=== PATIENT | female | born 1945 | race Caucasian/White ===

== ENCOUNTER 2023-10-18 08:48 | Outpatient (CLI) | payer MEDICARE, SELFPAY ==
--- NOTE | ~2023-10-18 | XR_ITS ---
Left Knee Technique: AP, lateral, and sunrise views were obtained. Clinical History: Pain Findings: No fracture or dislocation is seen. There is mild to moderate degenerative spurring through out the knee.. Soft tissues are unremarkable. No joint effusion is seen. Impression: Mild to moderate tricompartmental degenerative spurring. Reviewed, dictated and finalized at location . Impression: Mild to moderate tricompartmental degenerative spurring.
--- NOTE | ~2023-10-18 | XR_ITS ---
Right Knee Technique: AP, lateral, and sunrise views were obtained. Clinical History: Osteoarthritis Findings: No fracture or dislocation is seen. Osseous alignment is anatomic. Minimal tricompartmental degenerative spurring noted. Soft tissues are unremarkable. No joint effusion is seen. Impression: Minimal tricompartmental degenerative spurring. Reviewed, dictated and finalized at [facility]. Impression: Minimal tricompartmental degenerative spurring.
== END 2023-10-18 08:49 | disposition home or self-care (01) ==
PROVIDERS: PCP Internal Medicine Geriatric Medicine; Visit Provider Orthopaedic Surgery
DX: M17.11 Unilateral primary osteoarthritis, right knee (principal); M25.562 Pain in left knee
CPT/HCPCS: 73564

== ENCOUNTER 2024-09-04 13:26 | Outpatient (CLI) | payer MEDICARE, SELFPAY ==
--- NOTE | ~2024-09-04 | CT_ITS ---
Procedure: CT LE LT wo con Ordering provider: Randell Phillips MD History: . Preoperative Planning . Comparison: None. Technique: Thin slice axial CT of the No IV contrast was given. Sagittal and coronal reformatted imag es were also obtained and reviewed. Radiation reduction technique utilized.The dose-length product wa s 1966.89 mGy-cm. Findings: BONES: No fracture or dislocation. The left acetabulum is unremarkable. The visualized portion of the foot bones is unremarkable. JOINT SPACES: Severe narrowing of the lateral compartment and the left knee. Marginal osteophytes see n in the knee and patella. Osteophytes also seen in the medial and lateral femoral condyle anteriorly and posteriorly. Mild to moderate osteoarthritic changes of the left hip is noted. The ankle joint is unremarkable. SOFT TISSUES: Normal IMPRESSION: No evidence of fractures seen. 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 Reviewed, dictated and finalized at location A.
--- OUTSIDE RECORDS SUMMARY | 2024-09-04 13:26 | XMS_ITS | Encounter Summary ---
Author Organization [facility] Address [address] [place] [address] Phone Care Team Providers Care Optometrist Assistant Name Role Phone Mirna Mac MD Primary Care Provider [phone] Simba Laird MD Unavailable [phone] Skyler Leos MD Unavailable [phone] Ish Zambrano MD Unavailable [phone] Randell Phillips MD Unavailable [phone] Luz Murry MD Unavailable Alex Figueroa MD Unavailable [phone] Cristino Wiley MD Unavailable David Cortes DC Unavailable [phone] Spencer Delcid MD Unavailable [phone] Maki Byrne MA Unavailable Unavailable Encounter Details Date Type Department Care Team (Late st Contact Info) Description 09/26/2022 Orders Only [facility] [address] [place] [address] Scanning, Provider Social History Tobacco Use Types Packs/Day Years Used Date Smoking Tobacco: Former Cigarettes 0.5 5 Smokeless Tobacco: Never Alcohol Use Standard Drinks/Week Comments No 0 (1 standard drink = 0.6 oz pur e alcohol) Social Connection and Isolation Panel [NHANES] A nswer Date Recorded Frequency of Communication with Friends and Fami ly Not on file 01/18/2019 Frequency of Social Gatherings with Friends and Family Not on file 01/18/2019 Attends Orthodox Services Not on file 01/18 Active Member of Clubs or Organizations Not on f ile 01/18/2019 Attends Club or Organization Meetings Not on donato e 01/18/2019 Marital Status Patient declined 01/18/2019 PHQ-2 Answer Date Recorded PHQ-2 Total Score (If total score is 3 or more points, staff should administer the PHQ-9) 0 09/15/2022 Comments No Sex and Gender Information Value Date Recorded Sex Assigned at Not on file Legal Sex Female 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 Gender Identity Not on file Sexual Orientation Not on file Occupation Industry Job Start Date Job End Date Retired Not on file Not on file Not on file documented as of this encounter Plan of Treatment Not on file documented as of this encounter Procedures Procedure Name Priority Date/Time Associated Diagnosis Comments PULMONARY - RESULT SCAN 09/26/2022 documented in this encounter Results * PULMONARY - RESULT SCAN (09/26/2022) Anatomical Region Laterality Modality Other us Provider Scanning Final Result documented in this encounter Visit Diagnoses Not on filedocumented in this encounter Additional Health Concerns Infection Onset Date Last Indicated Resolved Time COVID: Recovered Comment:Added based on recent COVID infection. 07/05/2022 07/15/2022 10/03/2022 3:05 AM C DT documented as of this encounter Care Teams Optometrist Assistant Relationship Specialty Start Date End Date Mirna Mac MD PCP - General 07/15/16 Simba Laird MD Plastic Surgery 12/16/16 Skyler Leos MD [address] [place] [address] Dermatology 12/16/16 Ish Zambrano MD [address] [place] [address] Ophthalmology 12/16/16 Randell Phillips MD [address] [place] [address] [place] [address] Referring Physician Orthopedic Surgery 10/24/17 Luz Murry MD [address] [facility] [address] [place] [address] Consulting Physician General Surgery 07/10/18 Alex Figueroa MD [address] [place] [place] [address] [address] [place] [address] Engineer Conductor Obstetrics and Gynecology 08/04/20 Cristino Wiley MD [address] [place] [place] [address] [address] [place] [address] Consulting Physician Sleep Medicine 03/02/21 David Cortes DC [address] [place] [address] [place] [address] Chiropractic Medicine 05/17/21 Spencer Delcid MD [address] [place] [place] [address] [address] [place] [address] Consulting Physician Gastroenterology 09/15/22 10/10/23 Maki Byrne MA [address] [place] [address] [address] [place] [address] [employer] Care Construction Project Coordinator 10/20/23 10/23/23 documented as of this encounter
--- OUTSIDE RECORDS SUMMARY | 2024-09-04 13:26 | XMS_ITS | Encounter Summary ---
Author Organization [facility] Address 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
--- OUTSIDE RECORDS SUMMARY | 2024-09-04 13:26 | XMS_ITS | Encounter Summary ---
Author Organization [facility] Address 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
--- OUTSIDE RECORDS SUMMARY | 2024-09-04 13:26 | XMS_ITS | Encounter Summary ---
Author Organization [facility] Address 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
--- OUTSIDE RECORDS SUMMARY | 2024-09-04 13:26 | XMS_ITS | Data Portability ---
Author Organization [facility], Main Office Address [address] [facility] [address] [place] [address] Assessment No assessment recorded. Plan of Treatment Reminders Order Date Submit Date Provider Last Modified By Organization Details Last Modified Time Details Appointments ESTABLISH ED PATIENT 30 2025 10:00A M Dr. Leos Not available Not available Not available Lab None recorded. Referral None recorded. Procedures destructi on, premalign ant lesions (PROC) 2023 024 Not available 07/18/2023 10:37:35 Surgeries None recorded. Imaging None recorded. Medication Orders None recorded. Patient TargetsNo targets recorded. Patient Instructions Encounter Date Encounter Id Patient Instructions Last Modified By Organization Details Last Modified Time 07/18/2023 [id number] REVD DX TX AND ANCILLARY CARE. Sun protection. cryo to AK and to wart. fu annually orbefore prn. Not available 07/18/2023 10:38:03 Reason for Referral None Reported. 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 Skyler Leos MD [address] [facility] [address], [place], [address], [facility] 3 12:19:41 Actinic keratosis 974853981 Active 2022 Skyler Leos MD [address] [facility] [address], [place], [address], [facility] 3 10:05:30 Scar 720128842 Active 2022 Skyler Leos MD [address] [facility] [address], [place], [address], [facility] 3 20:08:35 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 Skyler Leos MD [address] [facility] [address], [place], [address], [facility] 4 20:45:53 Verruca vulgaris 68370191 Active 2023 Skyler Leos MD [address] [facility] [address], [place], [address], [facility] 4 10:37:40 Seborrheic keratosis 733297847 Active 2020 Skyler Leos MD [address] [facility] [address], [place], [address], [facility] 1 17:53:53 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 2019 Skyler Leos MD [address] [facility] [address], [place], [address], [facility] 4 09:11:15 Screening for malignant neoplasm of skin Active 2020 Skyler Leos MD [address] [facility] [address], [place], [address], [facility] 1 17:54:19 Chronic effect of ultraviolet radiation on normal skin 200012174 Active 2020 Skyler Leos MD [address] [facility] [address], [place], [address], [facility] 1 17:54:21 Benign neoplasm of skin of toe 84333418 Active 2020 Skyler Leos MD [address] [facility] [address], [place], [address], [facility] 1 17:54:22 Problem Notes None recorded. Procedures Surgical History Date Name Laterality Status Provider Name and Address Organization Details Recorded Time 01/23/2019 Shave Biopsy active Skyler rivera MD [address] [facility] [address], [place], [address], [facility] 01/23/2019 09:49:56 Imaging Results None recorded. Procedure Notes None recorded. Medical Equipment None Reported. Allergies Allergen ID Allergen Name Allergen Category Reaction Reaction Severity Criticality Documentation Date Start Date Code Code System Note Provider Name and Address Organization Details Recorded Time 1951 epinephri ne medicatio n Not available Not available Not available 01/23/2019 3992 RxNorm Skyler Leos MD [address] [facility] [address], [place], [address], [facility] 9 09:48:26 3890 Iodinated contrast media (substanc e) medicatio n Not available Not available Not available 03/16/2021 14947 2004 SNOMED Vonzetta [facility] 1 11:06:45 694 Substance with sulfonami de structure and antibacte rial mechanism of action (substanc e) medicatio n Not available Not available Not available 12/12/2017 97628 8003 SNOMED Vonzetta MCKEON [facility] 8 12:11:08 695 Macrobid medicatio n Not available Not available Not available 12/12/2017 00922 1 RxNorm Vonzetta MCKEON [facility] 8 12:11:17 696 Cipro medicatio n Not available Not available Not available 12/12/2017 75983 3 RxNorm Vonzetta MCKEON [facility] 8 12:11:27 697 Nexium medicatio n Not available Not available Not available 12/12/2017 22805 9 RxNorm Vonzetta MCKEON [facility] 8 12:11:44 698 duloxetin e medicatio n Not available Not available Not available 12/12/2017 45487 RxNorm [facility] [place] 8 12:13:58 8149 felodipin e medicatio n Not available Not available Not available 07/16/2024 4316 RxNorm Armin romero [facility] 5 11:18:07 Medications Name Sig Start Date Stop Date Status Note LastModified by Organization Details LastModified Time losartan 50 mg tablet TAKE 1 TABLET BY MOUTH EVERY DAY active Not Available Not Available No t Available carvedilol 6.25 mg tablet TAKE 1 TABLET BY MOUTH 2 TIMES A DAY. active Not Available Not Available No t Available prednisone 10 mg tablet 01/22 completed Not Available Not Available Not Available doxycycline hyclate 100 mg capsule TAKE 1 TABLET/CA PSULE (100 MG TOTAL) BY MOUTH 2 (TWO) TIMES A DAY FOR 10 DAYS active Not Available Not Available No t Available trazodone 50 mg tablet active Not Available Not Available Not Available diltiazem ER (XR/XT) 240 mg capsule,ext ended release 24 hr, controlled TAKE 1 CAPSULE BY MOUTH EVERY DAY active Not Available Not Available No t Available senna 8.6 mg tablet TAKE 1-2 TABLET BY MOUTH NIGHTLY active Not Available Not Available No t Available meloxicam 15 mg tablet 01/22 completed Not Available Not Available Not Available sucralfate 1 gram tablet TAKE 1 TABLET BY MOUTH FOUR TIMES A DAY active Not Available Not Available No t Available famotidine 40 mg tablet active Not Available Not Available Not Available prednisone 20 mg tablet PLEASE SEE ATTACHED FOR DETAILED DIRECTION S active Not Available Not Available No t Available felodipine ER 5 mg tablet,exte nded release 24 hr TAKE 1 TABLET (5 MG TOTAL) BY MOUTH DAILY. active Not Available Not Available No t Available fluorouraci l 5 % topical cream APPLY TO THE NOTED AREAS OF THE FACE 2 TIMES A DAY FOR 4 WEEKS active Not Available Not Available No t Available amlodipine 2.5 mg tablet TAKE 1 TABLET BY MOUTH EVERY DAY NEEDED FOR BLOOD PRESSURE ABOVE 150/90 active Not Available Not Available No t Available nifedipine ER 30 mg tablet,exte nded release TAKE 1 TABLET BY MOUTH EVERY DAY active Not Available Not Available No t Available clopidogrel 75 mg tablet TAKE 1 TABLET BY MOUTH DAILY active Not Available Not Available No t Available aspirin 81 mg tablet,daily yed release TAKE 1 TABLET BY MOUTH EVERY DAY active Not Available Not Available No t Available spironolact one 25 mg tablet PLEASE SEE ATTACHED FOR DETAILED DIRECTION S active Not Available Not Available No t Available ketorolac 0.5 % eye drops USE ONE DROP IN OPERATED EYE 3 TIMES A DAY BEGINNING 3 DAYS BEFORE THE SURGERY. active Not Available Not Available No t Available famotidine 20 mg tablet TAKE 1 TAB BY MOUTH AT BEDTIME THE NIGHT BEFORE PROCEDURE & 1 TAB BY MOUTH THE MORNING OF PROCEDURE . active Not Available Not Available No t Available prednisolon e acetate 1 % eye drops,suspe nsion INSTILL ONE DROP INTO THE RIGHT EYE TWICE A DAY FOR 2 WEEKS active Not Available Not Available No t Available cephalexin 500 mg capsule 01/22 completed Not Available Not Available Not Available pantoprazol e 40 mg tablet,daily yed release TAKE 1 TABLET (40 MG TOTAL) BY MOUTH DAILY NEEDED FOR GERD active Not Available Not Available No t Available Banophen 25 mg capsule TAKE 2 CAPS BY MOUTH AT BEDTIME THE NIGHT BEFORE PROCEDURE & 2 CAPS BY MOUTH MORNING OF PROCEDURE active Not Available Not Available No t Available aspirin 81 mg chewable tablet TAKE 1 TABLET BY MOUTH EVERY DAY active Not Available Not Available No t Available montelukast 10 mg tablet TAKE 1 TABLET BY MOUTH EVERY DAY AT NIGHT active Not Available Not Available No t Available pravastatin 20 mg tablet TAKE 1 TABLET BY MOUTH EVERY DAY active Not Available Not Available No t Available mupirocin 2 % topical ointment APPLY SPARINGLY TO AFFECTED AREA 3 TIMES A DAY FOR 10 DAYS active Not Available Not Available No t Available furosemide 20 mg tablet active Not Available Not Available Not Available polyethylen e glycol 3350 17 gram/dose oral powder 01/22 completed Not Available Not Available Not Available methylpredn isolone 4 mg tablets in a dose pack TAKE 6 TABLETS ON DAY 1 DIRECTED ON PACKAGE AND DECREASE BY 1 TAB EACH DAY FOR A TOTAL OF 6 DAYS active Not Available Not Available No t Available labetalol 100 mg tablet TAKE 0.5-1 TABLETS (50-100 MG TOTAL) BY MOUTH 2 (TWO) TIMES A DAY active Not Available Not Available No t Available fluticasone propionate 50 mcg/actuati on nasal spray,suspe nsion 01/22 completed Not Available Not Available Not Available metformin ER 500 mg tablet,exte nded release 24 hr TAKE 1 TABLET BY MOUTH DAILY WITH DINNER IF WELL TOLERATED MAY HAVE 90 DAYS AT FUTURE REFILLS active Not Available Not Available No t Available sertraline 50 mg tablet active Not Available Not Available Not Available doxycycline hyclate 100 mg tablet TAKE 1 TABLET BY MOUTH TWICE A DAY active Not Available Not Available No t Available ipratropium bromide 21 mcg (0.03 %) nasal spray 01/22 completed Not Available Not Available Not Available ramipril 5 mg capsule TAKE 2 CAPSULES (10 MG TOTAL) BY MOUTH DAILY active Not Available Not Available No t Available ramipril 10 mg capsule TAKE 1 CAPSULE (10 MG TOTAL) BY MOUTH NIGHTLY. active Not Available Not Available No t Available rosuvastati n 20 mg tablet TAKE 1 TABLET BY MOUTH EVERY DAY active Not Available Not Available No t Available cholecalcif rolf (vitamin D3) 1,250 mcg (50,000 unit) capsule TAKE 1 TABLET (50,000 UNITS TOTAL) BY MOUTH ONCE A WEEK active Not Available Not Available No t Available GaviLyte-G 236 gram-22.74 gram-6.74 gram-5.86 gram oral solution 01/22 completed Not Available Not Available Not Available gatifloxaci n 0.5 % eye drops active Not Available Not Available Not Available turmeric root extract 500 mg capsule active Not Available Not Available N ot Available OneTouch Verio test strips TEST BLOOD SUGAR EVERY DAY active Not Available Not Available No t Available OneTouch Delica Plus Lancet 33 gauge USE TO CHECK BLOOD SUGAR DAILY active Not Available Not Available No t Available BinaxNOW COVID-19 Ag Self Test kit TEST DIRECTED TODAY active Not Available Not Available No t Available Vitals None Recorded Social History None recorded. Functional Status None recorded. Mental Status None recorded. Family History Nothing Reported. Medical History No medical history recorded. Gynecological HistoryNo gynecological history recorded. Obstetrics History GPAL:G 0 P 0 0 0 0 Past Encounters Encounter ID Performer Location Encounter Start Date Encounter Closed Date Diagnosis/Indication Diagnosis SNOMED-CT Code Diagnosis ICD10 Code Diagnosis Note [id number] Skyler Leos MD Main Office [address] [facility] [address] [place] [address] 05/10/2022 09:52:40 05/10/2022 10:16:24 Neoplasm of uncertain behavior of skin 03582929 D48.5 [id number] Skyler Leos MD Main Office [address] [facility] [address] [place] [address] 07/18/2023 10:16:20 07/18/2023 10:39:31 Actinic keratosis 252316484 L57.0 Verruca vulgaris 1667412 3 B07.8 Health Concerns Section Related Observation LastModified by Organization Detai ls LastModified Time None Recorded Concern Status LastModified by Organization Details LastModified Time None Recorded Advance Directives Directive None Recorded Payers Encounter Date Sequence Insurance Name Policy Number Policy Cook Covered Member ID Cook Member ID Guarantor Name 07/18/2023 2 [place] [id number] Jackelyn Johnson [place] [id number] 07/18/2023 1 [place] Jackelyn Johnson [place] [id number] 1 Notes Date Note Type Note Provider Name and Address Organization Details Recorded Time 07/18/2023 text/html fu chemocream. face, May 15 completed, 2 x per day, 4 weeks.SHOWED HOTOS OF THE WAY IT LOOKED-UPPER LIP AND R CHEEK W ERYTHEMA IN MAY photo.FAce?re r neck esion, and noted new AK during our exam onr arm. Skyler Leos MD [address] [facility] [address], [place], [address], [facility] [place] [facility] 07/18/2023 10:39:07 OBGyn Episode No OBEpisode recorded.
--- OUTSIDE RECORDS SUMMARY | 2024-09-04 13:26 | XMS_ITS | Encounter Summary ---
Author Organization [email or web address] Address [address] [place] [address] Phone Care Team Providers Care Blanker Press Operator Name Role Phone Mirna Mac MD Primary Care Provider Tirso Monique DO Unavailable Yu Barrera MD Unavailable [phone] Tena Lisa MD Unavailable [phone] [facility] Unavailable [phone] Skyler Leos MD Unavailable [phone] Ish Zambrano MD Unavailable [phone] Randell Phillips MD Unavailable +[phone] Luz Murry MD Unavailable Carmela Varner MA Unavailable Alex Figueroa MD Unavailable [phone] Cristino Wiley MD Unavailable David Cortes DC Unavailable +[phone] George Samano MD Unavailable Spencer Delcid MD Unavailable Maki Byrne MA Unavailable Unavailable Encounter Details Date Type Department Care Team (Late st Contact Info) Description 09/20/2016 Orders Only [facility] [address] [place] [address] Ana Valles LPN Social History Tobacco Use Types Packs/Day Years Used Date Smoking Tobacco: Never Assessed Comments Unknown Sex and Gender Information Value Date Recorded Sex Assigned at Not on file Legal Sex Female 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 07/05/2022 07/15/2022 10/03/2022 3:05 AM C DT documented as of this encounter Care Teams Blanker Press Operator Relationship Specialty Start Date End Date Mirna Mac MD PCP - General 07/15/16 Tirso Monique DO Otolaryngology 12/16/16 09/14/22 Yu Barrera MD Gynecologic Oncology 12/16/16 08/03/20 Tena Lisa MD Gastroenterology 12/16/16 09/14/22 Simba Laird MD Plastic Surgery 12/16/16 Skyler Leos MD [address] [facility] [address] [place] [address] Dermatology 12/16/16 Ish Zambrano MD [address] [place] [address] Ophthalmology 12/16/16 Randell Phillips MD [address] [place] [address] [place] [address] Referring Physician Orthopedic Surgery 10/24/17 Luz Murry MD [address] [facility] [address] [place] [address] Consulting Physician General Surgery 07/10/18 Carmela Varner MA [address] [place] [address] [address] [place] [address] ACO Care Printed Circuit Photographer 09/24/18 09/24/18 Alex Figueroa MD [address] [place] [address] [address] [place] [address] Business Development Representative Obstetrics and Gynecology 08/04/20 Cristino Wiley MD [address] [place] [address] [address] [place] [address] Consulting Physician Sleep Medicine 03/02/21 David Cortes DC [address] [place] [address] [place] [address] Chiropractic Medicine 05/17/21 George Samano MD [address] [facility] [place] [address] Consulting Physician General Surgery 02/07/22 02/07/22 Spencer Delcid MD [address] [facility] [address] [place] [address] Consulting Physician Gastroenterology 09/15/22 10/10/23 Maki Byrne, ESTHER [address] [facility] [address] [place] [address] ACO Care Printed Circuit Photographer 10/20/23 10/23/23 documented as of this encounter
--- OUTSIDE RECORDS SUMMARY | 2024-09-04 13:26 | XMS_ITS | Continuity of Care Document ---
Author Organization [facility] Address [address] [place] [address] Phone Care Team Providers Care Rn Home Care Name Role Phone Spencer Rachel MD Unavailable Unavailable Advance Directives Directive Yes / No Effective Date File Name No Information Encounters Encounter Description Practice Location Reason(s) For Visit Diagnoses Date Provider Providers Copied on Encounter [facility], [address] [facility], [place], [place], [id number], tel:[phone] [facility] SHORTNESS OF BREATHEDEMA [address] [place] [address], [facility] [address] [place], [place], [id number], . tel:[phone] [facility], [address] [facility], [place], [place], [id number], tel:[phone] [facility] DERMATITIS NOS May-0 [address] [place] [address], [address], [id number], . tel:[phone] [facility], [address] [facility], [place], [place], [id number], tel:[phone] [facility] OTITIS MEDIA NOS May-0 [address] Silvana Korin. [address] [place] [address], [address], [place], [place], [address], . tel:[phone] [facility], [address] [facility], [place], [place], [address], tel:[phone] [facility] MALAISE AND FATIGUE NECABNORMAL GLUCOSE NECMIXED HYPERLIPIDEMIA [address] [place] [address], [address], [place], [place], [address], [place]. tel:[phone] [facility], [address], [place], [place], [address], [place] tel:[phone] [facility] ACUTE URI NOS 3 Conversion Doctor. [address] [place] [address], [place], [address], [place]. [facility], [address], [place], [place], [address], [place] tel:[phone] [facility] VACCIN FOR INFLUENZA [address]. [address] [place] [address], [address], [place], [place], [address], [place]. tel:[phone] [facility], [address], [place], [place], [address], [place] tel:[phone] [facility] URINARY FREQUENCY [address]. [address] [place] [address], [address], [place], [place], [address], [place]. tel:[phone] [facility], [address], [place], [place], [address], [place] tel:[phone] [facility] DIZZINESS AND GIDDINESS 3 Wilson Palmer. [address] [place] [address], [address], [place], [place], [address], [place]. tel:[phone] [facility], [address], [place], [place], [address], [place] tel:[phone] [facility] HAIR DISEASES NECJOINT PAIN-UP/ARMSCRE EN-CARDIOVASC NEC 3 [address] Palmer. [address] [place] [address], [address], [place], [place], [address], [place]. tel:[phone] [facility], [address], [place], [place], [address], [place] tel:[phone] [facility] SWELLING OF LIMBSUPERFIC PHLEBITIS-LEG 3 Wilson Palmer. [address] [place] [address], [address], [place], [place], [address], [place]. tel:[phone] Family History Family Member Type Diagnosis Age At Onset No Information Immunizations Vaccine Date Status Comments 09868 - Influenza administered Source: So urce Unspecified Payers Payer name Insurance type Covered democrat ID Authoriza tion(s) No Information Social History Type Description Quantity Date Captured Comments Sex Female Smoking Status No Information Chief Complaint And Reason For Visit No Information Reason For Referral Reason For Referral No Information History Of Present Illness Encounter Date Complaint History Of Prese nt Illness No Information Functional Status Date Functional Assessmen t No Information Instructions Date Instruction Additional Infor mation No Information Assessments Type Assessment Date No Information Patient Care Teams Name Effective Dates (start - stop) Status Members No Information
--- OUTSIDE RECORDS SUMMARY | 2024-09-04 13:26 | XMS_ITS | Encounter Summary ---
Author Organization [facility] Address 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
--- OUTSIDE RECORDS SUMMARY | 2024-09-04 13:26 | XMS_ITS | Encounter Summary ---
Author Organization [facility] Address [address] [place] [address] Care Team Providers Care Microelectronics Assembler Name Role Phone Mirna Mac MD Primary Care Provider Tirso Monique DO Unavailable [phone] Tena Lisa MD Unavailable [phone] Simba Laird MD Unavailable [phone] Skyler Leos MD Unavailable [phone] Ish Zambrano MD Unavailable [phone] Randell Phillips MD Unavailable [phone] Luz Murry MD Unavailable [phone] Alex Figueroa MD Unavailable [phone] Cristino Wiley MD Unavailable David Cortes DC Unavailable +[phone] George Samano MD Unavailable Spencer Delcid MD Unavailable [phone] Maki Byrne MA Unavailable Unavailable Reason for Visit * Reason Onset Date Comments Scheduling Appointments 10/02/2020 Encounter Details Date Type Department Care Team (Late st Contact Info) Description 10/02/2020 Telephone [facility] [address] [place] [place] [id number] Leonardo Davila RT Scheduling Appointments Social History Tobacco Use Types Packs/Day Years [...] and Family Not on file 01/18/2019 Attends Jew Services Not on file 01/18 Active Member of Clubs or Organizations Not on f ile 01/18/2019 Attends Club or Organization Meetings Not on donato e 01/18/2019 Marital Status Patient declined 01/18/2019 PHQ-2 Answer Date Recorded PHQ-2 Total Score (If total score is 3 or more points, staff should administer the PHQ-9) 0 08/04/2020 Comments No Sex and Gender Information Value Date Recorded Sex Assigned at Not on file 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 07/05/2022 07/15/2022 10/03/2022 3:05 AM C DT documented as of this encounter Care Teams Microelectronics Assembler Relationship Specialty Start Date End Date Mirna Mac MD PCP - General 07/15/16 Tirso Monique DO Otolaryngology 12/16/16 09/14/22 Tena Lisa MD Gastroenterology 12/16/16 09/14/22 Simba Laird MD Plastic Surgery 12/16/16 Skyler Leos MD [address] [facility] [address] [place] [address] Dermatology 12/16/16 Ish Zambrano MD [address] [place] [address] [place] [address] Ophthalmology 12/16/16 Randell Phillips MD [address] [place] [address] [place] [address] Referring Physician Orthopedic Surgery 10/24/17 Luz Murry MD [address] [facility] [address] [place] [address] Consulting Physician General Surgery 07/10/18 Alex Figueroa MD [address] [place] [address] [place] [address] Chemical Dependency Professional Obstetrics and Gynecology 08/04/20 Cristino Wiley MD [address] [place] [address] [place] [address] Consulting Physician Sleep Medicine 03/02/21 David Cortes DC [address] [place] [address] [place] [address] Chiropractic Medicine 05/17/21 George Samano MD [address] [facility] [place] [address] Consulting Physician General Surgery 02/07/22 02/07/22 Spencer Delcid MD [address] [facility] [address] [facility] [place] [address] Consulting Physician Gastroenterology 09/15/22 10/10/23 Maki Byrne, ESTHER [address] [place] [address] [address] [place] [address] ACO Care Automobile Racer 10/20/23 10/23/23 documented as of this encounter
--- OUTSIDE RECORDS SUMMARY | 2024-09-04 13:26 | XMS_ITS | Encounter Summary ---
Author Organization [facility] Address [address] [place] [address] Care Team Providers Care Arabic Translator Name Role Phone Mirna Mac MD Primary Care Provider [phone] Simba Laird MD Unavailable [phone] Skyler Leos MD Unavailable [phone] Ish Zambrano MD Unavailable [phone] Randell Phillips MD Unavailable [phone] Luz Murry MD Unavailable [phone] Alex Figueroa MD Unavailable [phone] Cristino Wiley MD Unavailable David Cortes DC Unavailable [phone] Encounter Details Date Type Department Care Team (Late st Contact Info) Description 10/30/2023 Orders Only [facility] [address] [place] [address] Scanning, Provider Social History Tobacco [...] and Family Not on file 01/18/2019 Attends Spiritism Services Not on file 01/18 Active Member of Clubs or Organizations Not on f ile 01/18/2019 Attends Club or Organization Meetings Not on donato e 01/18/2019 Marital Status Patient declined 01/18/2019 AUDIT-C Answer Date Recorded Q1: How often do you have a drink containing alc ohol? Never 03/25/2023 Average Number of Drinks Not on file 023 Frequency of Binge Drinking Not on file 12/2022 PHQ-2 Answer Date Recorded PHQ-2 Total Score (If total score is 3 or more points, staff should administer the PHQ-9) 1 04/11/2023 Personal Safety Answer Date Recorded Have you ever been in or are you currently in a harmful physical or emotional relationship or is someone making you feel afraid or unsafe? 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 Gender Identity Not on file Sexual Orientation Not on file Occupation Industry Job Start Date Job End Date Retired Not on file Not on file Not on file documented as of this encounter Plan of Treatment Not on file documented as of this encounter Procedures Procedure Name Priority Date/Time Associated Diagnosis Comments PROCEDURE - RESULT 10/30/2023 documented in this encounter Results * PROCEDURE - RESULT (10/30/2023) us Provider Scanning Final Result documented in this encounter Visit Diagnoses Not on filedocumented in this encounter Care Teams Arabic Translator Relationship Specialty Start Date End Date Mirna Mac MD PCP - General 07/15/16 Simba Laird MD Plastic Surgery 12/16/16 [place] [address] [place] [address] Dermatology 12/16/16 Ish Zambrano MD [address] [place] [address] Ophthalmology 12/16/16 Randell Phillips MD [address] [place] [address] Referring Physician Orthopedic Surgery 10/24/17 Luz Murry MD [address] [facility] [address] [place] [address] Consulting Physician General Surgery 07/10/18 Alex Figueroa MD [address] [facility] [address] [place] [address] Scrap Breaker Obstetrics and Gynecology 08/04/20 Cristino Wiley MD [address] [facility] [place] [address] Consulting Physician Sleep Medicine 03/02/21 aDvid Cortes DC [address] [place] [address] [place] [address] Chiropractic Medicine 05/17/21 documented as of this encounter
--- OUTSIDE RECORDS SUMMARY | 2024-09-04 13:26 | XMS_ITS | Encounter Summary ---
Author Organization [facility] Address [address] [place] [address] Phone Care Team Providers Care Peeled Potato Inspector Name Role Phone Mirna Mac MD Primary Care Provider Tirso Monique DO Unavailable Yu Barrera MD Unavailable [phone] Tean Lisa MD Unavailable [phone] [facility] MD Unavailable [phone] Skyler Leos MD Unavailable [phone] Ish Zambrano MD Unavailable [phone] Randell Phillips MD Unavailable [phone] Luz Murry MD Unavailable Carmela Varner MA Unavailable Alex Figueroa MD Unavailable [phone] Cristino Wiley MD Unavailable David Cortes DC Unavailable [phone] George Samano MD Unavailable Spencer Delcid MD Unavailable Maki Byrne MA Unavailable Unavailable Encounter Details Date Type Department Care Team (Late st Contact Info) Description 01/02/2017 Orders Only [facility] [address] [place] [address] Mirna Mac MD [address] [place] [address] Insomnia with sleep apnea, unspecified (Primary Dx) Social History Tobacco Use Types Packs/Day Years Used Date Smoking Tobacco: Former Cigarettes Smokeless Tobacco: Never Alcohol Use Standard Drinks/Week Comments No 0 (1 standard drink = 0.6 oz pur e alcohol) Comments No Sex and Gender Information Value Date Recorded Sex Assigned at Not on file Legal Sex Female 7:45 PM PATIENT SUPPORT TECH Gender Identity Not on file Sexual Orientation Not on file Occupation Industry Job Start Date Job End Date Retired Not on file Not on file Not on file documented as of this encounter Plan of Treatment Not on file documented as of this encounter Visit Diagnoses Diagnosis Insomnia with sleep apnea, unspecified- Primary documented in this encounter Additional Health Concerns Infection Onset Date Last Indicated Resolved Time COVID: Suspected 06/25/2022 06/25/2022 06/25/2022 5:00 PM PATIENT SUPPORT TECH COVID19 06/25/2022 06/25/2022 07/05/2022 3:05 AM CDT COVID: Recovered Comment:Added based on recent COVID infection. 07/05/2022 07/15/2022 10/03/2022 3:05 AM C DT documented as of this encounter Care Teams Peeled Potato Inspector Relationship Specialty Start Date End Date Mirna Mac MD PCP - General 07/15/16 Tirso Monique DO Otolaryngology 12/16/16 09/14/22 Yu Barrera MD Gynecologic Oncology 12/16/16 08/03/20 Tena Lisa MD Gastroenterology 12/16/16 09/14/22 Simba Laird MD Plastic Surgery 12/16/16 Skyler Leos MD 1224 [facility] [address] [place] [address] Dermatology 12/16/16 Ish Zambrano MD [address] [place] [address] Ophthalmology 12/16/16 Randell Phillips MD [address] [place] [address] Referring Physician Orthopedic Surgery 10/24/17 Luz Murry MD [address] [facility] [place] [facility] [address] [place] [address] Consulting Physician General Surgery 07/10/18 Carmela Varner, ESTHER [address] [place] [address] [address] [place] [address] ACO Care Lab Courier 09/24/18 09/24/18 Alex Figueroa MD [address] [place] [address] [address] [place] [address] Laboratory Phlebotomist Obstetrics and Gynecology 08/04/20 Cristino Wiley MD [address] [place] [address] [place] [address] Consulting Physician Sleep Medicine 03/02/21 David Cortes DC [address] [place] [address] [place] [address] Chiropractic Medicine 05/17/21 George Samano MD [address] [place] [address] [place] [address] Consulting Physician General Surgery 02/07/22 02/07/22 Spencer Delcid MD [address] [place] [address] [address] [place] [address] Consulting Physician Gastroenterology 09/15/22 10/10/23 Maki Byrne MA [address] [place] [address] [address] [place] [address] ACO Care Lab Courier 10/20/23 10/23/23 documented as of this encounter
--- OUTSIDE RECORDS SUMMARY | 2024-09-04 13:26 | XMS_ITS | Encounter Summary ---
Author Organization [facility] Healthcare Address [address] [place] [address] Care Team Providers Care Supervisor Covering And Lining Name Role Phone Mirna Mac MD Primary Care Provider + [phone] Tirso Monique DO Unavailable [phone] Tena Lisa MD Unavailable [phone] Simba Laird MD Unavailable [phone] Skyler Leos MD Unavailable [phone] Ish Zambrano MD Unavailable [phone] Randell Phillips MD Unavailable [phone] Luz Murry MD Unavailable [phone] Alex Figueroa MD Unavailable [phone] Cristino Wiley MD Unavailable David Cortes DC Unavailable [phone] George Samano MD Unavailable Spencer Delcid MD Unavailable [phone] Maki Byrne MA Unavailable Unavailable Reason for Visit * Reason Onset Date Comments Scheduling Appointments 09/03/2020 wants to cancel - gave her schedulings number Encounter Details Date Type Department Care Team (Late st Contact Info) Description 09/03/2020 Telephone [facility] [address] [place] [address] Rosa Maria Saini RT Scheduling Appointments (wants to cancel - gave her schedulings number) Social History Tobacco Use Types Packs/Day Years [...] and Family Not on file 01/18/2019 Attends Yazidi Services Not on file 01/18 Active Member [...] on file Legal Sex Female 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 07/05/2022 07/15/2022 10/03/2022 3:05 AM C DT documented as of this encounter Care Teams Supervisor Covering And Lining Relationship Specialty Start Date End Date Mirna Mac MD PCP - General 07/15/16 Tirso Moniqeu DO Otolaryngology 12/16/16 09/14/22 Tena Lisa MD Gastroenterology 12/16/16 09/14/22 Simba Laird MD Plastic Surgery 12/16/16 Skyler Leos MD 1224 [facility] [address] [place], [place] [address] Dermatology 12/16/16 Ish Zambrano MD [address] [place] [address] Ophthalmology 12/16/16 Randell Phillips MD [address] [place] [address] Referring Physician Orthopedic Surgery 10/24/17 Luz Murry MD [address] [facility] [address] [place] [address] Consulting Physician General Surgery 07/10/18 Alex Figueroa MD [address] [place] [address] [address] [address] Quill Collector Obstetrics and Gynecology 08/04/20 Cristino Wiley MD [address] [place] [address] [address] [place] [address] Consulting Physician Sleep Medicine 03/02/21 David Cortes DC [address] [facility] [place] [address] Chiropractic Medicine 05/17/21 George Samano MD [address] [facility] [place] [address] Consulting Physician General Surgery 02/07/22 02/07/22 Spencer Delcid MD [address] [place] [address] [facility] [address] [place] [address] Consulting Physician Gastroenterology 09/15/22 10/10/23 Maki Byrne MA [address] [place] [address] [address] [place] [address] ACO Care Facilities Maintenance Engineer 10/20/23 10/23/23 documented as of this encounter
--- OUTSIDE RECORDS SUMMARY | 2024-09-04 13:26 | XMS_ITS | Encounter Summary ---
Author Organization [facility] Address [address] [place], [place] [address] [address] Care Team Providers Care Online Trader Name Role Phone Unavailable Primary Care Provider Unavailabl e Encounter Details Date Type Department Care Team (Late st Contact Info) Description 05/13/2022 Lab Requisition [facility] [address] [place] [address] Skyler Leos MD [facility] [address] Social History Tobacco Use Types Packs/Day Years Used Date Smoking Tobacco: Former Alcohol Use Standard Drinks/Week Comments No 0 (1 standard drink = 0.6 oz pur e alcohol) Comments Unknown Sex and Gender Information Value Date Recorded Sex Assigned at Not on file Legal Sex Female 6:03 PM PHLEBOTOMY SUPPORT TECH Gender Identity Not on file Sexual Orientation Not on file documented as of this encounter Plan of Treatment Not on file documented as of this encounter Procedures Procedure Name Priority Date/Time Associated Diagnosis Comments DERMATOPATHOLOGY Routine 05/10/2022 12:0 0 AM PHLEBOTOMY SUPPORT TECH documented in this encounter Results * DERMATOPATHOLOGY (05/10/2022 12:00 AM PHLEBOTOMY SUPPORT TECH) Case Report Dermatopathology Report Case: [id number] Authorizing Provider: Skyler Leos MD Collected: 05/10/2022 12:00 AM Ordering Location: [facility] Received: 05/13/2022 12:16 PM Pathologist: Nicolette Aguilar MD Specimen: Skin, right distal anterior thigh 3 12:59 PM [facility] Final Diagnosis Specimen A. SKIN, right distal anterior thigh: SEBORRHEIC KERATOSIS, MACULAR (L82.1) 3 12:59 PM [facility] at 1259 PHLEBOTOMY SUPPORT TECH Clinical History SK/ISK, R/O Lentigo Maligna, R/O Pigmented AK 3 12:59 PM [facility] Gross Description Specimen A: Received is one formalin filled container labeled with the patient's name and designated right distal anterior thigh. The specimen consists of a shave biopsy measuring [id number] mm. Jar 0. 12:59 PM [facility] Microscopic Description Specimen A. SKIN, right distal anterior thigh: Sections show a relatively broad, flat proliferation of small keratinocytes. The surface is gently papillated, and there is increased basilar pigmentation. MART-1/Melan A and SOX-10 stains fail to reveal a melanocytic neoplasm. 3 12:59 PM [facility] Disclaimer An external and internal positive and negative controls are appropriate for the histochemical, immunohistochemical and immunofluorescence stain(s) in this case (if any), except where stated explicitly. The performance characteristics of the stain(s) cited in this report were developed and its performance characteristic determined by the Dermatopathology Laboratory at [facility], directed by Dr. Jerson Rodrigez. These tests need not be, and therefore are not, approved by the [place] Food and Drug Administration. The tests are used for clinical purposes. Billing Codes Specimen Charges Stain Charges 18440 1 [id number] 1 1 3 12:59 PM [facility] Embedded Images 3 12:59 PM [facility] Pathology/Cytolog y TISSUE SPECIMEN FROM SKIN / Unknown 05/10/2022 05/13/2022 12:16 PM PHLEBOTOMY SUPPORT TECH Skyler Leos MD LAB - PATHOLOGY/CYTOLOGY ORDERAB LES Final Result DERMATOPATHOLOGY LABORATORY [facility] - Department of Dermatology [facility], [address]rd Floor [address] [phone] documented in this encounter Visit Diagnoses Not on filedocumented in this encounter
--- OUTSIDE RECORDS SUMMARY | 2024-09-04 13:26 | XMS_ITS | Clinical Summary ---
Author Organization [facility] Address [address] [place] [address] Phone Care Team Providers Care Promotion Manager Name Role Phone Mirna Mca MD Primary Care Provider [phone] Medications No known medications Active Problems Problem Noted Date Diagnosed Date Chronic insomnia 02/05/2021 Adjustment disorder 02/05/2021 Family History Medical History Relation Name Comments No Known Problems Father No Known Problems Mother Mental Disorder, Other Sister Relation Name Status Comments Father Mother Sister Alive Social History Tobacco Use Types Packs/Day Years Used Date Smoking Tobacco: Never Smokeless Tobacco: Never Alcohol Use Standard Drinks/Week Comments Never 0 (1 standard drink = 0.6 oz pur e alcohol) PHQ-2 Answer Date Recorded Total Score - Questions 1-9 13 09/2020 Comments Unknown Sex and Gender Information Value Date Recorded Sex Assigned at Not on file Legal Sex Female 11:16 PM CDT Gender Identity Not on file Sexual Orientation Not on file Plan of Treatment Health Maintenance Due Date Last Done Comments Hepatitis C Virus (HCV) Screening 1945 Pneumococcal Immunization (50+ years) (1 of 1 - PCV) 1996 Zoster Immunization (1 of 2) 1996 Respiratory Syncytial Virus (RSV) Immunization (Adult) (1 - 1-dose 75+ series) 2021 Influenza Immunization (#1) 12/17/202301/15, 01/28/2020, 01/28/2019 SARS-COV-2 Immunization ( season) 2023 02/17/2021, 07/21/2020, 06/23/2020 DTaP/Tdap/Td Immunization Discontinued 2020, 02/12/2010 TdaP Immunization Completed 09/22/2020, 02/12/2010 Hepatitis B Immunization Aged Out No longer eligible based on patient's age to complete this topic Meningococcal Immunization (ACWY) Aged Out No longer eligible based on patient's age to complete this topic Rotavirus Immunization Aged Out No lo nger eligible based on patient's age to complete this topic Goals Goal Patient Goal Type Associated Problems Recent Progress Patient-Stated? Author I want to know if the sleep issues are from something I'm not aware of. Behavioral Health On track( 021 10:56 AM CDT) Yes Olga Abdi LCSW Note: Goal Reviewed with: patient today Readiness to change: Ready to change Department associated with goal: [facility] Steps to achieve goal: will identify at least two ways sleep hygiene could be negatively impacted will identify at least two ways to improve sleep hygiene will identify at least two ways/skills/habits of self-care believed to have a positive outcome on sleep Insurance MEDICARE [employer] MED[employer]ARE SUP Care Teams Promotion Manager Relationship Specialty Start Date End Date Mirna Mac MD [address] [facility] [address] PCP - General Geriatric Medicine 12/30/20
--- OUTSIDE RECORDS SUMMARY | 2024-09-04 13:26 | XMS_ITS | Referral Summary ---
Author Organization [facility] Address [address] [place] [address] Care Team Providers Care Dietitian Assistant Name Role Phone Mirna Bryson MD Primary Care Provider [phone] Simba Liard MD Unavailable [phone] Skyler Leos MD Unavailable [phone] Ish Zambrano MD Unavailable Randell Phillips MD Unavailable [phone] Luz Murry MD Unavailable Alex Figueroa MD Unavailable [phone] Cristino Wiley MD Unavailable David Cortes DC Unavailable [phone] Encounters Date Type Department Care Team Description 08/27/2024 Telephone [facility] Medical [facility] [address] [place] [phone] Mirna Bryson MD 08/09/2024 Orders Only [facility] [address] [place] [phone] Scanning, Provider 07/29/2024 9:00 AM CDT Office Visit [facility] [address] [place] [address] Gaetano Shen NP Laceration of left ear canal, initial encounter (Primary Dx) 07/23/2024 Telephone [facility] [address] [place] [phone] Mirna Bryson MD 06/20/2024 9:45 AM TAR HEAT EXCHANGER CLEANER Office Visit [facility] [address] [place] [phone] Cristino Wiley MD ALEM (obstructive sleep apnea) (Primary Dx); Hypersomnia with sleep apnea; Circadian rhythm sleep disorder, advanced sleep phase type; Obesity (BMI 30.0-34.9); Transient ischemic attack (TIA) from Last 3 Months Allergies Active Allergy Reactions Criticality Noted Date Comments Ramipril Cough Low 11/02/2023 Switch to losartan 50 mg because of the chronic tickle in the throat and a cough 11/02/2023 Ciprofloxacin Nausea only Low Duloxetine Other (See comments) Low 12/16/2016 Hypertension Diltiazem Other (See comments) Low 11/01/2022 She may be intolerance she is developed dry eye dry mouth and feels it may be from the diltiazem. We could resume in the future if it was not this medicine Famotidine Itching Low 05/17/2021 Fluoxetine Other (See comments) Low 02/17/2019 High blood pressure Hydrochlorothiazide Rash Medium Iodinated Contrast Media Hives,Rash Medium 10/27/2011 Severe hives Severe hives, Severe hives Esomeprazole Itching Low 10/28/2016 Nitrofurantoin Fever Medium Pantoprazole Itching Low 11/10/2022 Felodipine Rash Medium 04/19/2023 Itching and rash developed after taking this medicine Semaglutide Other (See comments) Low 11/30/2023 Acid reflux on a low dose of 3 mg burning in his throat acid brash Shellfish Containing Products Hives Medium Sulfa (Sulfonamide Antibiotics) Rash Medium 10/27/2011 Medications polyethylene glycol (MIRALAX) 17 gram/dose powderIndications :Chronic constipation Take 17 g by mouth 2 (two) times a day Active senna (SENOKOT) 8.6 mg tabletIndications :Chronic constipation Take 1-2 tablets by mouth nightly 100 tablet 11 Active aspirin 81 mg chewable tabletIndications :Temporary cerebral vascular dysfunction Take 1 tablet (81 mg total) by mouth daily 90 tablet 2 024 Active acetaminophen (TYLENOL) 500 mg tabletIndications :Arthritis of knee Take 1 tablet (500 mg total) by mouth 2 (two) times a day Tylenol immediate release 500 mg plus Tylenol ER 650 mg Active rosuvastatin (CRESTOR) 20 mg tabletIndications :Type 2 diabetes mellitus without complication, without long-term current use of insulin (HCC),Multiple-ty pe hyperlipidemia Take 1 tablet (20 mg total) by mouth daily 90 tablet 2 024 Active spironolactone (ALDACTONE) 25 mg tabletIndications :Hypertension complicating diabetes (HCC) Take 0.5-1 tablets (12.5-25 mg total) by mouth 3 (three) times a week Adjust no more than once weekly to keep blood pressure 100-140/60-80 range 90 tablet 1 Active blood glucose diagnostic (OneTouch Verio test strips) stripIndications: Type 2 diabetes mellitus without complication, without long-term current use of insulin ([facility]) USE TO CHECK BLOOD SUGAR DAILY E11.9 non insulin 100 strip 3 Active labetaloL (NORMODYNE,TRANDA TE) 100 mg tabletIndications :Hypertension complicating diabetes (HCC) Take 0.5-1 tablets (50-100 mg total) by mouth 2 (two) times a day 180 tablet 2 024 Active metFORMIN XR (GLUCOPHAGE XR) 500 mg 24 hr tabletIndications :Type 2 diabetes mellitus with other circulatory complications (HCC) Take 1 tablet (500 mg total) by mouth daily with dinner 90 tablet 2 025 Active diclofenac sodium (VOLTAREN) 1 % gelIndications:Ar thritis of knee Apply 2 g topically 4 (four) times a day 200 g 11 025 Active Additional Information Patient not taking.Reported on 07/29/2024 lidocaine HCL 4 % creamIndications: Arthritis of knee Apply 1 application (deactivated) topically 4 (four) times a day With the Aspercreme lidocaine on the knees 120 g 11 025 Active Additional Information Patient not taking.Reported on 07/29/2024 losartan (COZAAR) 50 mg tabletIndications :Chronic cough,Hypertensio n complicating diabetes (HCC) TAKE 1 TABLET BY MOUTH EVERY DAY 90 tablet 2 025 Active clopidogreL (PLAVIX) 75 mg tabletIndications :Temporary cerebral vascular dysfunction Take 1 tablet (75 mg total) by mouth daily 90 tablet 025 Active traZODone (DESYREL) 50 mg tabletIndications :Persistent insomnia Take 1 tablet (50 mg total) by mouth nightly as needed for sleep 60 tablet 6 021 2020 Discontinued clopidogreL (PLAVIX) 75 mg tabletIndications :Temporary cerebral vascular dysfunction Take 1 tablet (75 mg total) by mouth daily 90 tablet 2 024 2024 Discontinued(R eorder) Active Problems Problem Noted Date Diagnosed Date Laceration of left ear canal 07/29/2024 Assessment & Plan (07/29/2024 9:04 AM CDT): Acute, unstable Relative history: Childhood ear infections Current meds: None Today's Plan: Encouraged OTC antihistamine May use topical Vaseline for comfort Goal: Healed laceration, decreased pain Lab/imaging orders today: None Class 1 obesity with alveola r hypoventilation, serious comorbidity, and body mass index (BMI) of 31.0 to 31.9 in adult 06/04/2024 Osteoporosis, idiopathic 01/10/2024 Overview (06/04/2024): New diagnosis sign 09/04/2023 based on DEXA FINDINGS: AP LUMBAR SPINE L1-L4:Total BMD is 1.108 g/cm2 T-score is 0.6 LEFT HIP:Total BMD is 0.727 g/cm2 T-score is -1.8 Femoral neck BMD is 0.61 g/cm2 T-score is -1.9 FRAX: 10 year risk for a major osteoporotic fracture is 19 %, 10 year risk for a hip fracture is 4.4 % ALEM (obstructive sleep apnea) 03/02/2021 Overview (03/02/2021): Refer to Dr. Wiley February 2021 with (+) mild ALEM Impression: 1. Mild obstructive sleep apnea syndrome 2. Consider Positive Airway Pressure (PAP) devices such as continuous PAP (CPAP), auto-adjusting PAP (APAP), and bi-level PAP (Bi-PAP). 3. Alternative therapeutic options include mandibular advanced device and upper airway surgery. 4.Sleep hygiene should be reviewed to assess factors that may improve sleep quality. 5.Weight management and regular exercise should be initiated or continued 6.Avoid alcohol sedatives and other TRAFFIC MAINTENANCE OFFICER depression that may worsen sleep apnea and disrupt normal sleep architecture 7. Patients with sleep apnea may have significant daytime hypersomnolence. If that is the case, driving or handling heavy machinery should be avoided until the apnea and excessive sleepiness have resolved. Type 2 diabetes mellitus wit h other circulatory complications 01/25/2020 Overview (01/25/2020): NEW DIAGNOSIS JANUARY 2020 Assessment & Plan (08/17/2022 8:45 AM CDT): Most recent HbA1c 2 days ago was 6.2, fasting sugar was 93. No acute findings on exam. Continue current regimen and low carb diet. Heart healthy exercise encouraged. 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 David Cortes using the pro machine adjuster leader Last C-spine CT scan March 2015 IMPRESSION: 1. DIFFUSE DEGENERATIVE CHANGES OF THE CERVICAL SPINE. 2. NO EVIDENCE OF FRACTURE OR MALALIGNMENT. RESULTS WERE CALLED TO DR. WHEELER AT 2149 HOURS. Interpreting Physician: DR BRUNA HINTON M.D. Read on: Mar 18 2015 9:08A Transcribed by: emerald On: Mar 18 2015 9:08A Approved Electronically by: MARY JANE Milner, DR MCFARLAND on: Mar 19 2015 10:18A Multinodular thyroid 11/01/2016 Overview (12/16/2016): Thyroid biopsy (-) November [address] Kest Specimen(s) Received: A: FNBx, Thyroid, Left Clinical History: The patient is a 71-year-old woman with multinodular goiter. Gross Description: 1 container received with 45 cc of bloody fluid and labeled l eft thyroid. It is multiple 0.1 cm in diameter pale evans core and core fragments that measure from 0.2 to 0.6 cm in length. Entire specimen processed.Microscopic Description: Microscopic examination of the left thyroid needle biopsy cytology (one ThinPrep slide and cell block sections) reveals a specimen is adequate for evaluation. The specimen consist of benign follicular epithelial cells present in a background of colloid and scattered macrophages. The cell block section consists of cores of thyroid parenchyma composed of colloid filled follicles of varying sizes. There is some stromal fibrosis, raising the possibility of a dominant nodule in the setting of nodular hyperplasia, or perhaps a follicular adenoma. I do not identify evidence of a papillary thyroid carcinoma. Recommend follow-up with radiologic studies as clinically indicated. Assessment & Plan (11/01/2016 2:47 PM CDT): Patient demonstrates a dominant hypoechoic hypervascular nodule located in the inferior aspect of the left thyroid lobe measuring 1.7 x 1.1 x 1.8 cm. This meets criteria for ultrasound-guided fine-needle aspiration biopsy. This will be scheduled in a timely fashion. Patient will follow back up afterwards to discuss the findings and any additional treatment recommendations. History of recurrent TIAs 08/31/2013 Overview (06/04/2024): Images from the original note were not included. Update 06/04/2024: Multiple recurrent ER visits and hospital admissions for TIAs dating back 15 years. No acute stroke ever found medical management with blood pressure cholesterol aspirin Plavix. No permanent neurologic injury ever occurred Admitted 48 hours 09/19/2018 for left arm numbness. All (-), added Plavix to baby aspirin CAROTID DOPPLER 2013 RESULT: Right carotid arterial tree: There is no significant focal plaque in the right carotid arterial tree. Peak systolic and diastolic velocity measurements are normal in the right common and right internal carotid artery. Vertebral flow is antegrade on the right. Left carotid arterial tree: There is focal plaque in the left common carotid artery with diameter stenosis measured at 33%. No other significant focal plaque is seen within the left carotid arterial tree. The peak systolic and diastolic velocity measurements are normal in the left common and left internal carotid artery. Vertebral flow is antegrade on the left.IMPRESSION: 1. FOCAL PLAQUE LEFT COMMON CAROTID ARTERY WITH STENOSIS MEASURED AT 33%. 2. NO SIGNIFICANT FOCAL PLAQUE IS SEEN IN THE RIGHT CAROTID ARTERIAL TREE. 3. PEAK SYSTOLIC AND DIASTOLIC VELOCITY MEASUREMENTS ARE NORMAL IN THE COMMON AND INTERNAL CAROTID ARTERIES BILATERALLY. 4. VERTEBRAL FLOW IS ANTEGRADE BILATERALLY. Interpreting Physician: DARIEN FRY M.D. Read on: Oct 21 2013 1:52P Transcribed by: HAYDEN On: Oct 21 2013 3:32P Approved Electronically by: DARIEN FRY M.D. 21 day CardioNet monitor 2013 (-) IMPRESSION: THUS, THIS IS A BENIGN APPEARING 21 DAY CARDIAC MONITORING WITH NO SIGNIFICANT FINDINGS DURING PATIENT'S SYMPTOMS DESCRIBED ABOVE. THERE WERE NO OTHER SIGNIFICANT FINDINGS. Interpreting Physician: DR BRIT PEREZ M.D. Read on: Nov 15 2013 5:30P ECHO BUBBLE STUDY NOVEMBER 2016 (-) Assessment & Plan (10/03/2018 12:15 PM CDT): She has had three episodes of TIA like symptoms over the past 10 years. The most recent one occurred about two weeks ago. She was hospitalized and had diagnostic testing done including carotid Dopplers which were unremarkable and CT of the head, also unremarkable. Echocardiogram was negative for significant findings. Ten years ago she had symptoms of numbness in her right thigh. Workup at that time including transesophageal echocardiogram at [facility] was negative. She had some recurrence symptoms about five years ago with a negative workup including echocardiogram with bubble study. She has been taking aspirin for many years, first 81 mg, then increase to 325 mg. Now Plavix was added to the aspirin. She is currently wearing a 30 day event monitor and will follow up with Dr. Wiley to see any additional workup or treatment is needed. Multiple-type hyperlipidemia 08/31/2013 Overview (07/21/2016): Combined hyperlipidemia Hypertension complicating diabetes 08/31/2013 Overview (07/22/2016): Benign essential HTN Assessment & Plan (10/11/2023 7:27 PM CDT): Chronic, at goal. BP stable in office today on current therapy. No acute findings on exam. Labs from last month unremarkable. ECHO from 03/2023 unremarkable. Continue labetalol, ramipiril, and spironolactone as rxd. low salt diet. Assessment & Plan (08/21/2023 7:52 PM CDT): Chronic, at goal. BP stable in office today on current therapy. No acute findings on exam. Check CMP, amylase, lipase, mag, and CBC due to abdominal pain (see plan above). Continue current regimen and low salt diet. Assessment & Plan (05/26/2023 11:07 AM TAR HEAT EXCHANGER CLEANER): BP stable in office today on current therapy. No acute findings on exam. Continue current regimen and low salt diet. Assessment & Plan (02/02/2023 10:13 AM CDT): Better controlled with adding spironolactone 2 weeks ago. 132/80 (60) in office today, no symptoms or acute findings on exam. Repeat BMP was unremarkable. Medicine is causing Terrible dry mouth. Advised patient to take spironolactone every other day to see if this helps. Call with update next week and if dry mouth is still bothersome will consider metolazone as she is allergic to thiazides and sulfa and refuses to take loop diuretics. Continue to monitor BP daily and record. Assessment & Plan (01/06/2023 11:57 AM CDT): BP mildly elevated at 140/86 (76). home arm cuff as high as 170s/90s. 163/87 with home cuff VS 140/86 manually. C/o BLE edema, none currently. never took lasix due to fear of side effects. No acute findings on exam. ECHO in September showed EF of 50% with sever pulmonary HTN, no valvular issues. Cardiac cath in October was unremarkable. Saw cardiology for follow up and they thought it was her lungs. Will increase Ramipril to 15mg daily as she cannot tolerated a lot of other medicines. Elevate legs as much as possible. Compression socks may help also (recommended 30mmHg). Continue to monitor BP daily and record, bring record and cuff to follow up in March. Call in 2 weeks with an update on BPs. Assessment & Plan (08/29/2022 11:58 AM CDT): BP stable in office today. 2+ pitting edema to bilateral feet/ankles as noted above, L>R. No other acute findings on exam. Stress test 08/2021 unremarkable. Edema likely related to nifedipine, will switch to cardizem 240mg daily. Continue to avoid salt, monitor BP daily. Keep follow in 2 weeks as scheduled. Assessment & Plan (08/17/2022 8:43 AM CDT): BP stable in office today on current therapy. 128/82 manually VS 140/902 with home arm cuff. Advised patient of significant difference and suggested she obtain a new cuff. No acute findings on exam. Continue current regimen and low salt diet. Heart healthy exercise encouraged. Assessment & Plan (12/18/2020 12:04 PM CDT): Since coming home from the ER her BP has remained very controlled, and has even been low. Since being home from ER: 135/77 115/73 100/61 111/66 117/73 117/63 120/78 132/71 Today here in office 120/66 We will not make any changes to her medications today, and pt will continue to check her BP at home at least once daily, and call us if BP is consistently over 140/90. F/U with DR. HAN on 02/09/21 as planned. Assessment & Plan (07/02/2019 9:16 AM CDT): Blood pressure well controlled at today's visit. Per patient home log she has occasional readings with BP's >140 systolic. When she has those readings she notices she feels unwell and is having headaches. Instructed her on those days she can increase her Altace to to 10mg daily. She will continue to monitor her blood pressure and bring log with her to her next visit. She is to call with any questions or concerns. Assessment & Plan (10/03/2018 12:09 PM CDT): This is a risk factor for recurring TIAs, but seems to be well controlled. Continue current medications. History of adenomatous polyp of colon 09/16/2011 Overview (10/29/2017): Overview: 05/20/15 3 small adenomas removed History of endometrial cancer Overview (06/04/2024[facility] [address] Figueroa Resolved Problems Problem Noted Date Diagnosed Date Resolved Date Chronic cough 10/11/2023 06/04/2024 Assessment & Plan (10/11/2023 7:39 PM CDT): Dry Tickle cough for almost 6 months with sore throat that comes and goes. No acute findings on exam, vital stable. Workup including labs, TSH, BnP, iron levels, KUB and CXR from last month, and PFTs from December all unremarkable. No recent EGD, last colonoscopy in 01/2022 was unremarkable. Will repeat PFTs to ensure no obstructive or diffusion changes. Continue to wear CPAP nightly and cleanse weekly as discussed previously. Offered to rx albuterol but pt declined at this time. Push fluids. Continue pepcid as rxd. Shortness of breath 08/30/2023 06/04/19 25 Pharyngitis 08/21/2023 06/04/2024 Assessment & Plan (10/11/2023 7:29 PM CDT): Dry scratchy throat and Tickle cough for months. Wears CPAP with humidifier nightly. No acute findings on exam, lungs clear, sating 97% on RA. No signs of infection or abscess. Pepcid did not change symptoms. Pharyngitis is more likely related to chronic cough at this point, see plan below. Continue biotene rinses. Anything to coat throat and mouth may also help- honey, gelatin, marshmallows. Push fluids. Assessment & Plan (08/21/2023 7:51 PM CDT): Dry scratchy throat and Tickle cough for months. Wears CPAP with humidifier nightly. No acute findings on exam, lungs clear, sating 97% on RA. No signs of infection or abscess. This is likely viral or environmental in nature, make sure to use only distilled water in your cpap and rinse mask and tubing at least once per week. Continue biotene rinses. Anything to coat throat and mouth may also help- honey, gelatin, marshmallows. Push fluids. 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 Chest wall pain 11/04/2022 06/04/2024 Assessment & Plan (05/26/2023 11:07 AM TAR HEAT EXCHANGER CLEANER): Intermittent stabbing/ sticking pain between breast since yesterday, see HPI for details. No acute findings on exam, pain is reproducible with palpation. Vitals stable. ECHO, EKG, CXR from 03/2023 all unremarkable. Labs unremarkable. Pain is likely inflammatory in nature exacerbated by some PT exercises. Heat/ice as tolerated. Tylenol as needed. Topical muscle rubs may help also. Discussed low acid diet: avoid soda, sugar substitutes, vinegar, pickles, citrus, tomatoes, coffee, and alcohol. Stay hydrated. Keep follow and repeat labs in 1 month as scheduled. Abnormal echocardiogram find ings without diagnosis 09/28/2022 06/04/2024 Overview (11/12/2022): Heart catheterization Dr. Weldon test -11/10/2022 1. Angiographically mild coronary artery disease. 2. Normal left ventricular systolic function. 3. Normal left ventricular diastolic pressure. 4. Normal pulmonary artery pressures with normal filling pressures and normal resting cardiac output. 5. Successful vascular access closure. CARE PLAN There is no high-grade coronary lesions to warrant interventions. Her pulmonary artery pressures are within normal range. Will continue medical therapy. Juan F Weldon MD Initially thought to have pulmonary hypertension with this echo result September 2022 Normal left ventricular systolic function with no focal wall motion abnormalities. Normal left ventricular size. Normal left ventricular wall thickness. Impaired diastolic relaxation Grade I. Ejection fraction is measured at 52 %. Normal right ventricular size. Normal right ventricular systolic function. There is mild enlargement of left atrium. Mitral valve leaflets appear mildly thickened. Trivial regurgitation of the mitral valve. No evidence of hemodynamically significant aortic stenosis by Doppler. Aortic cusps appear mildly sclerotic. Trileaflet aortic valve. Trace to mild aortic valve regurgitation. Normal structure of the tricuspid valve. Severe pulmonary hypertension based on right ventricular systolic pressure. Estimated peak RVSP is 73 mmHg. Mild tricuspid regurgitation. Normal pericardium with no significant pericardial effusion. Electronically Signed By: Shannan Rosa MD 2022-09-27 15:07:07 CDT CC: Obesity (BMI 30-39.9) 09/15/20222024 Acute pain of right thigh 09/02/2022 Assessment & Plan (09/02/2022 12:08 PM CDT): Started 3 days ago after bending to coal picker something off the floor. Assessment as noted above. Likely muscle strain. Continue Tylenol and heat/ice. Offered tizanidine and PT consult, pt refused at this time. Keep follow in 2 weeks as scheduled. Gastroesophageal reflux dise ase without esophagitis 06/07/2022 09/15/2022 Assessment & Plan (06/07/2022 1:31 PM TAR HEAT EXCHANGER CLEANER): Chronic problem, recently exacerbated resulting in ER visit for chest pain ER visit documentation reviewed - labs and imaging unremarkable for anything acute/serious, see chart for full details Most recent stress test from 08/2021 - unremarkable, see chart for details Physical examination as documented - no signs/symptoms of serious illness noted Suspect likely GERD exacerbation with resultant esophageal spasm Recommended PPI therapy for 1-2 weeks to calm stomach down and continued Pepcid and lifestyle modification - patient agreeable to plan Orders for AMS STAFF to arrange None at this time Orders for Jackelyn Blanchard to arrange Start pantoprazole as ordered - consider taking once daily for 1-2 weeks to calm down the stomach Continued OTC Pepcid twice daily as needed Avoid triggers for GERD - chocolate, onions, caffeine, carbonated beverages, spicy foods, tomato-based foods Remain upright for 1-2 hours after eating Sleep with head of bed elevated slightly Continue monitoring symptoms - report persistent or worsening symptoms to the office or go to ER Call office in 2-3 weeks with an update on condition Follow up as scheduled with Dr. Bryson or sooner if necessary Hospital discharge follow-up 02/11/2022 09/15/2022 Assessment & Plan (02/11/2022 10:10 AM CDT): CT on recent hospital admission showed questionable obstruction, had small BM that night. Repeat KUB was unremarkable the next morning. Was placed on more stool softners and told to follow with GI. Has colonoscopy scheduled for this Monday with Dr. Delcid. PMH of abdominal adhesions noted. Taking Miralax BID and colace daily with no relief. Last BM was 4 days ago. Admits bloating but no pain. No acute exam findings. Increased colace to BID, stay hydrated. Complete bowel prep as instructed. Keep follow with Dr. bryson in 2 weeks. Bowel obstruction 02/04/2022 09/15/2022 Labyrinthitis 12/29/2021 09/15/2022 Assessment & Plan (12/29/2021 2:41 PM CDT): Symptoms resolved on their own. CT head and labs in the ER were unremarkable. No symptoms or abnormal exam findings today. Has follow up scheduled with Neurologist next month. Offered ENT referral, patient refused at this time. Will continue to monitor symptoms and call with any changes or concerns. Keep regular follow up in February. Abdominal bloating 11/08/2021 Assessment & Plan (05/20/2024 9:45 PM TAR HEAT EXCHANGER CLEANER): Likely related to chronic constipation, see plan above. Assessment & Plan (08/21/2023 7:47 PM CDT): Worse in last 10 days, see HPI for details. No acute findings on exam, abdomen is non-tender and non-distended. Vitals stable. Last colonoscopy in 2021 was unremarkable-advised repeat in 5 years. Will obtain KUB to r/o mass or abnormal gas pattern. Check CMP, magnesium, amylase, lipase, CBC to r/o organ dysfunction, electrolyte changes, and infection. Stop miralax for now, will call with KUB results. Discussed soluble VS insoluable sources of fiber-avoid nuts, beans, broccoli, cauliflower, green beans, potatoes, and bran. Stay hydrated. Educated on natural laxatives such as prunes, apple juice, smooth move tea, coffee, and probiotics. ADDENDUM: KUB showed moderate fecal burden- advised to use senna instead of miralax. Suppositories if needed. Call if symptoms do not improve in 1-2 weeks. Assessment & Plan (01/03/2022 3:39 PM CDT): ibs Add fruti tid and colonoscopy Assessment & Plan (11/08/2021 9:17 AM CDT): Patient presents with reports of abdominal bloating x 3-4 weeks, most likely medication and dietary related. She has been using mag citrate capsules and does admit to use of artificial sweeteners. On exam no acute findings noted. Have encouraged dietary and medication changes. She will call with an update at the end of the week. If persistent symptoms will plan for labs, UA and KUB for further evaluation. Left arm pain 07/13/2021 09/15/2022 Acute pain 05/28/2021 09/15/2022 Assessment & Plan (05/28/2021 10:11 AM TAR HEAT EXCHANGER CLEANER): Patient reports since her last visit she has had increasing pain in the rt flank region/thoracic spine area. She was noted to have lipoma at last visit with Dr. Bryson and concern that this may be contributing to her discomfort. Pain is not reproducible today on exam with palpation or movement. We will have her do imaging with US for further evaluation of possible lipoma. We will also do xray of thoracic spine to r/o bony abnormality that may contributing. Further recommendations pending imaging results. Seborrheic keratosis 04/14/2021 024 Acute pain of right shoulder 2021 09/15/2022 Assessment & Plan (2021 11:05 AM TAR HE[employer] EXCHANGER CLEANER): Patient has acute pain of the rt shoulder that began about 3 weeks ago. No injury that she can recall. She reports pain is worse in the am and feels like a stiffening. On exam patient has full ROM and no weakness. She does however, have pain with overhead raises and positive can test on the rt. Concern for possible rotator cuff involvement. Most likely arthritis is present as well. We will do xray to r/o any acute fracture or dislocation. She will be sent a short course of steroids to help with inflammation. She will also be referred for PT. She has f/u in April which she will keep and can re-evaluate at that time or sooner if needed. Amaurosis 09/02/2020 09/15/2022 Assessment & Plan (09/02/2020 9:54 AM CDT): Temporary loss of vision in the left eye for patient reports about 10 minutes . She reports this happened in the middle of the night for 2 nights in a row last mon and nights. She then called Dr. Osei on Monday and she did get in to see him that day. He did not put her on any additional meds, but he did do a sed rate, and states that it was normal. Pt reports that she just wanted to make Dr. Grover aware and that it would be put in her chart. She reports that she has not had any vision problems since. I did speak with Dr. HAN who states maybe this could be ocular migraine. I did express this to the patient but she did say that Dr. Osei did not think it was an ocular migraine bc she did not have a headache associated with it. Pt has hx of TIA. Pt is on appropriate meds--baby ASA, plavix, and pravastatin. Her LDL is under good control at last lab @ 78. I have advised that it this happens again that she call Dr. Osei but also make our office aware as well. She verbalizes agreement. Primary osteoarthritis of right knee 09/01/2020 09/15/2022 Pre-op evaluation 06/22/2020 09/15/2022 Assessment & Plan (08/17/2022 8:47 AM CDT): Having cataract removal with Dr. Zambrano on 08/25/22. No acute findings on exam, allergies reviewed. Low risk for surgical complications, cleared for procedure. Clearance form filled out in office today and faxed to [facility]. Assessment & Plan (06/22/2020 11:37 AM TAR HE[employer] EXCHANGER CLEANER): Pt to have left cataract surgery by Dr. Osei on 07/02/20. She has had recent cardiac workup and is being seen by Dr. Trevino as well. EKG, cardiac event monitor and echo all within with last 2 months--all negative for significant cardiac problems. HgbA1c 6.0. She is low risk for complications with surgery. Pt reports that she will be awake during this surgery. They have given her instructions to stop her plavix 2 days before surgery. Acute pain of right knee 06/22/2020 Assessment & Plan (06/22/2020 11:39 AM TAR HEAT EXCHANGER CLEANER): PT reports increased pain in the right knee within the past few weeks. We will get an x-ray today. She has seen Dr. Phillips in the past, so if needed to be referred, she would prefer to go back and see him. I advised that she take tylenol for the pain. Acid indigestion 04/20/2020 08/04/2020 Assessment & Plan (05/22/2020 9:17 AM TAR HE[employer] EXCHANGER CLEANER): Pt is taking famotidine 40mg daily and she has done well with this--stating that she has not had any reflux symptoms. She is following the strict diet guidelines as well. She will continue on this medication. She will f/u for this with Dr. HAN at her next appt on 08/04/20. Assessment & Plan (04/20/2020 10:30 AM TAR HE[employer] EXCHANGER CLEANER): Pt went to ED on 04/13 for chest pain that woke her up around 10pm. In the ER, they did cardiac testing and determined this to be acid reflux causing her pain. Pt has not had anymore chest pain since that evening, but she has also been following the reflux diet, so she feels that has helped. We will start her on famotidine 40mg daily. We have discussed diet and lifestyle changes and modifications. I have printed out the appropriate educational handout. We will f/u in 1 month. Malone's cyst of knee, left 04/15/2020 0 08/04/2020 Assessment & Plan (04/15/2020 10:37 AM TAR HEAT EXCHANGER CLEANER): Dr. HAN did come into the room to exam her legs, and she advises that the swelling is due to the Malone's cyst and impeding proper drainage of the lymph system. Recent labs were WNL. Pt has been limiting her sodium and has avoided sodas and caffeine. She also has been wearing her compression stockings. I have advised that she continue to do all these things. I did offer referral to ortho for the Malone's cyst and she declines at this time. She does have a hematoma on the medial left calve--we did a venous doppler to R/O DVT and it was negative for DVT. I have advised that this is likely a hematoma and to watch it and that it should resolve within a few weeks. Localized edema 03/30/2020 05/26/2023 Assessment & Plan (02/02/2023 10:13 AM CDT): Improved on spironolactone, see plan for HTN above. Assessment & Plan (01/04/2023 6:26 PM CDT): Likely venous insufficiency, no acute findings on exam. See plan for HTN above. Assessment & Plan (08/29/2022 11:57 AM CDT): Symptoms for 2 days after starting eye drops after cataract surgery. Also started nifedipine approx 3 Weeks ago. 2+ pitting edema to bilateral feet/ankles as noted above, L>R. No other acute findings on exam. Stress test 08/2021 unremarkable. Edema likely related to nifedipine, will switch to cardizem 240mg daily. Continue to avoid salt, monitor BP daily. Keep follow in 2 weeks as scheduled. Assessment & Plan (03/30/2020 10:33 AM TAR HE[employer] EXCHANGER CLEANER): Pt reports swelling in lower legs now for about 2-3 weeks. She reports that it has not gotten better or worse since I last saw her. Last labs-- there was a mistake, and a CMP should have been ordered. A CBC was ordered instead. The CBC was WNL. BNP was WNL at 197. We will need to get a CMP today to look at kidney function. Chest x-ray was normal. She did just have a stress test back in September which was normal. It does not appear that any of her medications she is taking now would cause pitting edema. Pt has not ever had to take norvasc, as she reports her BP has always been good. We will await the results of the CMP, and for now we will start Lasix 20mg once daily for the next 3 days, then just once daily as needed. (allergy to hctz) She is going to call me on Monday if she does not see improvement. I will consult with Dr. HAN to see if she would like any further testing done. Assessment & Plan (03/30/2020 8:22 AM TAR HEAT EXCHANGER CLEANER): Pt reports about 1 week of lower leg swelling. She reports that they have been moving houses, and realizes that she has most likely not been drinking enough water, and they have been ordering out food more and cooking less due to the move. She denies SOB, fatigue, decreased urine output. Exam does reveal pitting edema 1+ today on both lower legs from ankles to mid leg. Feet are not swollen today on exam and pulses are strong and regular. No changes in color to legs/feet. We will do some labs(CMP, BNP) today and a chest x-ray. Counseled on low salt diet, plenty of water, elevating legs at rest, wearing support stockings when up on feet. She was given the low salt diet educational material. I have asked her to call me if her symptoms don't improve with these lifestyle changes. We will call her with any abnormal lab results. Acute pain of left knee 03/30/202007/17 Assessment & Plan (03/30/2020 11:47 AM TAR HEAT EXCHANGER CLEANER): Pt reports that her left knee has been swelling and painful more within the past week. We discussed that most likely it is aggravated by the fact that she does have some swelling in her lower leg and that is contributing to her pain and swelling in the kneecap as well. We discussed that if we can decrease the swelling in her lower leg, then the knee may also feel better. She does agree to an x-ray today, and the she would like to wait until after she takes the Lasix to see if this will also help the knee pain to go away. ETD (Eustachian tube dysfunction), left 04/29/2019 08/04/2020 Assessment & Plan (04/30/2019 9:00 AM TAR HEAT EXCHANGER CLEANER): Nasal saline spray (Simply saline, Little Remedies, [place], [place]) 2 second sprays or 2 squeezes into each nostril while looking down over the sink, do not need to sniff in 2-3 times daily If pain returns try Cetirizine if Mucinex not improving symptoms Other option would be warm compresses to left neck pulling forward for 15 minutes at a time Continue Humidifier Earache 04/23/2019 08/04/2020 Overview (04/24/2019): Onset of intermittent stabbing pain in left ear yesterday morning. No fever, loss of hearing, tinnitus, recent cold, or injury to the ear. Mucus relief is not helping. Assessment & Plan (04/30/2019 9:00 AM TAR HEAT EXCHANGER CLEANER): Nasal saline spray (Simply saline, [place] Remedies, [place], [place]) 2 second sprays or 2 squeezes into each nostril while looking down over the sink, do not need to sniff in 2-3 times daily If pain returns try Cetirizine if Mucinex not improving symptoms Other option would be warm compresses to left neck pulling forward for 15 minutes at a time Continue Humidifier Assessment & Plan (05/06/2019 8:55 AM TAR HEAT EXCHANGER CLEANER): She was in the office few days ago with intermittent sharp stabbing pains in her left ear. Exam then was unremarkable. We had her take Tylenol for couple of days and symptoms have subsided. She has had no Tylenol today and there's been no recurrence of pain. Exam remains normal. She has an appointment to see Dr. Mercedes on May 16. She can continue the Tylenol as needed. If she has a recurrence of symptoms before then, or develops a rash, etcetera, she will call for early appointment here and re-evaluation. Assessment & Plan (05/04/2019 10:22 AM TAR HEAT EXCHANGER CLEANER): The patient presents for evaluation of intermittent sharp, stabbing pains in the left ear since yesterday morning. She has had no tinnitus or hearing loss. She is not running a fever. She has had no recent cold or sore throat. Exam is basically normal, although there is no tympanic membrane movement with Valsalva. The cause of the patient's symptoms is not clear at this time. It sounds somewhat neuropathic. It could relate to an early manifestation of herpes zoster. It could be a paroxysmal hemicrania, although there's no past history of this condition. For now, we will have her take Tylenol as needed for the discomfort. We will see her back on Monday. We will range for ENT follow-up. If she has much more severe or persistent pain, especially if there's associated rash or swelling, we will treat her empirically with acyclovir. Follow-up here in two days. Actinic keratosis 02/22/2019 08/04/2020 Assessment & Plan (03/07/2019 9:44 AM TAR HEAT EXCHANGER CLEANER): Left proximal upper arm Diagnosis discussed. No further treatment required at this time. She knows that she should follow up if this area develops any further symptoms. Assessment & Plan (02/22/2019 1:59 PM TAR HEAT EXCHANGER CLEANER): Left proximal upper arm Biopsy/ies done per procedure note by Dr. Palmer. Basal cell carcinoma (BCC) of left upper arm 9 08/04/2020 Assessment & Plan (03/07/2019 9:45 AM TAR HEAT EXCHANGER CLEANER): Left distal upper arm One week status post excision Healing well, no evidence of complication or infection reported or noted on exam. Pathology results discussed, no further treatment required. Follow-up at the 6 week postoperative mabel for final evaluation or sooner if issues arise. Assessment & Plan (02/22/2019 1:58 PM TAR HEAT EXCHANGER CLEANER): Left distal upper arm, biopsy proven Dr. Palmer excised this lesion today in clinic. Please see his separate note. Nipple lesion 02/22/2018 12/28/2018 Chronic rhinitis 11/14/2017 06/04/2024 Overview (11/14/2017): Olopatadine nasal spray too expensive, trial Astelin November 14, 2017 Chronic constipation 11/08/2017 025 Assessment & Plan (05/20/2024 9:45 PM TAR HEAT EXCHANGER CLEANER): Chronic, uncontrolled despite MiraLax twice daily and 2 senna DS tablets. She admits trying to eat more healthy which includes root vegetables like broccoli and cauliflower which will make her more constipated. Mild bloating throughout and tenderness to lateral left upper quadrant noted on exam, no other acute findings, vitals stable. CMP from November unremarkable. Colonoscopy in 01/2022 was unremarkable-recommended repeat in 5 years. We will order KUB to rule out constipation, obstruction, any other structural changes. Advised to do c lean out with Dulcolax suppository or enema. Discussed soluble VS insoluable sources of fiber-avoid nuts, beans, broccoli, cauliflower, green beans, potato skins, and bran. Stay hydrated. Educated on natural laxatives such as prunes, apple juice, smooth move tea, coffee, and probiotics. Assessment & Plan (02/11/2022 10:10 AM CDT): CT on recent hospital admission showed questionable obstruction, had small BM that night. Repeat KUB was unremarkable the next morning. Was placed on more stool softners and told to follow with GI. Has colonoscopy scheduled for this Monday with Dr. Delcid. PMH of abdominal adhesions noted. Taking Miralax BID and colace daily with no relief. Last BM was 4 days ago. Admits bloating but no pain. No acute exam findings. Increased colace to BID, stay hydrated. Complete bowel prep as instructed. Keep follow with Dr. bryson in 2 weeks. Lymphedema 11/05/2017 01/04/2023 Mid back pain on right side 09/26/2017 09/15/2022 Overview (09/26/2017): Lumbar spine x-rays do not cover the area of discomfort Previous gallbladder removal with open cholecystectomy 1996, 3 lb perineal cyst and appendectomy February 1989. TAHBSO February 2004 at [facility] for grade 1A endometrial cancer, incisional hernia with mesh repair February 2006. Pursuing evaluation for possible biliary stricture as for T-spine pain behaves like gallbladder issue September 2017 HIDA scan ordered Assessment & Plan (06/01/2021 9:24 AM TAR HEAT EXCHANGER CLEANER): Patient has history of chronic rt sided mid back pain. Recently however, pain has been more pronounced with patient reporting feelings as though the back is swollen. She is unable to even lie on the rt side d/t the discomfort. After last visit US and xray were completed that were without acute finding. Patient has tried OTC therapies with little relief. Etiology is uncertain. She has had a history of cholecystectomy and HIDA scan following that was without acute finding. Discussed with Dr. Bryson and concern is that this is most likely r/t muscle/fascia type strain and that physical therapy would be beneficial. Patient is in agreement with this plan. She will follow up in 6 weeks or sooner if needed. Elevated liver enzymes 09/26/201708/04 Swollen upper lip 09/14/2017 09/26/2017 Assessment & Plan (09/14/2017 11:18 AM CDT): Swelling of left upper lip this morning on known etiology. Patient has no other symptoms no itching no coughing no shortness of breath no wheezing no difficulty swallowing. She started Benadryl taken 2 doses so far she is not sure this reduced in swelling but certainly has not increased. Her plans continue Benadryl other alternatives are Zyrtec or Krystyna a case Benadryl makes her sleepy. Patient advised he has to go to the hospital for emergency for his any type of swelling of allergic etiology. No recommendations at this time observation and conservative treatment as explained above. Knee effusion, left 06/29/2017 09/27/19 18 Assessment & Plan (06/29/2017 3:50 PM CDT): Patient has a swollen left knee minimal, present x 3 days. This patient has no pain from the knee and no restriction in any activity she can go up and downstairs getting out of a vehicle without any problems. Examination minimal fusion of her left knee, full range of motion and no pain on palpation of her knee. Patient informs me she has cyst need manipulated several times a year by her chiropractor because it catches it times. Is my opinion she may have some irritation or from a possible loose body between the joint space in her knee. Recommendation at this time observation. The becomes worse follow-up will be needed with Dr. Bryson or Dr. Ruffin. On today's x-rays of the clear liquid indicated Raynaud's phenomenon without gangrene 2017 09/26/2017 Arthritis 03/19/2017 08/04/2020 Overview (03/19/2017): C4-5 cervical disc disorder, osteoarthritis knees Sleep disorder 12/16/2016 09/15/2022 Overview (09/26/2017): [place] Sleep Scale positive at 13, complaints of tiredness, Sleep study Insomnia but no sleep apnea SeptemIMPRESSION The above polysomnography confirms evidence of: 1. Poor sleep efficiency. 2. Mild snoring. 3. Apnea was present. The present study, however, does not meet the criteria for obstructive sleep apnea syndrome. 4. The patient's sleep- disordered breathing seems to have resolved with patient's profound weight loss. Clinical correlation recommended. [place] A: Hypersomnia, G47.10 [place] B: Polysomnography, 21219 Electronically Authenticated and Edited by: Cristino Wiley MD On 01/23/2017 Other fatigue 12/16/2016 08/04/2020 Overview (12/16/2016): Lab evaluation negative December 2016, sleep study ordered. Assessment & Plan (05/22/2020 9:19 AM TAR HEAT EXCHANGER CLEANER): Pt is currently wearing the 30 day cardiac event monitor and will see Dr. Trevino on 05/04/20 for the episodes of SOB with weakness as outlined below at our last visit on 05/04/20. Assessment & Plan (05/04/2020 12:08 PM TAR HEAT EXCHANGER CLEANER): Pt has had an initial cardiac workup in the ER a few weeks ago when she presented there with chest pain which was later diagnosed in the ER as acid reflux. Troponin's were negative and EKG was considered normal then. She has not had any chest pain again since then. However, she has noticed in the past 2-3 weeks that she has had increasing episodes of SOB with weakness when at rest. She reports that she is just sitting and then will all of the sudden become very SOB, weak and fatigued feeling. She states it can last anywhere from 15 minutes and the fatigue feeling can last up to hours. When she feels this way she will check her BP and her pulse which she brought with her today. All BP's are considered WNL, and pulse went as high as 108 one time. Other times pulse was in the 80-90 range. She denies dizziness, syncope, heart palpitations or chest pain. Pt just had carotid dopplers done by [employer] in Feb/Mar. and were negative. Nuclear stress test done 09/2019 was normal. Recent chest x-rays were normal. EKG today was NSR. Pt's mother from a heart attack at 70, and her sister had a heart attack at 65 and is still living. Given her significant risk factors= personal history of strokes, hyperlipidemia, T2DM, and hypertension--she should be referred to cardiology for advanced cardiac workup and possible cardiac cath. We will get a 30 day cardiac event monitor as well. She is taking Plavix and baby ASA daily, and statin. BP is well controlled at this time. Patient has f/u with me on 05/22/20 for acid reflux. Arthritis of knee 08/31/2013 05/26/2023 Overview (07/20/2016): DJD (degenerative joint disease) of knee Assessment & Plan (09/02/2020 9:44 AM CDT): Pt reports chronic pain in the right knee. She has had many x-rays for this she reports. She is doing at home exercises for this. She would like a referral to see Dr. Phillips for this. Prediabetes 08/17/2013 01/25/2020 Palpitations 06/07/2013 08/04/2020 Overview (07/21/2016): Palpitations Assessment & Plan (10/03/2018 12:09 PM CDT): Apparently she has had palpitations in the past, but it is not a current complaint. She had a 48 hour Holter monitor earlier this year that was unremarkable. She is now wearing a 30 day event monitor to evaluate for possible underlying paroxysmal atrial fibrillation. Pain of foot 03/28/2013 09/26/2017 Chest pain 08/04/2020 Immunizations Immunization Administration Dates Next Due COVID-19 mRNA ([employer]) 0.3 m L (30 mcg) vaccine (12 years and up) 02/05/2024 Influenza, Quadrivalent, Hig h Dose, Preservative Free, Intrr 01/29/2023,01/24/2022,02/02/2021,01/27 Influenza, Trivalent, High D ose, Split, Preservative Free, Intramuscular 01/16/2024,01/28/2019,01/22/2018,01/22,01/23/2017,01/19/2016,01/23/2015 ,02/05/2014,02/05/2013,02/02/2012 Influenza, Trivalent, IM (MDV) 02/04/2003 Moderna SARS-CoV-2 Monovalen t Vaccination (12+ YRS) 02/17/2021,07/21/2020,06/23/2020 Pfizer SARS-CoV-2 Monovalent Vaccination (12+ Yrs) PURPLE 09/09/2021 Pfizer Sars-Cov-2 Bivalent V accination (12+ YRS) 02/01/2022 Pneumococcal Conjugate PCV 13 06/16/2014 Pneumococcal Conjugate Pcv20 06/20/2023 Pneumococcal Polysaccharide PPV23 2017, RSV Vaccine, Pref, Recombina nt, Subunit, Adjuvanted, PF, IM (Arexvy) 03/17/2023 Tdap 09/22/2020,02/12/2010 ZOSTER LIVE 01/08/2014 ZOSTER Recombinant 04/02/2024,12/27/2023 Social History Tobacco Use Types Packs/Day Years Used Date Smoking Tobacco: Former Cigarettes 0.5 5 Smokeless Tobacco: Never Tobacco Cessation:Counseling Given: Not Answered Alcohol Use Standard Drinks/Week Comments No 0 (1 standard drink = 0.6 oz pur e alcohol) Social Connection and Isolation Panel [NHANES] A nswer Date Recorded Frequency of Communication with Friends and Fami ly Not on file 01/18/2019 Frequency of Social Gatherings with Friends and Family Not on file 01/18/2019 Attends Gnosticism Services Not on file 01/18 Active Member [...] points, staff should administer the PHQ-9) 0 07/29/2024 Personal Safety Answer Date Recorded Have you ever been in or are you currently in a harmful physical or emotional relationship or is someone making you feel afraid or unsafe? 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 Female 7:45 PM TAR HEAT EXCHANGER CLEANER Gender Identity Not on file Sexual Orientation Not on file Occupation Industry Job Start Date Job End Date Retired Not on file Not on file Not on file Last Filed Vital Signs Vital Sign Reading Time Taken Comments Blood Pressure 116/66 07/29/2024 8:54 AM CDT Pulse 75 07/29/2024 8:54 AM CDT Temperature 36.8 C (98.2 F) 07/29/2024 8:54 AM CDT Respiratory Rate 18 07/29/2024 8:54 AM CDT Oxygen Saturation 95% 07/29/2024 8:54 AM CDT Inhaled Oxygen Concentration - - Weight 101.2 kg (223 lb) 07/29/2024 8:54 AM CDT Height 177.8 cm (5' 10 ) 07/29/2024 8:54 AM CDT Body Mass Index 32 07/29/2024 8:54 AM CDT Plan of Treatment Not on file Medical Devices Implanted Type Area Thermal Technician Device Identifier Shelf Expiration Date Model / Serial / Lot Measurabl Angio-Seal Vip 6fr Closere Device [id number] - [id number] Implanted:Qty: 1 on 11/10/2022 by Juan F Weldon MD at [facility] Measurabl 05/17/2023 [id number] / / [id number] Procedures Procedure Name Priority Date/Time Associated Diagnosis Comments SCAN - RADIOLOGY/IMAGING 08/09/2024 EGFR Routine 05/21/2024 7:40 AM TAR HEAT EXCHANGER CLEANER Type 2 diabetes mellitus without complication, without long-term current use of insulin (HCC) HEMOGLOBIN A1C Routine 05/21/2024 7:40 AM TAR HEAT EXCHANGER CLEANER Type 2 diabetes mellitus without complication, without long-term current use of insulin (HCC) LIPID PANEL Routine 05/21/2024 7:40 AM TAR HEAT EXCHANGER CLEANER Multiple-type hyperlipidemia ALBUMIN CREATININE RATIO, URINE Routine 05/21/2024 7:40 AM TAR HEAT EXCHANGER CLEANER Type 2 diabetes mellitus without complication, without long-term current use of insulin (HCC) DEXA AXIAL SKELETON BONE DENSITY 1 OR MORE SITES Schedule Routine, Read Routine (OP Routine) 01/10/2024 2:00 PM CDT Menopause SCREENING MAMMOGRAM BILATERAL W ISIDRO Schedule Routine, Read Routine (OP Routine) 10/11/2023 8:00 AM CDT Encounter for screening mammogram for breast cancer COLONOSCOPY 02/14/2022 8:29 AM CDT HEPATITIS C ANTIBODY Routine 11/30/2012 12:12 PM CDT from Last 3 Months or Most Recently Relevant to Health Maintenance Results * SCAN - RADIOLOGY/IMAGING (08/09/2024) Anatomical Region Laterality Modality Other us Provider Scanning Final Result * eGFR (05/21/2024 7:40 AM TAR HEAT EXCHANGER CLEANER) eGFR 87 >=60 mL/min/1. 73 m2 Comment: Interpretive Data Reference Interval Normal >/= 90 mL/min/1.73m2 Mildly decreased* 60 - 89 mL/min/1.73m2 Mildly to moderately decreased 45 - 59 mL/min/1.73m2 Moderately to severely decreased 30 - 44 mL/min/1.73m2 Severely decreased 15 - 29 mL/min/1.73m2 Kidney Failure < 15 mL/min/1.73m2 *Relative to young adult level Estimated glomerular filtration rate is determined by the 2020 CKD-EPI equation recommended by the National Kidney Foundation (A Unifying Approach to GFR Estimation: Recommendations of the NKF-ASK Task Force on Reassessing the Inclusion of Race in Diagnosing Kidney Disease, JASN 2020). The CKD-EPI equation should not be used for patients with unstable renal function and has not been validated in children and those over 70. Current interpretive data was last reviewed 2021. Testing performed by: [address] [address] Blood 05/21/2024 7:40 AM TAR HEAT EXCHANGER CLEANER 05/21/2024 12:22 PM TAR HEAT EXCHANGER CLEANER Mirna Bryson MD LAB BLOOD ORDERABLES Final Result Performing Organization Address City/State/[facility] Co de Phone Number [facility] [address] [facility] Department [place] [address] * Albumin Creatinine Ratio, Urine (05/21/2024 7:40 AM TAR HEAT EXCHANGER CLEANER) Albumin Ur <12.0 mg/L Comment: Interpretive Data No reference range established. Current interpretive data was last revised 2018. Testing performed by: [address] [address] Creatinine Ur 79.9 mg/dL MELODIE COBB Comment: Interpretive Data No reference range established. Current interpretive data was last revised 2018. Testing performed by: [address] [address] Albumin Creatinine Ratio, Ur <15 1 - 29 mg/g MELODIE Comment:Testing performed by : [address] [address] Urine 05/21/2024 7:40 AM TAR HEAT EXCHANGER CLEANER 05/21/2024 12:16 PM TAR HEAT EXCHANGER CLEANER us Miran Bryson MD LAB URINE ORDERABLES Final Result Performing Organization Address [facility] de Phone Number MELODIE [phone] [facility] Department [place] [address] * (ABNORMAL) Hemoglobin A1c (05/21/2024 7:40 AM TAR HEAT EXCHANGER CLEANER) Hgb A1C 6.2(H) 4.0 - 5.6 % Comment:Testing performed by : [address] [address] Estimated Average Glucose 131 mg/dL MELODIE Comment: The ADA recommends reporting an estimated Average Glucose (eAG) with all Hemoglobin A1c results using the equation derived from a study of 507 normal and diabetic adults. Minority populations were underrepresented and children were not included. (Diabetes Care 31:4006-9643, 2008). The eAG is not equivalent to a fasting glucose. Testing performed by: [address] [address] Blood 05/21/2024 7:40 AM TAR HEAT EXCHANGER CLEANER 05/21/2024 12:16 PM TAR HEAT EXCHANGER CLEANER us Mirna Bryson MD LAB BLOOD ORDERABLES Final Result Performing Organization Address [facility] de Phone Number MELODIE [phone] [facility] Department [place] [address] * Lipid panel (05/21/2024 7:40 AM TAR HEAT EXCHANGER CLEANER) Cholesterol 113 30 - 199 mg/dL Comment: Interpretive Data Ages < or = 19 years Acceptable: <170 mg/dL Borderline high: 170-199 mg/dL High: >or= 200 mg/dL Ages > or = 20 years Desirable: <200 mg/dL Borderline high: 200-239 mg/dL High: >or= 240 mg/dL Literature References: 1. Expert Panel on Integrated Guidelines for Cardiovascular Health and Risk Reduction in Children and Adolescents. Pediatrics 2011;128:S213 2. NCEP Expert Panel. Circulation 2004;110:227 Current Interpretive Data was last revised on 2017. Testing performed by: [facility], [address] [place] [address]., [address] Triglycerides 40 <=149 mg/dL MELODIE Comment: Interpretive Data Ages < or = 9 years Acceptable: <75 mg/dL Borderline high: 75-99 mg/dL High: >or= 100 mg/dL Ages 10 to 20 years Acceptable: <90 mg/dL Borderline high: 90-129 mg/dL High: >or= 130 mg/dL Ages > or = 20 years Desirable: <150 mg/dL Borderline high: 150-199 mg/dL High: 200-499 mg/dL Very high: >or= 499 mg/dL Literature References: 1. Expert Panel on Integrated Guidelines for Cardiovascular Health and Risk Reduction in Children and Adolescents. Pediatrics 2011;128:S213 2. NCEP Expert Panel. Circulation 2004;110:227 Current Interpretive Data was last revised on 2017. Testing performed by: [facility], [address] [place] [address]., [address] HDL 66 >=40 mg/dL MELODIE Comment: Interpretive Data Ages < or = 19 years Acceptable: >45 mg/dL Borderline low: 40-45 mg/dL Low: <40 mg/dL Ages > or = 20 years Desirable: >or= 60 mg/dL Low: <40 mg/dL Literature References: 1. Expert Panel on Integrated Guidelines for Cardiovascular Health and Risk Reduction in Children and Adolescents. Pediatrics 2011;128:S213 2. NCEP Expert Panel. Circulation 2004;110:227 Current Interpretive Data was last revised on 2017. Testing performed by: [facility], [address] [place] [address]., [address] LDL, calculated 36 <=129 mg/dL MELODIE Comment: Interpretive Data Ages < or = 19 years Acceptable: <110 mg/dL Borderline high: 110-129 mg/dL High: >or= 130 mg/dL Ages > or = 20 years Optimal: <100 mg/dL Near optimal: 100-129 mg/dL Borderline high: 130-159 mg/dL High: >160 mg/dL Calculated using the Pepe LDL-C estimating equation. This equation was implemented on 2023. Prior to this date LDL-C was estimated using the Friedewald equation. Literature References: 1. Expert Panel on Integrated Guidelines for Cardiovascular Health and Risk Reduction in Children and Adolescents. Pediatrics 2011;128:S213 2. NCEP Expert Panel. Circulation 2004;110:227 3. Pepe Johnson et al. DERRICK Cardiol. 2019August 15;5(5):540-548. doi: [email or web address]/[email or web address] Current Interpretive Data was last revised on 2023. Testing performed by: [address] [address] Non-HDL Cholesterol 47 mg/dL MELODIE COBB Comment: Interpretive Data Ages < or = 19 years Acceptable: <120 mg/dL Borderline high: 120-144 mg/dL High: >145 mg/dL Ages > or = 20 years When triglycerides are >200 mg/dL, Non-HDL cholesterol is a secondary target of therapy with treatment goals that are 30 mg/dL greater than the LDL cholesterol target. Literature References: 1. Expert Panel on Integrated Guidelines for Cardiovascular Health and Risk Reduction in Children and Adolescents. Pediatrics 2011;128:S213 2. NCEP Expert Panel. Circulation 2004;110:227 Current Interpretive Data was last revised on 2017. Testing performed by: [address] [address] Chol/HDL ratio 2 MELODIE Comment:Testing performed by : [address] [address] Blood 05/21/2024 7:40 AM TAR HEAT EXCHANGER CLEANER 05/21/2024 12:16 PM TAR HEAT EXCHANGER CLEANER us Mirna Bryson MD LAB BLOOD ORDERABLES Final Result MELODIE COBB [address] [place] [address] Department [place] [address] * Dexa Axial Skeleton Bone Density 1 or 2 Site (01/10/2024 2:00 PM CDT) Anatomical Region Laterality Modality Body N/A Other 01/10/2024 7:13 PM CDT Narrative 01/10/2024 7:14 PM CDT EXAM DESCRIPTION: DEXA AXIAL SKELETON BONE DENSITY 1 OR MORE SITES REASON FOR STUDY: 78 y/o year old F with given history of: menopause Screening. Thermal Technician/Model: Press-sense SL (S/N [id number]) CLINICAL INFORMATION: Current height: 70 inches Maximum height: 70.5 inches Weight: 226 pounds Risk factors: Postmenopausal, adult fracture COMPARISON: 10/05/2020 Dissimilar scan types or analysis methods precludes assessment for calculating a significant change. FINDINGS: AP LUMBAR SPINE L1-L4: Total BMD is 1.108 g/cm2 T-score is 0.6 LEFT HIP: Total BMD is 0.727 g/cm2 T-score is -1.8 Femoral neck BMD is 0.61 g/cm2 T-score is -1.9 FRAX: 10 year risk for a major osteoporotic fracture is 19 %, 10 year risk for a hip fracture is 4.4 % IMPRESSION: Low Bone Mass. REFERENCE: Bone mineral density: T-Score: Normal (T-score above or = -1.0) Low bone mass (T-score between -1.0 and -2.5) replaces the previously used term osteopenia Osteoporosis (T-score = or below -2.5) Z-Score: Within the expected range for age (Z-score above -2.0) Below the expected range for age (Z-score is -2.0 or below) Please see below follow up recommendations. Medical evaluation for secondary causes of low bone mineral density may be appropriate. FRAX is a World Health Organization validated fracture risk assessment tool that calculates a person's 10 year probability of a major osteoporosis related fracture and hip fracture. According to the National Osteoporosis Foundation guidelines, postmenopausal women and men age 50 or older with low bone mass and a 10 year probability of a major osteoporosis related fracture = or greater than 20% or a 10 year probability of a hip fracture = or greater than 3% should be considered for pharmacological treatment for the prevention of osteoporosis. For further information, including treatment recommendations, please refer to the 2019 ISCD Official Positions (http://www.iscd.org) and the NOF's Clinician's Guide to Prevention and Treatment of Osteoporosis (http://www.nof.org/professionals/clinical-guidelines) THIS IS AN ELECTRONICALLY VERIFIED FINAL REPORT 01/10/2024 7:14 PM - Electronically signed by Anastacio Oliveira M.D. MF: VON Report ID: [id number] Reading Location: [place] [address] Procedure Note Anastacio Oliveira MD - 01/10/2024 EXAM DESCRIPTION: DEXA AXIAL SKELETON BONE DENSITY 1 OR MORE SITES REASON FOR STUDY: 78 y/o year old F with given history of: menopause Screening. Thermal Technician/Model: Press-sense SL (S/N [id number]) CLINICAL INFORMATION: Current height: 70 inches Maximum height: 70.5 inches Weight: 226 pounds Risk factors: Postmenopausal, adult fracture COMPARISON: 10/05/2020 Dissimilar scan types or analysis methods precludes assessment for calculating a significant change. FINDINGS: AP LUMBAR SPINE L1-L4: Total BMD is 1.108 g/cm2 T-score is 0.6 LEFT HIP: Total BMD is 0.727 g/cm2 T-score is -1.8 Femoral neck BMD is 0.61 g/cm2 T-score is -1.9 FRAX: 10 year risk for a major osteoporotic fracture is 19 %, 10 year risk for ahip fracture is 4.4 % IMPRESSION: Low Bone Mass. REFERENCE: Bone mineral density: T-Score: Normal (T-score above or = -1.0) Low bone mass (T-score between -1.0 and -2.5) replaces thepreviously used term osteopenia Osteoporosis (T-score = or below -2.5) Z-Score: Within the expected range for age (Z-score above -2.0) Below the expected range for age (Z-score is -2.0 or below) Please see below follow up recommendations. Medical evaluation forsecondary causes of low bone mineral density may be appropriate. FRAX is a World Health Organization validated fracture risk assessmenttool that calculates a person's 10 year probability of a major osteoporosisrelated fracture and hip fracture. According to the National OsteoporosisFoundation guidelines, postmenopausal women and men age 50 or older with low bonemass and a 10 year probability of a major osteoporosis related fracture = or greater than 20% or a 10 year probability of a hip fracture = or greaterthan 3% should be considered for pharmacological treatment for the preventionof osteoporosis. For further information, including treatment recommendations, please referto the 2019 ISCD Official Positions (http://www.iscd.org) and the NOF's Clinician's Guide to Prevention and Treatment of Osteoporosis (http://www.nof.org/professionals/clinical-guidelines) THIS IS AN ELECTRONICALLY VERIFIED FINAL REPORT 01/10/2024 7:14 PM - Electronically signed by Anastacio Oliveira M.D. MF: VON Report ID: [id number] Reading Location: [place] [address] us Mirna Bryson MD IMG DXA PROCEDURES Final R esult * Screening Mammogram Bilateral W Isidro (10/11/2023 8:00 AM CDT) Anatomical Region Laterality Modality Breast Bilateral Mammography 10/11/2023 10:2 0 AM CDT Impressions 10/11/2023 10:20 AM CDT There is no mammographic evidence of malignancy. A 1 year screening mammogram is recommended. BI-RADS: 2 - Benign. The patient has been or will be contacted. The patient will be entered into a reminder system with a target due date of 1 year for her next mammogram. Electronically signed by: Rachel Lee M.D. Narrative 10/11/2023 10:20 AM CDT EXAMINATION: SCREENING MAMMOGRAM BILATERAL W ISIDRO ORDERING HEALTHCARE PROVIDER: MIRNA BRYSON HISTORY: Routine screening mammography. COMPARISON: 10/08/2022, 10/07/2021, 10/05/2020, 10/01/2019, 09/24/2018, 02/26/2018. TECHNIQUE: CC and MLO views of both breasts were obtained with digital technique using digital breast tomosynthesis with C view. Computer aided detection was utilized. FINDINGS: DENSITY: The breasts have scattered areas of fibroglandular density. BREASTS: There are stable postoperative changes in the left breast. There are also unchanged small benign masses in the left breast. There is no new suspicious finding in either breast on mammogram. us Mirna Bryson MD IMG MAMMO PROCEDURES Final Result * COLONOSCOPY (02/14/2022 8:29 AM CDT) Anatomical Region Laterality Modality Other Narrative Procedure Note Spencer Delcid MD - 02/14/2022 8:29 AM CDT [facility] Patient Name: Jackelyn Blanchard Procedure Date: 02/14/2022 8:29 AM Date of : 1945 Admit Type: Outpatient Age: 76 Gender: Female Attending MD: Spencer Delcid M.D. Room: [facility]COPY RO[facility] 2 Note Status: Finalized Patient Profile: Refer to note in patient chart for documentation of history and physical. Procedure: Colonoscopy Indications: High risk colon cancer surveillance: Personalhistory of colonic polyps, Last colonoscopy: May2018 Referring MD: Mirna Bryson M.D. Providers: Spencer Delcid M.D. Impression: - Hemorrhoids found on perianal exam. - The entire examined colon is normal. - No specimens collected. Recommendation: - Discharge patient to home. - Resume previous diet. - Continue present medications. - Repeat colonoscopy in 5 years for surveillance. - Return to primary care physician as previously scheduled. Medicines: Propofol per Anesthesia Complications: No immediate complications. Estimated Blood Loss: Estimated blood loss: none. Procedure: Pre-Anesthesia Assessment: - This assessment was completed [Time ofAssessment] prior to the administration of sedation. The benefits, risks and alternatives of theprocedure and sedation were discussed and informed consentwas obtained. All questions were answered. Please referto the signed informed consent document in the medical record. The bowel preparation used was Miralax and bisacodyl tablets via single dose instruction. The scope was passed under direct vision. TheColonoscope [id number] was introduced through the anus and advanced to the the cecum, identified by appendiceal orifice and ileocecal valve. The colonoscopy was performed without difficulty. The patient tolerated the procedure well. The qualityof the bowel preparation was excellent. The ileocecal valve, appendiceal orifice, and rectum were photographed. Findings: Hemorrhoids were found on perianal exam. The colon (entire examined portion) appeared normal. Electronically signed by Spencer Delcid M.D. Spencer Delcid M.D. 02/14/2022 9:23:41 AM Number of Addenda: 0 Note Initiated On: 02/14/2022 8:29 AM Procedure Code(s): --- Professional --- G0105, Colorectal cancer screening; colonoscopy on individual at high risk Diagnosis Code(s): --- Professional --- K64.9, Unspecified hemorrhoids Z86.010, Personal history of colonic polyps CPT copyright 2020 [employer] [place] [employer]. All rights reserved. The codes documented in this report are preliminary and upon office rn reviewmay be revised to meet current compliance requirements. Recognized by the [place] [employer] for promoting quality in endoscopy us Spencer Delcid MD ENDOSCOPY PROCEDURES Final Re sult * Hepatitis C antibody (11/30/2012 12:12 PM CDT) Hep C Ab NON-REACT SHITAL NON-REACT SHITAL [facility] RES[facility] SIGNAL TO CUT-OFF 0.02 <1.00 [facility] Comment: Test performed at [facility] [address] [place] [address] Director: ROXANNE ALFARO DO,MPH 11/30/2012 12:1 2 PM CDT Mirna Bryson MD LAB MICROBIOLOGY - GENERAL ORDERABLES Final Result [facility]OR[facility] RESULTS from Last 3 Months or Most Recently Relevant to Health Maintenance Insurance MEDICARE [facility] MEDICARE SUPPLEMENT INSURANCE COMMERCIAL GENERIC MEDICARE [facility] MEDICARE SUPPLEMENT INSURANCE MEDICARE [facility] MEDICARE SUPPLEMENT Advance Directives For more information, please contact: [phone] Documents on File Type Date Recorded Patient Insulation Manager Expl anation ADVANCE DIRECTIVE 07/10/2018 3:04 PM DNR ADVANCE DIRECTIVE 10/23/2017 [employer] ADVANCE DIRECTIVE 08/17/2017 9:24 AM ADVANCE DIRECTIVE 08/17/2017 Advance Di rective Checklist * Full Code (Latest Code Status on File) Date Activated Date Inactivated Comments 03/25/2023 8:34 AM 03/25/2023 10:45 PM * Full Code Date Activated Date Inactivated Comments 11/10/2022 12:45 PM 11/10/2022 8:08 PM * Full Code Date Activated Date Inactivated Comments 02/14/2022 8:26 AM 02/14/2022 2:30 PM * Full Code Date Activated Date Inactivated Comments 02/14/2022 8:26 AM 02/14/2022 8:26 AM * Full Code Date Activated Date Inactivated Comments 02/04/2022 4:03 PM 02/07/2022 8:13 PM Care Teams Dietitian Assistant Relationship Specialty Start Date End Date Mirna Bryson MD PCP - General 07/15/16 Simba Laird MD Plastic Surgery 12/16/16 Skyler Leos MD [address] [facility] [address] [place] [address] Dermatology 12/16/16 Ish Zambrano MD [address] [place] [address] Ophthalmology 12/16/16 Randell Phillips MD [address] [place] [address] Referring Physician Orthopedic Surgery 10/24/17 Luz Murry MD [address] [facility] [address] [place] [address] Consulting Physician General Surgery 07/10/18 Alex Figueroa MD [address] [place] [address] [employer] Obstetrics and Gynecology 08/04/20 Cristino Wiley MD [address] [place] [address] Consulting Physician Sleep Medicine 03/02/21 David Cortes DC [address] [place] [address] [place] [address] Chiropractic Medicine 05/17/21
--- OUTSIDE RECORDS SUMMARY | 2024-09-04 13:26 | XMS_ITS | Encounter Summary ---
Author Organization [facility] Address [address] [place], [place] [address] [address] Care Team Providers Care Melt Helper Name Role Phone Unavailable Primary Care Provider Unavailabl e Encounter Details Date Type Department Care Team (Late st Contact Info) Description 01/30/2019 Lab Requisition [facility] [address] [place] [address] Skyler Leos MD [facility] [address] [address] Social History Tobacco Use Types Packs/Day Years Used Date Smoking Tobacco: Former Alcohol Use Standard Drinks/Week Comments No 0 (1 standard drink = 0.6 oz pur e alcohol) Comments Unknown Sex and Gender Information Value Date Recorded Sex Assigned at Not on file Legal Sex Female 6:03 PM [employer] Gender Identity Not on file Sexual Orientation Not on file documented as of this encounter Plan of Treatment Not on file documented as of this encounter Procedures Procedure Name Priority Date/Time Associated Diagnosis Comments DERMATOPATHOLOGY Routine 01/23/2019 12:0 0 AM CDT documented in this encounter Results * DERMATOPATHOLOGY (01/23/2019 12:00 AM CDT) Case Report Dermatopathology Report Case: [id number] Authorizing Provider: Skyler Leos MD Collected: 01/23/2019 12:00 AM Ordering Location: [facility] Received: 01/30/2019 10:16 AM Pathologist: Nicolette Aguilar MD Specimen: Skin, left upper outer arm 10:28 AM [facility] Final Diagnosis Specimen A. SKIN, left upper outer arm: BASAL CELL CARCINOMA, NODULAR TYPE (C44.619) (see microscopic description) 10:28 AM [facility] at 1028 CDT Clinical History R/O BCC. 10:28 AM [facility] Gross Description Specimen A: Received is one formalin filled container labeled with the patient's name and designated left upper outer arm. The specimen consists of a shave biopsy measuring [id number]. Jar 0. 10:28 AM [facility] Microscopic Description Specimen A. SKIN, left upper outer arm: Within the dermis there are aggregates of basaloid cells with a high nuclear to cytoplasmic ratio and peripheral palisading. Additional deeper sections were obtained and reviewed. 10:28 AM [facility] Disclaimer An external and internal [...] purposes. Billing Codes Specimen Charges Stain Charges 22706 1 10:28 AM [facility] DERMATOPATH[facility]Y LABORATORY Embedded Images 10:28 AM [facility] DERMATOPATH[facility]Y LABORATORY Pathology/Cytolog y TISSUE SPECIMEN FROM SKIN / Unknown 01/23/2019 01/30/2019 10:16 AM CDT us Skyler Leos MD LAB - PATHOLOGY/CYTOLOGY ORDERAB LES Final Result DERMATOPATHOLOGY LABORATORY [facility] - Department of Dermatology [address] [facility], 5th Floor Lab [address] [place], [place] [id number] [place] [address] documented in this encounter Visit Diagnoses Not on filedocumented in this encounter
--- OUTSIDE RECORDS SUMMARY | 2024-09-04 13:26 | XMS_ITS | Encounter Summary ---
Author Organization [facility] Healthcare Address [address] [place] [address] Care Team Providers Care Research Engineer Name Role Phone Mirna Mac MD Primary Care Provider [phone] Simba Laird MD Unavailable [phone] Skyler Leos MD Unavailable [phone] Ish Zambrano MD Unavailable [phone] Randell Phillips MD Unavailable [phone] Luz Murry MD Unavailable [phone] Alex Figueroa MD Unavailable [phone] Cristino Wiley MD Unavailable David Cortes DC Unavailable [phone] Encounter Details Date Type Department Care Team (Late st Contact Info) Description 08/09/2024 Orders Only [facility] [address] [place] [address] Scanning, Provider Social History Tobacco [...] and Family Not on file 01/18/2019 Attends [employer] Not on file 01/18 Active Member [...] on file Legal 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 Gender Identity Not on file Sexual Orientation Not on file Occupation Industry Job Start Date Job End Date Retired Not on file Not on file Not on file documented as of this encounter Plan of Treatment Not on file documented as of this encounter Procedures Procedure Name Priority Date/Time Associated Diagnosis Comments SCAN - RADIOLOGY/IMAGING 08/09/2024 documented in this encounter Results * SCAN - RADIOLOGY/IMAGING (08/09/2024) Anatomical Region Laterality Modality Other Provider Scanning Final Result documented in this encounter Visit Diagnoses Not on filedocumented in this encounter Care Teams Research Engineer Relationship Specialty Start Date End Date Mirna Mac MD PCP - General 07/15/16 Simba Laird MD Plastic Surgery 12/16/16 Skyler Leos MD [address] [facility] [address] [place] [id number] Dermatology 12/16/16 Ish Zambrano MD [address] [place] [address] Ophthalmology 12/16/16 Randell Phillips MD [address] [place] [address] Referring Physician Orthopedic Surgery 10/24/17 Luz Murry MD [address] [facility] [address] [place] [address] Consulting Physician General Surgery 07/10/18 Alex Figueroa MD [address] [place] [address] [place] [address] Plant Nursery Worker Obstetrics and Gynecology 08/04/20 Cristino Wiley MD [address] [place] [address] [place] [address] Consulting Physician Sleep Medicine 03/02/21 David Cortes DC [address] [place] [address] [place] [address] Chiropractic Medicine 05/17/21 documented as of this encounter
--- OUTSIDE RECORDS SUMMARY | 2024-09-04 13:26 | XMS_ITS | Clinical Summary ---
Author Organization [facility] Address [address] [place] [address] Care Team Providers Care Alpine Patroller Name Role Phone Mirna Bryson MD Primary Care Provider [phone] Simba Laird MD Unavailable [phone] Skyler Leos MD Unavailable [phone] Ish Zambrano MD Unavailable [phone] Randell Phillips MD Unavailable [phone] Luz Murry MD Unavailable [phone] Alex Figueroa MD Unavailable [phone] Cristino Wiley MD Unavailable David Cortes DC Unavailable [phone] Allergies Active Allergy Reactions Criticality Noted Date [...] by mouth 2 (two) times a day 022 Active senna (SENOKOT) 8.6 mg tabletIndications :Chronic constipation Take 1-2 tablets by mouth nightly 100 tablet 11 024 Active aspirin 81 mg chewable tabletIndications :Temporary cerebral vascular dysfunction Take 1 tablet (81 mg total) by mouth daily 90 tablet 2 024 Active acetaminophen (TYLENOL) 500 mg tabletIndications :Arthritis of knee Take 1 tablet (500 mg total) by mouth 2 (two) times a day Tylenol immediate release 500 mg plus Tylenol ER 650 mg 024 Active rosuvastatin (CRESTOR) 20 mg tabletIndications :Type 2 diabetes mellitus without complication, without long-term current use of insulin ([facility]),Multiple-ty pe hyperlipidemia Take 1 tablet (20 mg total) by mouth daily 90 tablet 2 024 Active spironolactone (ALDACTONE) 25 mg tabletIndications :Hypertension complicating diabetes (HCC) Take 0.5-1 tablets (12.5-25 mg total) by mouth 3 (three) times a week Adjust no more than once weekly to keep blood pressure 100-140/60-80 range 90 tablet 1 024 Active blood glucose diagnostic (OneTouch Verio test strips) stripIndications: Type 2 diabetes mellitus without complication, without long-term current use of insulin ([facility]) USE TO CHECK BLOOD SUGAR DAILY E11.9 non insulin 100 strip 3 024 Active labetaloL (NORMODYNE,TRANDA TE) 100 mg tabletIndications [...] or continued 6.Avoid alcohol sedatives and other 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 David Cortes using the pro hairspring adjuster Last C-spine CT scan March 2015 IMPRESSION: [...] Thyroid biopsy (-) November [address] Monique Specimen(s) Received: A: FNBx, Thyroid, Left Clinical [...] at that time including transesophageal echocardiogram at [facility] was negative. She had some recurrence symptoms [...] diet. Assessment & Plan (05/26/2023 11:07 AM SINGING WAITER OR WAITRESS): BP stable in office today on current [...] removed History of endometrial cancer Overview (06/04/2024): KRUPA SHUKLA [address] Figueroa Resolved Problems [...] 06/04/2024 Assessment & Plan (05/26/2023 11:07 AM SINGING WAITER OR WAITRESS): Intermittent stabbing/ sticking pain between breast since [...] Started 3 days ago after bending to scrap picker something off the floor. Assessment as noted above. Likely muscle strain. Continue Tylenol and heat/ice. Offered tizanidine and PT consult, pt refused at this time. Keep follow in 2 weeks as scheduled. Gastroesophageal reflux dise ase without esophagitis 06/07/2022 09/15/2022 Assessment & Plan (06/07/2022 1:31 PM SINGING WAITER OR WAITRESS): Chronic problem, recently exacerbated resulting in ER [...] 11/08/2021 Assessment & Plan (05/20/2024 9:45 PM SINGING WAITER OR WAITRESS): Likely related to chronic constipation, see plan [...] 09/15/2022 Assessment & Plan (05/28/2021 10:11 AM SINGING WAITER OR WAITRESS): Patient reports since her last visit she [...] 09/15/2022 Assessment & Plan (2021 11:05 AM SINGING WAITER OR WAITRESS): Patient has acute pain of the rt [...] that she just wanted to make Dr. Reilly aware and that it would be put [...] out in office today and faxed to [facility]. Assessment & Plan (06/22/2020 11:37 AM SINGING WAITER OR WAITRESS): Pt to have left cataract surgery by [...] 06/22/2020 Assessment & Plan (06/22/2020 11:39 AM SINGING WAITER OR WAITRESS): PT reports increased pain in the right knee within the past few weeks. We will get an x-ray today. She has seen Dr. Phillips in the past, so if needed to be referred, she would prefer to go back and see him. I advised that she take tylenol for the pain. Acid indigestion 04/20/2020 08/04/2020 Assessment & Plan (05/22/2020 9:17 AM SINGING WAITER OR WAITRESS): Pt is taking famotidine 40mg daily and she has done well with this--stating that she has not had any reflux symptoms. She is following the strict diet guidelines as well. She will continue on this medication. She will f/u for this with Dr. HAN at her next appt on 08/04/20. Assessment & Plan (04/20/2020 10:30 AM SINGING WAITER OR WAITRESS): Pt went to ED on 04/13 for [...] 08/04/2020 Assessment & Plan (04/15/2020 10:37 AM SINGING WAITER OR WAITRESS): Dr. HAN did come into the room [...] scheduled. Assessment & Plan (03/30/2020 10:33 AM SINGING WAITER OR WAITRESS): Pt reports swelling in lower legs now [...] done. Assessment & Plan (03/30/2020 8:22 AM SINGING WAITER OR WAITRESS): Pt reports about 1 week of lower [...] 03/30/202007/17 Assessment & Plan (03/30/2020 11:47 AM SINGING WAITER OR WAITRESS): Pt reports that her left knee has [...] 08/04/2020 Assessment & Plan (04/30/2019 9:00 AM SINGING WAITER OR WAITRESS): Nasal saline spray (Simply saline, Little Remedies, Encantado, Ponce) 2 second sprays or 2 squeezes into [...] helping. Assessment & Plan (04/30/2019 9:00 AM SINGING WAITER OR WAITRESS): Nasal saline spray (Simply saline, Little Remedies, Encantado, Ponce) 2 second sprays or 2 squeezes into each nostril while looking down over the sink, do not need to sniff in 2-3 times daily If pain returns try Cetirizine if Mucinex not improving symptoms Other option would be warm compresses to left neck pulling forward for 15 minutes at a time Continue Humidifier Assessment & Plan (05/06/2019 8:55 AM SINGING WAITER OR WAITRESS): She was in the office few days [...] re-evaluation. Assessment & Plan (05/04/2019 10:22 AM SINGING WAITER OR WAITRESS): The patient presents for evaluation of intermittent [...] 08/04/2020 Assessment & Plan (03/07/2019 9:44 AM SINGING WAITER OR WAITRESS): Left proximal upper arm Diagnosis discussed. No further treatment required at this time. She knows that she should follow up if this area develops any further symptoms. Assessment & Plan (02/22/2019 1:59 PM SINGING WAITER OR WAITRESS): Left proximal upper arm Biopsy/ies done per procedure note by Dr. Palmer. Basal cell carcinoma (BCC) of left upper arm 9 08/04/2020 Assessment & Plan (03/07/2019 9:45 AM SINGING WAITER OR WAITRESS): Left distal upper arm One week status post excision Healing well, no evidence of complication or infection reported or noted on exam. Pathology results discussed, no further treatment required. Follow-up at the 6 week postoperative mabel for final evaluation or sooner if issues arise. Assessment & Plan (02/22/2019 1:58 PM SINGING WAITER OR WAITRESS): Left distal upper arm, biopsy proven Dr. Palmer excised this lesion today in clinic. Please see his separate note. Nipple lesion 02/22/2018 12/28/2018 Chronic rhinitis 11/14/2017 06/04/2024 Overview (11/14/2017): Olopatadine nasal spray too expensive, trial Astelin November 14, 2017 Chronic constipation 11/08/2017 025 Assessment & Plan (05/20/2024 9:45 PM SINGING WAITER OR WAITRESS): Chronic, uncontrolled despite MiraLax twice daily and [...] appendectomy February 1989. TAHBSO February 2004 at [facility] for grade 1A endometrial cancer, incisional hernia with mesh repair February 2006. Pursuing evaluation for possible biliary stricture as for T-spine pain behaves like gallbladder issue September 2017 HIDA scan ordered Assessment & Plan (06/01/2021 9:24 AM SINGING WAITER OR WAITRESS): Patient has history of chronic rt sided [...] explained above. Knee effusion, left 06/29/2017 09/27/19 Assessment & Plan (06/29/2017 3:50 PM CDT): [...] knees Sleep disorder 12/16/2016 09/15/2022 Overview (09/26/2017): [place] Sleep Scale positive at 13, complaints of [...] patient's profound weight loss. Clinical correlation recommended. Tracy A: Hypersomnia, G47.10 Tracy B: Polysomnography, 33748 Electronically Authenticated and Edited by: Cristino Wiley MD On 01/23/2017 Other fatigue 12/16/2016 08/04/2020 Overview (12/16/2016): Lab evaluation negative December 2016, sleep study ordered. Assessment & Plan (05/22/2020 9:19 AM SINGING WAITER OR WAITRESS): Pt is currently wearing the 30 day cardiac event monitor and will see Dr. Trevino on 05/04/20 for the episodes of SOB with weakness as outlined below at our last visit on 05/04/20. Assessment & Plan (05/04/2020 12:08 PM SINGING WAITER OR WAITRESS): Pt has had an initial cardiac workup [...] Pt just had carotid dopplers done by [facility] [employer] in . and were negative. Nuclear stress test done [...] of foot 03/28/2013 09/26/2017 Chest pain 08/04/2020 Encounters Date Type Department Care Team Description 08/27/2024 Telephone [facility] [address] [place] [address] Mirna Bryson MD 08/09/2024 Orders Only [facility] [address] [place] [address] Scanning, Provider 07/29/2024 9:00 AM CDT Office [facility] [address] [place] [address] Gaetano Shen, STAN Laceration of left ear canal, initial encounter (Primary Dx) 07/23/2024 Telephone [facility] [address] [place] [address] Mirna Bryson MD 06/20/2024 9:45 AM SINGING WAITER OR WAITRESS Office Visit [facility] [address] [place] [address] Cristino Wiley MD ALEM (obstructive sleep apnea) (Primary Dx); Hypersomnia with sleep apnea; Circadian rhythm sleep disorder, advanced sleep phase type; Obesity (BMI 30.0-34.9); Transient ischemic attack (TIA) from Last 3 Months Immunizations Immunization Administration Dates Next Due COVID-19 mRNA (Q2ebanking) 0.3 m L (30 mcg) vaccine (12 [...] 09/22/2020,02/12/2010 ZOSTER LIVE 01/08/2014 ZOSTER Recombinant 04/02/2024,12/27/2023 Surgical History Surgery Date Site/Laterality Comments CHOLECYSTECTOMY 04/17/1996 - 04/16/1997 Cholecystectomy HERNIA REPAIR 04/17/2005 - 04/16/2006 Hernia repair APPENDECTOMY 04/17/1988 - 04/16/1989 Appendectomy KNEE ARTHROSCOPY 04/17/2002 - 04/16/2003 Arthroscopy knee FACIAL SURGERY trauma TRIGGER FINGER RELEASE COLONOSCOPY 05/18/2018 - 06/14/2018 FLEXIBLE SIGMOIDOSCOPY 04/17/2012 - 04/16/2013 ESOPHAGOGASTRODUODENOSCOPY 04/17/2007 - 04/16/2008 COLONOSCOPY W/ BIOPSIES AND POLYPECTOMY 05/30/2018 (+) RORY Shaw single tubular adenoma TRABECULECTOMY 10/15/2017 - 11/14/2017 Dr. Zambrano October 2017, narrow angle glaucoma treatment success SKIN CANCER EXCISION 02/15/2019 - 03/16/2019 Dr. Palmer left arm basal cell carcinoma CATARACT EXTRACTION 07/10/2020 Left BREAST BIOPSY Left surgical benign bx, so long ago, cant remember , unable to visualize scar, pt points to lower inner quadrant. TOTAL ABDOMINAL HYSTERECTOMY W/ BILATERAL SALPINGOOPHORECTOMY 04/17/2003 - 04/16/2004 Hysterectomy, total abdominal, BSO COLONOSCOPY 02/14/2022 (-) Dr. Delcid, recheck 5 year follow-up of polyps CARDIAC CATHETERIZATION 11/10/2022 (-) Dr. Weldon: Clean coronaries, normal pulmonary artery pressure Medical History Medical History Date Comments History of malignant neoplas m of endometrium Cancer, endometrial Hypertension Hypertension Hyperlipidemia Hyperlipidemia Back pain Stroke (HCC) Acid reflux Diabetes (HCC) Amaurosis Colon polyp Type 2 diabetes mellitus (HCC) Abnormal echocardiogram find ings without diagnosis 09/28/[address] Maxwell tar test -11/10/2022 1. Angiographically mild coronary artery disease.2. Normal left ventricular systolic function.3. Normal left ventricular diastolic pressure.4. Normal pulmonary artery pressures with normal filling pressures and normal resting cardiac output.5. Successful vascular access closure. CARE PLAN There is no high-grade coronary lesions to warra Family History Medical History Relation Name Comments Angina Father Tuberculosis Father's Sister Diabetes Mother Hypertension Mother Skin cancer Mother's Brother Asthma Other Sister Migraines Paternal Grandmother Migrain es; Ovarian cancer Paternal Grandmother David r, ovarian; Cause of : Cancer, ovarian Breast cancer Paternal cousin Thyroid cancer Neg Hx Relation Name Status Comments Father Father's Sister Mother Mother's Brother Other Sister Other Paternal Grandmother Paternal cousin Social History Tobacco Use Types Packs/Day Years [...] and Family Not on file 01/18/2019 Attends [employer] Services Not on file 01/18 Active Member [...] on file Legal Sex Female 7:45 PM SINGING WAITER OR WAITRESS Gender Identity Not on file Sexual Orientation Not on file Occupation Industry Job Start Date Job End Date Retired Not on file Not on file Not on file Obstetrics History Para Term AB IAB SAB Ectopic Multiple Livin g Live Births 0 0 0 0 0 0 0 0 0 0 0 Last Filed Vital Signs Vital Sign Reading [...] 07/29/2024 8:54 AM CDT Plan of Treatment Health Maintenance Due Date Last Done Comments Covid-19 Vaccine (2023- 5 season) 2024 02/05/2024, 02/09/2023, 02/01/2022, Additional history exists Dilated Eye Exam 10/29/2024 10/30/2023 Hemoglobin A1C 11/18/2024 05/21/2024, 11/16, 10/18/2023, Additional history exists Foot Exam 11/29/2024 11/30/2023 Albumin Creatinine Ratio, Urine 05/21/2025 05/21/2024, 12/14/2023, 04/12/2023, Additional history exists Lipid Panel 05/21/2025 05/21/2024, 03/17, 02/17/2022, Additional history exists eGFR 05/21/2025 05/21/2024, 11/16, 10/18/2023, Additional history exists Fall Risk Assessment 06/04/2025 06/04/2024, 05/20/2024, 04/11/2023, Additional history exists Well Visit 65+ 06/04/2025 06/04/2024, 03/18, 09/15/2022, Additional history exists Depression Screening 07/29/2025 07/29/2024, 06/04/2024, 02/12/2024, Additional history exists Osteoporosis Screening-Bone Density Scan 01/09/2026 01/10/2024, 10/05/2020, 10/15/2014 DTaP/Tdap/Td Vaccine (3 - Td or Tdap) 09/22/2030 09/22/2020, 02/12/2010 Hepatitis C Screening Completed 11/30/2012 Colon Cancer Screening-CT Colonography Discontinued 02/14/2022 Colon Cancer Screening-Colonoscopy Discontinued 02/14/2022 Colon Cancer Screening-DNA Stool Discontinued 02/15/20 Colon Cancer Screening-FIT Discontinued 02/14/2022 Colon Cancer Screening-FOBT Discontinued 02/14/2022 Colon Cancer Screening-Sigmoidoscopy Discontinued 02/14/2022 Colorectal Cancer Screening Discontinued Pneumococcal vaccine 65+ Completed 024, 2017, 06/16/2014, Additional history exists Breast Cancer Screening-Mammogram Discontinued 10/11/2023, 10/08/2022, 10/07/2021, Additional history exists Hepatitis B Screening Completed 12/14/2023 Influenza Vaccine Completed 01/16/2024, , 01/24/2022, Additional history exists Zoster Vaccine Completed 04/02/2024, 12/16, 01/08/2014 Medical Devices Implanted Type Area Trial Mgr Device Identifier Shelf Expiration Date Model / Serial / Lot [employer] Angio-Seal Vip 6fr Closere Device [id number] - [id number] Implanted:Qty: 1 on 11/10/2022 by Juan F Weldon MD at [facility] [employer] 05/17/2023 [id number] / / [id number] Procedures Procedure Name Priority Date/Time Associated Diagnosis Comments SCAN - RADIOLOGY/IMAGING 08/09/2024 EGFR Routine 05/21/2024 7:40 AM SINGING WAITER OR WAITRESS Type 2 diabetes mellitus without complication, without long-term current use of insulin (HCC) HEMOGLOBIN A1C Routine 05/21/2024 7:40 AM SINGING WAITER OR WAITRESS Type 2 diabetes mellitus without complication, without long-term current use of insulin (HCC) LIPID PANEL Routine 05/21/2024 7:40 AM SINGING WAITER OR WAITRESS Multiple-type hyperlipidemia ALBUMIN CREATININE RATIO, URINE Routine 05/21/2024 7:40 AM SINGING WAITER OR WAITRESS Type 2 diabetes mellitus without complication, without [...] Final Result * eGFR (05/21/2024 7:40 AM SINGING WAITER OR WAITRESS) eGFR 87 >=60 mL/min/1. 73 m2 Comment: [...] was last reviewed 2021. Testing performed by: [facility], [address] [place] [address], [place]., [address] Blood 05/21/2024 7:40 AM SINGING WAITER OR WAITRESS 05/21/2024 12:22 PM SINGING WAITER OR WAITRESS Mirna Bryson MD LAB BLOOD ORDERABLES Final Result [facility] [address] [facility] Department [place] [address] * Albumin Creatinine Ratio, Urine (05/21/2024 7:40 AM SINGING WAITER OR WAITRESS) Albumin Ur <12.0 mg/L Comment: Interpretive Data No reference range established. Current interpretive data was last revised 2018. Testing performed by: [address] [address] Creatinine Ur 79.9 mg/dL [place] Comment: Interpretive Data No reference range established. Current interpretive data was last revised 2018. Testing performed by: [address] [address] Albumin Creatinine Ratio, Ur <15 1 - 29 mg/g [place] Comment:Testing performed by : [address] [address] Urine 05/21/2024 7:40 AM SINGING WAITER OR WAITRESS 05/21/2024 12:16 PM SINGING WAITER OR WAITRESS us Mirna Bryson MD LAB URINE ORDERABLES Final Result [address] Department [place] [address] * (ABNORMAL) Hemoglobin A1c (05/21/2024 7:40 AM SINGING WAITER OR WAITRESS) Pathologist [facility] Hgb A1C 6.2(H) 4.0 - 5.6 % Comment:Testing performed by : [address] [address] Estimated Average Glucose 131 mg/dL [place] Comment: The ADA recommends reporting an estimated Average Glucose (eAG) with all Hemoglobin A1c results using the equation derived from a study of 507 normal and diabetic adults. Minority populations were underrepresented and children were not included. (Diabetes Care 31:8662-1796, 2008). The eAG is not equivalent to a fasting glucose. Testing performed by: [address] [address] Blood 05/21/2024 7:40 AM SINGING WAITER OR WAITRESS 05/21/2024 12:16 PM SINGING WAITER OR WAITRESS us Mirna M. Stabell MD LAB BLOOD ORDERABLES Final Result [facility] [address] [facility] Department [place] [address] * Lipid panel (05/21/2024 7:40 AM SINGING WAITER OR WAITRESS) Cholesterol 113 30 - 199 mg/dL Comment: [...] last revised on 2017. Testing performed by: [facility], [address] [place] [address]., [address] Triglycerides 40 <=149 mg/dL [place] Comment: Interpretive [...] last revised on 2017. Testing performed by: [facility], [address] [place] [address]., [address] HDL 66 >=40 mg/dL [place] Comment: Interpretive [...] last revised on 2017. Testing performed by: [facility], [address] [place] [address]., [address] LDL, calculated 36 <=129 mg/dL [place] Comment: [...] 3. Pepe Johnson et al. DERRICK Cardiol. 2020 August 15;5(5):540-548. doi: [email or web address] Current Interpretive Data was last revised on 2023. Testing performed by: [address] [address] Non-HDL Cholesterol 47 mg/dL [place] Comment: Interpretive Data Ages < [...] last revised on 2017. Testing performed by: [address] [address] Chol/HDL ratio 2 [place] Comment:Testing performed by : [address] [place]., [address] Blood 05/21/2024 7:40 AM SINGING WAITER OR WAITRESS 05/21/2024 12:16 PM SINGING WAITER OR WAITRESS us Mirna Bryson MD LAB BLOOD ORDERABLES Final Result [facility] [address] [facility] Department [place] [address] * Dexa Axial Skeleton Bone Density 1 or 2 Site (01/10/2024 2:00 PM CDT) Anatomical Region Laterality Modality Body N/A Other 01/10/2024 7:13 PM CDT Narrative 01/10/2024 7:14 PM CDT EXAM DESCRIPTION: DEXA AXIAL SKELETON BONE DENSITY 1 OR MORE SITES REASON FOR STUDY: 78 y/o year old F with given history of: menopause Screening. Trial Mgr/Model: [employer] (S/N [id number]) CLINICAL INFORMATION: Current height: 70 inches Maximum [...] Anastacio Oliveira M.D. MF: VON Report ID: [id number] Reading Location: [id number] Procedure Note Anastacio Oliveira MD - 01/10/2024 EXAM DESCRIPTION: DEXA AXIAL SKELETON BONE DENSITY 1 OR MORE SITES REASON FOR STUDY: 78 y/o year old F with given history of: menopause Screening. Trial Mgr/Model: [employer] (S/N [id number]) CLINICAL INFORMATION: Current height: 70 inches Maximum [...] Anastacio Oliveira M.D. MF: VON Report ID: [id number] Reading Location: [place] [address] Mirna Bryson MD IMG DXA PROCEDURES Final [...] Delcid MD - 02/14/2022 8:29 AM CDT [facility] Patient Name: Jackelyn Blanchard Procedure Date: 02/14/2022 8:29 AM Date of : 1945 Admit Type: Outpatient Age: 76 Gender: Female Attending MD: Spencer Delcid M.D. Room: [facility] ENDOSCOPY ROOM 2 Note Status: Finalized Patient [...] scope was passed under direct vision. TheColonoscope [id number] was introduced through the anus and advanced [...] history of colonic polyps CPT copyright 2020 [employer]. All rights reserved. The codes documented in this report are preliminary and upon computer language coder reviewmay be revised to meet current compliance requirements. Recognized by the [employer] [employer] for promoting quality in endoscopy us Sepncer Delcid MD ENDOSCOPY PROCEDURES Final Re sult * Hepatitis C antibody (11/30/2012 12:12 PM CDT) Hep C Ab NON-REACT SHITAL NON-REACT SHITAL [facility] H[facility]ORICAL RESULTS SIGNAL TO CUT-OFF 0.02 <1.00 [facility]OR[facility] RESULTS Comment: [facility] [address] [place] [address] Director: ROXANNE ALFARO DO,MPH 11/30/2012 12:1 2 PM CDT Mirna Bryson MD LAB MICROBIOLOGY - GENERAL ORDERABLES Final Result [facility] HISTORICAL RESULTS from Last 3 Months or Most Recently Relevant to Health Maintenance Insurance MEDICARE [facility] MEDICARE SUPPLEMENT INSURANCE COMMERCIAL GENERIC MEDICARE [facility] MEDICARE SUPPLEMENT INSURANCE MEDICARE [facility] MEDICARE SUPPLEMENT Advance Directives For more information, please contact: [phone] Documents on File Type Date Recorded Patient Seasonal Tax Preparer Expl anation ADVANCE DIRECTIVE 07/10/2018 3:04 PM [...] 4:03 PM 02/07/2022 8:13 PM Care Teams Alpine Patroller Relationship Specialty Start Date End Date Mirna Bryson MD PCP - General 07/15/16 Simba Laird MD Plastic Surgery 12/16/16 Skyler Leos MD [address] [facility] [address] [place], [place] [id number] Dermatology 12/16/16 Ish Zambrano MD [address] [place] [address] Ophthalmology 12/16/16 Randell Phillips MD [address] [place] [address] Referring Physician Orthopedic Surgery 10/24/17 Luz Murry MD [address] [facility] [address] [place] [address] Consulting Physician General Surgery 07/10/18 Alex Figueroa MD [address] [place] [address] [place] [address] Commercial Loan Specialist Obstetrics and Gynecology 08/04/20 Cristino Wiley MD [address] [place] [address] [place] [address] Consulting Physician Sleep Medicine 03/02/21 David Cortes DC [address] [place] [address] [place] [address] Chiropractic Medicine 05/17/21
--- OUTSIDE RECORDS SUMMARY | 2024-09-04 13:26 | XMS_ITS | Encounter Summary ---
Author Organization [facility] Address [address] [facility] [address] [place] [address] Care Team Providers Care Division Field Inspector Name Role Phone Mirna Mac MD Primary Care Provider +- [phone] Mirna Mac MD Primary Care Provider + [phone] Mirna Mac MD Primary Care Provider +[phone] Tirso Monique DO Unavailable [phone] Yu Barrera MD Unavailable +[phone] Tena Lisa MD Unavailable +[phone] Simba Laird MD Unavailable +[phone] Skyler Leos MD Unavailable [phone] Ish Zambrano MD Unavailable [phone] Randell Phillips MD Unavailable +[phone] Luz Murry MD Unavailable +[phone] Carmela Varner MA Unavailable +[phone] Alex Figueroa MD Unavailable [phone] Cristino Wiley MD Unavailable David Cortes DC Unavailable +[phone] George Samano MD Unavailable Spencer Delcid MD Unavailable Maki Byrne MA Unavailable Unavailable Encounter Details Date Type Department Care Team (Late st Contact Info) Description 06/20/2016 Orders Only [facility] Provider, MD Matt [facility] [place] [id number] Social History Tobacco Use Types Packs/Day Years Used Date Smoking Tobacco: Never Assessed Comments Unknown Sex and Gender Information Value Date Recorded Sex Assigned at Not on file Legal Sex Female 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 Historical Provider [facility] KRYSTIAN MCKEON Final Result documented in this encounter Visit Diagnoses Not on filedocumented in this encounter Additional Health Concerns Infection Onset Date Last Indicated Resolved Time COVID: Suspected 06/25/2022 06/25/2022 06/25/2022 5:00 PM ENVIRONMENTAL SCIENCES PROFESSOR COVID19 06/25/2022 06/25/2022 07/05/2022 3:05 AM CDT COVID: Recovered Comment:Added based on recent COVID infection. 07/05/2022 07/15/2022 10/03/2022 3:05 AM C DT documented as of this encounter Care Teams Division Field Inspector Relationship Specialty Start Date End Date Mirna Mac MD PCP - General 07/15/16 Mirna Mac MD PCP - General 07/12/16 07/14/16 Mirna Mac MD PCP - General 05/15/13 07/11/16 Johnathon Tirso Driver DO Otolaryngology 12/16/16 09/14/22 Yu Barrera MD Gynecologic Oncology 12/16/16 08/03/20 Tena Lisa MD Gastroenterology 12/16/16 09/14/22 Smiba Laird MD Plastic Surgery 12/16/16 Skyler Leos MD [address] [facility] [address] [place] [address] Dermatology 12/16/16 Ish Zambrano MD [address] [place] [address] Ophthalmology 12/16/16 Randell Phillips MD [address] [place] [address] Referring Physician Orthopedic Surgery 10/24/17 Luz Murry MD [address] [facility] [address] [place] [address] Consulting Physician General Surgery 07/10/18 Carmela Varner MA [address] [facility] [address] [place] [address] ACO Care Sleeping Bag Filler 09/24/18 09/24/18 Alex Figueroa MD [address] [place] [address] [address] [place] [address] Body Trimmer Upholsterer Obstetrics and Gynecology 08/04/20 Cristino Wiley MD [address] [place] [address] [address] [place] [address] Consulting Physician Sleep Medicine 03/02/21 David Cortes DC [address] [place] [address] [place] [address] Chiropractic Medicine 05/17/21 George Samano MD [address] [place] [address] [place] [address] Consulting Physician General Surgery 02/07/22 02/07/22 Spencer Delcid MD [address] [place] [address] [address] [place] [address] Consulting Physician Gastroenterology 09/15/22 10/10/23 Maki Byrne MA [address] [facility] [address] [place] [address] ACO Care Sleeping Bag Filler 10/20/23 10/23/23 documented as of this encounter
--- OUTSIDE RECORDS SUMMARY | 2024-09-04 13:26 | XMS_ITS | Clinical Summary ---
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
--- OUTSIDE RECORDS SUMMARY | 2024-09-04 13:26 | XMS_ITS | Encounter Summary ---
Author Organization [facility] Address 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
--- OUTSIDE RECORDS SUMMARY | 2024-09-04 13:26 | XMS_ITS | Clinical Summary ---
Author Organization [facility] Address [address] [facility] [place] [address] Care Team Providers Care Director Recreation Center Name Role Phone Unavailable Primary Care Provider Unavailabl e Source Comments [facility],non-owned Affiliates and Associated Physician Practices is amultiple site organization consisting of ambulatory clinics and hospital sitesin [place], [place], [place] and [place]. This disclosure is being madepursuant to the Care Everywhere program and may not contain all informatio navailable regarding this patient. Last updated 18.[facility] [employer] Allergies Active Allergy Reactions Criticality Noted Date Comments Ciprofloxacin Rash Medium 10/27/2011 Contrast-Iodinated Agents For Ct/Other Skin Reactions Medium 10/27/2011 Severe hives, Severe hives Duloxetine Elevated Blood Pressure Medium 05/30/2018 Hydrochlorothiazide Rash Medium 05/20/2015 Nitrofurantoin Fever High 05/30/2018 Fever, chills Esomeprazole Itching 05/30/2018 Shellfish Allergy Rash Medium 05/30/2018 Sulfa Drugs Rash Medium 10/27/2011 Tree Nuts Other 05/30/2018 Almonds only-lip swelling Medications * Be aware that medications may not be up to date on this document. Alwaysverify current medications with the patient. polyethylene glycol (GOLYTELY) 236 G solution Drink 1/2 of prep at 6pm the night before test. Finish the prep 6 hours before test. 1 bottles 05/29/2018 Active ramipril (ALTACE) 5 MG capsule Take 5 mg by mouth once daily 01/03/2018 Active ASPIRIN PO Take 325 mg by mouth once daily Active spironolactone (ALDACTONE) 25 MG tablet Take 12.5 mg by mouth once daily 01/03/2018 Active Cholecalciferol 2000 UNITS Take 2,000 Units by mouth once daily 04/05/2011 Active B Complex Vitamins (VITAMIN B COMPLEX PO) Take 1 capsule by mouth once daily Active Magnesium Citrate 100 MG Take 100 mg by mouth once daily Active polyethylene glycol 3350 (MIRALAX) powder Take 17 g by mouth once daily 01/03/2018 Active Active Problems Problem Noted Date Diagnosed Date History of colonic polyps 06/27/2017 Overview (05/30/2019): 05/20/15 3 small adenomas removed 05/2018 2 small tubular adenoma removed; repeat in 5 years Family History Medical History Relation Name Comments None Known Father Status: d Diabetes Mother Status: d Immunodeficiency Neg Hx Relation Name Status Comments Father Mother Social History Tobacco Use Types Packs/Day Years Used Date Smoking Tobacco: Former Alcohol Use Standard Drinks/Week Comments No 0 (1 standard drink = 0.6 oz pur e alcohol) Comments Unknown Sex and Gender Information Value Date Recorded Sex Assigned at Not on file Legal Sex Female 6:03 PM PROJECT BUYER Gender Identity Not on file Sexual Orientation Not on file Last Filed Vital Signs Vital Sign Reading Time Taken Comments Blood Pressure 113/59 05/30/2018 9:20 AM PROJECT BUYER Pulse 59 05/30/2018 9:20 AM PROJECT BUYER Temperature 36.3 C (97.4 F) 05/30/2018 9:05 AM PROJECT BUYER Respiratory Rate 13 05/30/2018 8:57 AM PROJECT BUYER Oxygen Saturation 99% 05/30/2018 9:20 AM PROJECT BUYER Inhaled Oxygen Concentration - - Weight 88.5 kg (195 lb) 05/30/2018 7:53 AM PROJECT BUYER Height 177.8 cm (5' 10 ) 05/30/2018 7:53 AM PROJECT BUYER Body Mass Index 27.98 05/30/2018 7:53 AM PROJECT BUYER Plan of Treatment Health Maintenance Due Date Last Done Comments BONE DENSITY TESTING 1945 MEDICARE AWV 12 MONTHS 1945 HEPATITIS C SCREENING 03/19/1964 DTAP/TDAP/TD VACCINES (1 - Tdap) 1965 PNEUMOCOCCAL VACCINE 50+ (1 of 1 - PCV) 1996 ZOSTER VACCINE (1 of 2) 1996 Respiratory Syncytial Virus (RSV) Vaccine Pt: or over 60 yrs (1 - 1-dose 75+ series) 2021 COVID-19 VACCINE ( - season) 2023 DEPRESSION SCREENING 04/17/2024 INFLUENZA VACCINE (Season Ended) 2024 01/22/2018, 01/23/2017, 01/19/2016, Additional history exists HEPATITIS B VACCINE Aged Out No longe r eligible based on patient's age to complete this topic HIB VACCINE Aged Out No longer eligi ble based on patient's age to complete this topic HPV VACCINE Aged Out No longer eligi ble based on patient's age to complete this topic MENINGOCOCCAL (Group B) VACCINE SHARED DECISION-MAKING Aged Out No longer eligible based on patient's age to complete this topic MENINGOCOCCAL GROUPS A/C/Y/W VACCINE Aged Out No longer eligible based on patient's age to complete this topic Insurance MEDICARE [facility] [employer] MED[employer]ARE
--- OUTSIDE RECORDS SUMMARY | 2024-09-04 13:43 | XMS_ITS | Continuity of Care Document ---
Author Organization [facility] Address [address] [place] [address] Phone Care Team Providers Care Multimedia Instructional Designer Name Role Phone Spencer Rachel MD Unavailable Unavailable Advance Directives Directive Yes / No Effective Date File Name No Information Encounters Encounter Description Practice Location Reason(s) For Visit Diagnoses Date Provider Providers Copied on Encounter [facility] [place], [address] [facility], [place], [place], [id number], tel:[phone] [facility] SHORTNESS OF BREATHEDEMA [address] [place] [address], [facility] [address] [place], [place], [address], . tel:[phone] [place], [facility], [place], [place], [address], tel:[phone] [facility] DERMATITIS NOS May-0 [address] [place] [address], [address], [id number], . tel:[phone] [place], [address] [facility], [place], [place], [address], tel:[phone] [facility] OTITIS MEDIA NOS May-0 [address] Silvana Korin. [address] [place] [address], [address], [place], [place], [address], . tel:[phone] [place], [address] [facility], [place], [place], [address], tel:[phone] [facility] MALAISE AND FATIGUE NECABNORMAL GLUCOSE NECMIXED HYPERLIPIDEMIA [address] [place] [address], [address], [place], [place], [address], [place]. tel:[phone] [facility], [address], [place], [place], [address], [place] tel:[phone] [facility] ACUTE URI NOS 3 Conversion Doctor. [address] [place] [address], [place], [address], [place]. [facility], [address], [place], [place], [address], [place] tel:[phone] [facility] VACCIN FOR INFLUENZA [address]. [address] [place] [address], [address], [place], [place], [address], [place]. tel:[phone] [facility], [address], [place], [place], [address], [place] tel:[phone] [facility] URINARY FREQUENCY [address]. [address] [place] [address], [address], [place], [place], [address], [place]. tel:[phone] [facility], [address], [place], [place], [address], [place] tel:[phone] [facility] DIZZINESS AND GIDDINESS [address] Palmer. [address] [place] [address], [address], [place], [place], [address], [place]. tel:[phone] [facility], [address], [place], [place], [address], [place] tel:[phone] [facility] HAIR DISEASES NECJOINT PAIN-UP/ARMSCRE EN-CARDIOVASC NEC [address] Palmer[address] [place] [address], [address], [place], [place], [address], [place]. tel:[phone] [facility], [address], [place], [place], [address], [place] tel:[phone] [facility] SWELLING OF LIMBSUPERFIC PHLEBITIS-LEG 3 Wilson Palmer. [address] [place] [address], [address], [place], [place], [address], [place]. tel:[phone] Family History Family Member Type Diagnosis Age At Onset No Information Immunizations Vaccine Date Status Comments 66192 - Influenza administered Source: [place] ur[place] Unspecified Payers Payer name Insurance type Covered libertarian ID Authoriza tion(s) No Information Social History [...]
--- NOTE | 2024-09-04 14:07 | ECG_ITS ---
Test Date: 2024-09-04 14:18:39 Measurements Intervals Ryan Rate: 60 P: 4 NM: 131 QRS: -33 QRSD: 103 T: 11 QT: 394 QTc: 396 Interpretive Statements SINUS RHYTHM LEFT ANTERIOR FASCICULAR BLOCK LOW QRS VOLTAGE IN PRECORDIAL LEADS [QRS DEFLECTION < 1.0 mV IN CHEST LEADS] PATTERN CONSISTENT WITH PULMONARY DISEASE MINIMAL VOLTAGE CRITERIA FOR LVH, CONSIDER NORMAL VARIANT [MEETS CRITERIA IN ONE OF: R(aVL), S(V1), R(V5), R(V5/V6)+S(V1)] ABNORMAL ECG No previous ECG available for comparison Electronically Signed On 09-04-2024 15:16:22 CDT by George Reddy M.D.
[2024-09-04 15:04] LABS: Hematocrit 42.8 % (37.0-47.0); Hemoglobin 13.4 g/dL (12.0-15.0)
[2024-09-04 15:49] LABS: Albumin Level 4.3 g/dL (3.5-5.1); Estimated Glomerular Filt Rate > 60; Glucose 92 mg/dL (65-110)
[2024-09-04 16:21] LABS: Urine Cotinine NEGATIVE
== END 2024-09-04 13:27 | disposition home or self-care (01) ==
LOC: ANHIMG 13:36
PROVIDERS: PCP Internal Medicine Geriatric Medicine; Visit Provider Orthopaedic Surgery
DX: M17.12 Unilateral primary osteoarthritis, left knee (principal); E11.9 Type 2 diabetes mellitus without complications; I10 Essential (primary) hypertension; Z79.899 Other long term (current) drug therapy
CPT/HCPCS: 73700; 80307; 82040; 82565; 82947; 83036; 85014; 85018; 93005

== ENCOUNTER 2024-11-01 09:46 | Outpatient (CLI) | payer MEDICARE, SELFPAY ==
--- OUTSIDE RECORDS SUMMARY | 2024-11-01 09:55 | XMS_ITS | Encounter Summary ---
Author Organization [facility] Address [address] [place] [address] Care Team Providers Care Sewing Machine Attachment Tester Name Role Phone Mirna Mac MD Primary Care Provider + [phone] Tirso Monique DO Unavailable [phone] Tena Lisa MD Unavailable [phone] Simba Laird MD Unavailable +[phone] Skyler Leos MD Unavailable [phone] Ish Zambrano MD Unavailable [phone] Randell Phillips MD Unavailable [phone] Luz Murry MD Unavailable [phone] Alex Figueroa MD Unavailable [phone] Cristino Wiley MD Unavailable David Cortes DC Unavailable [phone] George Samano MD Unavailable Spencer Delcid MD Unavailable +[phone] Maki Byrne MA Unavailable Unavailable Reason for Visit * Reason Onset Date Comments Scheduling Appointments 09/03/2020 wants to cancel - gave her schedulings number Encounter Details Date Type Department Care Team (Late st Contact Info) Description 09/03/2020 Telephone [facility] [address] [place] [address] Rosa Maria Saini RT Scheduling Appointments (wants [...] and Family Not on file 01/18/2019 Attends [employer] Not on file 01/18 Active Member [...] on file Legal 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 07/05/2022 07/15/2022 10/03/2022 3:05 AM C DT documented as of this encounter Care Teams Sewing Machine Attachment Tester Relationship Specialty Start Date End Date Mirna Mac MD PCP - General 07/15/16 Triso Monique DO Otolaryngology 12/16/16 09/14/22 Tena Lisa MD Gastroenterology 12/16/16 09/14/22 Simba Laird MD Plastic Surgery 12/16/16 Skyler Leos MD [address] [facility] [address] [place], [place] [address] Dermatology 12/16/16 Ish Zambrano MD [address] [place] [address] Ophthalmology 12/16/16 Randell Phillips MD [address] [place] [address] Referring Physician Orthopedic Surgery 10/24/17 Luz Murry MD [address] [facility] [address] [place] [address] Consulting Physician General Surgery 07/10/18 Alex Figueroa MD [address] [place] [address] [address] [place] [address] Video News Editor Obstetrics and Gynecology 08/04/20 Cristino Wiley MD [address] [place] [address] [place] [address] Consulting Physician Sleep Medicine 03/02/21 David Cortes DC [address] [facility] [place] [address] Chiropractic Medicine 05/17/21 George Samano MD [address] [place] [address] Consulting Physician General Surgery 02/07/22 02/07/22 Spencer Delcid MD [address] [place] [address] [facility] [address] [place] [address] Consulting Physician Gastroenterology 09/15/22 10/10/23 Maki Byrne MA [address] [place] [address] [address] [place] [address] ACO Care Slabber Light 10/20/23 10/23/23 documented as of this encounter
--- OUTSIDE RECORDS SUMMARY | 2024-11-01 09:55 | XMS_ITS | Encounter Summary ---
Author Organization [facility] Address [address] [facility] [address] [place] [address] Care Team Providers Care Sports Physical Therapist Name Role Phone Mirna Mac MD Primary Care Provider +- [phone] Mirna Mac MD Primary Care Provider + [phone] Mirna Mac MD Primary Care Provider +[phone] Tirso Monique DO Unavailable Yu Barrera MD Unavailable Tena Lisa MD Unavailable +[phone] Simba Laird MD Unavailable [phone] Skyler Leos MD Unavailable [phone] Ish Zambrano MD Unavailable +[phone] Randell Phillips MD Unavailable +[phone] Luz Murry MD Unavailable [phone] Carmela Varner MA Unavailable [phone] Alex Figueroa MD Unavailable [phone] Cristino Wiley MD Unavailable David Cortes DC Unavailable +[phone] George Samano MD Unavailable Spencer Delcid MD Unavailable [phone] Maki Byrne MA Unavailable Unavailable Encounter Details Date Type Department Care Team (Late st Contact Info) Description 06/20/2016 Orders Only [facility] Provider, MD [facility] [place] [id number] Social History Tobacco Use Types Packs/Day Years Used Date Smoking Tobacco: Never Assessed Comments Unknown Sex and Gender Information Value Date Recorded Sex Assigned at Not on file 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 07/05/2022 07/15/2022 10/03/2022 3:05 AM C DT documented as of this encounter Care Teams Sports Physical Therapist Relationship Specialty Start Date End Date Mirna Mac MD PCP - General 07/15/16 Mirna Mac MD PCP - General 07/12/16 07/14/16 Mirna Mac MD PCP - General 05/15/13 07/11/16 Johnathon Tirso Driver DO Otolaryngology 12/16/16 09/14/22 Yu Barrera MD Gynecologic Oncology 12/16/16 08/03/20 Tena Lisa MD Gastroenterology 12/16/16 09/14/22 Simba Laird MD Plastic Surgery 12/16/16 Skyler Leos MD [address] [facility] [address] [place] [address] Dermatology 12/16/16 Ish Zambrano MD [address] [place] [address] Ophthalmology 12/16/16 Randell Phillips MD [address] [place] [address] Referring Physician Orthopedic Surgery 10/24/17 Luz Murry MD [address] [facility] [address] [place] [address] Consulting Physician General Surgery 07/10/18 Carmela Varner MA [address] [facility] [address] [place] [address] ACO Care [employer] 09/24/18 09/24/18 Alex Figueroa MD [address] [place] [address] [address] [place] [address] Rrts Obstetrics and Gynecology 08/04/20 Cristino Wiley MD [address] [place] [address] [address] [place] [address] Consulting Physician Sleep Medicine 03/02/21 David Cortes DC [address] [place] [address] [place] [address] Chiropractic Medicine 05/17/21 George Samano MD [address] [place] [address] [place] [address] Consulting Physician General Surgery 02/07/22 02/07/22 Spencer Delcid MD [address] [place] [address] [address] [place] [address] Consulting Physician Gastroenterology 09/15/22 10/10/23 Maki Byrne MA [address] [facility] [address] [place] [address] ACO Care [employer] 10/20/23 10/23/23 documented as of this encounter
--- OUTSIDE RECORDS SUMMARY | 2024-11-01 09:55 | XMS_ITS | Encounter Summary ---
Author Organization [facility] Address [address] [place], [place] [address] [address] Care Team Providers Care Saw Cleaner Name Role Phone Unavailable Primary Care Provider Unavailabl e Encounter Details Date Type Department Care Team (Late st Contact Info) Description 01/30/[address] [facility] Care Derm[facility] Lab [address] [place] [address] Skyler Leos MD [facility] [address] [address] Social History Tobacco Use Types Packs/Day Years Used Date Smoking Tobacco: Former Alcohol Use Standard Drinks/Week Comments No 0 (1 standard drink = 0.6 oz pur e alcohol) Comments Unknown Sex and Gender Information Value Date Recorded Sex Assigned at Not on file Legal Sex Female 6:03 PM PYTHON ARCHITECT Gender Identity Not on file Sexual Orientation Not on file documented as of this encounter Plan of Treatment Not on file documented as of this encounter Procedures Procedure Name Priority Date/Time Associated Diagnosis Comments DERMATOPATHOLOGY Routine 01/23/2019 12:0 0 AM CDT documented in this encounter Results * DERMATOPATHOLOGY (01/23/2019 12:00 AM CDT) Case Report Dermatopathology Report Case: [id number] Authorizing Provider: Skyler Leos MD Collected: 01/23/2019 12:00 AM Ordering Location: [facility] Received: 01/30/2019 10:16 AM Pathologist: Nicolette Aguilar MD Specimen: Skin, left upper outer arm 10:[address] [facility] DERMATOPATHOLOGY LABORATORY Final Diagnosis Specimen A. SKIN, left upper outer arm: BASAL CELL CARCINOMA, NODULAR TYPE (C44.619) (see microscopic description) 10:[address] [facility] DERMATOPATHOLOGY LABORATORY at 1028 CDT Clinical History R/O BCC. 10:[address] [facility] DERMATOPATHOLOGY LABORATORY Gross Description Specimen A: Received is one formalin filled container labeled with the patient's name and designated left upper outer arm. The specimen consists of a shave biopsy measuring 3m6h1il. Jar 0. 10:[address] [facility] DERMATOPATHOLOGY LABORATORY Microscopic Description Specimen A. SKIN, left upper outer arm: Within the dermis there are aggregates of basaloid cells with a high nuclear to cytoplasmic ratio and peripheral palisading. Additional deeper sections were obtained and reviewed. 10:[address] [facility] DERMATOPATHOLOGY LABORATORY Disclaimer An external and internal positive and negative controls are appropriate for the histochemical, immunohistochemical and immunofluorescence stain(s) in this case (if any), except where stated explicitly. The performance characteristics of the stain(s) cited in this report were developed and its performance characteristic determined by the Dermatopathology Laboratory at [facility], directed by Dr. Jerson Rodrigez. These tests need not be, and therefore are not, approved by the [place] Food and Drug Administration. The tests are used for clinical purposes. Billing Codes Specimen Charges Stain Charges 49355 1 10:28 AM T DERMATOPATHOLOGY LABORATORY Embedded Images 10:28 AM T DERMATOPATHOLOGY LABORATORY Pathology/Cytolog y TISSUE SPECIMEN FROM SKIN / Unknown 01/23/2019 01/30/2019 10:16 AM CDT us Skyler Leos MD LAB - PATHOLOGY/CYTOLOGY ORDERAB LES Final Result DERMATOPATHOLOGY LABORATORY [facility] - Department of Dermatology [address] [facility]th Floor Lab [address] [place], [place] [address] [place] [address] documented in this encounter Visit Diagnoses Not on filedocumented in this encounter
--- OUTSIDE RECORDS SUMMARY | 2024-11-01 09:55 | XMS_ITS | Encounter Summary ---
Author Organization [facility] Address [address] [place] [address] Phone Care Team Providers Care Car Installations Supervisor Name Role Phone Mirna Mac MD Primary Care Provider Tirso Monique DO Unavailable Yu Barrera MD Unavailable [phone] Tena Lisa MD Unavailable [phone] [facility] Center[facility] hernandez MD Unavailable Skyler Leos MD Unavailable [phone] Ish Zambrano MD Unavailable [phone] Randell Phillips MD Unavailable [phone] Luz Murry MD Unavailable Carmela Varner MA Unavailable Alex Figueroa MD Unavailable [phone] Cristino Wiley MD Unavailable David Cortes DC Unavailable [phone] George Samano MD Unavailable Spencer Delcid MD Unavailable Maki Byrne MA Unavailable Unavailable Encounter Details Date Type Department Care Team (Late st Contact Info) Description 09/20/2016 Orders Only [facility] [address] [place] [address] Ana Valles LPN Social History Tobacco Use Types Packs/Day Years Used Date Smoking Tobacco: Never Assessed Comments Unknown Sex and Gender Information Value Date Recorded Sex Assigned at Not on file Legal Sex Female 7:45 PM PAIN MANAGEMENT NURSE PRACTITIONER Gender Identity Not on file Sexual Orientation Not on file documented as of this encounter Plan of Treatment Not on file documented as of this encounter Visit Diagnoses Not on filedocumented in this encounter Additional Health Concerns Infection Onset Date Last Indicated Resolved Time COVID: Suspected 06/25/2022 06/25/2022 06/25/2022 5:00 PM PAIN MANAGEMENT NURSE PRACTITIONER COVID19 06/25/2022 06/25/2022 07/05/2022 3:05 AM CDT COVID: Recovered Comment:Added based on recent COVID infection. 07/05/2022 07/15/2022 10/03/2022 3:05 AM C DT documented as of this encounter Care Teams Car Installations Supervisor Relationship Specialty Start Date End Date Mirna Mac MD PCP - General 07/15/16 Tirso Monique DO Otolaryngology 12/16/16 09/14/22 Yu Barrera MD Gynecologic Oncology 12/16/16 08/03/20 Tena Lisa MD Gastroenterology 12/16/16 09/14/22 Simba Laird MD Plastic Surgery 12/16/16 Skyler Leos MD [address] [facility] [address] [place] [address] Dermatology 12/16/16 Ish Zambrano MD [address] [place] [address] Ophthalmology 12/16/16 Randell Phillips MD [address] [place] [address] [place] [address] Referring Physician Orthopedic Surgery 10/24/17 Luz Murry MD [address] [facility] [address] [place] [address] Consulting Physician General Surgery 07/10/18 Carmela Varner MA [address] [place] [address] [address] [place] [address] A[employer] Care Surgical Dressing Maker 09/24/18 09/24/18 Alex Figueroa MD [address] [place] [address] [address] [place] [address] Cloud Automation Tester Obstetrics and Gynecology 08/04/20 Cristino Wiley MD [address] [place] [address] [place] [address] Consulting Physician Sleep Medicine 03/02/21 David Cortes DC [address] [place] [address] [place] [address] Chiropractic Medicine 05/17/21 George Samano MD [address] [place] [address] Consulting Physician General Surgery 02/07/22 02/07/22 Spencer Delcid MD [address] [facility] [address] [place] [address] Consulting Physician Gastroenterology 09/15/22 10/10/23 Maki Byrne, ESTHER [address] [facility] [address] [place] [address] [employer] Care Surgical Dressing Maker 10/20/23 10/23/23 documented as of this encounter
--- OUTSIDE RECORDS SUMMARY | 2024-11-01 09:55 | XMS_ITS | Encounter Summary ---
Author Organization [facility] Address [address] [place] [address] Phone Care Team Providers Care Option Trader Name Role Phone Mirna Mac MD Primary Care Provider [phone] Simba Laird MD Unavailable [phone] Skyler Leos MD Unavailable [phone] Ish Zambrano MD Unavailable [phone] Randell Phillips MD Unavailable [phone] Luz Murry MD Unavailable Alex Figueroa MD Unavailable [phone] Cristino Wiley MD Unavailable aDvid Cortes DC Unavailable [phone] Spencer Delcid MD Unavailable [phone] Maki Byrne MA Unavailable Unavailable Encounter Details Date Type Department Care Team (Late st Contact Info) Description 09/26/2022 Orders Only [facility] [address] [place] [address] Scanning, Provider Social History Tobacco [...] on file Legal Sex Female 7:45 PM ADJUNCT PROFESSOR Gender Identity Not on file Sexual [...] documented as of this encounter Care Teams Option Trader Relationship Specialty Start Date End Date Mirna Mac MD PCP - General 07/15/16 Simba Laird MD Plastic Surgery 12/16/16 Skyler Leos MD [address] [place] [address] Dermatology 12/16/16 Ish Zambrano MD [address] [place] [address] Ophthalmology 12/16/16 Randell Phillips MD [address] [place] [address] [place] [address] Referring Physician Orthopedic Surgery 10/24/17 Luz Murry MD [address] [facility] [address] [place] [address] Consulting Physician General Surgery 07/10/18 Alex Figueroa MD [address] [place] [address] [address] [place] [address] Network Engineering Advisor Obstetrics and Gynecology 08/04/20 Cristino Wiley MD [address] [place] [address] [address] [place] [address] Consulting Physician Sleep Medicine 03/02/21 David Cortes DC [address] [place] [address] [place] [address] Chiropractic Medicine 05/17/21 Spencer Delcid MD [address] [place] [address] [address] [place] [address] Consulting Physician Gastroenterology 09/15/22 10/10/23 Maki Byrne MA [address] [place] [address] [address] [place] [address] ACO Care Eyelet Row Marker 10/20/23 10/23/23 documented as of this encounter
--- OUTSIDE RECORDS SUMMARY | 2024-11-01 09:55 | XMS_ITS | Encounter Summary ---
Author Organization [facility] Address [address] [place], [place] [address] [address] Care Team Providers Care Motor Inspection Mechanic Name Role Phone Unavailable Primary Care Provider Unavailabl e Encounter Details Date Type Department Care Team (Late st Contact Info) Description 05/13/2022 Lab Requisition [facility] Care DermPath Lab [address] [place] [address] Skyler Leos MD [facility] [address] [address] Social History Tobacco Use Types Packs/Day Years Used Date Smoking Tobacco: Former Alcohol Use Standard Drinks/Week Comments No 0 (1 standard drink = 0.6 oz pur e alcohol) Comments Unknown Sex and Gender Information Value Date Recorded Sex Assigned at Not on file Legal Sex Female 6:03 PM BALLOON DIPPER Gender Identity Not on file Sexual Orientation Not on file documented as of this encounter Plan of Treatment Not on file documented as of this encounter Procedures Procedure Name Priority Date/Time Associated Diagnosis Comments DERMATOPATHOLOGY Routine 05/10/2022 12:0 0 AM BALLOON DIPPER documented in this encounter Results * DERMATOPATHOLOGY (05/10/2022 12:00 AM BALLOON DIPPER) Case Report Dermatopathology Report Case: [id number] Authorizing Provider: Skyler Leos MD Collected: 05/10/2022 12:00 AM Ordering Location: [facility] Received: 05/13/2022 12:16 PM Pathologist: Nicolette Aguilar MD Specimen: Skin, right distal anterior thigh 3 12:59 PM [facility] DERMATOPATHOLOGY LABORATORY Final Diagnosis Specimen A. SKIN, right distal anterior thigh: SEBORRHEIC KERATOSIS, MACULAR (L82.1) 3 12:59 PM [facility] DERMATOPATHOLOGY LABORATORY at 1259 BALLOON DIPPER Clinical History SK/ISK, R/O Lentigo Maligna, R/O Pigmented AK 3 12:59 PM [facility] DERMATOPATHOLOGY LABORATORY Gross Description Specimen A: Received is one formalin filled container labeled with the patient's name and designated right distal anterior thigh. The specimen consists of a shave biopsy measuring 89j26a5 mm. Jar 0. 12:59 PM [facility] DERMATOPATHOLOGY LABORATORY Microscopic Description Specimen A. SKIN, right distal anterior thigh: Sections show a relatively broad, flat proliferation of small keratinocytes. The surface is gently papillated, and there is increased basilar pigmentation. MART-1/Melan A and SOX-10 stains fail to reveal a melanocytic neoplasm. 3 12:59 PM [facility] DERMATOPATHOLOGY LABORATORY Disclaimer An external and internal positive and negative controls are appropriate for the histochemical, immunohistochemical and immunofluorescence stain(s) in this case (if any), except where stated explicitly. The performance characteristics of the stain(s) cited in this report were developed and its performance characteristic determined by the Dermatopathology Laboratory at [facility], directed by Dr. Jerson Rodrigez. These tests need not be, and therefore are not, approved by the [place] Food and Drug Administration. The tests are used for clinical purposes. Billing Codes Specimen Charges Stain Charges 39307 1 64993 00004 1 1 3 12:59 PM [facility] DERMATOPATHOLOGY LABORATORY Embedded Images 3 12:59 PM [facility] DERMATOPATHOLOGY LABORATORY Pathology/Cytolog y TISSUE SPECIMEN FROM SKIN / Unknown 05/10/2022 05/13/2022 12:16 PM BALLOON DIPPER Skyler Leos MD LAB - PATHOLOGY/CYTOLOGY ORDERAB LES Final Result DERMATOPATHOLOGY LABORATORY [facility] - Department of Dermatology [facility], 3rd Floor [address] [phone] documented in this encounter Visit Diagnoses Not on filedocumented in this encounter
--- OUTSIDE RECORDS SUMMARY | 2024-11-01 09:55 | XMS_ITS | Clinical Summary ---
Author Organization [facility] Address [address] [place] [address] Phone Care Team Providers Care Electrical Estimator Name Role Phone Mirna Mac MD Primary Care Provider [phone] Medications No known medications Active Problems Problem [...] C Virus (HCV) Screening 1945 Pneumococcal Immunization (5 0+ years) (1 of 1 - PCV) 1996 Zoster Immunization (1 of 2) 1996 Respiratory Syncytial Virus (RSV) Immunization (Adult) (1 - 1-dose 75+ series) 2021 SARS-COV-2 Immunization ( season) 2023 02/17/2021, 07/21/2020, 06/23/2020 Influenza Immunization (#1) 12/16/202401/15, 01/28/2020, 01/28/2019 DTaP/Tdap/Td Immunization Discontinued 2020, 02/12/2010 TdaP Immunization Completed 09/22/2020, 02/12/2010 Hepatitis B Immunization Aged Out No longer eligible based on patient's age to complete this topic Human Papillomavirus (HPV) Immunization Aged Out No longer eligible based [...] Ready to change Department associated with goal: [facility] Steps to achieve goal: will identify at least two ways sleep hygiene could be negatively impacted will identify at least two ways to improve sleep hygiene will identify at least two ways/skills/habits of self-care believed to have a positive outcome on sleep Insurance MEDICARE [employer] MEDICARE SUP Care Teams Electrical Estimator Relationship Specialty Start Date End Date Mirna Mac MD [address] [facility] [place] [address] PCP - General Geriatric Medicine 12/30/20
--- OUTSIDE RECORDS SUMMARY | 2024-11-01 09:55 | XMS_ITS | Clinical Summary ---
Author Organization [facility] Address [address] [facility] [place] [address] Care Team Providers Care Tariff Publishing Agent Name Role Phone Unavailable Primary Care Provider Unavailabl e Source Comments [facility],non-owned Affiliates and Associated Physician Practices is amultiple site organization consisting of ambulatory clinics and hospital sitesin [place], [place], [place] and [place]. This disclosure is being madepursuant to the Care Everywhere program and may not contain all informatio navailable regarding this patient. Last updated 18.[facility] [employer] Allergies Active Allergy Reactions Criticality Noted Date [...] on file Legal Sex Female 6:03 PM AUTO BODY DETAILER Gender Identity Not on file Sexual Orientation Not on file Last Filed Vital Signs Vital Sign Reading Time Taken Comments Blood Pressure 113/59 05/30/2018 9:20 AM AUTO BODY DETAILER Pulse 59 05/30/2018 9:20 AM AUTO BODY DETAILER Temperature 36.3 C (97.4 F) 05/30/2018 9:05 AM AUTO BODY DETAILER Respiratory Rate 13 05/30/2018 8:57 AM AUTO BODY DETAILER Oxygen Saturation 99% 05/30/2018 9:20 AM AUTO BODY DETAILER Inhaled Oxygen Concentration - - Weight 88.5 kg (195 lb) 05/30/2018 7:53 AM AUTO BODY DETAILER Height 177.8 cm (5' 10) 05/30/2018 7:53 AM AUTO BODY DETAILER Body Mass Index 27.98 05/30/2018 7:53 AM AUTO BODY DETAILER Plan of Treatment Health Maintenance Due Date [...] 75+ series) 2021 COVID-19 VACCINE ( - 2023- season) 2023 DEPRESSION SCREENING 04/17/2024 INFLUENZA VACCINE (#1) 2024 8, 01/23/2017, 01/19/2016, Additional history exists HEPATITIS B [...] age to complete this topic Insurance MEDICARE [place] [address]
--- OUTSIDE RECORDS SUMMARY | 2024-11-01 09:55 | XMS_ITS | Encounter Summary ---
Author Organization [facility] Address [address] [place] [address] Care Team Providers Care Safety Consultant Name Role Phone Mirna Mac MD Primary Care Provider Tirso Monique DO Unavailable [phone] Tena Lisa MD Unavailable [phone] Simba Laird MD Unavailable [phone] Skyler Leos MD Unavailable [phone] Ish Zambrano MD Unavailable [phone] Randell Phillips MD Unavailable [phone] Luz Murry MD Unavailable [phone] Alex Figueroa MD Unavailable [phone] Cristino Wiley MD Unavailable David Cortes DC Unavailable [phone] George Samano MD Unavailable Spencer Delcid MD Unavailable [phone] Maki Byrne MA Unavailable Unavailable Reason for Visit * Reason Onset Date Comments Scheduling Appointments 10/02/2020 Encounter Details Date Type Department Care Team (Late st Contact Info) Description 10/02/2020 Telephone [facility] [address] [place] [phone] Leonardo Davila RT Scheduling Appointments Social History [...] and Family Not on file 01/18/2019 Attends [employer] Not on file 01/18 Active Member [...] on file Legal Sex Female 7:45 PM INVESTIGATOR CASH SHORTAGE Gender Identity Not on file Sexual Orientation [...] COVID: Suspected 06/25/2022 06/25/2022 06/25/2022 5:00 PM INVESTIGATOR CASH SHORTAGE COVID19 06/25/2022 06/25/2022 07/05/2022 3:05 AM CDT COVID: Recovered Comment:Added based on recent COVID infection. 07/05/2022 07/15/2022 10/03/2022 3:05 AM C DT documented as of this encounter Care Teams Safety Consultant Relationship Specialty Start Date End Date Mirna Mac MD PCP - General 07/15/16 Tirso Monique DO Otolaryngology 12/16/16 09/14/22 Tena Lisa MD Gastroenterology 12/16/16 09/14/22 Simba Laird MD Plastic Surgery 12/16/16 Skyler Leos MD [address] [facility] [address] [place] [address] Dermatology 12/16/16 Ish Zambrano MD [address] [place] [address] [place] [address] Ophthalmology 12/16/16 Randell Phillips MD [address] [place] [address] [place] [address] Referring Physician Orthopedic Surgery 10/24/17 Luz Murry MD [address] [facility] [address] [place] [address] Consulting Physician General Surgery 07/10/18 Alex Figueroa MD [address] [place] [address] [place] [address] Biochemist Obstetrics and Gynecology 08/04/20 Cristino Wiley MD [address] [place] [address] [place] [address] Consulting Physician Sleep Medicine 03/02/21 David Cortes DC [address] [place] [address] [place] [address] Chiropractic Medicine 05/17/21 George Samano MD [address] [facility] [place] [address] Consulting Physician General Surgery 02/07/22 02/07/22 Spencer Delcid MD [address] [facility] [address] [place] [address] Consulting Physician Gastroenterology 09/15/22 10/10/23 Maki Byrne, ESTHER [address] [place] [address] [address] [place] [address] ACO Care Supplier Quality Engineering Manager 10/20/23 10/23/23 documented as of this encounter
--- OUTSIDE RECORDS SUMMARY | 2024-11-01 09:55 | XMS_ITS | Referral Summary ---
Author Organization [facility] Address [address] [place] [address] Care Team Providers Care School Photograph Editor Name Role Phone Mirna Mac MD Primary Care Provider [phone] Simba Laird MD Unavailable [phone] Skyler Leos MD Unavailable [phone] Ish Zambrano MD Unavailable [phone] Randell Phillips MD Unavailable [phone] Luz Murry MD Unavailable Alex Figueroa MD Unavailable [phone] Cristino Wiley MD Unavailable David Cortes DC Unavailable [phone] Encounters Date Type Department Care Team Description 10/11/2024 7:47 AM CDT - 10/11/2024 11:59 PM CDT Hospital Encounter [facility] [address] [place], [place] [id number] Encounter for screening mammogram for breast cancer Discharge Disposition: Discharge to home or self care 09/26/2024 3:30 PM CDT Office Visit [facility] [address] [place] [address] Monica Steen NP Strain of left biceps muscle, initial encounter (Primary Dx) 09/25/2024 Telephone [facility] [address] [place] [address] Mirna Mac MD left shoulder pain 09/04/2024 Orders Only [facility] Health Information Management [address] [place] [address] Scanning, Provider 08/27/2024 Telephone [facility] [address] [place] [address] Mirna Mac MD 08/09/2024 Orders Only [facility] [address] [place] [address] Scanning, Provider from Last 3 Months Allergies Active Allergy [...] by mouth 2 (two) times a day 02/08/20 22 Active senna (SENOKOT) 8.6 mg tabletIndications :Chronic constipation Take 1-2 tablets by mouth nightly 100 tablet 11 11/02/19 24 Active aspirin 81 mg chewable tabletIndications :Temporary cerebral vascular dysfunction Take 1 tablet (81 mg total) by mouth daily 90 tablet 2 12/21/19 24 Active acetaminophen (TYLENOL) 500 mg tabletIndications :Arthritis of knee Take 1 tablet (500 mg total) by mouth 2 (two) times a day Tylenol immediate release 500 mg plus Tylenol ER 650 mg 12/21/19 24 Active rosuvastatin (CRESTOR) 20 mg tabletIndications :Type 2 diabetes mellitus without complication, without long-term current use of insulin ([facility]),Multiple-ty pe hyperlipidemia Take 1 tablet (20 mg total) by mouth daily 90 tablet 2 12/21/19 24 Active blood glucose diagnostic (OneTouch Verio test strips) stripIndications: Type 2 diabetes mellitus without complication, without long-term current use of insulin ([facility]) USE TO CHECK BLOOD SUGAR DAILY E11.9 non insulin 100 strip 3 12/21/19 24 Active labetaloL (NORMODYNE,TRANDA TE) 100 mg tabletIndications :Hypertension complicating diabetes (HCC) Take 0.5-1 tablets (50-100 mg total) by mouth 2 (two) times a day 180 tablet 2 12/21/19 24 Active metFORMIN XR (GLUCOPHAGE XR) 500 mg 24 hr tabletIndications :Type 2 diabetes mellitus with other circulatory complications (HCC) Take 1 tablet (500 mg total) by mouth daily with dinner 90 tablet 2 06/04/19 25 Active losartan (COZAAR) 50 mg tabletIndications :Chronic cough,Hypertensio n complicating diabetes (HCC) TAKE 1 TABLET BY MOUTH EVERY DAY 90 tablet 2 07/20/19 25 Active clopidogreL (PLAVIX) 75 mg tabletIndications :Temporary cerebral vascular dysfunction Take 1 tablet (75 mg total) by mouth daily 90 tablet 08/28/19 25 Active spironolactone (ALDACTONE) 25 mg tabletIndications :Hypertension complicating diabetes (HCC) Take 0.5-1 tablets (12.5-25 mg total) by mouth 3 (three) times a week Adjust no more than once weekly to keep blood pressure 100-140/60-8 0 range 36 tablet 10/03/19 25 Active traZODone (DESYREL) 50 mg tabletIndications :Persistent insomnia Take 1 tablet (50 mg total) by mouth nightly as needed for sleep 60 tablet 6 02/10/20 21 021 Discontinued Active Problems Problem Noted Date Diagnosed Date Strain of left biceps muscle 09/26/2024 Assessment & Plan (09/27/2024 3:20 PM CDT): Acute, worse in the last week. Tenderness and decrease ROM as noted above, no marked weakness or deformity. Likely biceps tendon strain. Advised Tylenol PRN. Heat/ice as tolerated. Topical Voltaren gel may help also. Offered PT consult, patient refused. Gentle stretching encouraged. Call if no improvement in 2 wedks. Class 1 obesity with alveola r hypoventilation, [...] or continued 6.Avoid alcohol sedatives and other ANTENNA SPECIALIST depression that may worsen sleep apnea and [...] with Dr. David Cortes using the pro screw machine adjuster automatic Last C-spine CT scan March 2015 IMPRESSION: [...] at that time including transesophageal echocardiogram at [facility] was negative. She had some recurrence symptoms [...] diet. Assessment & Plan (05/26/2023 11:07 AM APPLICATIONS SYSTEM ANALYST): BP stable in office today on current [...] of endometrial cancer Overview (06/04/2024): KRUPA SHUKLA [address] Figueroa Resolved Problems Problem Noted Date Diagnosed Date Resolved Date Functional diarrhea 09/26/2024 09/28/19 25 Laceration of left ear canal 07/29/2024 09/26/2024 Assessment & Plan (07/29/2024 9:04 AM CDT): Acute, unstable Relative history: Childhood ear infections Current meds: None Today's Plan: Encouraged OTC antihistamine May use topical Vaseline for comfort Goal: Healed laceration, decreased pain Lab/imaging orders today: None Chronic cough 10/11/2023 06/04/2024 Assessment & Plan [...] 06/04/2024 Assessment & Plan (05/26/2023 11:07 AM APPLICATIONS SYSTEM ANALYST): Intermittent stabbing/sticking pain between breast since yesterday, see HPI [...] Started 3 days ago after bending to pickling tank operator something off the floor. Assessment as noted above. Likely muscle strain. Continue Tylenol and heat/ice. Offered tizanidine and PT consult, pt refused at this time. Keep follow in 2 weeks as scheduled. Gastroesophageal reflux dise ase without esophagitis 06/07/2022 09/15/2022 Assessment & Plan (06/07/2022 1:31 PM APPLICATIONS SYSTEM ANALYST): Chronic problem, recently exacerbated resulting in ER [...] condition Follow up as scheduled with Dr. Mac or sooner if necessary Hospital discharge follow-up [...] prep as instructed. Keep follow with Dr. mac in 2 weeks. Bowel obstruction 02/04/2022 09/15/2022 [...] 11/08/2021 Assessment & Plan (05/20/2024 9:45 PM APPLICATIONS SYSTEM ANALYST): Likely related to chronic constipation, see plan [...] 09/15/2022 Assessment & Plan (05/28/2021 10:11 AM APPLICATIONS SYSTEM ANALYST): Patient reports since her last visit she has had increasing pain in the rt flank region/thoracic spine area. She was noted to have lipoma at last visit with Dr. Mac and concern that this may be contributing [...] 09/15/2022 Assessment & Plan (2021 11:05 AM APPLICATIONS SYSTEM ANALYST): Patient has acute pain of the rt [...] left eye for patient reports about 10 minutes. She reports this happened in the middle [...] out in office today and faxed to [facility]. Assessment & Plan (06/22/2020 11:37 AM APPLICATIONS SYSTEM ANALYST): Pt to have left cataract surgery by [...] 06/22/2020 Assessment & Plan (06/22/2020 11:39 AM APPLICATIONS SYSTEM ANALYST): PT reports increased pain in the right knee within the past few weeks. We will get an x-ray today. She has seen Dr. Phillips in the past, so if needed to be referred, she would prefer to go back and see him. I advised that she take tylenol for the pain. Acid indigestion 04/20/2020 08/04/2020 Assessment & Plan (05/22/2020 9:17 AM APPLICATIONS SYSTEM ANALYST): Pt is taking famotidine 40mg daily and she has done well with this--stating that she has not had any reflux symptoms. She is following the strict diet guidelines as well. She will continue on this medication. She will f/u for this with Dr. HAN at her next appt on 08/04/20. Assessment & Plan (04/20/2020 10:30 AM APPLICATIONS SYSTEM ANALYST): Pt went to ED on 04/13 for [...] 08/04/2020 Assessment & Plan (04/15/2020 10:37 AM APPLICATIONS SYSTEM ANALYST): Dr. HAN did come into the room [...] scheduled. Assessment & Plan (03/30/2020 10:33 AM APPLICATIONS SYSTEM ANALYST): Pt reports swelling in lower legs now [...] done. Assessment & Plan (03/30/2020 8:22 AM APPLICATIONS SYSTEM ANALYST): Pt reports about 1 week of lower [...] 03/30/202007/17 Assessment & Plan (03/30/2020 11:47 AM APPLICATIONS SYSTEM ANALYST): Pt reports that her left knee has [...] 08/04/2020 Assessment & Plan (04/30/2019 9:00 AM APPLICATIONS SYSTEM ANALYST): Nasal saline spray (Simply saline, Little Remedies, [place], [place]) 2 second sprays or 2 squeezes into [...] helping. Assessment & Plan (04/30/2019 9:00 AM APPLICATIONS SYSTEM ANALYST): Nasal saline spray (Simply saline, Little Remedies, [place], [place]) 2 second sprays or 2 squeezes into each nostril while looking down over the sink, do not need to sniff in 2-3 times daily If pain returns try Cetirizine if Mucinex not improving symptoms Other option would be warm compresses to left neck pulling forward for 15 minutes at a time Continue Humidifier Assessment & Plan (05/06/2019 8:55 AM APPLICATIONS SYSTEM ANALYST): She was in the office few days [...] re-evaluation. Assessment & Plan (05/04/2019 10:22 AM APPLICATIONS SYSTEM ANALYST): The patient presents for evaluation of intermittent [...] 08/04/2020 Assessment & Plan (03/07/2019 9:44 AM APPLICATIONS SYSTEM ANALYST): Left proximal upper arm Diagnosis discussed. No further treatment required at this time. She knows that she should follow up if this area develops any further symptoms. Assessment & Plan (02/22/2019 1:59 PM APPLICATIONS SYSTEM ANALYST): Left proximal upper arm Biopsy/ies done per procedure note by Dr. Palmer. Basal cell carcinoma (BCC) of left upper arm 9 08/04/2020 Assessment & Plan (03/07/2019 9:45 AM APPLICATIONS SYSTEM ANALYST): Left distal upper arm One week status post excision Healing well, no evidence of complication or infection reported or noted on exam. Pathology results discussed, no further treatment required. Follow-up at the 6 week postoperative mabel for final evaluation or sooner if issues arise. Assessment & Plan (02/22/2019 1:58 PM APPLICATIONS SYSTEM ANALYST): Left distal upper arm, biopsy proven Dr. Palmer excised this lesion today in clinic. Please see his separate note. Nipple lesion 02/22/2018 12/28/2018 Chronic rhinitis 11/14/2017 06/04/2024 Overview (11/14/2017): Olopatadine nasal spray too expensive, trial Astelin November 14, 2017 Chronic constipation 11/08/2017 025 Assessment & Plan (05/20/2024 9:45 PM APPLICATIONS SYSTEM ANALYST): Chronic, uncontrolled despite MiraLax twice daily and [...] prep as instructed. Keep follow with Dr. mac in 2 weeks. Lymphedema 11/05/2017 01/04/2023 Mid back pain on right side 09/26/2017 09/15/2022 Overview (09/26/2017): Lumbar spine x-rays do not cover the area of discomfort Previous gallbladder removal with open cholecystectomy 1996, 3 lb perineal cyst and appendectomy February 1989. TAHBSO February 2004 at [facility] for grade 1A endometrial cancer, incisional hernia with mesh repair February 2006. Pursuing evaluation for possible biliary stricture as for T-spine pain behaves like gallbladder issue September 2017 HIDA scan ordered Assessment & Plan (06/01/2021 9:24 AM APPLICATIONS SYSTEM ANALYST): Patient has history of chronic rt sided [...] was without acute finding. Discussed with Dr. Mac and concern is that this is most [...] worse follow-up will be needed with Dr. Mac or Dr. Ruffin. On today's x-rays of the clear liquid indicated Raynaud's phenomenon without gangrene 2017 09/26/2017 Arthritis 03/19/2017 08/04/2020 Overview (03/19/2017): C4-5 cervical disc disorder, osteoarthritis knees Sleep disorder 12/16/2016 09/15/2022 Overview (09/26/2017): Holt Sleep Scale positive at 13, complaints of [...] patient's profound weight loss. Clinical correlation recommended. Ephraim A: Hypersomnia, G47.10 Ephraim B: Polysomnography, 36863 Electronically Authenticated and Edited by: Cristino Wiley MD On 01/23/2017 Other fatigue 12/16/2016 08/04/2020 Overview (12/16/2016): Lab evaluation negative December 2016, sleep study ordered. Assessment & Plan (05/22/2020 9:19 AM APPLICATIONS SYSTEM ANALYST): Pt is currently wearing the 30 day cardiac event monitor and will see Dr. Trevino on 05/04/20 for the episodes of SOB with weakness as outlined below at our last visit on 05/04/20. Assessment & Plan (05/04/2020 12:08 PM APPLICATIONS SYSTEM ANALYST): Pt has had an initial cardiac workup [...] Pt just had carotid dopplers done by [facility] in Feb/Mar. and were negative. Nuclear stress [...] Immunization Administration Dates Next Due COVID-19 mRNA (RRT Global) 0.3 m L (30 mcg) vaccine (12 [...] and Family Not on file 01/18/2019 Attends [employer] Not on file 01/18 Active Member [...] on file Legal Sex Female 7:45 PM APPLICATIONS SYSTEM ANALYST Gender Identity Not on file Sexual Orientation Not on file Occupation Industry Job Start Date Job End Date Retired Not on file Not on file Not on file Last Filed Vital Signs Vital Sign Reading Time Taken Comments Blood Pressure 110/70 09/26/2024 3:10 PM CDT Pulse 72 09/26/2024 3:10 PM CDT Temperature 36.9 C (98.4 F) 09/26/2024 3:10 PM CDT Respiratory Rate 16 09/26/2024 3:10 PM CDT Oxygen Saturation 95% 09/26/2024 3:10 PM CDT Inhaled Oxygen Concentration - - Weight 101.2 kg (223 lb) 10/11/2024 7:56 AM CDT Height 177.8 cm (5' 10) 10/11/2024 7:56 AM CDT Body Mass Index 32 10/11/2024 7:56 AM CDT Plan of Treatment Not on file Medical Devices Implanted Type Area Cd Reactor Operator Head Device Identifier Shelf Expiration Date Model / Serial / Lot [employer] Angio-Seal Vip 6fr Closere Device [id number] - [id number] Implanted:Qty: 1 on 11/10/2022 by Juan F Weldon MD at [facility] [employer] 05/17/2023 [id number] / / [id number] Procedures Procedure Name Priority Date/Time Associated Diagnosis Comments SCREENING MAMMOGRAM BILATERAL W ISIDRO Schedule Routine, Read Routine (OP Routine) 10/11/2024 8:00 AM CDT Encounter for screening mammogram for breast cancer SCAN - RADIOLOGY/IMAGING 09/04/2024 SCAN - RADIOLOGY/IMAGING 08/09/2024 EGFR Routine 05/21/2024 7:40 AM APPLICATIONS SYSTEM ANALYST Type 2 diabetes mellitus without complication, without long-term current use of insulin (HCC) HEMOGLOBIN A1C Routine 05/21/2024 7:40 AM APPLICATIONS SYSTEM ANALYST Type 2 diabetes mellitus without complication, without long-term current use of insulin (HCC) LIPID PANEL Routine 05/21/2024 7:40 AM APPLICATIONS SYSTEM ANALYST Multiple-type hyperlipidemia ALBUMIN CREATININE RATIO, URINE Routine 05/21/2024 7:40 AM APPLICATIONS SYSTEM ANALYST Type 2 diabetes mellitus without complication, without long-term current use of insulin (HCC) DEXA AXIAL SKELETON BONE DENSITY 1 OR MORE SITES Schedule Routine, Read Routine (OP Routine) 01/10/2024 2:00 PM CDT Menopause COLONOSCOPY 02/14/2022 8:29 AM CDT HEPATITIS C ANTIBODY Routine 11/30/2012 12:12 PM CDT from Last 3 Months or Most Recently Relevant to Health Maintenance Results * Screening Mammogram Bilateral W Isidro (10/11/2024 8:00 AM CDT) Anatomical Region Laterality Modality Breast Bilateral Mammography Impressions 10/11/2024 3:46 PM CDT Bilateral No evidence of malignancy in either breast. OVERALL BI-RADS FINAL ASSESSMENT: 2 - Benign RECOMMENDATION: Recommend bilateral annual screening mammography. Narrative 10/11/2024 3:46 PM CDT EXAMINATION: Screening Mammogram Bilateral W Isidro: 10/11/2024 COMPARISON: Relevent prior studies available at the time of interpretation were reviewed, including the most recent mammogram on: 10/11/2023. TECHNIQUE: Mammography was performed with 2D and digital breast tomosynthesis (DBT) images. CAD was utilized. BREAST PARENCHYMAL COMPOSITION: The breasts are almost entirely fatty. FINDINGS: Bilateral There is no suspicious mass, calcification, or architectural distortion in either breast. us Mirna Mac MD IMG MAMMO PROCEDURES Final Result * SCAN - RADIOLOGY/IMAGING (09/04/2024) Anatomical Region Laterality Modality Other us Provider Scanning Final Result * SCAN - RADIOLOGY/IMAGING (08/09/2024) Anatomical Region Laterality Modality Other us Provider Scanning Final Result * eGFR (05/21/2024 7:40 AM APPLICATIONS SYSTEM ANALYST) eGFR 87 >=60 mL/min/1. 73 m2 Comment: [...] was last reviewed 2021. Testing performed by: [facility], [address] [place] [address]., [address] Blood 05/21/2024 7:40 AM APPLICATIONS SYSTEM ANALYST 05/21/2024 12:22 PM APPLICATIONS SYSTEM ANALYST us Mirna Mac MD LAB BLOOD ORDERABLES Final Result Performing Organization Address [facility] de Phone Number [facility] [address] [facility] [place] [address] * Albumin Creatinine Ratio, Urine (05/21/2024 7:40 AM APPLICATIONS SYSTEM ANALYST) Albumin Ur <12.0 mg/L Comment: Interpretive Data No reference range established. Current interpretive data was last revised 2018. Testing performed by: [address] [address] Creatinine Ur 79.9 mg/dL MELODIE Comment: Interpretive Data No reference range established. Current interpretive data was last revised 2018. Testing performed by: [address] [address] Albumin Creatinine Ratio, Ur <15 1 - 29 mg/g MELODIE Comment:Testing performed by : [address] [address] Urine 05/21/2024 7:40 AM APPLICATIONS SYSTEM ANALYST 05/21/2024 12:16 PM APPLICATIONS SYSTEM ANALYST us Mirna Mac MD LAB URINE ORDERABLES Final Result Performing Organization Address [facility] de Phone Number [facility] [address] [facility] [place] [address] * (ABNORMAL) Hemoglobin A1c (05/21/2024 7:40 AM APPLICATIONS SYSTEM ANALYST) Hgb A1C 6.2(H) 4.0 - 5.6 % Comment:Testing performed by : [address] [address] Estimated Average Glucose 131 mg/dL MELODIE Comment: The ADA recommends reporting an estimated Average Glucose (eAG) with all Hemoglobin A1c results using the equation derived from a study of 507 normal and diabetic adults. Minority populations were underrepresented and children were not included. (Diabetes Care 31:8027-5059, 2008). The eAG is not equivalent to a fasting glucose. Testing performed by: [facility], [address] [place] [address]., [address] Blood 05/21/2024 7:40 AM APPLICATIONS SYSTEM ANALYST 05/21/2024 12:16 PM APPLICATIONS SYSTEM ANALYST Mirna Mac MD LAB BLOOD ORDERABLES Final Result MELODIE [address] Department [place] [address] * Lipid panel (05/21/2024 7:40 AM APPLICATIONS SYSTEM ANALYST) Cholesterol 113 30 - 199 mg/dL Comment: [...] last revised on 2017. Testing performed by: [facility], [address] [place] [address]., [address] Triglycerides 40 <=149 mg/dL MELODIE COBB Comment: Interpretive Data Ages [...] last revised on 2017. Testing performed by: [facility], [address] [place] [address]., [address] HDL 66 >=40 mg/dL MELODIE Comment: Interpretive [...] last revised on 2017. Testing performed by: [facility], [address] [place] [address]., [address] LDL, calculated 36 <=129 mg/dL MELODIE Comment: [...] NCEP Expert Panel. Circulation 2004;110:227 3. Pepe Marshall al. DERRICK Cardiol. 2019August 15;5(5):540-548. doi: 10.1001/jamacardio.2020.0013 Current Interpretive Data was last revised on 2023. Testing performed by: [facility], [address] [place] [address], [place]., [address] Non-HDL Cholesterol 47 mg/dL MELODIE Comment: Interpretive [...] last revised on 2017. Testing performed by: [facility], [address] [place] [address]., [address] Chol/HDL ratio 2 MELODIE JORDYN Comment:Testing performed by : [facility], [address] [place] [address]., [address] Blood 05/21/2024 7:40 AM APPLICATIONS SYSTEM ANALYST 05/21/2024 12:16 PM APPLICATIONS SYSTEM ANALYST us Mirna Mac MD LAB BLOOD ORDERABLES Final Result MELODIE [address] Department [place] [address] * Dexa Axial Skeleton Bone Density 1 or 2 Site (01/10/2024 2:00 PM CDT) Anatomical Region Laterality Modality Body N/A Other 01/10/2024 7:13 PM CDT Narrative 01/10/2024 7:14 PM CDT EXAM DESCRIPTION: DEXA AXIAL SKELETON BONE DENSITY 1 OR MORE SITES REASON FOR STUDY: 78 y/o year old F with given history of: menopause Screening. Cd Reactor Operator Head/Model: [employer] (S/N [id number]) CLINICAL INFORMATION: Current height: 70 inches Maximum [...] Anastacio Oliveira M.D. MF: VON Report ID: [id number] Reading Location: [place] [address] Procedure Note Anastacio Oliveira MD - 01/10/2024 EXAM DESCRIPTION: DEXA AXIAL SKELETON BONE DENSITY 1 OR MORE SITES REASON FOR STUDY: 78 y/o year old F with given history of: menopause Screening. Cd Reactor Operator Head/Model: [employer] (S/N [id number]) CLINICAL INFORMATION: Current height: 70 inches Maximum [...] Anastacio Oliveira M.D. MF: VON Report ID: [id number] Reading Location: [id number] us Mirna Mac MD IMSaritha DXA PROCEDURES Final R esult * COLONOSCOPY (02/14/2022 8:29 AM CDT) Anatomical Region Laterality Modality Other Narrative Procedure Note Spencer Delcid MD - 02/14/2022 8:29 AM CDT [facility] Patient Name: Jackelyn Blanchard Procedure Date: 02/14/2022 8:29 AM Date of : 1945 Admit Type: Outpatient Age: 76 Gender: Female Attending MD: Spencer Delcid M.D. Room: [facility] ENDOSCOPY ROOM 2 Note Status: Finalized Patient Profile: Refer to note in patient chart for documentation of history and physical. Procedure: Colonoscopy Indications: High risk colon cancer surveillance: Personalhistory of colonic polyps, Last colonoscopy: May2018 Referring MD: Mirna Mac M.D. Providers: Spencer Delcid M.D. Impression: - [...] scope was passed under direct vision. TheColonoscope [id number] was introduced through the anus and advanced [...] history of colonic polyps CPT copyright 2020 [employer]. All rights reserved. The codes documented in this report are preliminary and upon commercial construction estimator reviewmay be revised to meet current compliance requirements. Recognized by the [employer] for promoting quality in endoscopy us Spencer Delcid MD ENDOSCOPY PROCEDURES Final Re sult * Hepatitis C antibody (11/30/2012 12:12 PM CDT) Hep C Ab NON-REACT SHITAL NON-REACT SHITAL [facility] SIGNAL TO CUT-OFF 0.02 <1.00 [facility] Comment: Test performed at [facility] [address] [place] [address] Director: ROXANNE ALFARO DO,MPH 11/30/2012 12:1 2 PM CDT us Mirna Mac MD LAB MICROBIOLOGY - GENERAL ORDERABLES Final Result [facility]OR[facility] RESULTS from Last 3 Months or Most Recently Relevant to Health Maintenance [place] [address] PENDING SALE TO [facility] MEDICARE SUPPLEMENT INSURANCE COMMERCIAL GENERIC MEDICARE PENDING SALE TO [facility] MEDICARE SUPPLEMENT INSURANCE MEDICARE [facility] MEDICARE SUPPLEMENT Advance Directives For more information, please contact: [phone] Documents on File Type Date Recorded Patient Home Organizer Expl anation ADVANCE DIRECTIVE 07/10/2018 3:04 PM [...] 4:03 PM 02/07/2022 8:13 PM Care Teams School Photograph Editor Relationship Specialty Start Date End Date Mirna Mac MD PCP - General 07/15/16 Simba Laird MD Plastic Surgery 12/16/16 Skyler Leos MD [address] [facility] [address] [place] [address] Dermatology 12/16/16 Ish Zambrano MD [address] [place] [address] [place] [address] Ophthalmology 12/16/16 Randell Phillips MD [address] [place] [address] Referring Physician Orthopedic Surgery 10/24/17 Luz Murry MD [address] [place] [facility] [address] [place] [address] Consulting Physician General Surgery 07/10/18 Alex Figueroa MD [address] [place] [address] [place] [address] Dip Dyer Obstetrics and Gynecology 08/04/20 Cristino Wiley MD [address] [place] [address] [place] [address] Consulting Physician Sleep Medicine 03/02/21 David Cortes DC [address] [place] [address] [place] [address] Chiropractic Medicine 05/17/21
--- OUTSIDE RECORDS SUMMARY | 2024-11-01 09:55 | XMS_ITS | Encounter Summary ---
Author Organization [place] [facility] Address [address] [place] [address] Phone Care Team Providers Care Inspector Experimental Assembly Name Role Phone Mirna Mac MD Primary Care Provider Tirso Monique DO Unavailable [phone] Yu Barrera MD Unavailable [phone] Tena Lisa MD Unavailable [phone] [facility] hernandez MD Unavailable Skyler Leos MD Unavailable [phone] Ish Zambrano MD Unavailable [phone] Randell Phillips MD Unavailable [phone] Luz Murry MD Unavailable Carmela Varner MA Unavailable Alex Figueroa MD Unavailable [phone] Cristino Wiley MD Unavailable David Cortes DC Unavailable [phone] George Samano MD Unavailable Spencer Delcid MD Unavailable [phone] Maki Byrne MA Unavailable Unavailable Encounter Details Date Type Department Care Team (Late st Contact Info) Description 01/02/2017 Orders Only [facility] [address] [place] [address] Mirna Mac MD [address] [place] [address] Insomnia with sleep apnea, unspecified (Primary Dx) Social History Tobacco Use Types Packs/Day Years Used Date Smoking Tobacco: Former Cigarettes Smokeless Tobacco: Never Alcohol Use Standard Drinks/Week Comments No 0 (1 standard drink = 0.6 oz pur e alcohol) Comments No Sex and Gender Information Value Date Recorded Sex Assigned at Not on file Legal Sex Female 7:45 PM PRESS OPERATOR Gender Identity Not on file Sexual [...] COVID: Suspected 06/25/2022 06/25/2022 06/25/2022 5:00 PM PRESS OPERATOR COVID19 06/25/2022 06/25/2022 07/05/2022 3:05 AM CDT COVID: Recovered Comment:Added based on recent COVID infection. 07/05/2022 07/15/2022 10/03/2022 3:05 AM C DT documented as of this encounter Care Teams Inspector Experimental Assembly Relationship Specialty Start Date End Date Mirna Mac MD PCP - General 07/15/16 Tirso Monique DO Otolaryngology 12/16/16 09/14/22 Yu Barrera MD Gynecologic Oncology 12/16/16 08/03/20 Tena Lisa MD Gastroenterology 12/16/16 09/14/22 Simba Laird MD Plastic Surgery 12/16/16 Skyler Leos MD [address] [facility] [address] [place] [address] Dermatology 12/16/16 Ish Zambrano MD [address] [place] [address] Ophthalmology 12/16/16 Randell Phillips MD [address] [place] [address] Referring Physician Orthopedic Surgery 10/24/17 Luz Murry MD [address] [facility] [address] [place] [address] Consulting Physician General Surgery 07/10/18 Carmela Varner, ESTHER [address] [place] [address] [address] [place] [address] ACO Care Elevator Serviceman 09/24/18 09/24/18 Alex Figueroa MD [address] [place] [address] [address] [place] [address] Jacquard Loom Carpet Weaver Obstetrics and Gynecology 08/04/20 Cristino Wiley MD [address] [place] [address] [place] [address] Consulting Physician Sleep Medicine 03/02/21 David Cortes DC [address] [place] [address] [place] [address] Chiropractic Medicine 05/17/21 George Samano MD [address] [place] [address] [place] [address] Consulting Physician General Surgery 02/07/22 02/07/22 Spencer Delcid MD [address] [place] [address] [address] [place] [address] Consulting Physician Gastroenterology 09/15/22 10/10/23 Maki Byrne MA [address] [place] [address] [address] [place] [address] ACO Care Elevator Serviceman 10/20/23 10/23/23 documented as of this encounter
--- OUTSIDE RECORDS SUMMARY | 2024-11-01 09:55 | XMS_ITS | Encounter Summary ---
Author Organization [facility] Healthcare Address [address] [place] [address] Care Team Providers Care Contact Center Director Name Role Phone Mirna Mac MD Primary Care Provider [phone] Simba Laird MD Unavailable [phone] Skyler Leos MD Unavailable [phone] Ish Zambrano MD Unavailable [phone] Randell Phillips MD Unavailable [phone] Luz Murry MD Unavailable [phone] Alex Figueroa MD Unavailable [phone] Cristino Wiley MD Unavailable David Cortes DC Unavailable [phone] Encounter Details Date Type Department Care Team (Late st Contact Info) Description 09/04/2024 Orders Only [facility] [facility] [address] [place] [address] Scanning, Provider Social History Tobacco Use Types [...] and Family Not on file 01/18/2019 Attends [employer] Not on file 01/18 Active Member [...] on file Legal Sex Female 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 Gender Identity Not on file Sexual Orientation Not on file Occupation Industry Job Start Date Job End Date Retired Not on file Not on file Not on file documented as of this encounter Plan of Treatment Not on file documented as of this encounter Procedures Procedure Name Priority Date/Time Associated Diagnosis Comments SCAN - RADIOLOGY/IMAGING 09/04/2024 documented in this encounter Results * SCAN - RADIOLOGY/IMAGING (09/04/2024) Anatomical Region Laterality Modality Other us Provider Scanning Final Result documented in this encounter Visit Diagnoses Not on filedocumented in this encounter Care Teams Contact Center Director Relationship Specialty Start Date End Date Mirna Mac MD PCP - General 07/15/16 Simba Laird MD Plastic Surgery 12/16/16 Skyler Leos MD [address] [place] [address] Dermatology 12/16/16 Ish Zambrano MD [address] [place] [address] Ophthalmology 12/16/16 Randell Phillips MD [address] [place] [address] Referring Physician Orthopedic Surgery 10/24/17 Luz Murry MD [address] [facility] [address] [place] [address] Consulting Physician General Surgery 07/10/18 Alex Figueroa MD [address] [facility] [address] [place] [address] Cloth Bleaching Supervisor Obstetrics and Gynecology 08/04/20 Cristino Wiley MD [address] [facility] [address] [place] [address] Consulting Physician Sleep Medicine 03/02/21 David Cortes DC [address] [place] [address] [place] [address] Chiropractic Medicine 05/17/21 documented as of this encounter
--- OUTSIDE RECORDS SUMMARY | 2024-11-01 09:55 | XMS_ITS | Clinical Summary ---
Author Organization [facility] Address [address] [place] [address] Care Team Providers Care Starch Cooker Name Role Phone Mirna Mac MD Primary Care Provider [phone] Simba Laird MD Unavailable [phone] Skyler Leos MD Unavailable [phone] Ish Zambrano MD Unavailable [phone] Randell Phillips MD Unavailable [phone] Luz Murry MD Unavailable Alex Figueroa MD Unavailable [phone] Cristino Wiley MD Unavailable David Cortes DC Unavailable [phone] Allergies Active Allergy Reactions Criticality Noted Date [...] without long-term current use of insulin ([facility]),Multiple-ty pe hyperlipidemia Take 1 tablet (20 mg total) by mouth daily 90 tablet 2 12/21/19 24 Active blood glucose diagnostic (OneTouch Verio test strips) stripIndications: Type 2 diabetes mellitus without complication, without long-term current use of insulin ([facility]) USE TO CHECK BLOOD SUGAR DAILY E11.9 non insulin 100 strip 3 12/21/19 24 Active labetaloL (NORMODYNE,TRANDA TE) 100 mg tabletIndications :Hypertension complicating diabetes ([facility]) Take 0.5-1 tablets (50-100 mg total) by [...] or continued 6.Avoid alcohol sedatives and other MAT MAKING MACHINE TENDER depression that may worsen sleep apnea and [...] with Dr. David Cortes using the pro wire spring relay adjuster Last C-spine CT scan March 2015 [...] at that time including transesophageal echocardiogram at [facility] was negative. She had some recurrence [...] diet. Assessment & Plan (05/26/2023 11:07 AM SALSA DANCE INSTRUCTOR): BP stable in office today on current [...] removed History of endometrial cancer Overview (06/04/2024): [facility] [address] Figueroa Resolved Problems [...] 06/04/2024 Assessment & Plan (05/26/2023 11:07 AM SALSA DANCE INSTRUCTOR): Intermittent stabbing/sticking pain between breast since yesterday, [...] Started 3 days ago after bending to sheepskin pickler something off the floor. Assessment as noted above. Likely muscle strain. Continue Tylenol and heat/ice. Offered tizanidine and PT consult, pt refused at this time. Keep follow in 2 weeks as scheduled. Gastroesophageal reflux dise ase without esophagitis 06/07/2022 09/15/2022 Assessment & Plan (06/07/2022 1:31 PM SALSA DANCE INSTRUCTOR): Chronic problem, recently exacerbated resulting in ER [...] 11/08/2021 Assessment & Plan (05/20/2024 9:45 PM SALSA DANCE INSTRUCTOR): Likely related to chronic constipation, see plan [...] 09/15/2022 Assessment & Plan (05/28/2021 10:11 AM SALSA DANCE INSTRUCTOR): Patient reports since her last visit she [...] 09/15/2022 Assessment & Plan (2021 11:05 AM SALSA DANCE INSTRUCTOR): Patient has acute pain of the rt [...] out in office today and faxed to [facility]. Assessment & Plan (06/22/2020 11:37 AM SALSA DANCE INSTRUCTOR): Pt to have left cataract surgery by [...] 06/22/2020 Assessment & Plan (06/22/2020 11:39 AM SALSA DANCE INSTRUCTOR): PT reports increased pain in the right knee within the past few weeks. We will get an x-ray today. She has seen Dr. Phillips in the past, so if needed to be referred, she would prefer to go back and see him. I advised that she take tylenol for the pain. Acid indigestion 04/20/2020 08/04/2020 Assessment & Plan (05/22/2020 9:17 AM SALSA DANCE INSTRUCTOR): Pt is taking famotidine 40mg daily and she has done well with this--stating that she has not had any reflux symptoms. She is following the strict diet guidelines as well. She will continue on this medication. She will f/u for this with Dr. HAN at her next appt on 08/04/20. Assessment & Plan (04/20/2020 10:30 AM SALSA DANCE INSTRUCTOR): Pt went to ED on 04/13 for [...] 08/04/2020 Assessment & Plan (04/15/2020 10:37 AM SALSA DANCE INSTRUCTOR): Dr. HAN did come into the room [...] scheduled. Assessment & Plan (03/30/2020 10:33 AM SALSA DANCE INSTRUCTOR): Pt reports swelling in lower legs now [...] done. Assessment & Plan (03/30/2020 8:22 AM SALSA DANCE INSTRUCTOR): Pt reports about 1 week of lower [...] lab results. Acute pain of left knee 03/30/2020/ Assessment & Plan (03/30/2020 11:47 AM SALSA DANCE INSTRUCTOR): Pt reports that her left knee has [...] 08/04/2020 Assessment & Plan (04/30/2019 9:00 AM SALSA DANCE INSTRUCTOR): Nasal saline spray (Simply saline, [employer], [place], [employer]) 2 second sprays or 2 squeezes into [...] helping. Assessment & Plan (04/30/2019 9:00 AM SALSA DANCE INSTRUCTOR): Nasal saline spray (Simply saline, [employer], [place], [employer]) 2 second sprays or 2 squeezes into each nostril while looking down over the sink, do not need to sniff in 2-3 times daily If pain returns try Cetirizine if Mucinex not improving symptoms Other option would be warm compresses to left neck pulling forward for 15 minutes at a time Continue Humidifier Assessment & Plan (05/06/2019 8:55 AM SALSA DANCE INSTRUCTOR): She was in the office few days [...] re-evaluation. Assessment & Plan (05/04/2019 10:22 AM SALSA DANCE INSTRUCTOR): The patient presents for evaluation of intermittent [...] 08/04/2020 Assessment & Plan (03/07/2019 9:44 AM SALSA DANCE INSTRUCTOR): Left proximal upper arm Diagnosis discussed. No further treatment required at this time. She knows that she should follow up if this area develops any further symptoms. Assessment & Plan (02/22/2019 1:59 PM SALSA DANCE INSTRUCTOR): Left proximal upper arm Biopsy/ies done per procedure note by Dr. Palmer. Basal cell carcinoma (BCC) of left upper arm 9 08/04/2020 Assessment & Plan (03/07/2019 9:45 AM SALSA DANCE INSTRUCTOR): Left distal upper arm One week status post excision Healing well, no evidence of complication or infection reported or noted on exam. Pathology results discussed, no further treatment required. Follow-up at the 6 week postoperative mabel for final evaluation or sooner if issues arise. Assessment & Plan (02/22/2019 1:58 PM SALSA DANCE INSTRUCTOR): Left distal upper arm, biopsy proven Dr. Palmer excised this lesion today in clinic. Please see his separate note. Nipple lesion 02/22/2018 12/28/2018 Chronic rhinitis 11/14/2017 06/04/2024 Overview (11/14/2017): Olopatadine nasal spray too expensive, trial Astelin November 14, 2017 Chronic constipation 11/08/2017 025 Assessment & Plan (05/20/2024 9:45 PM SALSA DANCE INSTRUCTOR): Chronic, uncontrolled despite MiraLax twice daily and [...] appendectomy February 1989. TAHBSO February 2004 at [facility] for grade 1A endometrial cancer, incisional hernia with mesh repair February 2006. Pursuing evaluation for possible biliary stricture as for T-spine pain behaves like gallbladder issue September 2017 HIDA scan ordered Assessment & Plan (06/01/2021 9:24 AM SALSA DANCE INSTRUCTOR): Patient has history of chronic rt sided [...] knees Sleep disorder 12/16/2016 09/15/2022 Overview (09/26/2017): [place] Sleep Scale positive at 13, complaints of [...] patient's profound weight loss. Clinical correlation recommended. [place] A: Hypersomnia, G47.10 [place] B: Polysomnography, [address] Electronically Authenticated and Edited by: Cristino Wiley MD On 01/23/2017 Other fatigue 12/16/2016 08/04/2020 Overview (12/16/2016): Lab evaluation negative December 2016, sleep study ordered. Assessment & Plan (05/22/2020 9:19 AM SALSA DANCE INSTRUCTOR): Pt is currently wearing the 30 day cardiac event monitor and will see Dr. Trevino on 05/04/20 for the episodes of SOB with weakness as outlined below at our last visit on 05/04/20. Assessment & Plan (05/04/2020 12:08 PM SALSA DANCE INSTRUCTOR): Pt has had an initial cardiac workup [...] Pt just had carotid dopplers done by [employer] in Feb/Mar. and were negative. Nuclear stress [...] - 10/11/2024 11:59 PM CDT Hospital Encounter [facility] [address] [place] [address] Encounter for screening mammogram for breast cancer Discharge Disposition: Discharge to home or self care 09/26/2024 3:30 PM CDT Office Visit [facility] [address] [facility] [address] [place] [address] Monica Steen NP Strain of left biceps muscle, initial encounter (Primary Dx) 09/25/2024 Telephone [facility] [address] [place] [address] Mirna Mac MD left shoulder pain 09/04/2024 Orders Only [facility] Information [facility] [address] [place] [address] Scanning, Provider 08/27/2024 Telephone [facility] [address] [place] [phone] Mirna Mac MD 08/09/2024 Orders Only [facility] [address] [place] [address] Scanning, Provider from Last 3 Months Immunizations Immunization Administration Dates Next Due COVID-19 mRNA ([employer] 0.3 m L (30 mcg) vaccine (12 [...] surgical benign bx, so long ago, cant remember, unable to visualize scar, pt points to [...] Grandmother Migrain es; Ovarian cancer Paternal Grandmother Cance r, ovarian; Cause of : Cancer, ovarian [...] and Family Not on file 01/18/2019 Attends Judaism Services Not on file 01/18 Active Member [...] on file Legal Sex Female 7:45 PM SALSA DANCE INSTRUCTOR Gender Identity Not on file Sexual Orientation [...] 10/11/2024 7:56 AM CDT Plan of Treatment Health Maintenance Due Date Last Done Comments Covid-19 Vaccine (2023-2 5 season) 2024 02/05/2024, 02/09/2023, 02/01/2022, Additional [...] Completed 024, 2017, 06/16/2014, Additional history exists Hepatitis B Screening Completed 12/14/2023 Influenza Vaccine Completed 01/16/2024, , 01/24/2022, Additional history exists Zoster Vaccine Completed 04/02/2024, 12/16, 01/08/2014 Breast Cancer Screening-Mammogram Discontinued 10/11/2024, 10/11/2023, 10/08/2022, Additional history exists Medical Devices Implanted Type Area Steam Meter Reader Device Identifier Shelf Expiration Date Model / Serial / Lot [employer] Angio-Seal Vip 6fr Closere Device [id number] - [id number] Implanted:Qty: 1 on 11/10/2022 by Juan F Welodn MD at [facility] [employer] 05/17/2023 [id number] / / [id number] Procedures Procedure Name Priority Date/Time Associated Diagnosis Comments SCREENING MAMMOGRAM BILATERAL W ISIDRO Schedule Routine, Read Routine (OP Routine) 10/11/2024 8:00 AM CDT Encounter for screening mammogram for breast cancer SCAN - RADIOLOGY/IMAGING 09/04/2024 SCAN - RADIOLOGY/IMAGING 08/09/2024 EGFR Routine 05/21/2024 7:40 AM SALSA DANCE INSTRUCTOR Type 2 diabetes mellitus without complication, without long-term current use of insulin (HCC) HEMOGLOBIN A1C Routine 05/21/2024 7:40 AM SALSA DANCE INSTRUCTOR Type 2 diabetes mellitus without complication, without long-term current use of insulin (HCC) LIPID PANEL Routine 05/21/2024 7:40 AM SALSA DANCE INSTRUCTOR Multiple-type hyperlipidemia ALBUMIN CREATININE RATIO, URINE Routine 05/21/2024 7:40 AM SALSA DANCE INSTRUCTOR Type 2 diabetes mellitus without complication, without [...] calcification, or architectural distortion in either breast. Mirna Mac MD IMG MAMMO PROCEDURES Final Result * SCAN - RADIOLOGY/IMAGING (09/04/2024) Anatomical Region Laterality Modality Other us Provider Scanning Final Result * SCAN - RADIOLOGY/IMAGING (08/09/2024) Anatomical Region Laterality Modality Other us Provider Scanning Final Result * eGFR (05/21/2024 7:40 AM SALSA DANCE INSTRUCTOR) eGFR 87 >=60 mL/min/1. 73 m2 Comment: [...] was last reviewed 2021. Testing performed by: [address] [address] Blood 05/21/2024 7:40 AM SALSA DANCE INSTRUCTOR 05/21/2024 12:22 PM SALSA DANCE INSTRUCTOR us Mirna Mac MD LAB BLOOD ORDERABLES Final Result Performing Organization Address [facility] Co de Phone Number MELODIE [address] Department [place] [address] * Albumin Creatinine Ratio, Urine (05/21/2024 7:40 AM SALSA DANCE INSTRUCTOR) Albumin Ur <12.0 mg/L Comment: Interpretive Data No reference range established. Current interpretive data was last revised 2018. Testing performed by: [address] [address] Creatinine Ur 79.9 mg/dL MELODIE COBB Comment: Interpretive Data No reference range established. Current interpretive data was last revised 2018. Testing performed by: [address] [address] Albumin Creatinine Ratio, Ur <15 1 - 29 mg/g MELODIE COBB Comment:Testing performed by : [address] [address] Urine 05/21/2024 7:40 AM SALSA DANCE INSTRUCTOR 05/21/2024 12:16 PM SALSA DANCE INSTRUCTOR us Mirna Mac MD LAB URINE ORDERABLES Final Result Performing Organization Address City/[facility]/ZIP Co de Phone Number MELODIE COBB [address] [facility] Department [place] [address] * (ABNORMAL) Hemoglobin A1c (05/21/2024 7:40 AM SALSA DANCE INSTRUCTOR) Hgb A1C 6.2(H) 4.0 - 5.6 % Comment:Testing performed by : [address] [address] Estimated Average Glucose 131 mg/dL MELODIE Comment: The ADA recommends reporting an estimated Average Glucose (eAG) with all Hemoglobin A1c results using the equation derived from a study of 507 normal and diabetic adults. Minority populations were underrepresented and children were not included. (Diabetes Care 31:8722-0201, 2008). The eAG is not equivalent to a fasting glucose. Testing performed by: [address] [address] Blood 05/21/2024 7:40 AM SALSA DANCE INSTRUCTOR 05/21/2024 12:16 PM SALSA DANCE INSTRUCTOR Mirna Mac MD LAB BLOOD ORDERABLES Final Result Performing Organization Address [facility] Co de Phone Number MELODIE [address] [facility] Department [place] [address] * Lipid panel (05/21/2024 7:40 AM SALSA DANCE INSTRUCTOR) Pathologist [facility] Cholesterol 113 30 - 199 mg/dL Comment: [...] last revised on 2017. Testing performed by: [address] [address] Triglycerides 40 <=149 mg/dL MELODIE Comment: Interpretive [...] last revised on 2017. Testing performed by: [address] [address] HDL 66 >=40 mg/dL MELODIE Comment: Interpretive [...] last revised on 2017. Testing performed by: [facility], [address] [place] [address]., [address] LDL, calculated 36 <=129 mg/dL MELODIE Comment: [...] 2. NCEP Expert Panel. Circulation 2004;110:227 3. Cantu M et al. DERRICK Cardiol. 2019August 15;5(5):540-548. doi: 10.1001/jamacardio.2020.0013 Current Interpretive Data was last revised on 2023. Testing performed by: [address] [address] Non-HDL Cholesterol 47 mg/dL MELODIE Comment: Interpretive [...] last revised on 2017. Testing performed by: [address] [address] Chol/HDL ratio 2 MELODIE Comment:Testing performed by : [address] [address] Blood 05/21/2024 7:40 AM SALSA DANCE INSTRUCTOR 05/21/2024 12:16 PM SALSA DANCE INSTRUCTOR us Mirna Mac MD LAB BLOOD ORDERABLES Final Result MELODIE [address] Department [place] [address] * Dexa Axial Skeleton Bone Density 1 or 2 Site (01/10/2024 2:00 PM CDT) Anatomical Region Laterality Modality Body N/A Other 01/10/2024 7:13 PM CDT Narrative 01/10/2024 7:14 PM CDT EXAM DESCRIPTION: DEXA AXIAL SKELETON BONE DENSITY 1 OR MORE SITES REASON FOR STUDY: 78 y/o year old F with given history of: menopause Screening. Steam Meter Reader/Model: [employer] (S/N [id number]) CLINICAL INFORMATION: Current height: 70 inches Maximum [...] Anastacio Oliveira M.D. MF: VON Report ID: [id number] Reading Location: [id number] Procedure Note Anastacio Oliveira MD - 01/10/2024 EXAM DESCRIPTION: DEXA AXIAL SKELETON BONE DENSITY 1 OR MORE SITES REASON FOR STUDY: 78 y/o year old F with given history of: menopause Screening. Steam Meter Reader/Model: [employer] (S/N [id number]) CLINICAL INFORMATION: Current height: 70 inches Maximum [...] Anastacio Oliveira M.D. MF: VON Report ID: [id number] Reading Location: [place] [address] us Mirna Mac MD IMG DXA PROCEDURES Final R esult * COLONOSCOPY (02/14/2022 8:29 AM CDT) Anatomical Region Laterality Modality Other Narrative Procedure Note Spencer Delcid MD - 02/14/2022 8:29 AM CDT [facility] Patient Name: Jackelyn Blanchard Procedure Date: 02/14/2022 8:29 AM Date of : 1945 Admit Type: Outpatient Age: 76 Gender: Female Attending MD: Spencer Delcid M.D. Room: [facility] ENDOSCOPY ROOM 2 Note Status: Finalized Patient [...] scope was passed under direct vision. TheColonoscope [id number] was introduced through the anus and advanced [...] history of colonic polyps CPT copyright 2020 [employer]. All rights reserved. The codes documented in this report are preliminary and upon hcc coders reviewmay be revised to meet current compliance requirements. Recognized by the [employer] for promoting quality in endoscopy us Spencer Delcid MD ENDOSCOPY PROCEDURES Final Re sult * Hepatitis C antibody (11/30/2012 12:12 PM CDT) Hep C Ab NON-REACT SHITAL NON-REACT SHITAL [facility] HISTORICAL RESULTS SIGNAL TO CUT-OFF 0.02 <1.00 [facility]ORICAL RESULTS Comment: Test performed at [facility] [address] [place] [address] Director: ROXANNE ALFARO DO,MPH 11/30/2012 12:1 2 PM CDT us Mirna Mac MD LAB MICROBIOLOGY - GENERAL ORDERABLES Final Result [facility] HISTORICAL RESULTS from Last 3 Months or Most Recently Relevant to Health Maintenance Insurance MEDICARE [facility] MEDICARE SUPPLEMENT INSURANCE COMMERCIAL GENERIC MEDICARE [facility] MEDICARE SUPPLEMENT INSURANCE MEDICARE [facility] MEDICARE SUPPLEMENT Advance Directives For more information, please contact: [phone] Documents on File Type Date Recorded Patient Form Maker Plaster Expl anation ADVANCE DIRECTIVE 07/10/2018 3:04 PM [...] 4:03 PM 02/07/2022 8:13 PM Care Teams Starch Cooker Relationship Specialty Start Date End Date Mirna Mac MD PCP - General 07/15/16 Simba Laird MD Plastic Surgery 12/16/16 Skyler Leos MD [address] [facility] [address] [place] [address] Dermatology 12/16/16 Ish Zambrano MD [address] [place] [address] Ophthalmology 12/16/16 Randell Phillips MD [address] [place] [address] Referring Physician Orthopedic Surgery 10/24/17 Luz Murry MD [address] [facility] [address] [place] [address] Consulting Physician General Surgery 07/10/18 Alex Figueroa MD [address] [place] [address] [place] [address] Gas Turbine Assembler Obstetrics and Gynecology 08/04/20 Cristino Wiley MD [address] [place] [address] [place] [address] Consulting Physician Sleep Medicine 03/02/21 David Cortes DC [address] [place] [address] [place] [address] Chiropractic Medicine 05/17/21
--- OUTSIDE RECORDS SUMMARY | 2024-11-01 09:56 | XMS_ITS | Encounter Summary ---
Author Organization [facility] Address 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
--- OUTSIDE RECORDS SUMMARY | 2024-11-01 09:56 | XMS_ITS | Encounter Summary ---
Author Organization [employer] Address 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
--- OUTSIDE RECORDS SUMMARY | 2024-11-01 09:56 | XMS_ITS | Encounter Summary ---
Author Organization [facility] Address [address] [place] [address] Care Team Providers Care Napper Tender Name Role Phone Mirna Mac MD Primary Care Provider [phone] Simba Laird MD Unavailable [phone] Skyler Leos MD Unavailable [phone] Ish Zambrano MD Unavailable [phone] Randell Phillips MD Unavailable [phone] Luz Murry MD Unavailable [phone] Alex Figueroa MD Unavailable [phone] Cristino Wiley MD Unavailable David Cortes DC Unavailable [phone] Encounter Details Date Type Department Care Team (Late st Contact Info) Description 08/09/2024 Orders Only [facility] [address] [place] [address] Scanning, Provider Social History Tobacco [...] and Family Not on file 01/18/2019 Attends Sabianist Services Not on file 01/18 Active Member [...] on file Legal Sex Female 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 Gender Identity Not on file Sexual Orientation [...] on filedocumented in this encounter Care Teams Napper Tender Relationship Specialty Start Date End Date Mirna Mac MD PCP - General 07/15/16 Simba Laird MD Plastic Surgery 12/16/16 Skyler Leos MD [address] [facility] [address] [place] [address] Dermatology 12/16/16 Ish Zambrano MD [address] [place] [address] Ophthalmology 12/16/16 Randell Phillips MD [address] [place] [address] Referring Physician Orthopedic Surgery 10/24/17 Luz Murry MD [address] [facility] [address] [place] [address] Consulting Physician General Surgery 07/10/18 Alex Figueroa MD [address] [place] [address] [place] [address] Chainstitch Pants Outseamer Obstetrics and Gynecology 08/04/20 Cristino Wiley MD [address] [place] [address] [place] [address] Consulting Physician Sleep Medicine 03/02/21 David Cortes DC [address] [place] [address] [place] [address] Chiropractic Medicine 05/17/21 documented as of this encounter
--- OUTSIDE RECORDS SUMMARY | 2024-11-01 09:56 | XMS_ITS | Clinical Summary ---
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
--- OUTSIDE RECORDS SUMMARY | 2024-11-01 09:56 | XMS_ITS | Encounter Summary ---
Author Organization [facility] Healthcare Address [address] [place] [address] Care Team Providers Care Manager Body Name Role Phone Mirna Mac MD Primary Care Provider [phone] Simba Laird MD Unavailable [phone] Skyler Leos MD Unavailable [phone] Ish Zambrano MD Unavailable [phone] Randell Phillips MD Unavailable [phone] Luz Murry MD Unavailable [phone] Alex Figueroa MD Unavailable [phone] Cristino Wiley MD Unavailable David Cortes DC Unavailable [phone] Encounter Details Date Type Department Care Team (Late st Contact Info) Description 10/30/[address] 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 Gender Identity Not on file Sexual [...] on filedocumented in this encounter Care Teams Manager Body Relationship Specialty Start Date End Date Mirna Mac MD PCP - General 07/15/16 Simba Laird MD Plastic Surgery 12/16/16 [place] [address] [place] [address] Dermatology 12/16/16 Ish Zambrano MD [address] [place] [address] Ophthalmology 12/16/16 Randell Phillips MD [address] [place] [address] Referring Physician Orthopedic Surgery 10/24/17 Luz Murry MD [address] [facility] [address] [place] [address] Consulting Physician General Surgery 07/10/18 Alex Figueroa MD [address] [facility] [address] [place] [address] Doll Repairer Obstetrics and Gynecology 08/04/20 Cristino Wiley MD [address] [facility] [place] [address] Consulting Physician Sleep Medicine 03/02/21 David Cortes DC [address] [place] [address] [place] [address] Chiropractic Medicine 05/17/21 documented as of this encounter
--- OUTSIDE RECORDS SUMMARY | 2024-11-01 09:56 | XMS_ITS | Encounter Summary ---
Author Organization [employer] Address 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
--- OUTSIDE RECORDS SUMMARY | 2024-11-01 09:56 | XMS_ITS | Encounter Summary ---
Author Organization [employer] Address 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
--- OUTSIDE RECORDS SUMMARY | 2024-11-01 09:56 | XMS_ITS | Data Portability ---
Author Organization [facility], Main Office Address [address] [facility] [address] [facility] [address] Assessment No assessment recorded. Plan of Treatment [...] By Organization Details Last Modified Time 07/18/2023 [address] REVD DX [place] AND ANCILLARY CARE. Sun protection. cryo to [place] and to wart. fu annually orbefore prn. Not available 07/18/2023 10:38:03 Reason for Referral None Reported. 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 Active 2020 left arm 2019 Skyler Leos MD [address] [facility] [address], [place], [address], [facility] 4 09:11:15 Screening for malignant neoplasm of skin Active 2020 Skyler Leos MD [address] [facility] [address], [place], [address], [facility] 1 17:54:19 Chronic effect of ultraviolet radiation on normal skin 638541403 Active 2020 Skyler Leos MD [address] [facility] [address], [place], [address], [facility] 1 17:54:21 Benign neoplasm of skin of toe 10558091 Active 2020 Skyler Leos MD [address] [facility] [address], [place], [address], [facility] 1 17:54:22 Cyst of skin 551079750 Active 2021 Skyler Leos MD [address] [facility] [address], [place], [address], [facility] 2 18:14:27 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 Skyler Leos MD [address] [facility] [address], [place], [address], [facility] 3 12:19:41 Actinic keratosis 473653891 Active 2022 Skyler Leos MD [address] [facility] [address], [place], [address], [facility] 3 10:05:30 Scar 205107748 Active 2022 Skyler Leos MD [address] [facility] [address], [place], [address], [facility] 3 20:08:35 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 Procedures Surgical History Date Name Laterality Status Provider Name and Address Organization Details Recorded Time 01/23/2019 Shave Biopsy active Skyler rivera MD [address] [facility] [address], [place], [address], [facility] 01/23/2019 09:49:56 Imaging Results None recorded. Procedure Notes None recorded. Medical Equipment None Reported. Allergies Allergen ID Allergen Name Allergen Category Reaction Reaction Severity Criticality Documentation Date Start Date Code Code System Note Provider Name and Address Organization Details Recorded Time 1951 epinephri ne medicatio n Not available Not available Not available 01/23/2019 3992 RxNorm Skyler Leos MD [address] [facility] [address], [place], [address], [facility] 9 09:48:26 3890 Iodinated contrast media (substanc e) medicatio n Not available Not available Not available 03/16/2021 44492 2004 SNOMED Vonzetta MCKEON [facility] 1 11:06:45 694 Substance with sulfonami de structure and antibacte rial mechanism of action (substanc e) medicatio n Not available Not available Not available 12/12/2017 95265 8003 SNOMED Vonzetta MCKEON [facility] 8 12:11:08 695 Macrobid medicatio n Not available Not available Not available 12/12/2017 55380 1 RxNorm Vonzetta MCKEON [facility] 8 12:11:17 696 Cipro medicatio n Not available Not available Not available 12/12/2017 12637 3 RxNorm Vonzetta MCKEON [facility] 8 12:11:27 697 Nexium medicatio n Not available Not available Not available 12/12/2017 35865 9 RxNorm Vonzetta MCKEON [facility] 8 12:11:44 698 duloxetin e medicatio n Not available Not available Not available 12/12/2017 60551 RxNorm Armin MCKEON [facility] 8 12:13:58 8149 felodipin e medicatio n Not available Not available Not available 07/16/2024 4316 RxNorm Armin MCKEON [facility] 5 11:18:07 Medications Name Sig Start [...] SNOMED-CT Code Diagnosis ICD10 Code Diagnosis Note 04445 Skyler Leos MD Main Office [address] [facility] [address] [place] [address] 05/10/2022 09:52:40 05/10/2022 10:16:24 Neoplasm of uncertain behavior of skin 36051212 D48.5 19103 Skyler Leos MD Main Office [address] [facility] [address] [place] [address] 07/18/2023 10:16:20 07/18/2023 10:39:31 Actinic keratosis 068623325 L57.0 Verruca vulgaris 5364029 3 B07.8 Health Concerns Section Related Observation LastModified by Organization Detai ls LastModified Time None Recorded Concern Status LastModified by Organization Details LastModified Time None Recorded Advance Directives Directive None Recorded Payers Insurance Date Sequence Insurance Name Policy Number Policy Cook Covered Member ID Cook Member ID Guarantor Name 07/16/2024 2 [place] [id number] Jackelyn Johnson Santo [id number] 07/16/2024 1 MEDICARE [place] Jackelyn Johnson Santo [id number] 02/06/2024 2 [employer]IGNA SUPPLEMENTAL - [place] [employer]URANCE (MEDICARE SUPPLEMENT) Jackelyn Johnson Santo [id number] Notes Date Note Type Note Provider Name and Address Organization Details Recorded Time 07/18/2023 text/html fu chemocream. face, May 15 completed, 2 x per day, 4 weeks.SHOWED HOTOS OF THE WAY IT LOOKED-UPPER LIP AND R CHEEK W ERYTHEMA IN MAY photo.FAce?re r neck esion, and noted new AK during our exam onr arm. Skyler Leos MD [address] [facility] [address], [place], [address], [facility] 07/18/2023 10:39:07 OBGyn Episode No OBEpisode recorded.
--- OUTSIDE RECORDS SUMMARY | 2024-11-01 09:56 | XMS_ITS | Encounter Summary ---
Author Organization [employer] Address 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
[2024-11-01 11:34] LABS: Hematocrit 40.0 % (37.0-47.0); Hemoglobin 12.8 g/dL (12.0-15.0); Immature Granulocyte Percent A 0.2 % (0-0.5); Lymphocytes Absolute Auto 1.72 K/mm3 (0.9-3.2); Mean Corpuscular HGB Conc 32.0 g/dl (32-36); Mean Corpuscular Hemoglobin 29.1 pg (26-34); Mean Corpuscular Volume 90.9 fl (80-100); Nucleated Red Blood Cells Absolute Auto 0.000 K/mm3 (0.0-0.012); Nucleated Red Blood Cells Perc 0.0 % (0.0-0.2); Platelet Count Result 169 k/mm3 (150-375); Red Blood Count 4.40 M/mm3 (4.2-5.4); White Blood Count 6.6 K/mm3 (4.5-10.0)
[2024-11-01 11:51] LABS: Albumin Level 4.1 g/dL (3.5-5.1)
[2024-11-01 11:54] LABS: Blood Urea Nitrogen 16 mg/dL (7-17); Calcium 9.7 mg/dL (8.4-10.2); Carbon Dioxide 26 mmol/L (22-30); Estimated Glomerular Filt Rate > 60; Glucose 97 mg/dL (65-110)
[2024-11-01 12:22] LABS: Anion Gap 7 mmol/L (4-12); Chloride 103 mmol/L (98-107); Potassium 4.3 mmol/L (3.4-5.0); Sodium 136 mmol/L (137-145)
[2024-11-01 12:44] LABS: MRSA (PCR) NOT DETECTED (NOT DETECTE)
== END 2024-11-01 09:47 | disposition home or self-care (01) ==
LOC: ANHSURGERY 09:52
PROVIDERS: Anesthesiology; PCP Internal Medicine Geriatric Medicine; Visit Provider Orthopaedic Surgery
DX: Z01.812 Encounter for preprocedural laboratory examination (principal); M17.12 Unilateral primary osteoarthritis, left knee; E11.9 Type 2 diabetes mellitus without complications
CPT/HCPCS: 36415; 80048; 80307; 82040; 85025; 87641

== ENCOUNTER 2024-11-28 01:43 | Day surgery (SDC) | payer MEDICARE, SELFPAY ==
[2024-11-01 10:19] VITALS: BP 143/68; PULSE 62; RESP 16; TEMP 36.7; O2SAT 99; BMI 31.6
--- NOTE | 2024-11-01 10:40 | PC.NURSE ---
Report to the Outpatient Waiting Room, entrance under the green pavilion located off [facility], at time ___11:30AM ____ on date __11/28/24 . Planned Procedure Time: ___1:30PM .? Time changes happen often and if your time is changed the preop area will call you the afternoon before. - You and your visitor will be asked to self-screen and do not enter if you have any COVID symptoms. Please call surgeon if you need to reschedule. - A mask is optional within the hospital at this time. Patients may have clear liquids (water, carbonated beverages, clear teas, apple juice) until 3 hours prior to surgery (10:30AM) with a maximum of 20 ounces. - No food from midnight until time of surgery and no smoking, or chewing tobacco (or any form of nicotine). No chewing gum, candy or mints. Take only the following medications with a SIP of water on the morning of surgery: ___LABETOLOL MAY TAKE TRAMADOL NEEDED FOR PAIN DO NOT STOP ANY OF YOUR OTHER PRESCRIPTION MEDICATIONS PRIOR TO SURGERY EXCEPT THE FOLLOWING Hold all vitamins and supplements for 3 days per anesthesiologist. LAST DOSE 11/24/24 Medications to discontinue per physician ____HOLD PLAVIX 4 DAYS PRE-OP PER DR ASHBY/PER PATIENT- LAST DOSE 11/23/24 NO NEED TO HOLD ASPIRIN PER DR ASHBY/PER PATIENT. Please no make-up, nail cambodian, hairspray, perfume, deodorant, or body powder the day of surgery.? No jewelry (including any body piercings) or valuables the day of surgery, leave them at home.? Please take a shower or bath the night before, or the morning of, surgery with an antibacterial soap.? Wear comfortable, loose fitting clothing.? - Jewelry must be removed prior to entering the operating room.? Rings and piercings that are not removed may be cut off. - The hospital will not accept responsibility for valuables.? - Please leave all valuables, including medications, at home the day of surgery. If you are going home after surgery, a licensed scoop driver must drive you home.? - NO public transportation without another adult if you receive anesthesia. - We recommend that an adult stay with you for 24 hours following discharge. - We also recommend that you do not drive, make important decision, drink alcoholic beverages, or take any drugs that were not prescribed by your health care provider for at least 24 hours after your discharge time. Follow any additional instructions given to you from your surgeon. Telephone instructions given to ____PATIENT & HUSBAND and asked if any additional questions and then verbalized understanding. Patient advised to call surgeon office or pre surgery nurse liaison [phone] if any additional questions.
[2024-11-28] VITALS (12 sets, daily range): BP systolic 112–144; BP diastolic 56–76; PULSE 50–72; RESP 12–20; TEMP 36–36.8; O2SAT 92–100
--- NOTE | ~2024-11-28 | XR_ITS ---
EXAMINATION: [id number] DATE: 11/28/2024 16:13 INDICATION: Postoperative evaluation following left total knee arthroplasty. TECHNIQUE: Anteroposterior and lateral views of the left knee were obtained. COMPARISON: None. FINDINGS: Left total knee arthroplasty with patellar resurfacing appears well seated and in near anatomic align ment. No fractures identified. Expected postoperative subcutaneous and intra-articular gas. IMPRESSION: 1. Left total knee arthroplasty, negative for postoperative purposes. Reviewed, dictated and finalized at location A.
--- OUTSIDE RECORDS SUMMARY | 2024-11-28 01:53 | XMS_ITS | Encounter Summary ---
Author Organization [facility] Address [address] [facility] [address] [place] [address] Care Team Providers Care Manager Medicaid Name Role Phone Mirna Mac MD Primary Care Provider [phone] Mirna Mac MD Primary Care Provider + [phone] Mirna Mac MD Primary Care Provider [phone] Tirso Monique DO Unavailable Yu Barrera MD Unavailable Tena Lisa MD Unavailable [phone] Simba Laird MD Unavailable [phone] Skyler Leos MD Unavailable [phone] Ish Zambrano MD Unavailable [phone] Randell Phillips MD Unavailable [phone] Luz Murry MD Unavailable [phone] Carmela Varner MA Unavailable [phone] Alex Figueroa MD Unavailable [phone] Cristino Wiley MD Unavailable David Cortes DC Unavailable [phone] George Samano MD Unavailable Spencer eDlcid MD Unavailable Maki Byrne MA Unavailable Unavailable Encounter Details Date Type Department Care Team (Late st Contact Info) Description 06/20/2016 Orders Only [facility] Provider, MD Matt [facility] [place] [place] [id number] Social History Tobacco Use Types Packs/Day Years Used Date Smoking Tobacco: Never Assessed Comments Unknown Sex and Gender Information Value Date Recorded Sex Assigned at Not on file Legal Sex Female 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 07/05/2022 07/15/2022 10/03/2022 3:05 AM C DT documented as of this encounter Care Teams Manager Medicaid Relationship Specialty Start Date End Date Mirna Mac MD PCP - General 07/15/16 Mirna Mac MD PCP - General 07/12/16 07/14/16 Mirna Mac MD PCP - General 05/15/13 07/11/16 Kayden Tirso Driver DO Otolaryngology 12/16/16 09/14/22 Yu Barrera MD Gynecologic Oncology 12/16/16 08/03/20 Tena Lisa MD Gastroenterology 12/16/16 09/14/22 Simba Laird MD Plastic Surgery 12/16/16 Skyler Leos MD [address] [facility] [address] [place], [place] [id number] Dermatology 12/16/16 Ish Zambrano MD [address] [place] [address] Ophthalmology 12/16/16 Randell Phillips MD [address] [place] [address] Referring Physician Orthopedic Surgery 10/24/17 Luz Murry MD [address] [place] [address] Consulting Physician General Surgery 07/10/18 Carmela Varenr MA [address] [facility] [address] [place] [address] ACO Care Director Of Slot Operations 09/24/18 09/24/18 Alex Figueroa MD [address] [place] [address] [address] [place] [address] Accounts Payable Accountant Obstetrics and Gynecology 08/04/20 Cristino Wiley MD [address] [place] [address] [address] [place] [address] Consulting Physician Sleep Medicine 03/02/21 David Cortes DC [address] [place] [address] [place] [address] Chiropractic Medicine 05/17/21 George Samano MD [address] [place] [address] [place] [address] Consulting Physician General Surgery 02/07/22 02/07/22 Spencer Delcid MD [address] [place] [address] [address] [place] [address] Consulting Physician Gastroenterology 09/15/22 10/10/23 Maki Byrne MA [address] [facility] [address] [place] [address] ACO Care Director Of Slot Operations 10/20/23 10/23/23 documented as of this encounter
--- OUTSIDE RECORDS SUMMARY | 2024-11-28 01:53 | XMS_ITS | Encounter Summary ---
Author Organization [facility] Address [address] [place], [place] [address] [address] Care Team Providers Care Baseball Scout Name Role Phone Unavailable Primary Care Provider Unavailabl e Encounter Details Date Type Department Care Team (Late st Contact Info) Description 01/30/2019 Lab Requisition [facility] D[facility] Lab [address] [place] [address] Skyler Leos MD [facility] [address] [address] Social History Tobacco Use Types Packs/Day Years Used Date Smoking Tobacco: Former Alcohol Use Standard Drinks/Week Comments No 0 (1 standard drink = 0.6 oz pur e alcohol) Comments Unknown Sex and Gender Information Value Date Recorded Sex Assigned at Not on file Legal Sex Female 6:03 PM DIETITIAN ASSISTANT Gender Identity Not on file Sexual Orientation Not on file documented as of this encounter Plan of Treatment Not on file documented as of this encounter Procedures Procedure Name Priority Date/Time Associated Diagnosis Comments DERMATOPATHOLOGY Routine 01/23/2019 12:0 0 AM CDT documented in this encounter Results * DERMATOPATHOLOGY (01/23/2019 12:00 AM CDT) Case Report Dermatopathology Report Case: [id number] Authorizing Provider: Skyler Leos MD Collected: 01/23/2019 12:00 AM Ordering Location: [facility] Received: 01/30/2019 10:16 AM Pathologist: Nicolette Aguilar MD Specimen: Skin, left upper outer arm 10:28 AM [facility] Final Diagnosis Specimen A. 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 10:28 AM [facility] DERMATOPATH[facility]Y [facility] Gross Description Specimen A: Received is one formalin filled container labeled with the patient's name and designated left upper outer arm. The specimen consists of a shave biopsy measuring [id number]. Jar 0. 10:28 AM [facility] DERMATOPATHOLOGY [facility] Microscopic Description Specimen A. SKIN, left upper outer arm: Within the dermis there are aggregates of basaloid cells with a high nuclear to cytoplasmic ratio and peripheral palisading. Additional deeper sections were obtained and reviewed. 10:28 AM [facility] DERMATOPATHOLOGY [facility]ORAT[facility] Disclaimer An external and internal positive and negative controls are appropriate for the histochemical, immunohistochemical and immunofluorescence stain(s) in this case (if any), except where stated explicitly. The performance characteristics of the stain(s) cited in this report were developed and its performance characteristic determined by the Dermatopathology Laboratory at [facility], directed by Dr. Jerson Rodrigez. These tests need not be, and therefore are not, approved by the [place] Food and Drug Administration. The tests are used for clinical purposes. Billing Codes Specimen Charges Stain Charges 57635 1 10:28 AM [facility] DERMATOPATHOLOGY LABORATORY Embedded Images 10:28 AM [facility] DERMATOPATHOLOGY LABORATORY Pathology/Cytolog y TISSUE SPECIMEN FROM SKIN / Unknown 01/23/2019 01/30/2019 10:16 AM CDT us Skyler Leos MD LAB - PATHOLOGY/CYTOLOGY ORDERAB LES Final Result DERMATOPATHOLOGY LABORATORY [facility] - Department of Dermatology [address] [facility], 5th Floor Lab [address] [place], [place] [address] [place] [address] documented in this encounter Visit Diagnoses Not on filedocumented in this encounter
--- OUTSIDE RECORDS SUMMARY | 2024-11-28 01:53 | XMS_ITS | Encounter Summary ---
Author Organization [facility] Healthcare Address [address] [place] [address] Care Team Providers Care Intelligence Chief Name Role Phone Mirna Mac MD Primary Care Provider + [phone] Tirso Monique DO Unavailable [phone] Tena Lisa MD Unavailable [phone] Simba Laird MD Unavailable +[phone] Skyler Leos MD Unavailable [phone] Ish Zambrano MD Unavailable [phone] Randell Phillips MD Unavailable [phone] Luz Murry MD Unavailable [phone] Alex Figueroa MD Unavailable [phone] Cristino Wiley MD Unavailable David Cortes DC Unavailable +[phone] George Samano MD Unavailable Spencer Delcid MD Unavailable +[phone] Maki Byrne MA Unavailable Unavailable Reason for Visit * Reason Onset Date Comments Scheduling Appointments 09/03/2020 wants to cancel - gave her schedulings number Encounter Details Date Type Department Care Team (Late st Contact Info) Description 09/03/2020 Telephone [facility] [address] [place] [address] Rosa Maria Saini RT Scheduling Appointments (wants to cancel - gave her schedulings number) Social History Tobacco Use Types Packs/Day Years Used Date Smoking Tobacco: Former Cigarettes 0.5 5 Smokeless Tobacco: Never Alcohol Use Standard Drinks/Week Comments No 0 (1 standard drink = 0.6 oz pur e alcohol) Social Connection and Isolation Panel Answer Date Recorded Frequency of Communication with Friends [...] on file Legal Sex Female 7:45 PM COPYMAN Gender Identity Not on file Sexual Orientation [...] COVID: Suspected 06/25/2022 06/25/2022 06/25/2022 5:00 PM COPYMAN COVID19 06/25/2022 06/25/2022 07/05/2022 3:05 AM CDT COVID: Recovered Comment:Added based on recent COVID infection. 07/05/2022 07/15/2022 10/03/2022 3:05 AM C DT documented as of this encounter Care Teams Intelligence Chief Relationship Specialty Start Date End Date Mirna Mac MD PCP - General 07/15/16 Tirso Monique DO Otolaryngology 12/16/16 09/14/22 Tena Lisa MD Gastroenterology 12/16/16 09/14/22 Simba Laird MD Plastic Surgery 12/16/16 Skyler Leos MD 1224 [facility] [address] [place], [place] [address] Dermatology 12/16/16 Ish Zambrano MD [address] [place] [address] Ophthalmology 12/16/16 Randell Phillips MD [address] [place] [address] Referring Physician Orthopedic Surgery 10/24/17 Luz Murry MD [address] [facility] [address] [place] [address] Consulting Physician General Surgery 07/10/18 Alex Figueroa MD [address] [place] [address] [address] [place] [address] Food Services Coordinator Obstetrics and Gynecology 08/04/20 Cristino Wiley MD [address] [place] [address] [address] [place] [address] Consulting Physician Sleep Medicine 03/02/21 David Cortes DC [address] [place] [address] [place] [address] Chiropractic Medicine 05/17/21 George Samano MD [address] [facility] [place] [address] Consulting Physician General Surgery 02/07/22 02/07/22 Spencer Delcid MD [address] [place] [address] [address] [place] [address] Consulting Physician Gastroenterology 09/15/22 10/10/23 Maki Byrne, ESTHER [address] [place] [address] [address] [place] [address] ACO Care Tube Draw Helper 10/20/23 10/23/23 documented as of this encounter
--- OUTSIDE RECORDS SUMMARY | 2024-11-28 01:53 | XMS_ITS | Encounter Summary ---
Author Organization [facility] Address [address] [place] [address] Care Team Providers Care Rock Climbing Team Member Name Role Phone Mirna Mac MD Primary Care Provider Tirso Monique DO Unavailable [phone] Tena Lisa MD Unavailable [phone] Simba Laird MD Unavailable [phone] Skyler Leos MD Unavailable [phone] Ish Zambrano MD Unavailable [phone] Randell Phillips MD Unavailable [phone] Luz Murry MD Unavailable Alex Figueroa MD Unavailable [phone] Cristino Wiley MD Unavailable David Cortes DC Unavailable +[phone] George Samano MD Unavailable Spencer Delcid MD Unavailable [phone] Maki Byrne MA Unavailable Unavailable Reason for Visit * Reason Onset Date Comments Scheduling Appointments 10/02/2020 Encounter Details Date Type Department Care Team (Late st Contact Info) Description 10/02/2020 Telephone [facility] [address] [place] [address] Leonardo Davila, Scheduling Appointments Social History Tobacco Use Types [...] and Family Not on file 01/18/2019 Attends Cheondoism Services Not on file 01/18 Active Member [...] on file Legal Sex Female 7:45 PM DIAMOND SAWER Gender Identity Not on file Sexual Orientation [...] COVID: Suspected 06/25/2022 06/25/2022 06/25/2022 5:00 PM DIAMOND SAWER COVID19 06/25/2022 06/25/2022 07/05/2022 3:05 AM CDT COVID: Recovered Comment:Added based on recent COVID infection. 07/05/2022 07/15/2022 10/03/2022 3:05 AM C DT documented as of this encounter Care Teams Rock Climbing Team Member Relationship Specialty Start Date End Date Mirna Mac MD PCP - General 07/15/16 Tirso oMnique DO Otolaryngology 12/16/16 09/14/22 Tena Lisa MD Gastroenterology 12/16/16 09/14/22 Simba Laird MD Plastic Surgery 12/16/16 Skyler Leos MD 1224 [facility] [address] [place] [address] Dermatology 12/16/16 Ish Zambrano MD [facility] [place] [address] Ophthalmology 12/16/16 Randell Phillips MD [address] [place] [address] [place] [address] Referring Physician Orthopedic Surgery 10/24/17 Luz Murry MD [address] [facility] [address] [place] [address] Consulting Physician General Surgery 07/10/18 Alex Figueroa MD [address] [place] [address] [place] [address] Ship'S Electronic Warfare Officer Obstetrics and Gynecology 08/04/20 Cristino Wiley MD [address] [place] [address] [place] [address] Consulting Physician Sleep Medicine 03/02/21 David Cortes DC [address] [place] [address] [place] [address] Chiropractic Medicine 05/17/21 George Samano MD [address] [place] [address] Consulting Physician General Surgery 02/07/22 02/07/22 Spencer Delcid MD [address] [facility] [address] [place] [address] Consulting Physician Gastroenterology 09/15/22 10/10/23 Maki Byrne, ESTHER [address] [facility] [address] [place] [address] ACO Care Education Administrator 10/20/23 10/23/23 documented as of this encounter
--- OUTSIDE RECORDS SUMMARY | 2024-11-28 01:53 | XMS_ITS | Encounter Summary ---
Author Organization [facility] Address [address] [place] [address] Care Team Providers Care Coat Padder Name Role Phone Unavailable Primary Care Provider Unavailabl e Encounter Details Date Type Department Care Team (Late st Contact Info) Description 08/30/2004 Outpatient Historical [facility] Supp Svcs Blood Flow [address] [place] [address] Baljeet Quintero MD NO ADDRESS ON FILE Social History Tobacco Use Types Packs/Day Years Used Date Smoking Tobacco: Never Assessed Comments Unknown Sex and Gender Information Value Date Recorded Sex Assigned at Not on file Legal Sex Female 2:38 AM PARTS COUNTERPERSON Gender Identity Not on file Sexual Orientation Not on file documented as of this encounter Plan of Treatment Not on file documented as of this encounter Visit Diagnoses Not on filedocumented in this encounter
--- OUTSIDE RECORDS SUMMARY | 2024-11-28 01:53 | XMS_ITS | Encounter Summary ---
Author Organization [facility] Address [address] [place], [place] [address]Kim [place] [address] Care Team Providers Care Lead Miner Blasting Name Role Phone Unavailable Primary Care Provider Unavailabl e Encounter Details Date Type Department Care Team (Late st Contact Info) Description 05/13/2022 Lab Requisition [facility] [address] [place] [address] Skyler Leos MD [facility] [address] [address] Social History Tobacco Use Types Packs/Day Years Used Date Smoking Tobacco: Former Alcohol Use Standard Drinks/Week Comments No 0 (1 standard drink = 0.6 oz pur e alcohol) Comments Unknown Sex and Gender Information Value Date Recorded Sex Assigned at Not on file Legal Sex Female 6:03 PM GEAR TOOTH GRINDING MACHINE OPERATOR Gender Identity Not on file Sexual Orientation Not on file documented as of this encounter Plan of Treatment Not on file documented as of this encounter Procedures Procedure Name Priority Date/Time Associated Diagnosis Comments DERMATOPATHOLOGY Routine 05/10/2022 12:0 0 AM GEAR TOOTH GRINDING MACHINE OPERATOR documented in this encounter Results * DERMATOPATHOLOGY (05/10/2022 12:00 AM GEAR TOOTH GRINDING MACHINE OPERATOR) Case Report Dermatopathology Report Case: [id number] Authorizing Provider: Skyler Leos MD Collected: 05/10/2022 12:00 AM Ordering Location: [facility] Received: 05/13/2022 12:16 PM Pathologist: Nicolette Aguilar MD Specimen: Skin, right distal anterior thigh 3 12:59 PM [facility] Final Diagnosis Specimen A. SKIN, right distal anterior thigh: SEBORRHEIC KERATOSIS, MACULAR (L82.1) 3 12:59 PM [facility] DERMATOP[facility] at 1259 GEAR TOOTH GRINDING MACHINE OPERATOR Clinical History SK/ISK, R/O Lentigo Maligna, R/O Pigmented AK 3 12:59 PM [facility] Gross Description Specimen A: Received is one formalin filled container labeled with the patient's name and designated right distal anterior thigh. The specimen consists of a shave biopsy measuring 35s26y7 mm. Jar 0. 12:59 PM [facility] Microscopic Description Specimen A. SKIN, right distal anterior thigh: Sections show a relatively broad, flat proliferation of small keratinocytes. The surface is gently papillated, and there is increased basilar pigmentation. MART-1/Melan A and SOX-10 stains fail to reveal a melanocytic neoplasm. 3 12:59 PM [facility] Disclaimer An external and internal positive and negative controls are appropriate for the histochemical, immunohistochemical and immunofluorescence stain(s) in this case (if any), except where stated explicitly. The performance characteristics of the stain(s) cited in this report were developed and its performance characteristic determined by the Dermatopathology Laboratory at [facility], directed by Dr. Jerson Rodrigez. These tests need not be, and therefore are not, approved by the [place] Food and Drug Administration. The tests are used for clinical purposes. Billing Codes Specimen Charges Stain Charges 90837 1 25987 84185 1 1 3 12:59 PM [facility] Embedded Images 3 12:59 PM [facility] Pathology/Cytolog y TISSUE SPECIMEN FROM SKIN / Unknown 05/10/2022 05/13/2022 12:16 PM GEAR TOOTH GRINDING MACHINE OPERATOR Skyler Leos MD LAB - PATHOLOGY/CYTOLOGY ORDERAB LES Final Result DERMATOPATHOLOGY LABORATORY [facility] - Department of Dermatology [facility] Specialized Medicine [facility] ([place], [place]), [address]rd Floor [address] [phone] documented in this encounter Visit Diagnoses Not on filedocumented in this encounter
--- OUTSIDE RECORDS SUMMARY | 2024-11-28 01:53 | XMS_ITS | Encounter Summary ---
Author Organization [facility] Healthcare Address [address] [place] [address] Care Team Providers Care Room Service Waiter Name Role Phone Mirna Mac MD Primary Care Provider [phone] Simba Liard MD Unavailable [phone] Skyler Leos MD Unavailable [phone] Ish Zambrano MD Unavailable [phone] Randell Phillips MD Unavailable [phone] Luz Murry MD Unavailable [phone] Alex Figueroa MD Unavailable [phone] Cristino Wiley MD Unavailable David Cortes DC Unavailable [phone] Encounter Details Date Type Department Care Team (Late st Contact Info) Description 09/04/2024 Orders Only [facility] Health Information Management [address] [place] [address] Scanning, Provider Social History Tobacco Use [...] and Family Not on file 01/18/2019 Attends Latter Day Services Not on file 01/18 Active Member [...] on file Legal Sex Female 7:45 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 Gender Identity Not on file Sexual Orientation [...] on filedocumented in this encounter Care Teams Room Service Waiter Relationship Specialty Start Date End Date Mirna Mac MD PCP - General 07/15/16 Simba Laird MD Plastic Surgery 12/16/16 Skyler Leos MD 1224 [facility] [address] [place] [address] Dermatology 12/16/16 Ish Zambrano MD [address] [place] [address] Ophthalmology 12/16/16 Randell Phillips MD [address] [place] [address] Referring Physician Orthopedic Surgery 10/24/17 Luz Murry MD [address] [facility] [address] [place] [address] Consulting Physician General Surgery 07/10/18 Alex Figueroa MD [address] [facility] [place] [address] Revenue Settlements Administrator Obstetrics and Gynecology 08/04/20 Cristino Wiley MD [address] [facility] [place] [address] Consulting Physician Sleep Medicine 03/02/21 David Cortes DC [address] [place] [address] [place] [address] Chiropractic Medicine 05/17/21 documented as of this encounter
--- OUTSIDE RECORDS SUMMARY | 2024-11-28 01:53 | XMS_ITS | Encounter Summary ---
Author Organization [facility] Address [address] [place] [address] Phone Care Team Providers Care Section Chief Name Role Phone Mirna Mac MD Primary Care Provider Tirso Monique DO Unavailable [phone] Yu Barrera MD Unavailable [phone] Tena Lisa MD Unavailable [phone] [facility] hernandez MD Unavailable Skyler Leos MD Unavailable [phone] Ish Zambrano MD Unavailable [phone] Randell Phillips MD Unavailable [phone] Luz Murry MD Unavailable Carmela Varner MA Unavailable Alex Figueroa MD Unavailable [phone] Cristino Wiley MD Unavailable David Cortes DC Unavailable [phone] George Samano MD Unavailable Spencer Delcid MD Unavailable Maki Byrne MA Unavailable Unavailable Encounter Details Date Type Department Care Team (Late st Contact Info) Description 09/20/2016 Orders Only [facility] [address] [place] [address] Ana Valles LPN Social History Tobacco Use Types Packs/Day Years Used Date Smoking Tobacco: Never Assessed Comments Unknown Sex and Gender Information Value Date Recorded Sex Assigned at Not on file Legal Sex Female 7:45 PM GLOBAL TECHNICAL WRITER Gender Identity Not on file Sexual Orientation Not on file documented as of this encounter Plan of Treatment Not on file documented as of this encounter Visit Diagnoses Not on filedocumented in this encounter Additional Health Concerns Infection Onset Date Last Indicated Resolved Time COVID: Suspected 06/25/2022 06/25/2022 06/25/2022 5:00 PM GLOBAL TECHNICAL WRITER COVID19 06/25/2022 06/25/2022 07/05/2022 3:05 AM CDT COVID: Recovered Comment:Added based on recent COVID infection. 07/05/2022 07/15/2022 10/03/2022 3:05 AM C DT documented as of this encounter Care Teams Section Chief Relationship Specialty Start Date End Date Mirna Mac MD PCP - General 07/15/16 Tirso Monique DO Otolaryngology 12/16/16 09/14/22 Yu Barrera MD Gynecologic Oncology 12/16/16 08/03/20 Tena Lisa MD Gastroenterology 12/16/16 09/14/22 Simba Laird MD Plastic Surgery 12/16/16 Skyler Leos MD [address] [facility] [address] [place] [address] Dermatology 12/16/16 Ish Zambrano MD [address] [place] [address] Ophthalmology 12/16/16 Randell Phillips MD [address] [place] [id number] Referring Physician Orthopedic Surgery 10/24/17 Luz Murry MD [address] [facility] [address] [place] [address] Consulting Physician General Surgery 07/10/18 Carmela Varner MA [address] [place] [address] [address] [place] [address] ACO Care Lead Assistant Manager 09/24/18 09/24/18 Alex Figueroa MD [address] [place] [address] [address] [place] [id number] [employer] Obstetrics and Gynecology 08/04/20 Cristino Wiley MD [address] [place] [address] [address] [place] [id number] Consulting Physician Sleep Medicine 03/02/21 David Cortes DC [address] [place] [address] [place] [id number] Chiropractic Medicine 05/17/21 George Samano MD [address] [facility] [address] Consulting Physician General Surgery 02/07/22 02/07/22 Spencer Delcid MD [address] [facility] [address] [place] [address] Consulting Physician Gastroenterology 09/15/22 10/10/23 Maki Byrne, ESTHER [address] [facility] [address] [place] [address] ACO Care Lead Assistant Manager 10/20/23 10/23/23 documented as of this encounter
--- OUTSIDE RECORDS SUMMARY | 2024-11-28 01:53 | XMS_ITS | Encounter Summary ---
Author Organization [facility] Address [address] [place] [address] Phone Care Team Providers Care Local Truck Driver Name Role Phone Mirna Mac MD Primary Care Provider [phone] Simba Laird MD Unavailable [phone] Skyler Leos MD Unavailable [phone] Ish Zambrano MD Unavailable [phone] Randell Phillips MD Unavailable [phone] Luz Murry MD Unavailable Alex Figueroa MD Unavailable [phone] Cristino Wiley MD Unavailable David Cortes DC Unavailable [phone] Spencer Delcid MD Unavailable [phone] Maki Byrne MA Unavailable Unavailable Encounter Details Date Type Department Care Team (Late st Contact Info) Description 09/26/2022 Orders Only [facility] [address] [employer] [place] [address] Scanning, Provider Social History Tobacco [...] and Family Not on file 01/18/2019 Attends Jain Services Not on file 01/18 Active Member [...] on file Legal Sex Female 7:45 PM DIRECTOR LEARNING SERVICES Gender Identity Not on file Sexual Orientation [...] documented as of this encounter Care Teams Local Truck Driver Relationship Specialty Start Date End Date Mirna Mac MD PCP - General 07/15/16 Simba Laird MD Plastic Surgery 12/16/16 Skyler Leos MD [address] [address] Dermatology 12/16/16 Ish Zambrano MD [address] [place] [address] Ophthalmology 12/16/16 Randell Phillips MD [address] [place] [address] Referring Physician Orthopedic Surgery 10/24/17 Luz Murry MD [address] [facility] [address] [place] [address] Consulting Physician General Surgery 07/10/18 Alex Figueroa MD [address] [place] [address] [address] [place] [address] Soil Scientist Obstetrics and Gynecology 08/04/20 Cristino Wiley MD [address] [place] [address] [address] [place] [address] Consulting Physician Sleep Medicine 03/02/21 David Cortes DC [address] [place] [address] [place] [address] Chiropractic Medicine 05/17/21 Spencer Delcid MD [address] [facility] [address] [place] [address] Consulting Physician Gastroenterology 09/15/22 10/10/23 Maki Byrne, ESTHER [address] [place] [address] [address] [place] [address] ACO Care Threat Monitoring Analyst 10/20/23 10/23/23 documented as of this encounter
--- OUTSIDE RECORDS SUMMARY | 2024-11-28 01:53 | XMS_ITS | Continuity of Care Document ---
Author Organization [facility] Address [address] [place] [address] Phone Care Team Providers Care Bleach Boiler Packer Name Role Phone Spencer Rachel MD Unavailable Unavailable Advance Directives Directive Yes / No Effective Date File Name No Information Encounters Encounter Description Practice Location Reason(s) For Visit Diagnoses Date Provider Providers Copied on Encounter [facility]Row, Box [facility], [place], [place], [id number], tel:[phone] [facility] SHORTNESS OF BREATHEDEMA [address] [place] [address], [facility] [address] [place], [place], [id number], . tel:[phone] [employer], Box [facility], [place], [place], [id number], tel:[phone] [facility] DERMATITIS NOS May-0 [address] [place] [address], [address], [id number], . tel:[phone] [employer], [address] [facility], [place], [place], [id number], tel:[phone] [facility] OTITIS MEDIA NOS May-0 [address] Silvana Korin. [address] [place] [address], [address], [place], [place], [address], . tel:[phone] [employer], [address] [facility], [place], [place], [address], tel:[phone] [facility] MALAISE AND FATIGUE NECABNORMAL GLUCOSE NECMIXED HYPERLIPIDEMIA [address] [place] [address], [address], [place], [place], [address], [place]. tel:[phone] [facility], [address], [place], [place], [address], [place] tel:[phone] [facility] ACUTE URI NOS 3 Conversion Doctor. [address] [place] [address], [place], [address], [place]. [facility], [address], [place], [place], [address], [place] tel:[phone] [facility] VACCIN FOR INFLUENZA [address]. [address] [place] [address], [address], [place], [place], [address], [place]. tel:[phone] [facility], [address], [place], [place], [address], [place] tel:[phone] [facility] URINARY FREQUENCY [address] Palmer. [address] [place] [address], [address], [place], [place], [address], [place]. tel:[phone] [facility], [address], [place], [place], [address], [place] tel:[phone] [facility] DIZZINESS AND GIDDINESS 3 [address] Palmer. [address] [place] [address], [address], [place], [place], [address], [place]. tel:[phone] [facility], [address], [place], [address], [place] tel:[phone] [facility] HAIR DISEASES NECJOINT PAIN-UP/ARMSCRE EN-CARDIOVASC NEC 3 [address] Palmer. [address] [place] [address], [address], [place], [place], [address], [place]. tel:[phone] [facility], [address], [place], [place], [address], [place] tel:[phone] [facility] SWELLING OF LIMBSUPERFIC PHLEBITIS-LEG 3 Wilson Palmer. [address] [place] [address], [address], [place], [place], [address], [place]. tel:[phone] Family History Family Member Type Diagnosis Age At Onset No Information Immunizations Vaccine Date Status Comments 81782 - Influenza administered Source: So urce Unspecified [...]
--- OUTSIDE RECORDS SUMMARY | 2024-11-28 01:53 | XMS_ITS | Clinical Summary ---
Author Organization [employer] [facility] Address [address] [facility] Attn: Epic Prelude ADT DEMETRI BECERRA [address] Care Team Providers Care Healthcare Marketer Name Role Phone Unavailable Primary Care Provider Unavailabl e Social History Tobacco Use Types Packs/Day Years Used Date Smoking Tobacco: Never Assessed Comments Unknown Sex and Gender Information Value Date Recorded Sex Assigned at Not on file Legal Sex Female 2:38 AM PRESS TOOL MAKER Gender Identity Not on file Sexual Orientation [...]
--- OUTSIDE RECORDS SUMMARY | 2024-11-28 01:53 | XMS_ITS | Clinical Summary ---
Author Organization [facility] Address [address] [place] [address] Phone Care Team Providers Care Theatrical Dresser Name Role Phone Mirna Mac MD Primary Care Provider [phone] Medications No known medications Active Problems Problem [...] Ready to change Department associated with goal: [facility] Steps to achieve goal: will identify at least two ways sleep hygiene could be negatively impacted will identify at least two ways to improve sleep hygiene will identify at least two ways/skills/habits of self-care believed to have a positive outcome on sleep Insurance MEDICARE [employer] MEDICARE SUP Care Teams Theatrical Dresser Relationship Specialty Start Date End Date Mirna Mac MD [address] [facility] [place] [address] PCP - General Geriatric Medicine 12/30/20
--- OUTSIDE RECORDS SUMMARY | 2024-11-28 01:53 | XMS_ITS | Encounter Summary ---
Author Organization [facility] Healthcare Address [address] [place] [address] Care Team Providers Care Rope Silica Machine Operator Name Role Phone Mirna Mac MD Primary Care Provider [phone] Simba Laird MD Unavailable [phone] Skyler Leos MD Unavailable [phone] Ish Zambrano MD Unavailable [phone] Randell Phillips MD Unavailable [phone] Luz Murry MD Unavailable [phone] Alex Figueroa MD Unavailable [phone] Cristino Wiley MD Unavailable David Cortes DC Unavailable [phone] Encounter Details Date Type Department Care Team (Late st Contact Info) Description 08/09/2024 Orders Only [facility] [address] [place] [address] Scanning, Provider Social History Tobacco [...] and Family Not on file 01/18/2019 Attends [employer] Services Not on file 01/18 Active Member [...] on file Legal Sex Female 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 Gender Identity Not on file Sexual Orientation [...] on filedocumented in this encounter Care Teams Rope Silica Machine Operator Relationship Specialty Start Date End Date Mirna Mac MD PCP - General 07/15/16 Simba Laird MD Plastic Surgery 12/16/16 Skyler Leos MD [address] [place] [id number] Dermatology 12/16/16 Ish Zambrano MD [address] [place] [address] Ophthalmology 12/16/16 Randell Phillips MD [address] [place] [address] Referring Physician Orthopedic Surgery 10/24/17 Luz Murry MD [address] [facility] [address] [place] [address] Consulting Physician General Surgery 07/10/18 Alex Figueroa MD [address] [place] [address] Constitutional Law Professor Obstetrics and Gynecology 08/04/20 Cristino Wiley MD [address] [place] [address] Consulting Physician Sleep Medicine 03/02/21 David Cortes DC [address] [place] [address] [place] [address] Chiropractic Medicine 05/17/21 documented as of this encounter
--- OUTSIDE RECORDS SUMMARY | 2024-11-28 01:53 | XMS_ITS | Encounter Summary ---
Author Organization [facility] Address 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
--- OUTSIDE RECORDS SUMMARY | 2024-11-28 01:53 | XMS_ITS | Clinical Summary ---
Author Organization [facility] Address [address] [place] [address] Care Team Providers Care Extra Gang Supervisor Name Role Phone Mirna Mac MD Primary Care Provider [phone] Simba Laird MD Unavailable [phone] Skyler Leos MD Unavailable [phone] Ish Zambrano MD Unavailable [phone] Randell Phillips MD Unavailable [phone] Luz Murry MD Unavailable Alex Figueroa MD Unavailable [phone] Cristino Wiley MD Unavailable David Cortes DC Unavailable [phone] Allergies Active Allergy Reactions Criticality Noted Date [...] nightly 100 tablet 11 11/02/19 24 Active acetaminophen (TYLENOL) 500 mg tabletIndications :Arthritis of knee Take 1 tablet (500 mg total) by mouth 2 (two) times a day Tylenol immediate release 500 mg plus Tylenol ER 650 mg 12/21/19 24 Active blood glucose diagnostic (OneTouch Verio test strips) stripIndications: Type 2 diabetes mellitus without complication, without long-term current use of insulin (HCC) USE TO CHECK BLOOD SUGAR DAILY E11.9 non insulin 100 strip 3 12/21/19 24 Active labetaloL (NORMODYNE,TRANDA TE) 100 mg tabletIndications :Hypertension complicating diabetes (HCC) Take 0.5-1 tablets (50-100 mg total) by mouth 2 (two) times a day 180 tablet 2 12/21/19 24 Active metFORMIN XR (GLUCOPHAGE XR) 500 mg 24 hr tabletIndications :Type 2 diabetes mellitus with other circulatory complications Take 1 tablet (500 mg total) by [...] 0 range 36 tablet 10/03/19 25 Active aspirin 81 mg chewable tabletIndications :Temporary cerebral vascular dysfunction CHEW AND SWALLOW 1 TABLET BY MOUTH EVERY DAY 90 tablet 2 11/05/19 25 Active rosuvastatin (CRESTOR) 20 mg tabletIndications :Type 2 diabetes mellitus without complication, without long-term current use of insulin ([facility]),Multiple-ty pe hyperlipidemia Take 1 tablet (20 mg total) by mouth daily 90 tablet 11/07/19 25 Active traZODone (DESYREL) 50 mg tabletIndications :Persistent insomnia Take 1 tablet (50 mg total) by mouth nightly as needed for sleep 60 tablet 6 02/10/20 21 2020 Discontinued aspirin 81 mg chewable tabletIndications :Temporary cerebral vascular dysfunction Take 1 tablet (81 mg total) by mouth daily 90 tablet 2 12/21/19 24 2024 Discontinued rosuvastatin (CRESTOR) 20 mg tabletIndications :Type 2 diabetes mellitus without complication, without long-term current use of insulin ([facility]),Multiple-ty pe hyperlipidemia Take 1 tablet (20 mg total) by mouth daily 90 tablet 2 12/21/19 24 2024 Discontinued(R toni) Active Problems Problem Noted Date Diagnosed Date [...] or continued 6.Avoid alcohol sedatives and other RADIO RIGGER depression that may worsen sleep apnea and [...] with Dr. David Cortes using the pro crossbar switch adjuster Last C-spine CT scan March 2015 [...] at that time including transesophageal echocardiogram at [facility] was negative. She had some recurrence [...] diet. Assessment & Plan (05/26/2023 11:07 AM INFORMATION TECHNOLOGY MANAGER): BP stable in office today on current [...] History of endometrial cancer Overview (06/04/2024): KRUPA VAZQUEZ [address] 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 Assessment as noted above. Likely muscle strain. Continue Tylenol and heat/ice. Offered tizanidine and PT consult, pt refused at this time. Keep follow in 2 weeks as scheduled. Gastroesophageal reflux dise ase without esophagitis 06/07/2022 09/15/2022 Assessment & Plan (06/07/2022 1:31 PM INFORMATION TECHNOLOGY MANAGER): Chronic problem, recently exacerbated resulting in ER [...] 11/08/2021 Assessment & Plan (05/20/2024 9:45 PM INFORMATION TECHNOLOGY MANAGER): Likely related to chronic constipation, see plan [...] 09/15/2022 Assessment & Plan (05/28/2021 10:11 AM INFORMATION TECHNOLOGY MANAGER): Patient reports since her last visit she [...] 09/15/2022 Assessment & Plan (2021 11:05 AM INFORMATION TECHNOLOGY MANAGER): Patient has acute pain of the rt [...] out in office today and faxed to [facility]. Assessment & Plan (06/22/2020 11:37 AM INFORMATION TECHNOLOGY MANAGER): Pt to have left cataract surgery by [...] 06/22/2020 Assessment & Plan (06/22/2020 11:39 AM INFORMATION TECHNOLOGY MANAGER): PT reports increased pain in the right knee within the past few weeks. We will get an x-ray today. She has seen Dr. Phillips in the past, so if needed to be referred, she would prefer to go back and see him. I advised that she take tylenol for the pain. Acid indigestion 04/20/2020 08/04/2020 Assessment & Plan (05/22/2020 9:17 AM INFORMATION TECHNOLOGY MANAGER): Pt is taking famotidine 40mg daily and she has done well with this--stating that she has not had any reflux symptoms. She is following the strict diet guidelines as well. She will continue on this medication. She will f/u for this with Dr. HAN at her next appt on 08/04/20. Assessment & Plan (04/20/2020 10:30 AM INFORMATION TECHNOLOGY MANAGER): Pt went to ED on 04/13 for [...] 08/04/2020 Assessment & Plan (04/15/2020 10:37 AM INFORMATION TECHNOLOGY MANAGER): Dr. HAN did come into the room [...] scheduled. Assessment & Plan (03/30/2020 10:33 AM INFORMATION TECHNOLOGY MANAGER): Pt reports swelling in lower legs now [...] done. Assessment & Plan (03/30/2020 8:22 AM INFORMATION TECHNOLOGY MANAGER): Pt reports about 1 week of lower [...] 03/30/202007/17 Assessment & Plan (03/30/2020 11:47 AM INFORMATION TECHNOLOGY MANAGER): Pt reports that her left knee has [...] 08/04/2020 Assessment & Plan (04/30/2019 9:00 AM INFORMATION TECHNOLOGY MANAGER): Nasal saline spray (Simply saline, Little Remedies, [place], Otis) 2 second sprays or 2 squeezes into [...] helping. Assessment & Plan (04/30/2019 9:00 AM INFORMATION TECHNOLOGY MANAGER): Nasal saline spray (Simply saline, Little Remedies, [place], Otis) 2 second sprays or 2 squeezes into each nostril while looking down over the sink, do not need to sniff in 2-3 times daily If pain returns try Cetirizine if Mucinex not improving symptoms Other option would be warm compresses to left neck pulling forward for 15 minutes at a time Continue Humidifier Assessment & Plan (05/06/2019 8:55 AM INFORMATION TECHNOLOGY MANAGER): She was in the office few days [...] re-evaluation. Assessment & Plan (05/04/2019 10:22 AM INFORMATION TECHNOLOGY MANAGER): The patient presents for evaluation of intermittent [...] 08/04/2020 Assessment & Plan (03/07/2019 9:44 AM INFORMATION TECHNOLOGY MANAGER): Left proximal upper arm Diagnosis discussed. No further treatment required at this time. She knows that she should follow up if this area develops any further symptoms. Assessment & Plan (02/22/2019 1:59 PM INFORMATION TECHNOLOGY MANAGER): Left proximal upper arm Biopsy/ies done per procedure note by Dr. Palmer. Basal cell carcinoma (BCC) of left upper arm 9 08/04/2020 Assessment & Plan (03/07/2019 9:45 AM INFORMATION TECHNOLOGY MANAGER): Left distal upper arm One week status post excision Healing well, no evidence of complication or infection reported or noted on exam. Pathology results discussed, no further treatment required. Follow-up at the 6 week postoperative mabel for final evaluation or sooner if issues arise. Assessment & Plan (02/22/2019 1:58 PM INFORMATION TECHNOLOGY MANAGER): Left distal upper arm, biopsy proven Dr. Palmer excised this lesion today in clinic. Please see his separate note. Nipple lesion 02/22/2018 12/28/2018 Chronic rhinitis 11/14/2017 06/04/2024 Overview (11/14/2017): Olopatadine nasal spray too expensive, trial Astelin November 14, 2017 Chronic constipation 11/08/201706/04/2 025 Assessment & Plan (05/20/2024 9:45 PM INFORMATION TECHNOLOGY MANAGER): Chronic, uncontrolled despite MiraLax twice daily and [...] appendectomy February 1989. TAHBSO February 2004 at [facility] for grade 1A endometrial cancer, incisional hernia with mesh repair February 2006. Pursuing evaluation for possible biliary stricture as for T-spine pain behaves like gallbladder issue September 2017 HIDA scan ordered Assessment & Plan (06/01/2021 9:24 AM INFORMATION TECHNOLOGY MANAGER): Patient has history of chronic rt sided [...] knees Sleep disorder 12/16/2016 09/15/2022 Overview (09/26/2017): [place] Sleep Scale positive at 13, complaints of [...] patient's profound weight loss. Clinical correlation recommended. Independence A: Hypersomnia, G47.10 Independence B: Polysomnography, 02691 Electronically Authenticated and Edited by: Cristino Wiley MD On 01/23/2017 Other fatigue 12/16/2016 08/04/2020 Overview (12/16/2016): Lab evaluation negative December 2016, sleep study ordered. Assessment & Plan (05/22/2020 9:19 AM INFORMATION TECHNOLOGY MANAGER): Pt is currently wearing the 30 day cardiac event monitor and will see Dr. Trevino on 05/04/20 for the episodes of SOB with weakness as outlined below at our last visit on 05/04/20. Assessment & Plan (05/04/2020 12:08 PM INFORMATION TECHNOLOGY MANAGER): Pt has had an initial cardiac workup [...] Pt just had carotid dopplers done by [facility] in Feb/Mar. and were negative. Nuclear stress [...] Encounters Date Type Department Care Team Description 11/01/[address] [facility] Health Information Management [address] [place] [address] Scanning, Provider 10/11/2024 7:47 AM CDT - 10/11/2024 11:59 PM CDT Hospital Encounter [facility] [address] [place] [address] Encounter for screening mammogram for breast cancer Discharge Disposition: Discharge to home or self care 09/26/2024 3:30 PM CDT Office Visit [facility] 1 [facility] [address] [place] [address] [phone] Monica Steen NP Strain of left biceps muscle, initial encounter (Primary Dx) 09/25/2024 Telephone [facility] 1 [facility] [address] [place] [phone] Mirna Mac MD left shoulder pain 09/04/[address] [facility] Health Information Management [address] [place] [address] Scanning, Provider from Last 3 Months Immunizations Immunization Administration Dates Next Due COVID-19 mRNA (Medcurrent) 0.3 m L (30 mcg) vaccine (12 [...] Amaurosis Colon polyp Type 2 diabetes mellitus Abnormal echocardiogram find ings without diagnosis 09/28/2022 [...] and Family Not on file 01/18/2019 Attends [employer] Not on file 01/18 Active Member [...] on file Legal Sex Female 7:45 PM INFORMATION TECHNOLOGY MANAGER Gender Identity Not on file Sexual [...] Additional history exists Foot Exam 11/29/2024 11/30/2023 Influenza Vaccine (#1) 2024 , 01/29/2023, 01/24/2022, Additional history exists Albumin Creatinine Ratio, Urine 05/21/2025 05/21/2024, 12/14/2023, [...] history exists Hepatitis B Screening Completed 12/14/2023 Zoster Vaccine Completed 04/02/2024, 12/16, 01/08/2014 Breast Cancer Screening-Mammogram Discontinued 10/11/2024, 10/11/2023, 10/08/2022, Additional history exists Medical Devices Implanted Type Area Die Casting Machine Operator Device Identifier Shelf Expiration Date Model / Serial / Lot [employer] Angio-Seal Vip 6fr Closere Device [id number] - [id number] Implanted:Qty: 1 on 11/10/2022 by Juan F Weldon MD at [facility] [employer] 05/17/2023 [id number] / / [id number] Procedures Procedure Name Priority Date/Time Associated Diagnosis Comments SCAN - LABS 11/01/2024 SCREENING MAMMOGRAM BILATERAL W ISIDRO Schedule Routine, Read Routine (OP Routine) 10/11/2024 8:00 AM CDT Encounter for screening mammogram for breast cancer SCAN - RADIOLOGY/IMAGING 09/04/2024 EGFR Routine 05/21/2024 7:40 AM INFORMATION TECHNOLOGY MANAGER Type 2 diabetes mellitus without complication, without long-term current use of insulin (HCC) HEMOGLOBIN A1C Routine 05/21/2024 7:40 AM INFORMATION TECHNOLOGY MANAGER Type 2 diabetes mellitus without complication, without long-term current use of insulin (HCC) LIPID PANEL Routine 05/21/2024 7:40 AM INFORMATION TECHNOLOGY MANAGER Multiple-type hyperlipidemia ALBUMIN CREATININE RATIO, URINE Routine 05/21/2024 7:40 AM INFORMATION TECHNOLOGY MANAGER Type 2 diabetes mellitus without complication, without long-term current use of insulin (HCC) DEXA AXIAL SKELETON BONE DENSITY 1 OR MORE SITES Schedule Routine, Read Routine (OP Routine) 01/10/2024 2:00 PM CDT Menopause COLONOSCOPY 02/14/2022 8:29 AM CDT HEPATITIS C ANTIBODY Routine 11/30/2012 12:12 PM CDT from Last 3 Months or Most Recently Relevant to Health Maintenance Results * SCAN - LABS (11/01/2024) us Provider Scanning Final Result * Screening Mammogram Bilateral W Isidro (10/11/2024 [...] Final Result * eGFR (05/21/2024 7:40 AM INFORMATION TECHNOLOGY MANAGER) eGFR 87 >=60 mL/min/1. 73 m2 Comment: [...] was last reviewed 2021. Testing performed by: [address] [address] Blood 05/21/2024 7:40 AM INFORMATION TECHNOLOGY MANAGER 05/21/2024 12:22 PM INFORMATION TECHNOLOGY MANAGER us Mirna Mac MD LAB BLOOD ORDERABLES Final Result MELODIE [address] Department [place] [address] * Albumin Creatinine Ratio, Urine (05/21/2024 7:40 AM INFORMATION TECHNOLOGY MANAGER) Albumin Ur <12.0 mg/L Comment: Interpretive Data No reference range established. Current interpretive data was last revised 2018. Testing performed by: [address] [address] Creatinine Ur 79.9 mg/dL MELODIE Comment: Interpretive Data No reference range established. Current interpretive data was last revised 2018. Testing performed by: [address] [address] Albumin Creatinine Ratio, Ur <15 1 - 29 mg/g MELODIE COBB Comment:Testing performed by : [address] [address] Urine 05/21/2024 7:40 AM INFORMATION TECHNOLOGY MANAGER 05/21/2024 12:16 PM INFORMATION TECHNOLOGY MANAGER us Mirna Mac MD LAB URINE ORDERABLES Final Result Performing Organization Address [facility] Co de Phone Number MELODIE [phone] [facility] [place] [address] * (ABNORMAL) Hemoglobin A1c (05/21/2024 7:40 AM INFORMATION TECHNOLOGY MANAGER) Hgb A1C 6.2(H) 4.0 - 5.6 % Comment:Testing performed by : [address] [address] Estimated Average Glucose 131 mg/dL MELODIE Comment: The ADA recommends reporting an estimated Average Glucose (eAG) with all Hemoglobin A1c results using the equation derived from a study of 507 normal and diabetic adults. Minority populations were underrepresented and children were not included. (Diabetes Care 31:3753-0753, 2008). The eAG is not equivalent to a fasting glucose. Testing performed by: [address] [address] Blood 05/21/2024 7:40 AM INFORMATION TECHNOLOGY MANAGER 05/21/2024 12:16 PM INFORMATION TECHNOLOGY MANAGER us Mirna Mac MD LAB BLOOD ORDERABLES Final Result Performing Organization Address [facility] de Phone Number MELODIE [phone] [facility] [email or web address] [address] * Lipid panel (05/21/2024 7:40 AM INFORMATION TECHNOLOGY MANAGER) Cholesterol 113 30 - 199 mg/dL Comment: [...] last revised on 2017. Testing performed by: [facility], [address] [place] [address]., [address] Triglycerides 40 <=149 mg/dL MELODIE Comment: Interpretive [...] last revised on 2017. Testing performed by: [facility], [address] [place] [address]., [address] HDL 66 >=40 mg/dL MELODIE Comment: Interpretive [...] last revised on 2017. Testing performed by: [facility], [address] [place] [address]., [address] LDL, calculated 36 <=129 mg/dL MELODIE Comment: Interpretive Data Ages < or = 19 years Acceptable: <110 mg/dL Borderline high: 110-129 mg/dL High: >or= 130 mg/dL Ages > or = 20 years Optimal: <100 mg/dL Near optimal: 100-129 mg/dL Borderline high: 130-159 mg/dL High: >160 mg/dL Calculated using the Cantu LDL-C estimating equation. This equation was implemented on 2023. Prior to this date LDL-C was estimated using the Friedewald equation. Literature References: 1. Expert Panel on Integrated Guidelines for Cardiovascular Health and Risk Reduction in Children and Adolescents. Pediatrics 2011;128:S213 2. NCEP Expert Panel. Circulation 2004;110:227 3. Pepe M et al. DERRICK Cardiol. 2020 August 15;5(5):540-548. doi: 10.1001/jamacardio.2020.0013 Current Interpretive Data was last revised on 2023. Testing performed by: [address] [address] Non-HDL Cholesterol 47 mg/dL MELODIE COBB Comment: [...] last revised on 2017. Testing performed by: [address] [address] Chol/HDL ratio 2 MELODIE Comment:Testing performed by : [address] [address] Blood 05/21/2024 7:40 AM INFORMATION TECHNOLOGY MANAGER 05/21/2024 12:16 PM INFORMATION TECHNOLOGY MANAGER Mirna Mac MD LAB BLOOD ORDERABLES Final Result MELODIE [id number] [place] [address] Department [place] [address] * Dexa Axial Skeleton Bone Density 1 or 2 Site (01/10/2024 2:00 PM CDT) Anatomical Region Laterality Modality Body N/A Other 01/10/2024 7:13 PM CDT Narrative 01/10/2024 7:14 PM CDT EXAM DESCRIPTION: DEXA AXIAL SKELETON BONE DENSITY 1 OR MORE SITES REASON FOR STUDY: 78 y/o year old F with given history of: menopause Screening. Die Casting Machine Operator/Model: [employer]uz[employer] Discovery SL (S/N [id number]) CLINICAL INFORMATION: Current height: 70 inches Maximum [...] Anastacio Oliveira M.D. MF: VON Report ID: [id number] Reading Location: [place] [address] Procedure Note Anastacio Oliveira MD - 01/10/2024 EXAM DESCRIPTION: DEXA AXIAL SKELETON BONE DENSITY 1 OR MORE SITES REASON FOR STUDY: 78 y/o year old F with given history of: menopause Screening. Die Casting Machine Operator/Model: Traansmission (S/N [id number]) CLINICAL INFORMATION: Current height: 70 inches Maximum [...] see below follow up recommendations. [facility] causes of low bone mineral density may [...] Anastacio Oliveira M.D. MF: VON Report ID: [id number] Reading Location: [id number] us Mirna Mac MD IMG DXA PROCEDURES Final R esult * COLONOSCOPY (02/14/2022 8:29 AM CDT) Anatomical Region Laterality Modality Other Narrative Procedure Note Spencer Delcid MD - 02/14/2022 8:29 AM CDT [facility] Patient Name: Jackelyn Blanchard Procedure Date: 02/14/2022 8:29 AM Date of : 1945 Admit Type: Outpatient Age: 76 Gender: Female Attending MD: Spencer Delcid M.D. Room: [facility] ENDOSCOPY ROOM 2 Note Status: Finalized Patient [...] scope was passed under direct vision. TheColonoscope [id number] was introduced through the anus and advanced [...] history of colonic polyps CPT copyright 2020 [employer]. All rights reserved. The codes documented in this report are preliminary and upon claims director reviewmay be revised to meet current compliance requirements. Recognized by the [employer] for promoting quality in endoscopy us Spencer Delcid MD ENDOSCOPY PROCEDURES Final Re sult * Hepatitis C antibody (11/30/2012 12:12 PM CDT) Hep C Ab NON-REACT SHITAL NON-REACT SHITAL [facility] H[facility]ORICAL RESULTS SIGNAL TO CUT-OFF 0.02 <1.00 [facility]OR[facility] RESULTS Comment: Test performed at [facility] [address] [place] [address] Director: ROXANNE ALFARO DO,MPH 11/30/2012 12:1 2 PM CDT us Mirna Mac MD LAB MICROBIOLOGY - GENERAL ORDERABLES Final Result [facility] HISTORICAL RESULTS from Last 3 Months or Most Recently Relevant to Health [place] [address] [facility] MEDICARE SUPPLEMENT INSURANCE [place] [address] MEDICARE [facility] MEDICARE SUPPLEMENT INSURANCE MEDICARE [facility] MEDICARE SUPPLEMENT Advance Directives For more information, please contact: [phone] Documents on File Type Date Recorded Patient Foundry Finisher Expl anation ADVANCE DIRECTIVE 07/10/2018 3:04 PM [...] 4:03 PM 02/07/2022 8:13 PM Care Teams Extra Gang Supervisor Relationship Specialty Start Date End Date Mirna Mac MD PCP - General 07/15/16 Simba Laird MD Plastic Surgery 12/16/16 Skyler Leos MD [address] [facility] [address] [place] [address] Dermatology 12/16/16 Ish Zambrano MD [address] [place] [address] [place] [address] Ophthalmology 12/16/16 Randell Phillips MD [address] [place] [address] [place] [address] Referring Physician Orthopedic Surgery 10/24/17 Luz Murry MD [address] [facility] [address] [place] [address] Consulting Physician General Surgery 07/10/18 Alex Figueroa MD [address] [place] [address] [place] [address] Radiological Equipment Specialist Obstetrics and Gynecology 08/04/20 Cristino Wiley MD [address] [place] [address] [place] [address] Consulting Physician Sleep Medicine 03/02/21 David Cortes DC [address] [place] [address] [place] [address] Chiropractic Medicine 05/17/21
--- OUTSIDE RECORDS SUMMARY | 2024-11-28 01:53 | XMS_ITS | Encounter Summary ---
Author Organization [facility] Address [address] [place] [address] Care Team Providers Care Inside Upholsterer Name Role Phone Unavailable Primary Care Provider [...] on file Legal Sex Female 2:38 AM COUNCIL MEMBER Gender Identity Not on file Sexual Orientation Not on file documented as of this encounter Plan of Treatment Not on file documented as of this encounter Visit Diagnoses Diagnosis Other constipation- Primary documented in this encounter
--- OUTSIDE RECORDS SUMMARY | 2024-11-28 01:53 | XMS_ITS | Encounter Summary ---
Author Organization [facility] Address [address] [place] [address] Care Team Providers Care Box Office Attendant Name Role Phone Unavailable Primary Care Provider Unavailabl e Encounter Details Date Type Department Care Team (Late st Contact Info) Description 2004 Outpatient Historical [place] [address] [place] [address] SEROMA COMPLIC PROCEDURE (Primary Dx) Social History Tobacco Use Types Packs/Day Years Used Date Smoking Tobacco: Never Assessed Comments Unknown Sex and Gender Information Value Date Recorded Sex Assigned at Not on file Legal Sex Female 2:38 AM GLUTEN SETTLING TENDER Gender Identity Not on file Sexual Orientation Not on file documented as of this encounter Plan of Treatment Not on file documented as of this encounter Visit Diagnoses Diagnosis Seroma complicating a procedure- Primary documented in this encounter
--- OUTSIDE RECORDS SUMMARY | 2024-11-28 01:53 | XMS_ITS | Clinical Summary ---
Author Organization [facility] Address [address] [facility] [place] [address] Care Team Providers Care Assistance Coordinator Name Role Phone Unavailable Primary Care Provider Unavailabl e Source Comments [facility],non-owned Affiliates and Associated Physician Practices is amultiple site organization consisting of ambulatory clinics and hospital sitesin [place], [place], [place] and [place]. This disclosure is being madepursuant to the Care Everywhere program and may not contain all informatio navailable regarding this patient. Last updated 18.[facility] Allergies Active Allergy Reactions Criticality Noted Date [...] on file Legal Sex Female 6:03 PM LINOLEUM LAYER HELPER Gender Identity Not on file Sexual Orientation Not on file Last Filed Vital Signs Vital Sign Reading Time Taken Comments Blood Pressure 113/59 05/30/2018 9:20 AM LINOLEUM LAYER HELPER Pulse 59 05/30/2018 9:20 AM LINOLEUM LAYER HELPER Temperature 36.3 C (97.4 F) 05/30/2018 9:05 AM LINOLEUM LAYER HELPER Respiratory Rate 13 05/30/2018 8:57 AM LINOLEUM LAYER HELPER Oxygen Saturation 99% 05/30/2018 9:20 AM LINOLEUM LAYER HELPER Inhaled Oxygen Concentration - - Weight 88.5 kg (195 lb) 05/30/2018 7:53 AM LINOLEUM LAYER HELPER Height 177.8 cm (5' 10) 05/30/2018 7:53 AM LINOLEUM LAYER HELPER Body Mass Index 27.98 05/30/2018 7:53 AM LINOLEUM LAYER HELPER Plan of Treatment Health Maintenance Due Date [...] age to complete this topic Insurance MEDICARE [place] [employer] MEDICARE
--- OUTSIDE RECORDS SUMMARY | 2024-11-28 01:53 | XMS_ITS | Encounter Summary ---
Author Organization [employer] Address 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
--- OUTSIDE RECORDS SUMMARY | 2024-11-28 01:53 | XMS_ITS | Encounter Summary ---
Author Organization [facility] Address [address] [place] [address] Care Team Providers Care Manager Cardiac Name Role Phone Mirna Mac MD Primary Care Provider [phone] Simba Laird MD Unavailable [phone] Skyler Leos MD Unavailable [phone] Ish Zambrano MD Unavailable [phone] Randell Phillips MD Unavailable [phone] Luz Murry MD Unavailable [phone] Alex Figueroa MD Unavailable [phone] Cristino Wiley MD Unavailable David Cortes DC Unavailable [phone] Encounter Details Date Type Department Care Team (Late st Contact Info) Description 11/01/2024 Orders Only [facility] Health Information Management [address] [place] [id number] Scanning, Provider Social History Tobacco Use [...] and Family Not on file 01/18/2019 Attends Holiness Services Not on file 01/18 Active Member [...] on file 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 Gender Identity Not on file Sexual Orientation Not on file Occupation Industry Job Start Date Job End Date Retired Not on file Not on file Not on file documented as of this encounter Plan of Treatment Not on file documented as of this encounter Procedures Procedure Name Priority Date/Time Associated Diagnosis Comments SCAN - LABS 11/01/2024 documented in this encounter Results * SCAN - LABS (11/01/2024) us Provider Scanning Final Result documented in this encounter Visit Diagnoses Not on filedocumented in this encounter Care Teams Manager Cardiac Relationship Specialty Start Date End Date Mirna Mac MD PCP - General 07/15/16 Simba Laird MD Plastic Surgery 12/16/16 Skyler Leos MD [address] [facility] [address] [place] [address] Dermatology 12/16/16 Ish Zambrano MD [address] [place] [address] Ophthalmology 12/16/16 Randell Phillips MD [address] [place] [address] Referring Physician Orthopedic Surgery 10/24/17 Luz Murry MD [address] [facility] [address] [place] [address] Consulting Physician General Surgery 07/10/18 Alex Figueroa MD [address] [place] [address] [address] [place] [address] Partridge Farmer Obstetrics and Gynecology 08/04/20 Cristino Wiley MD [address] [place] [address] [place] [address] Consulting Physician Sleep Medicine 03/02/21 David Cortes DC [address] [place] [address] [place] [address] Chiropractic Medicine 05/17/21 documented as of this encounter
--- OUTSIDE RECORDS SUMMARY | 2024-11-28 01:53 | XMS_ITS | Encounter Summary ---
Author Organization [facility] Address [address] [place] [address] Phone Care Team Providers Care Script Editor Name Role Phone Mirna Mac MD Primary Care Provider Tirso Monique DO Unavailable Yu Barrera MD Unavailable [phone] Tena Lisa MD Unavailable [phone] [facility] hern[facility] MD Unavailable Skyler Leos MD Unavailable [phone] Ish Zambrano MD Unavailable [phone] Randell Phillips MD Unavailable [phone] Luz Murry MD Unavailable Carmela Varner MA Unavailable Alex Figueroa MD Unavailable [phone] Cristino Wiley MD Unavailable David Cortes DC Unavailable [phone] Geogre Samano MD Unavailable Spencer Delcid MD Unavailable Maki Byrne MA Unavailable Unavailable Encounter Details Date Type Department Care Team (Late st Contact Info) Description 01/02/2017 Orders Only [facility] [address] [place] [address] Mirna Mac MD [address] [place] [address] Insomnia with sleep apnea, unspecified (Primary Dx) Social History Tobacco Use Types Packs/Day Years Used Date Smoking Tobacco: Former Cigarettes Smokeless Tobacco: Never Alcohol Use Standard Drinks/Week Comments No 0 (1 standard drink = 0.6 oz pur e alcohol) Comments No Sex and Gender Information Value Date Recorded Sex Assigned at Not on file 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 07/05/2022 07/15/2022 10/03/2022 3:05 AM C DT documented as of this encounter Care Teams Script Editor Relationship Specialty Start Date End Date Mirna Mac MD PCP - General 07/15/16 Tirso Monique DO Otolaryngology 12/16/16 09/14/22 Yu Barrera MD Gynecologic Oncology 12/16/16 08/03/20 Tena Lisa MD Gastroenterology 12/16/16 09/14/22 Simba Laird MD Plastic Surgery 12/16/16 Sykler Leos MD [address] [facility] [address] [place] [address] Dermatology 12/16/16 Ish Zambrano MD [address] [place] [address] Ophthalmology 12/16/16 Randell Phillips MD [facility] [place] [place] [address] Referring Physician Orthopedic Surgery 10/24/17 Luz Murry MD [address] [facility] [address] [place] [address] Consulting Physician General Surgery 07/10/18 Carmela Varner MA [address] [place] [address] [address] [place] [address] [employer] Care Industrial Relations Officer 09/24/18 09/24/18 Alex Figueroa MD [address] [place] [address] [place] [address] Cra Obstetrics and Gynecology 08/04/20 Cristino Wiley MD [address] [place] [address] [place] [address] Consulting Physician Sleep Medicine 03/02/21 David Cortes DC [address] [address] Chiropractic Medicine 05/17/21 George Samano MD [address] [place] [address] [place] [address] Consulting Physician General Surgery 02/07/22 02/07/22 Spencer Delcid MD [address] [place] [address] [address] [place] [address] Consulting Physician Gastroenterology 09/15/22 10/10/23 Maki Byrne, SETHER [address] [place] [address] [address] [place] [address] ACO Care Industrial Relations Officer 10/20/23 10/23/23 documented as of this encounter
--- NOTE | 2024-11-28 10:06 | WPDHPUPDATE1 ---
History and Physical Update Update Date/Time: 11/28/24 10:06 History and Physical has been reviewed, including an updated exam of the patient. There are NO changes in the patient's condition. Risks, benefits, and alternatives have been discussed and questions answered. Patient agrees to proceed with procedure.
[2024-11-28] MEDS: LACTATED RINGERS 1,000 ML 30 ML IV CONT ×3 (12:14→15:22)
[2024-11-28] MEDS: ACETAMINOPHEN 500 MG TABLET 1000 MG PO (12:45)
[2024-11-28] MEDS: TRANEXAMIC ACID 1,000MG/ISO100 1,000 MG/100 ML BAG 200 MG IVPB (12:46)
--- NOTE | 2024-11-28 13:06 | WPDANESEPPF ---
Anes - Initial Pre Proc Eval Procedure: Operation Date: 11/28/24 13:30 Proposed Procedures p Left Custom Total Knee Arthroplasty - Randell Phillips MD Date/Time: 11/28/24 13:06 Surgeon: Randell Phillips MD Pre Op Diagnosis: primary oa left knee Patient Data Age: 79 Gender: F Height: 1.74 m Weight: 95.9 kg Last Vital Signs Temp 98.0 F 11/01/24 10:19 Pulse 62 11/01/24 10:19 Resp 16 11/01/24 10:19 BP 143/68 H 11/01/24 10:19 Pulse Ox 99 11/01/24 10:19 O2 Del Method Room Air 11/01/24 10:19 Allergies Allergy/AdvReac Type Severity Reaction Status Date / Time hydrochlorothiazide Allergy Unknown RASH Verified 11/28/24 12:02 Iodinated Contrast Media Allergy Unknown HIVES Verified 11/28/24 12:02 shellfish derived Allergy Unknown HIVES Verified 11/28/24 12:02 sulfanilamide Allergy Unknown RASH Verified 11/28/24 12:02 diltiazem Allergy Swelling, Verified 11/28/24 12:02 dry mouth & eyes famotidine Allergy ITCHING Verified 11/28/24 12:02 felodipine Allergy ITCHING, Verified 11/28/24 12:02 RASH ciprofloxacin AdvReac Unknown NAUSEA Verified 11/28/24 12:02 duloxetine AdvReac Unknown increased Verified 11/28/24 12:02 bp nitrofurantoin AdvReac Unknown CHILLS, Verified 11/28/24 12:02 FEVER epinephrine AdvReac INCREASED Verified 11/28/24 12:02 HEART RATE esomeprazole (From Nexium) AdvReac ITCHING Verified 11/28/24 12:02 fluoxetine AdvReac ELEVATED BP Verified 11/28/24 12:02 nifedipine AdvReac swollen Verified 11/28/24 12:02 legs/feet pantoprazole (From Protonix) AdvReac ITCHING Verified 11/28/24 12:02 ramipril AdvReac COUGH Verified 11/28/24 12:02 semaglutide AdvReac acid brash Verified 11/28/24 12:02 Home Medications ?Medication ?Instructions ?Recorded ?Confirmed ?Type cholecalciferol (vitamin D3) 50 50 mcg PO DAILY 10/02/20 11/01/24 History mcg (2,000 unit) capsule clopidogrel 75 mg tablet (Plavix) 75 mg PO DAILY 10/02/20 11/28/24 History polyethylene glycol 3350 17 gram 17 g PO DAILY 10/02/20 11/28/24 History oral powder packet (Miralax) metformin 500 mg tablet 500 mg PO .EVENING 10/18/23 11/28/24 History rosuvastatin 20 mg tablet 20 mg PO .EVENING 10/18/23 11/28/24 History sennosides 8.6 mg tablet (senna) 17.2 mg PO DAILY PRN constipation 10/18/23 11/28/24 History spironolactone 25 mg tablet 12.5 mg PO 3XW 10/18/23 11/28/24 History labetalol 100 mg tablet 50 mg PO BID 10/30/24 11/28/24 History losartan 50 mg tablet 50 mg PO .EVENING 10/30/24 11/28/24 History acetaminophen 500 mg tablet 500 mg PO .Q8 PRN pain 11/01/24 11/28/24 History acetaminophen 650 mg 650 mg PO Q8H PRN pain 11/01/24 11/28/24 History tablet,extended release (Arthritis Pain Reliever) aspirin 81 mg chewable tablet 1 tablet PO DAILY 11/01/24 11/28/24 History tramadol 50 mg tablet 50 mg PO Q6-8H PRN pain 11/01/24 11/28/24 History vitamin B complex (Super Quints 1 tablet PO DAILY 11/01/24 11/28/24 History B-50 tablet) Laboratory Tests 11/28/24 12:27 Blood Type Pending Antibody Screen Pending Patient hx anesthesia problems: none Family hx anesthesia problems: none Results Review: All pre-operative results and documents have been reviewed as part of the pre-operative evaluation. [facility] Past Medical History Medical History Chronic constipation Multinodular thyroid Chronic GERD Seasonal allergies Diabetes Hypertension Family History Family History Other Diabetes mellitus Family history of arthritis Social History Social History Smoking status: Former smoker Smoking end date: 04/17/80 Alcohol intake: never Do You Feel Safe in your Home?: Yes Lack of Transportation: No Lack of Food: Never True Current Housing: I Have Housing Concerned About Future Housing: No Difficulty Paying Gas/Electric Bills: No Difficulty Paying for Meds: No Currently Unemployed: No Education: Trade/Vocational Certificate Difficulty w/ Childcare or Family Care: No Additional living arrangements comments: ARCADIO Gonzalez Final PreProcedure Day of Procedure 11/28/24 13:06 Patient weight: obese Lungs: normal air movement Airway: Mallampati scale class II Neurological: alert and oriented Last oral intake: >/= 8 hours ASA classification: III Emergent: no Anesthetic plan: proceed Anesthesia type and monitoring: general ETT and standard monitoring Results Review: All pre-operative results and documents have been reviewed as part of the pre-operative evaluation. HTN, Hyperlipidemia, ALEM on CPAP, DM fsbs 100. mild cad by cath 2022. Pt w overall good funtional status, no cp or sob w walking 1-2 fos. Informed Consent: The patient's anesthetic plan and its attendant risks and benefits were discussed with the patient/family/POA. Questions were solicited and answers provided to the satisfaction of the patient/family/POA.
[2024-11-28] MEDS: ceFAZolin 2 GM in SODIUM CHLORIDE 0.9% IV 50 ML 100 ML IVPB ×2 (13:25→21:09)
[2024-11-28] MEDS: EPINEPHRINE HCL INFILTRATE (14:00)
[2024-11-28] MEDS: SODIUM CHLORIDE 0.9% INFILTRATE (14:00)
[2024-11-28] MEDS: ROPIVACAINE HCL INFILTRATE (14:00)
[2024-11-28] MEDS: TRANEXAMIC ACID 1,000 MG/10 ML AMPUL 1000 MG IV PUSH (14:56)
[2024-11-28] MEDS: fentaNYL CITRATE INJ (*CRX) 100 MCG/2 ML VIAL 25 MCG IV PUSH ×4 (15:37→15:50)
--- NOTE | 2024-11-28 16:07 | W.PM.PROC2 ---
Procedure Note - Detailed Date of Procedure 11/28/24 Pre-op Diagnosis Left knee degenerative arthritis. Post-op Diagnosis Same Procedure Performed Custom total knee arthroplasty, left. Surgeon Randell Phillips MD Anesthesia General Description of Procedure Preoperative antibiotics were given. The limb was prepped and draped in the usual sterile fashion with a well-padded tourniquet high on the thigh. The limb was exsanguinated and the tourniquet inflated to 300 mmHg. A longitudinal incision was created just medial to the patella. A trivector approach to the knee was performed. Arthrotomy was taken down through the joint capsule. No significant releases were initially taken. The femur was exposed and the F1 jig was applied. The coring tool was used to remove the cartilage for the F2 jig to sit flush with the bone. The jig was pinned and the distal cut carefully taken. Caliper measurements confirmed appropriate bony resections according to the preoperative templated plan. The F4 cutting jig for the femur was applied, at the standard rotation. The AP and anterior chamfer cuts were taken. The F5 jig was applied and the posterior chamfer cuts were taken. The tibia was prepared using the T1 jig, after removing cartilage for the jig contact points. Proper alignment was checked with the alignment april. The tibia was cut using the T1u guide. Gap balancing was performed. Gap measurements were taken and the knee was trialed. Excellent alignment and soft tissue balancing was confirmed. The posterior cruciate ligament was recessed along the proximal tibia. The patella was cut for resurfacing. Three lug holes were drilled. Meniscal remnants were removed. The trial components were assembled. Excellent range of motion and proper soft tissue balancing were confirmed throughout the full range of motion. Patellar tracking was excellent. The knee was copiously irrigated periodically throughout the procedure. The real implants were cemented into position. Excess cement was carefully removed. The wound was closed in layers with interrupted #1 Vicryl suture, 2-0 strata fix suture, 0 strata fix suture, 2-0 strata fix suture. Steri-Strips placed on the skin with the knee flexed. Sterile bulky dressing applied. The patient was brought to the recovery room in stable condition. There were no complications. Implants Conformis Custom total knee arthroplasty. Cemented. Cruciate retaining. 7A insert. 38 mm oval patella. Estimated Blood Loss 50 Drains No Complications No immediate complications Condition Stable Disposition PACU [facility] Billing Surgery - Charge Forward: Surgery Billing
--- NOTE | 2024-11-28 16:44 | ADMGEN ---
This patient, Jackelyn Blanchard, was admitted to 3 [facility] Surg Room 312-01. Patient/family oriented to hospital policies and general routines including ID bracelet, bed and alarms, visiting hours, pain management, procedures, bathroom and other care routines, personal items, smoking policy, room service/diet, and visiting hours. Information on how to activate the Rapid Response Team has been discussed. Patient/Family are encouraged to report perceived risks to care and to ask questions if they do not understand what they are told or what they should do.
[2024-11-28] MEDS: SENNA/DOCUSATE SODIUM TABLET 2 TAB PO (16:59)
[2024-11-28] MEDS: LOSARTAN POTASSIUM 50 MG TABLET PO (16:59)
[2024-11-28] MEDS: ROSUVASTATIN 20 MG TABLET PO (17:00)
[2024-11-28] MEDS: ACETAMINOPHEN 325 MG TABLET 650 MG PO (17:00)
[2024-11-28] MEDS: oxyCODONE/ACETAMINOPHEN (*CRX) 5-325 MG TABLET 1 TABLET PO (17:00)
[2024-11-28] MEDS: ONDANSETRON INJ 4 MG/2 ML VIAL IV PUSH (17:28)
--- NOTE | 2024-11-28 20:31 | PCRCNOTE ---
Patient stated that she does not wish to use CPAP.
[2024-11-28] MEDS: oxyCODONE/ACETAMINOPHEN (*CRX) 10-325 MG TABLET 1 TAB PO (21:04)
[2024-11-28] MEDS: METOCLOPRAMIDE HCL INJ 10 MG/2 ML VIAL IV PUSH (22:00)
[2024-11-29] MEDS: SCOPOLAMINE 1 MG PATCH 1 PATCH TRANSDERM (00:48)
[2024-11-29] MEDS: ACETAMINOPHEN 325 MG TABLET 650 MG PO ×3 (00:49→12:29)
[2024-11-29] MEDS: oxyCODONE/ACETAMINOPHEN (*CRX) 10-325 MG TABLET 1 TAB PO (00:50)
[2024-11-29 02:05] VITALS: BP 104/53; PULSE 54; RESP 14; TEMP 36.1; O2SAT 95
[2024-11-29 05:46] VITALS: BP 111/51; PULSE 57; RESP 16; TEMP 36.3; O2SAT 95
[2024-11-29] MEDS: ceFAZolin 2 GM in SODIUM CHLORIDE 0.9% IV 50 ML 100 ML IVPB (05:48)
[2024-11-29 06:54] LABS: Hematocrit 37.8 % (37.0-47.0); Hemoglobin 11.8 g/dL (12.0-15.0); Immature Granulocyte Percent A 0.4 % (0-0.5); Lymphocytes Absolute Auto 0.72 K/mm3 (0.9-3.2); Mean Corpuscular HGB Conc 31.2 g/dl (32-36); Mean Corpuscular Hemoglobin 28.9 pg (26-34); Mean Corpuscular Volume 92.6 fl (80-100); Nucleated Red Blood Cells Absolute Auto 0.000 K/mm3 (0.0-0.012); Nucleated Red Blood Cells Perc 0.0 % (0.0-0.2); Platelet Count Result 163 k/mm3 (150-375); Red Blood Count 4.08 M/mm3 (4.2-5.4); White Blood Count 8.6 K/mm3 (4.5-10.0)
[2024-11-29 07:14] LABS: Anion Gap 4 mmol/L (4-12); Blood Urea Nitrogen 16 mg/dL (7-17); Calcium 8.9 mg/dL (8.4-10.2); Carbon Dioxide 27 mmol/L (22-30); Chloride 101 mmol/L (98-107); Estimated CRCL calculation 70 ml/min; Estimated Glomerular Filt Rate > 60; Glucose 128 mg/dL (65-110); Potassium 4.4 mmol/L (3.4-5.0); Sodium 132 mmol/L (137-145)
[2024-11-29] MEDS: CHOLECALCIFEROL (VITAMIN D3) 25 MCG (1,000 UNITS) TABLET 50 MCG PO (08:26)
[2024-11-29] MEDS: SENNA/DOCUSATE SODIUM TABLET 2 TAB PO (08:27)
[2024-11-29] MEDS: LABETALOL HCL 50 MG TABLET PO (08:27)
[2024-11-29] MEDS: ASPIRIN 81 MG CHEWABLE TABLET PO (08:27)
[2024-11-29] MEDS: oxyCODONE/ACETAMINOPHEN (*CRX) 5-325 MG TABLET 1 TABLET PO (08:38)
[2024-11-29 09:33] VITALS: O2SAT 97
[2024-11-29 10:05] VITALS: BP 107/56; PULSE 56; RESP 16; TEMP 36.9; O2SAT 97
== END 2024-11-29 13:22 | disposition home or self-care (01) ==
LOC: ANHSURGERY 11:14 → ANH3MEDSUR 16:22
PROVIDERS: PCP Internal Medicine Geriatric Medicine; Visit Provider Orthopaedic Surgery
PROC: (CPT 27447; principal; 2024-11-28 13:30)
DX: M17.12 Unilateral primary osteoarthritis, left knee (principal); E78.5 Hyperlipidemia, unspecified; I10 Essential (primary) hypertension; E11.9 Type 2 diabetes mellitus without complications; K21.9 Gastro-esophageal reflux disease without esophagitis; K59.09 Other constipation; G47.33 Obstructive sleep apnea (adult) (pediatric); E66.9 Obesity, unspecified; Z68.31 Body mass index [BMI] 31.0-31.9, adult; Z79.02 Long term (current) use of antithrombotics/antiplatelets; Z79.84 Long term (current) use of oral hypoglycemic drugs; Z79.82 Long term (current) use of aspirin; Z79.891 Long term (current) use of opiate analgesic; Z99.89 Dependence on other enabling machines and devices; Z87.891 Personal history of nicotine dependence
CPT/HCPCS: 27447; 36415; 73560; 80048; 82948; 85025; 86850; 86900; 86901; 97110; 97161; 97165; J0690; A9270; C1713; J0166; J2003; J2270; J2405; J2704; J2765; J2795; J3010; J7120

== ENCOUNTER 2025-02-11 10:17 | Outpatient (CLI) | payer MEDICARE, SELFPAY ==
[2025-02-11 11:00] LABS: Anion Gap 4 mmol/L (4-12); Blood Urea Nitrogen 12 mg/dL (7-17); Calcium 8.9 mg/dL (8.4-10.2); Carbon Dioxide 28 mmol/L (22-30); Chloride 104 mmol/L (98-107); Estimated Glomerular Filt Rate > 60; Glucose 101 mg/dL (65-110); Potassium 4.6 mmol/L (3.4-5.0); Sodium 136 mmol/L (137-145)
--- OUTSIDE RECORDS SUMMARY | 2025-02-11 11:47 | XMS_ITS | Encounter Summary ---
Author Organization [place] [facility] Address [address] [place] [address] Phone Care Team Providers Care Assistant Hairstylist Name Role Phone Mirna Mac MD Primary Care Provider Tirso Monique DO Unavailable Yu Barrera MD Unavailable Tena Lisa MD Unavailable [phone] [facility] Unavailable Skyelr Leos MD Unavailable [phone] Ish Zambrano MD Unavailable [phone] Randell Phillips MD Unavailable [phone] Luz Murry MD Unavailable Carmela Varner MA Unavailable Alex Figueroa MD Unavailable [phone] Cristino Wiley MD Unavailable David Cortes DC Unavailable [phone] George Samano MD Unavailable Spencer Delcid MD Unavailable Maki Byrne MA Unavailable Unavailable Encounter Details Date Type Department Care Team (Late st Contact Info) Description 09/20/2016 Orders Only [facility] [address] [place] [address] Ana Valles LPN Social History Tobacco Use Types Packs/Day Years Used Date Smoking Tobacco: Never Assessed Comments Unknown Sex and Gender Information Value Date Recorded Sex Assigned at Not on file 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 07/05/2022 07/15/2022 10/03/2022 3:05 AM C DT COVID: Suspected 12/06/2024 12/06/2024 12/06/2024 4:28 PM CDT documented as of this encounter Care Teams Assistant Hairstylist Relationship Specialty Start Date End Date Mirna Mac MD PCP - General 07/15/16 Tirso Monique DO Otolaryngology 12/16/16 09/14/22 Yu Barrera MD Gynecologic Oncology 12/16/16 08/03/20 Tena Lisa MD Gastroenterology 12/16/16 09/14/22 Simba Laird MD Plastic Surgery 12/16/16 Skyler Leos MD [address] [facility] [address] [place] [address] Dermatology 12/16/16 Ish Zambrano MD [address] [place] [address] [place] [address] Ophthalmology 12/16/16 Randell Phillips MD [address] [place] [address] [place] [address] Referring Physician Orthopedic Surgery 10/24/17 Luz Murry MD [address] [facility] [address] [place] [address] Consulting Physician General Surgery 07/10/18 Carmela Varner, [address] [place] [address] ACO Care Roll Tension Tester 09/24/18 09/24/18 Alex Figueroa MD [address] [place] [address] [place] [address] Pulmonologist Obstetrics and Gynecology 08/04/20 Cristino Wiley MD [address] [place] [address] [place] [address] Consulting Physician Sleep Medicine 03/02/21 David Cortes DC [address] [place] [address] [place] [address] Chiropractic Medicine 05/17/21 George Samano MD [address] [facility] [place] [address] Consulting Physician General Surgery 02/07/22 02/07/22 Spencer Delcid MD [address] [facility] [address] [facility] [place] [address] Consulting Physician Gastroenterology 09/15/22 10/10/23 Maki Byrne, MA [address] [place] [address] [address] [place] [address] ACO Care Roll Tension Tester 10/20/23 10/23/23 documented as of this encounter
--- OUTSIDE RECORDS SUMMARY | 2025-02-11 11:48 | XMS_ITS | Encounter Summary ---
Author Organization [facility] Healthcare Address [address] [place] [address] Care Team Providers Care Multiple Drum Sander Helper Name Role Phone Mirna Mac MD Primary Care Provider [phone] Simba Laird MD Unavailable [phone] Skyler Leos MD Unavailable [phone] Ish Zambrano MD Unavailable [phone] Randell Phillips MD Unavailable [phone] Luz Murry MD Unavailable [phone] Alex Figueroa MD Unavailable [phone] Cristino Wiley MD Unavailable David Cortes DC Unavailable [phone] Encounter Details Date Type Department Care Team (Late st Contact Info) Description 09/04/2024 Orders Only [facility] [address] [place] [address] Scanning, Provider Social History Tobacco Use [...] on file 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 Gender Identity Not on file Sexual Orientation [...] Date Last Indicated Resolved Time COVID: Suspected 12/06/2024 12/06/2024 12/06/2024 4:28 PM CDT documented as of this encounter Care Teams Multiple Drum Sander Helper Relationship Specialty Start Date End Date Mirna Mac MD PCP - General 07/15/16 Simba Laird MD Plastic Surgery 12/16/16 Skyler Leos MD [address] [facility] [address] [place] [address] Dermatology 12/16/16 Ish Zambrano MD [address] [place] [address] Ophthalmology 12/16/16 Randell Phillips MD [address] [place] [address] Referring Physician Orthopedic Surgery 10/24/17 Luz Murry MD [address] [facility] [address] [place] [address] Consulting Physician General Surgery 07/10/18 Alex Figueroa MD [address] [facility] [address] [place] [address] Street Car Mechanic Obstetrics and Gynecology 08/04/20 Cristino Wiley MD [address] [facility] [address] [place] [address] Consulting Physician Sleep Medicine 03/02/21 David Cortes DC [address] [place] [address] [place] [address] Chiropractic Medicine 05/17/21 documented as of this encounter
--- OUTSIDE RECORDS SUMMARY | 2025-02-11 11:48 | XMS_ITS | Encounter Summary ---
Author Organization [facility] Address [address] [place] [address] Phone Care Team Providers Care Special Agent Fbi Name Role Phone Mirna Mac MD Primary Care Provider [phone] Simba Laird MD Unavailable [phone] Skyler Leos MD Unavailable [phone] Ish Zambrano MD Unavailable [phone] Randell Phillips MD Unavailable [phone] Luz Murry MD Unavailable Alex Figueroa MD Unavailable [phone] Cristino Wiley MD Unavailable David Cortes DC Unavailable [phone] Spencer Delcid MD Unavailable [phone] Maki Byrne MA Unavailable Unavailable Encounter Details Date Type Department Care Team (Late st Contact Info) Description 09/26/2022 Orders Only [facility] [address] [place] [address] Scanning, Provider Social History Tobacco [...] and Family Not on file 01/18/2019 Attends Nondenominational Services Not on file 01/18 Active Member [...] on file 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 Gender Identity Not on file Sexual [...] documented as of this encounter Care Teams Special Agent Fbi Relationship Specialty Start Date End Date Mirna Mac MD PCP - General 07/15/16 Simba Laird MD Plastic Surgery 12/16/16 Skyler Leos MD [address] [place], [place] [address] [facility] [address] [place] [address] Dermatology 12/16/16 Ish Zambrano MD [address] [place] [address] [place] [address] Ophthalmology 12/16/16 Randell Phillips MD [address] [place] [address] [place] [address] Referring Physician Orthopedic Surgery 10/24/17 Luz Murry MD [address] [facility] [address] [place] [address] Consulting Physician General Surgery 07/10/18 Alex Figueroa MD [address] [place] [address] [address] [place] [address] Community Education Coordinator Obstetrics and Gynecology 08/04/20 Cristino Wiley MD [address] [place] [address] [address] [place] [address] Consulting Physician Sleep Medicine 03/02/21 David Cortes DC [address] [place] [address] [place] [address] Chiropractic Medicine 05/17/21 Spencer Delcid MD [address] [place] [address] [address] [place] [address] Consulting Physician Gastroenterology 09/15/22 10/10/23 Maki Byrne, ESTHER [address] [place] [address] [address] [place] [address] ACO Care Tobacco Sampler 10/20/23 10/23/23 documented as of this encounter
--- OUTSIDE RECORDS SUMMARY | 2025-02-11 11:48 | XMS_ITS | Encounter Summary ---
Author Organization [facility] Healthcare Address [address] [place] [address] Care Team Providers Care Ground Water Contractor Name Role Phone Mirna Mac MD Primary Care Provider [phone] Simba Laird MD Unavailable [phone] Skyler Leos MD Unavailable [phone] Ish Zambrano MD Unavailable [phone] Randell Phillips MD Unavailable [phone] Luz Murry MD Unavailable Alex Figueroa MD Unavailable [phone] Cristino Wiley MD Unavailable David Cortes DC Unavailable [phone] Encounter Details Date Type Department Care Team (Late st Contact Info) Description 01/13/2025 Telephone [facility] [address] [place] [address] Mirna Mac MD [address] [place] [address] Social History Tobacco Use Types Packs/Day Years [...] and Family Not on file 01/18/2019 Attends [employer] Services Not on file 01/18 Active Member [...] points, staff should administer the PHQ-9) 0 12/09/2024 Personal Safety Answer Date Recorded Have you ever been in or are you currently in a harmful physical or emotional relationship or is someone making you feel afraid or unsafe? 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 Patient asked for this to be printed out so that she can pick it up tomorrow. Placed in secure envelope and placed in cupboard for patient pickup. documented in this encounter Plan of Treatment Not on file documented as of this encounter Visit Diagnoses Not on filedocumented in this encounter Care Teams Ground Water Contractor Relationship Specialty Start Date End Date Mirna Mac MD PCP - General 07/15/16 Simba Laird MD Plastic Surgery 12/16/16 Skyler Leos MD 1224 [facility] [address] [place] [address] Dermatology 12/16/16 Ish Zambrano MD [address] [place] [address] Ophthalmology 12/16/16 Randell Phillips MD [address] [place] [address] Referring Physician Orthopedic Surgery 10/24/17 Luz Murry MD [address] [facility] [address] [place] [address] Consulting Physician General Surgery 07/10/18 Alex Figueroa MD [address] [place] [address] [address] [place] [address] Milk Receiver Tank Truck Obstetrics and Gynecology 08/04/20 Cristino Wiley MD [address] [place] [address] [address] [place] [address] Consulting Physician Sleep Medicine 03/02/21 David Cortes DC [address] [place] [address] [place] [address] Chiropractic Medicine 05/17/21 documented as of this encounter
--- OUTSIDE RECORDS SUMMARY | 2025-02-11 11:48 | XMS_ITS | Encounter Summary ---
Author Organization [facility] Healthcare Address [address] [place] [address] Care Team Providers Care Concrete Worker Name Role Phone Mirna Mac MD Primary Care Provider Simba Laird MD Unavailable [phone] Skyler Leos MD Unavailable [phone] Ish Zambrano MD Unavailable [phone] Randell Phillips MD Unavailable [phone] Luz Murry MD Unavailable [phone] Alex Figueroa MD Unavailable [phone] Cristino Wiley MD Unavailable David Cortes DC Unavailable [phone] Encounter Details Date Type Department Care Team (Late st Contact Info) Description 01/05/2025 Results Follow-Up [facility] [address] [place] [address] Mirna Mac MD [address] [place] [id number] T4, free, TSH, Hepatitis B Surface Antigen Blood, Additional followed-up results: 2 Social History Tobacco Use Types Packs/Day Years [...] and Family Not on file 01/18/2019 Attends [employer] Not on file 01/18 Active Member [...] on file 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 Gender Identity Not on file Sexual Orientation Not on file Occupation Industry Job Start Date Job End Date Retired Not on file Not on file Not on file documented as of this encounter Plan of Treatment Not on file documented as of this encounter Visit Diagnoses Not on filedocumented in this encounter Care Teams Concrete Worker Relationship Specialty Start Date End Date Mirna Mac MD PCP - General 07/15/16 Simba Laird MD Plastic Surgery 12/16/16 Skyler Leos MD 12[address] [facility] [address] [place] [address] Dermatology 12/16/16 Ish Zambrano MD [address] [place] [address] Ophthalmology 12/16/16 Randell Phillips MD [address] [place] [address] Referring Physician Orthopedic Surgery 10/24/17 Luz Murry MD [address] [facility] [address] [place] [address] Consulting Physician General Surgery 07/10/18 Alex Figueroa MD [address] [place] [address] [place] [address] Anchor Tack Puller Obstetrics and Gynecology 08/04/20 Cristino Wiley MD [address] [place] [address] [place] [address] Consulting Physician Sleep Medicine 03/02/21 David Cortes DC [address] [place] [address] [place] [address] Chiropractic Medicine 05/17/21 documented as of this encounter
--- OUTSIDE RECORDS SUMMARY | 2025-02-11 11:48 | XMS_ITS | Encounter Summary ---
Author Organization [facility] Address [address] [place], [place] [address] [address] Care Team Providers Care Retail Business Analyst Name Role Phone Unavailable Primary Care Provider Unavailabl e Encounter Details Date Type Department Care Team (Late st Contact Info) Description 01/30/2019 Lab Requisition [facility] [address] [place] [address] Skyler Leos MD [facility] [address] [address] Social History Tobacco Use Types Packs/Day Years Used Date Smoking Tobacco: Former Alcohol Use Standard Drinks/Week Comments No 0 (1 standard drink = 0.6 oz pur e alcohol) Comments Unknown Sex and Gender Information Value Date Recorded Sex Assigned at Not on file 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 Gender Identity Not on file Sexual Orientation Not on file documented as of this encounter Plan of Treatment Not on file documented as of this encounter Procedures Procedure Name Priority Date/Time Associated Diagnosis Comments DERMATOPATHOLOGY Routine 01/23/2019 12:0 0 AM CDT documented in this encounter Results * DERMATOPATHOLOGY (01/23/2019 12:00 AM CDT) Case Report Dermatopathology Report Case: [id number] Authorizing Provider: Skyler Leos MD Collected: 01/23/2019 12:00 AM Ordering Location: [facility] Received: 01/30/2019 10:16 AM Pathologist: Nicolette Aguilar MD Specimen: Skin, left upper outer arm 10:28 AM [facility] DERMATOPATHOLOGY LABORATORY Final Diagnosis Specimen A. SKIN, left upper outer arm: BASAL CELL CARCINOMA, NODULAR TYPE (C44.619) (see microscopic description) 10:28 AM [facility] DERMATOPATHOLOGY LABORATORY at 1028 CDT Clinical History R/O BCC. 10:28 AM [facility] DERMATOPATHOLOGY LABORATORY Gross Description Specimen A: Received is one formalin filled container labeled with the patient's name and designated left upper outer arm. The specimen consists of a shave biopsy measuring [id number]. Jar 0. 10:28 AM [facility] DERMATOPATHOLOGY LABORATORY Microscopic Description Specimen A. SKIN, left upper outer arm: Within the dermis there are aggregates of basaloid cells with a high nuclear to cytoplasmic ratio and peripheral palisading. Additional deeper sections were obtained and reviewed. 10:28 AM [facility] DERMATOPATHOLOGY LABORATORY Disclaimer An external and internal positive and negative controls are appropriate for the histochemical, immunohistochemical and immunofluorescence stain(s) in this case (if any), except where stated explicitly. The performance characteristics of the stain(s) cited in this report were developed and its performance characteristic determined by the Dermatopathology Laboratory at [facility], directed by Dr. Jerson Rodrigez. These tests need not be, and therefore are not, approved by the [place] Food and Drug Administration. The tests are used for clinical purposes. Billing Codes Specimen Charges Stain Charges 30721 1 10:28 AM T DERMATOPATHOLOGY LABORATORY Embedded Images 10:28 AM T DERMATOPATHOLOGY LABORATORY Pathology/Cytolog y TISSUE SPECIMEN FROM SKIN / Unknown 01/23/2019 01/30/2019 10:16 AM CDT us Skyler Leos MD LAB - PATHOLOGY/CYTOLOGY ORDERAB LES Final Result DERMATOPATHOLOGY LABORATORY [facility] - Department of Dermatology [address] [facility], 5th Floor [address] [place], [place] [address] [place] [address] documented in this encounter Visit Diagnoses Not on filedocumented in this encounter
--- OUTSIDE RECORDS SUMMARY | 2025-02-11 11:48 | XMS_ITS ---
Author Organization [facility] Address [address] [place] [address] Care Team Providers Care Logistics Center Manager Name Role Phone Mirna Mac MD Primary Care Provider +[phone] Simba Laird MD Unavailable +[phone] Skyler Leos MD Unavailable [phone] Ish Zambrano MD Unavailable [phone] Randell Phillips MD Unavailable [phone] Luz Murry MD Unavailable [phone] Alex Figueroa MD Unavailable [phone] Cristino Wiley MD Unavailable David Cortes DC Unavailable +[phone] Active Problems Problem Noted Date Diagnosed Date Viral URI with cough 12/09/2024 Strain of left biceps muscle 09/26/2024 Assessment [...] or continued 6.Avoid alcohol sedatives and other TOOTH CUTTER PINION depression that may worsen sleep apnea and [...] with Dr. David Cortes using the pro motor adjuster Last C-spine CT scan March 2015 [...] that time including transesophageal echocardiogram at [facility] was negative. She had some [...] diet. Assessment & Plan (05/26/2023 11:07 AM SALES DEVELOPMENT ASSOCIATE): BP stable in office today on current [...] KRUPA SHUKLA [address] Figueroa Current Treatment and Therapy Plans No current plan information found. Past Treatment and Therapy Plans No past plan information found. Lifetime Dose Tracking * Chemical Lifetime Dose Automatic Entry Manual Entr y Fluoro Time 2.9 minutes 0 minutes 2.9 minutes Resolved Problems Problem Noted Date Diagnosed Date [...] 06/04/2024 Assessment & Plan (05/26/2023 11:07 AM SALES DEVELOPMENT ASSOCIATE): Intermittent stabbing/sticking pain between breast since yesterday, [...] Started 3 days ago after bending to tack picker something off the floor. Assessment as noted above. Likely muscle strain. Continue Tylenol and heat/ice. Offered tizanidine and PT consult, pt refused at this time. Keep follow in 2 weeks as scheduled. Gastroesophageal reflux dise ase without esophagitis 06/07/2022 09/15/2022 Assessment & Plan (06/07/2022 1:31 PM SALES DEVELOPMENT ASSOCIATE): Chronic problem, recently exacerbated resulting in ER [...] 11/08/2021 Assessment & Plan (05/20/2024 9:45 PM SALES DEVELOPMENT ASSOCIATE): Likely related to chronic constipation, see plan [...] 09/15/2022 Assessment & Plan (05/28/2021 10:11 AM SALES DEVELOPMENT ASSOCIATE): Patient reports since her last visit she [...] 09/15/2022 Assessment & Plan (2021 11:05 AM SALES DEVELOPMENT ASSOCIATE): Patient has acute pain of the rt [...] out in office today and faxed to [facility]. Assessment & Plan (06/22/2020 11:37 AM SALES DEVELOPMENT ASSOCIATE): Pt to have left cataract surgery by [...] 06/22/2020 Assessment & Plan (06/22/2020 11:39 AM SALES DEVELOPMENT ASSOCIATE): PT reports increased pain in the right knee within the past few weeks. We will get an x-ray today. She has seen Dr. Phillips in the past, so if needed to be referred, she would prefer to go back and see him. I advised that she take tylenol for the pain. Acid indigestion 04/20/2020 08/04/2020 Assessment & Plan (05/22/2020 9:17 AM SALES DEVELOPMENT ASSOCIATE): Pt is taking famotidine 40mg daily and she has done well with this--stating that she has not had any reflux symptoms. She is following the strict diet guidelines as well. She will continue on this medication. She will f/u for this with Dr. HAN at her next appt on 08/04/20. Assessment & Plan (04/20/2020 10:30 AM SALES DEVELOPMENT ASSOCIATE): Pt went to ED on 04/13 for [...] 08/04/2020 Assessment & Plan (04/15/2020 10:37 AM SALES DEVELOPMENT ASSOCIATE): Dr. HAN did come into the room [...] scheduled. Assessment & Plan (03/30/2020 10:33 AM SALES DEVELOPMENT ASSOCIATE): Pt reports swelling in lower legs now [...] done. Assessment & Plan (03/30/2020 8:22 AM SALES DEVELOPMENT ASSOCIATE): Pt reports about 1 week of lower [...] 03/30/202007/17 Assessment & Plan (03/30/2020 11:47 AM SALES DEVELOPMENT ASSOCIATE): Pt reports that her left knee has [...] 08/04/2020 Assessment & Plan (04/30/2019 9:00 AM SALES DEVELOPMENT ASSOCIATE): Nasal saline spray (Simply saline, Little Remedies, Dodge, Tobias) 2 second sprays or 2 squeezes into [...] helping. Assessment & Plan (04/30/2019 9:00 AM SALES DEVELOPMENT ASSOCIATE): Nasal saline spray (Simply saline, Little Remedies, Dodge, Tobias) 2 second sprays or 2 squeezes into each nostril while looking down over the sink, do not need to sniff in 2-3 times daily If pain returns try Cetirizine if Mucinex not improving symptoms Other option would be warm compresses to left neck pulling forward for 15 minutes at a time Continue Humidifier Assessment & Plan (05/06/2019 8:55 AM SALES DEVELOPMENT ASSOCIATE): She was in the office few days [...] re-evaluation. Assessment & Plan (05/04/2019 10:22 AM SALES DEVELOPMENT ASSOCIATE): The patient presents for evaluation of intermittent [...] 08/04/2020 Assessment & Plan (03/07/2019 9:44 AM SALES DEVELOPMENT ASSOCIATE): Left proximal upper arm Diagnosis discussed. No further treatment required at this time. She knows that she should follow up if this area develops any further symptoms. Assessment & Plan (02/22/2019 1:59 PM SALES DEVELOPMENT ASSOCIATE): Left proximal upper arm Biopsy/ies done per procedure note by Dr. Palmer. Basal cell carcinoma (BCC) of left upper arm 9 08/04/2020 Assessment & Plan (03/07/2019 9:45 AM SALES DEVELOPMENT ASSOCIATE): Left distal upper arm One week status post excision Healing well, no evidence of complication or infection reported or noted on exam. Pathology results discussed, no further treatment required. Follow-up at the 6 week postoperative mabel for final evaluation or sooner if issues arise. Assessment & Plan (02/22/2019 1:58 PM SALES DEVELOPMENT ASSOCIATE): Left distal upper arm, biopsy proven Dr. Palmer excised this lesion today in clinic. Please see his separate note. Nipple lesion 02/22/2018 12/28/2018 Chronic rhinitis 11/14/2017 06/04/2024 Overview (11/14/2017): Olopatadine nasal spray too expensive, trial Astelin November 14, 2017 Chronic constipation 11/08/2017 025 Assessment & Plan (05/20/2024 9:45 PM SALES DEVELOPMENT ASSOCIATE): Chronic, uncontrolled despite MiraLax twice daily and [...] appendectomy February 1989. TAHBSO February 2004 at [facility] for grade 1A endometrial cancer, incisional hernia with mesh repair February 2006. Pursuing evaluation for possible biliary stricture as for T-spine pain behaves like gallbladder issue September 2017 HIDA scan ordered Assessment & Plan (06/01/2021 9:24 AM SALES DEVELOPMENT ASSOCIATE): Patient has history of chronic rt sided [...] knees Sleep disorder 12/16/2016 09/15/2022 Overview (09/26/2017): [place] Sleep Scale positive at 13, complaints of [...] patient's profound weight loss. Clinical correlation recommended. [place] A: Hypersomnia, G47.10 [place] B: Polysomnography, 21359 Electronically Authenticated and Edited by: Cristino Wiley MD On 01/23/2017 Other fatigue 12/16/2016 08/04/2020 Overview (12/16/2016): Lab evaluation negative December 2016, sleep study ordered. Assessment & Plan (05/22/2020 9:19 AM SALES DEVELOPMENT ASSOCIATE): Pt is currently wearing the 30 day cardiac event monitor and will see Dr. Trevino on 05/04/20 for the episodes of SOB with weakness as outlined below at our last visit on 05/04/20. Assessment & Plan (05/04/2020 12:08 PM SALES DEVELOPMENT ASSOCIATE): Pt has had an initial cardiac workup [...] Pt just had carotid dopplers done by [facility] in . and were negative. Nuclear stress [...]
--- OUTSIDE RECORDS SUMMARY | 2025-02-11 11:48 | XMS_ITS | Encounter Summary ---
Author Organization [facility] Address [address] [facility] [address] [place] [address] Care Team Providers Care Jackscrew Worker Name Role Phone Mirna Mac MD Primary Care Provider +- [phone] Mirna Mac MD Primary Care Provider + [phone] Mirna Mac MD Primary Care Provider [phone] Tirso Monique DO Unavailable Yu Barrera MD Unavailable [phone] Tena Lisa MD Unavailable [phone] Simba Laird MD Unavailable [phone] Skyler Leos MD Unavailable [phone] Ish Zambrano MD Unavailable [phone] Randell Phillips MD Unavailable [phone] uLz Murry MD Unavailable [phone] Carmela Varner MA Unavailable [phone] Alex Figueroa MD Unavailable [phone] Cristino Wiley MD Unavailable David Cortes DC Unavailable [phone] George Samano MD Unavailable Spencer Delcid MD Unavailable Maki Byrne MA Unavailable Unavailable Encounter Details Date Type Department Care Team (Late st Contact Info) Description 06/20/2016 Orders Only [facility] Provider, MD Matt [facility] [place] [id number] Social History Tobacco Use Types Packs/Day Years Used Date Smoking Tobacco: Never Assessed Comments Unknown Sex and Gender Information Value Date Recorded Sex Assigned at Not on file Legal Sex Female 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 07/05/2022 07/15/2022 10/03/2022 3:05 AM C DT COVID: Suspected 12/06/2024 12/06/2024 12/06/2024 4:28 PM CDT documented as of this encounter Care Teams Jackscrew Worker Relationship Specialty Start Date End Date Mirna Mac MD PCP - General 07/15/16 Mirna Mac MD PCP - General 07/12/16 07/14/16 Mirna Mac MD PCP - General 05/15/13 07/11/16 Kayden Tirsodayana Driver DO Otolaryngology 12/16/16 09/14/22 Yu Barrera MD Gynecologic Oncology 12/16/16 08/03/20 Tena Lisa MD Gastroenterology 12/16/16 09/14/22 [facility] Pl[facility] Surgery 12/16/16 Skyler Leos MD [address] [facility] [address] [place] [address] Dermatology 12/16/16 Ish Zambrano MD [address] [place] [address] Ophthalmology 12/16/16 Randell Phillips MD [address] [place] [address] Referring Physician Orthopedic Surgery 10/24/17 Luz Murry MD [address] [facility] [address] [place] [address] Consulting Physician General Surgery 07/10/18 Carmela Varner MA [address] [facility] [address] [place] [address] ACO Care Sail Finisher Hand 09/24/18 09/24/18 Alex Figueroa MD [address] [facility] [address] [place] [address] Office Support Specialist Obstetrics and Gynecology 08/04/20 Cristino Wiley MD [address] [facility] [address] [place] [address] Consulting Physician Sleep Medicine 03/02/21 David Cortes DC [address] [place] [address] Chiropractic Medicine 05/17/21 George Samano MD [address] [place] [address] Consulting Physician General Surgery 02/07/22 02/07/22 Spencer Delcid MD [address] [facility] [address] [place] [address] Consulting Physician Gastroenterology 09/15/22 10/10/23 Maki Byrne MA [address] [place] [address] ACO Care Sail Finisher Hand 10/20/23 10/23/23 documented as of this encounter
--- OUTSIDE RECORDS SUMMARY | 2025-02-11 11:48 | XMS_ITS | Encounter Summary ---
Author Organization [facility] Address [address] [place] [address] Care Team Providers Care Concrete Panel Installer Name Role Phone Mirna Mac MD Primary Care Provider + [phone] Tirso Monique DO Unavailable +[phone] Tena Lisa MD Unavailable [phone] Simba Laird MD Unavailable [phone] Skyler Leos MD Unavailable [phone] Ish Zambrano MD Unavailable [phone] Randell Phillips MD Unavailable [phone] Luz Murry MD Unavailable [phone] Alex Figueroa MD Unavailable [phone] Cristino Wiley MD Unavailable David Cortes DC Unavailable [phone] George Samano MD Unavailable Spencer Delcid MD Unavailable [phone] Maki Byrne MA Unavailable Unavailable Reason for Visit * Reason Onset Date Comments Scheduling Appointments 10/02/2020 Encounter Details Date Type Department Care Team (Late st Contact Info) Description 10/02/2020 Telephone [facility] [address] [place] [id number] Leonardo Davila RT Scheduling Appointments Social History [...] and Family Not on file 01/18/2019 Attends Confucianist Services Not on file 01/18 Active Member [...] on file Legal 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 07/05/2022 07/15/2022 10/03/2022 3:05 AM C DT COVID: Suspected 12/06/2024 12/06/2024 12/06/2024 4:28 PM CDT documented as of this encounter Care Teams Concrete Panel Installer Relationship Specialty Start Date End Date Mirna Mac MD PCP - General 07/15/16 Tirso Monique DO Otolaryngology 12/16/16 09/14/22 Tena Lisa MD Gastroenterology 12/16/16 09/14/22 Simba Laird MD Plastic Surgery 12/16/16 Skyler Leos MD [address] [facility] [address] [place], [place] [id number] Dermatology 12/16/16 Ish Zambrano MD [address] [place] [address] Ophthalmology 12/16/16 Randell Phillips MD [address] [place] [address] Referring Physician Orthopedic Surgery 10/24/17 Luz Murry MD [address] [facility] [address] [place] [address] Consulting Physician General Surgery 07/10/18 Alex Figueroa MD [address] [place] [address] [address] [place] [address] Sap Senior Developer Obstetrics and Gynecology 08/04/20 Cristino Wiley MD [address] [place] [address] [place] [address] Consulting Physician Sleep Medicine 03/02/21 David Cortes DC [address] [place] [address] [place] [address] Chiropractic Medicine 05/17/21 George Samano MD [address] [place] [address] [place] [address] Consulting Physician General Surgery 02/07/22 02/07/22 Spencer Delcid MD [address] [place] [address] [address] [place] [address] Consulting Physician Gastroenterology 09/15/22 10/10/23 Mkai Byrne MA [address] [place] [address] [address] [place] [address] ACO Care Credentialing Analyst 10/20/23 10/23/23 documented as of this encounter
--- OUTSIDE RECORDS SUMMARY | 2025-02-11 11:48 | XMS_ITS | Encounter Summary ---
Author Organization [facility] Address [address] [place], [place] [address] [address] Care Team Providers Care Supervisor Grain And Yeast Plants Name Role Phone Unavailable Primary Care Provider Unavailabl e Encounter Details Date Type Department Care Team (Late st Contact Info) Description 05/13/2022 Lab Requisition [facility] [address] [place] [address] Skyler Leos MD [facility] [address] [address] Social History Tobacco Use Types Packs/Day Years Used Date Smoking Tobacco: Former Alcohol Use Standard Drinks/Week Comments No 0 (1 standard drink = 0.6 oz pur e alcohol) Comments Unknown Sex and Gender Information Value Date Recorded Sex Assigned at Not on file Legal Sex Female 6:03 PM UTILITY WORKER [place] Gender Identity Not on file Sexual Orientation Not on file documented as of this encounter Plan of Treatment Not on file documented as of this encounter Procedures Procedure Name Priority Date/Time Associated Diagnosis Comments DERMATOPATHOLOGY Routine 05/10/2022 12:0 0 AM UTILITY WORKER [place] [place] documented in this encounter Results * DERMATOPATHOLOGY (05/10/2022 12:00 AM UTILITY WORKER [employer] [place]) Case Report Dermatopathology Report Case: [id number] Authorizing Provider: Skyler Leos MD Collected: 05/10/2022 12:00 AM Ordering Location: [facility] Received: 05/13/2022 12:16 PM Pathologist: Nicolette Aguilar MD Specimen: Skin, right distal anterior thigh 3 12:59 PM [facility] DERMATOPATHOLOGY [facility]ORATORY Final Diagnosis Specimen A. SKIN, right distal anterior thigh: SEBORRHEIC KERATOSIS, MACULAR (L82.1) 3 12:59 PM [facility] DERMATOPATHOLOGY LABORATORY at [address] UTILITY WORK[address] [place] Clinical History SK/ISK, R/O Lentigo Maligna, R/O Pigmented AK 3 12:59 PM [facility] DERMATOPATHOLOGY LABORATORY Gross Description Specimen A: Received is one formalin filled container labeled with the patient's name and designated right distal anterior thigh. The specimen consists of a shave biopsy measuring [id number] mm. Jar 0. 12:59 PM [facility] DERMATOPATHOLOGY LABORATORY Microscopic Description Specimen A. SKIN, right distal anterior thigh: Sections show a relatively broad, flat proliferation of small keratinocytes. The surface is gently papillated, and there is increased basilar pigmentation. MART-1/Melan A and SOX-10 stains fail to reveal a melanocytic neoplasm. 3 12:59 PM [facility] DERMATOPATHOLOGY LABORATORY Disclaimer An external and internal positive and negative controls are appropriate for the histochemical, immunohistochemical and immunofluorescence stain(s) in this case (if any), except where stated explicitly. The performance characteristics of the stain(s) cited in this report were developed and its performance characteristic determined by the Dermatopathology Laboratory at [facility], directed by Dr. Jerson Rodrigez. These tests need not be, and therefore are not, approved by the [place] Food and Drug Administration. The tests are used for clinical purposes. Billing Codes Specimen Charges Stain Charges 56968 1 31695 39347 1 1 3 12:59 PM [facility] DERMATOPATHOLOGY LABORATORY Embedded Images 3 12:59 PM [facility] DERMATOPATHOLOGY LABORATORY Pathology/Cytolog y TISSUE SPECIMEN FROM SKIN / Unknown 05/10/2022 05/13/2022 12:16 PM UTILITY WORKER [employer] Skyler Leos MD LAB - PATHOLOGY/CYTOLOGY ORDERAB LES Final Result DERMATOPATHOLOGY LABORATORY [facility] - Department of Dermatology [facility] Specialized Medicine [facility]5 [facility], 3rd Floor [address] [phone] documented in this encounter Visit Diagnoses Not on filedocumented in this encounter
--- OUTSIDE RECORDS SUMMARY | 2025-02-11 11:48 | XMS_ITS | Clinical Summary ---
Author Organization [facility] Address [address] [facility] [place] [address] Care Team Providers Care Technical Assistant Name Role Phone Unavailable Primary Care Provider Unavailabl e Source Comments [facility],non-owned Affiliates and Associated Physician Practices is amultiple site organization consisting of ambulatory clinics and hospital sitesin [place], [place], [place] and [place]. This disclosure is being madepursuant to the Care Everywhere program and may not contain all information available regarding this patient. Last updated 18.[facility] [employer] Allergies Active Allergy Reactions Criticality Noted Date [...] on file Legal Sex Female 6:03 PM CHILD WELFARE CONSULTANT Gender Identity Not on file Sexual Orientation Not on file Last Filed Vital Signs Vital Sign Reading Time Taken Comments Blood Pressure 113/59 05/30/2018 9:20 AM CHILD WELFARE CONSULTANT Pulse 59 05/30/2018 9:20 AM CHILD WELFARE CONSULTANT Temperature 36.3 C (97.4 F) 05/30/2018 9:05 AM CHILD WELFARE CONSULTANT Respiratory Rate 13 05/30/2018 8:57 AM CHILD WELFARE CONSULTANT Oxygen Saturation 99% 05/30/2018 9:20 AM CHILD WELFARE CONSULTANT Inhaled Oxygen Concentration - - Weight 88.5 kg (195 lb) 05/30/2018 7:53 AM CHILD WELFARE CONSULTANT Height 177.8 cm (5' 10) 05/30/2018 7:53 AM CHILD WELFARE CONSULTANT Body Mass Index 27.98 05/30/2018 7:53 AM CHILD WELFARE CONSULTANT Plan of Treatment Health Maintenance Due Date Last Done Comments BONE DENSITY TESTING 1945 MEDICARE AWV 12 MONTHS 1945 HEPATITIS C SCREENING 03/19/1964 DTAP/TDAP/TD VACCINES (1 - Tdap) 1965 PNEUMOCOCCAL VACCINE 50+ (1 of 1 - PCV) 1996 ZOSTER VACCINE (1 of 2) 1996 Respiratory Syncytial Virus (RSV) Vaccine Pt: or over 60 yrs (1 - 1-dose 75+ series) 2021 DEPRESSION SCREENING 04/17/2024 COVID-19 VACCINE ( - 2023- season) 2024 INFLUENZA VACCINE (#1) 2024 8, 01/23/2017, 01/19/2016, [...] age to complete this topic Insurance MEDICARE [place] [employer] MEDICARE
--- OUTSIDE RECORDS SUMMARY | 2025-02-11 11:48 | XMS_ITS | Encounter Summary ---
Author Organization [facility] Address [address] [place] [address] Phone Care Team Providers Care Automatic Casting Machine Operator Name Role Phone Mirna Mac MD Primary Care Provider Tirso Monique DO Unavailable Yu Barrera MD Unavailable Tena Lisa MD Unavailable [phone] [facility] Er[facility] MD Unavailable Skyler Leos MD Unavailable [phone] Ish Zambrano MD Unavailable [phone] Randell Phillips MD Unavailable [phone] Luz Murry MD Unavailable Carmela Varner MA Unavailable Alex Figueroa MD Unavailable [phone] Cristino Wiley MD Unavailable David Cortes DC Unavailable [phone] George Samano MD Unavailable Spencer Delcid MD Unavailable Maki Byrne MA Unavailable Unavailable Encounter Details Date Type Department Care Team (Late st Contact Info) Description 01/02/2017 Orders Only [facility] [address] [place] [address] Mirna Mac MD [address] [place] [address] Insomnia with sleep apnea, unspecified (Primary Dx) Social History Tobacco Use Types Packs/Day Years Used Date Smoking Tobacco: Former Cigarettes Smokeless Tobacco: Never Alcohol Use Standard Drinks/Week Comments No 0 (1 standard drink = 0.6 oz pur e alcohol) Comments No Sex and Gender Information Value Date Recorded Sex Assigned at Not on file Legal 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 07/05/2022 07/15/2022 10/03/2022 3:05 AM C DT COVID: Suspected 12/06/2024 12/06/2024 12/06/2024 4:28 PM CDT documented as of this encounter Care Teams Automatic Casting Machine Operator Relationship Specialty Start Date End Date Mirna Mac MD PCP - General 07/15/16 Tirso Monique DO Otolaryngology 12/16/16 09/14/22 Yu Barrera MD Gynecologic Oncology 12/16/16 08/03/20 Tena Lisa MD Gastroenterology 12/16/16 09/14/22 Simba Laird MD Plastic Surgery 12/16/16 Skyler Leos MD [address] [facility] [address] [place] [address] Dermatology 12/16/16 Ish Zambrano MD [address] [place] [address] Ophthalmology 12/16/16 Randell Phillips MD [facility] [place] [address] Referring Physician Orthopedic Surgery 10/24/17 Luz Murry MD [address] [facility] [address] [place] [address] Consulting Physician General Surgery 07/10/18 Carmela Varner, ESTHER [address] [place] [address] [address] [place] [address] [employer] Consultant 09/24/18 09/24/18 Alex Figueroa MD [address] [place] [address] [address] [place] [address] Senior Research Project Manager Obstetrics and Gynecology 08/04/20 Cristino Wiley MD [address] [facility] [address] [place] [address] Consulting Physician Sleep Medicine 03/02/21 David Cortes DC [address] [place] [address] Chiropractic Medicine 05/17/21 George Samano MD [address] [place] [address] Consulting Physician General Surgery 02/07/22 02/07/22 Spencer Delcid MD [address] [place] [address] [address] [place] [address] Consulting Physician Gastroenterology 09/15/22 10/10/23 Maki Byrne, ESTHER [address] [facility] [address] [place] [address] [employer] Consultant 10/20/23 10/23/23 documented as of this encounter
--- OUTSIDE RECORDS SUMMARY | 2025-02-11 11:48 | XMS_ITS | Encounter Summary ---
Author Organization [facility] Healthcare Address [address] [place] [address] Care Team Providers Care Bankruptcy Processor Name Role Phone Mirna Mac MD Primary Care Provider [phone] Simba Laird MD Unavailable [phone] Skyler Leos MD Unavailable [phone] Ish Zambrano MD Unavailable [phone] Randell Phillips MD Unavailable [phone] Luz Murry MD Unavailable Alex Figueroa MD Unavailable [phone] Cristino Wiley MD Unavailable David Cortes DC Unavailable [phone] Encounter Details Date Type Department Care Team (Late st Contact Info) Description 02/07/2025 Orders Only [facility] Medical Group [facility] [address] [place] [address] Mirna Mac MD [address] [place] [id number] Social History Tobacco Use Types Packs/Day Years [...] and Family Not on file 01/18/2019 Attends [employer] Not on file 01/18 Active Member [...] on file Legal Sex Female 7:45 PM TREATING ENGINEER Gender Identity Not on file Sexual Orientation Not on file Occupation Industry Job Start Date Job End Date Retired Not on file Not on file Not on file documented as of this encounter Plan of Treatment Not on file documented as of this encounter Visit Diagnoses Not on filedocumented in this encounter Care Teams Bankruptcy Processor Relationship Specialty Start Date End Date Mirna Mac MD PCP - General 07/15/16 Simba Laird MD Plastic Surgery 12/16/16 Skyler Leos MD [address] [facility] [address] [facility] [place] [address] Dermatology 12/16/16 Ish Zambrano MD [address] [place] [place] [address] Ophthalmology 12/16/16 Randell Phillips MD [address] [place] [place] [address] Referring Physician Orthopedic Surgery 10/24/17 Luz Murry MD [address] [facility] [address] [place] [address] Consulting Physician General Surgery 07/10/18 Alex Figueroa MD [address] [place] [address] [address] [facility] [place] [address] Traffic Coordinator Obstetrics and Gynecology 08/04/20 Cristino Wiley MD [address] [place] [address] [place] [address] Consulting Physician Sleep Medicine 03/02/21 David Cortes DC [address] [place] [address] [place] [address] Chiropractic Medicine 05/17/21 documented as of this encounter
--- OUTSIDE RECORDS SUMMARY | 2025-02-11 11:49 | XMS_ITS | Encounter Summary ---
Author Organization [facility] Address [address] [place] [address] Care Team Providers Care Eviction Specialist Name Role Phone Unavailable Primary Care [...] on file Legal Sex Female 2:38 AM VOIP TECHNICIAN Gender Identity Not on file Sexual Orientation Not on file documented as of this encounter Plan of Treatment Not on file documented as of this encounter Visit Diagnoses Diagnosis Other constipation- Primary documented in this encounter
--- OUTSIDE RECORDS SUMMARY | 2025-02-11 11:49 | XMS_ITS | Encounter Summary ---
Author Organization [facility] Healthcare Address [address] [place] [address] Care Team Providers Care Eeo Officer Name Role Phone Mirna Mac MD Primary Care Provider [phone] Simba Laird MD Unavailable +[phone] Skyler Leos MD Unavailable [phone] Ish Zambrano MD Unavailable [phone] Randell Phillips MD Unavailable [phone] Luz Murry MD Unavailable [phone] Alex Figueroa MD Unavailable [phone] Cristino Wiley MD Unavailable David Cortes DC Unavailable [phone] Encounter Details Date Type Department Care Team (Late st Contact Info) Description 08/09/2024 Orders Only [facility] Medical Group [facility] [address] [place] [address] Scanning, Provider Social History Tobacco [...] on file Legal Sex Female 7: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 Gender Identity Not on file Sexual Orientation [...] documented as of this encounter Care Teams Eeo Officer Relationship Specialty Start Date End Date Mirna Mac MD PCP - General 07/15/16 Simba Laird MD Plastic Surgery 12/16/16 Skyler Leos MD [address] [facility] [address] [place] [address] Dermatology 12/16/16 Ish Zambrano MD [address] [place] [address] Ophthalmology 12/16/16 Randell Phillips MD [address] [place] [address] Referring Physician Orthopedic Surgery 10/24/17 uLz Murry MD [address] [facility] [address] [place] [address] Consulting Physician General Surgery 07/10/18 Alex Figueroa MD [address] [facility] [address] [place] [address] Electric Needle Specialist Obstetrics and Gynecology 08/04/20 Cristino Wiley MD [address] [facility] [address] [place] [address] Consulting Physician Sleep Medicine 03/02/21 David Cortes DC [address] [place] [address] [place] [address] Chiropractic Medicine 05/17/21 documented as of this encounter
--- OUTSIDE RECORDS SUMMARY | 2025-02-11 11:49 | XMS_ITS | Encounter Summary ---
Author Organization [facility] Address [address] [place] [address] Care Team Providers Care Medical Records Receptionist Name Role Phone Mirna Mac MD Primary Care Provider + [phone] Tirso Monique DO Unavailable [phone] Tena Lisa MD Unavailable [phone] Simba Laird MD Unavailable [phone] Skyler Leos MD Unavailable [phone] Ish Zambrano MD Unavailable [phone] Randell Phillips MD Unavailable [phone] Lzu Murry MD Unavailable [phone] Alex Figueroa MD Unavailable [phone] Cristino Wiley MD Unavailable David Cortes DC Unavailable [phone] George Samano MD Unavailable Spencer Delcid MD Unavailable [phone] Maki Byrne MA Unavailable Unavailable Reason for Visit * Reason Onset Date Comments Scheduling Appointments 09/03/2020 wants to cancel - gave her schedulings number Encounter Details Date Type Department Care Team (Late st Contact Info) Description 09/03/2020 Telephone [facility] [address] [place] [address] Rosa Maria Saini RT Scheduling Appointments (wants [...] and Family Not on file 01/18/2019 Attends [employer] Not on file 01/18 Active Member [...] on file Legal Sex Female 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 07/05/2022 07/15/2022 10/03/2022 3:05 AM C DT COVID: Suspected 12/06/2024 12/06/2024 12/06/2024 4:28 PM CDT documented as of this encounter Care Teams Medical Records Receptionist Relationship Specialty Start Date End Date Mirna Mac MD PCP - General 07/15/16 Tirso Monique DO Otolaryngology 12/16/16 09/14/22 Tena Lisa MD Gastroenterology 12/16/16 09/14/22 Simba Laird MD Plastic Surgery 12/16/16 Skyler Leos MD [address] [facility] [address] [place] [address] Dermatology 12/16/16 Ish Zambrano MD [address] [place] [address] Ophthalmology 12/16/16 Randell Phillips MD [address] [place] [address] Referring Physician Orthopedic Surgery 10/24/17 Luz Murry MD [address] [facility] [address] [place] [address] Consulting Physician General Surgery 07/10/18 Alex Figueroa MD [address] [place] [address] [place] [address] Licensed Insurance Agent Obstetrics and Gynecology 08/04/20 Cristino Wiley MD [address] [place] [address] [place] [address] Consulting Physician Sleep Medicine 03/02/21 David Cortes DC [address] [facility] [place] [address] Chiropractic Medicine 05/17/21 George Samano MD [address] [facility] [place] [address] Consulting Physician General Surgery 02/07/22 02/07/22 Spencer Delcid MD [address] [facility] [address] [place] [address] Consulting Physician Gastroenterology 09/15/22 10/10/23 Maki Byrne, ESTHER [address] [facility] [address] [place] [address] ACO Care Program/Music Director 10/20/23 10/23/23 documented as of this encounter
--- OUTSIDE RECORDS SUMMARY | 2025-02-11 11:49 | XMS_ITS | Encounter Summary ---
Author Organization [facility] Healthcare Address [address] [place] [address] Care Team Providers Care Project Economist Name Role Phone Mirna Mac MD Primary Care Provider [phone] Simba Laird MD Unavailable +[phone] Skyler Leos MD Unavailable [phone] Ish Zambrano MD Unavailable [phone] Randell Phillips MD Unavailable [phone] Luz Murry MD Unavailable [phone] Alex Figueroa MD Unavailable [phone] Cristino Wiley MD Unavailable David Cortes DC Unavailable +[phone] Encounter Details Date Type Department Care Team (Late st Contact Info) Description 11/01/2024 Orders Only [facility] Health Information Management [address] [place] [address] Scanning, Provider Social History Tobacco Use [...] and Family Not on file 01/18/2019 Attends [employer] Not on file 01/18 Active Member [...] on file Legal Sex Female 7:45 PM NERVE SPECIALIST Gender Identity Not on file Sexual [...] documented as of this encounter Care Teams Project Economist Relationship Specialty Start Date End Date Mirna Mac MD PCP - General 07/15/16 Simba Laird MD Plastic Surgery 12/16/16 Skyler Leos MD [address] [place] [address] Dermatology 12/16/16 Ish Zambrano MD [address] [place] [address] Ophthalmology 12/16/16 Randell Phillips MD [address] [place] [address] Referring Physician Orthopedic Surgery 10/24/17 Luz Murry MD [address] [place] [address] Consulting Physician General Surgery 07/10/18 Alex Figueroa MD [address] [place] [address] [address] [place] [address] Book Editor Obstetrics and Gynecology 08/04/20 Cristino Wliey MD [address] [place] [address] [address] [place] [address] Consulting Physician Sleep Medicine 03/02/21 David Cortes DC [address] [place] [address] [place] [address] Chiropractic Medicine 05/17/21 documented as of this encounter
--- OUTSIDE RECORDS SUMMARY | 2025-02-11 11:49 | XMS_ITS | Clinical Summary ---
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
--- OUTSIDE RECORDS SUMMARY | 2025-02-11 11:49 | XMS_ITS | Clinical Summary ---
Author Organization [facility] Address [address] [place] [id number] Care Team Providers Care Group Work Program Director Name Role Phone Mirna Mac MD Primary Care Provider [phone] Simba Laird MD Unavailable [phone] Skyler Leos MD Unavailable [phone] Ish Zambrano MD Unavailable [phone] Randell Phillips MD Unavailable [phone] Luz Murry MD Unavailable Alex Figueroa MD Unavailable [phone] Cristino Wiley MD Unavailable David Cortes DC Unavailable [phone] Allergies Active Allergy Reactions Criticality Noted Date [...] future if it was not this medicine Epinephrine Palpitations Low 11/28/2024 Famotidine Itching Low 05/17/2021 Fluoxetine Other (See comments) Low 02/17/2019 High blood pressure Hydrochlorothiazide Rash Medium Iodinated Contrast Media Hives,Rash Medium 10/27/2011 Severe hives Severe hives, Severe hives Esomeprazole Itching Low 10/28/2016 Nifedipine Swelling Medium 11/28/2024 Swollen feet and legs Nitrofurantoin Fever Medium Oxycodone Other (See comments) 01/09/2025 No urine production Pantoprazole Itching Low 11/10/2022 Felodipine Rash Medium 04/19/2023 Itching and rash developed after taking this medicine Semaglutide Other (See comments) Low 11/30/2023 Acid reflux on a low dose of 3 mg burning in his throat acid brash Shellfish Containing Products Hives Medium Shellfish Derived Hives Medium 11/28/2024 Sulfa (Sulfonamide Antibiotics) Rash Medium 10/27/2011 Sulfanilamide Rash Medium 11/28/2024 Tramadol Other (See comments) 01/09/2025 No urine production Medications acetaminophen (TYLENOL) 500 mg tabletIndications :Arthritis of knee Take 1 tablet (500 mg total) by mouth 2 (two) times a day Tylenol immediate release 500 mg plus Tylenol ER 650 mg 12/21/19 24 Active aspirin 81 mg chewable tabletIndications :Temporary cerebral vascular dysfunction CHEW AND SWALLOW 1 TABLET BY MOUTH EVERY DAY 90 tablet 2 11/05/19 25 Active labetaloL (NORMODYNE,TRANDA TE) 100 mg tabletIndications :Hypertension complicating diabetes (HCC) Take 0.5-1 tablets (50-100 mg total) by mouth 2 (two) times a day 180 tablet 3 01/10/20 25 Active losartan (COZAAR) 50 mg tabletIndications :Hypertension complicating diabetes (HCC) Take 1 tablet (50 mg total) by mouth daily 90 tablet 3 01/10/20 25 Active metFORMIN XR (GLUCOPHAGE XR) 500 mg 24 hr tabletIndications :Type 2 diabetes mellitus with other circulatory complications Take 1 tablet (500 mg total) by mouth daily with dinner 90 tablet 3 01/10/20 25 Active rosuvastatin (CRESTOR) 20 mg tabletIndications :Type 2 diabetes mellitus with other circulatory complications,Mul tiple-type hyperlipidemia Take 1 tablet (20 mg total) by mouth daily 90 tablet 3 01/10/20 25 Active spironolactone (ALDACTONE) 25 mg tabletIndications :Hypertension complicating diabetes (HCC) Take 0.5-1 tablets (12.5-25 mg total) by mouth 3 (three) times a week Adjust no more than once weekly to keep blood pressure 100-140/60-8 0 range 36 tablet 3 01/11/20 25 Active vitamin B complex capsule Take 1 capsule by mouth daily Active cholecalciferol (VITAMIN D-3) 2000 unit tablet Act shital blood glucose diagnostic (OneTouch Verio test strips) stripIndications: Type 2 diabetes mellitus without complication, without long-term current use of insulin ([facility]) TEST BLOOD SUGAR EVERY DAY 100 strip 3 01/15/20 25 Active mirabegron ER (MYRBETRIQ) 25 mg tablet extended release 24 hr Take 1 tablet (25 mg total) by mouth every morning 30 tablet 1 01/16/20 25 Active senna 8.6 mg tabletIndications :Chronic constipation TAKE 1-2 TABLET BY MOUTH NIGHTLY 100 tablet 3 02/07/20 25 Active clopidogreL (PLAVIX) 75 mg tabletIndications :Temporary cerebral vascular dysfunction Take 1 tablet (75 mg total) by mouth daily 30 tablet 02/07/20 25 Active traZODone (DESYREL) 50 mg tabletIndications :Persistent insomnia Take 1 tablet (50 mg total) by mouth nightly as needed for sleep 60 tablet 6 02/10/20 21 2024 Discontinued senna (SENOKOT) 8.6 mg tabletIndications :Chronic constipation Take 1-2 tablets by mouth nightly 100 tablet 11 11/02/19 24 2024 Discontinued blood glucose diagnostic (OneTouch Verio test strips) stripIndications: Type 2 diabetes mellitus without complication, without long-term current use of insulin ([facility]) USE TO CHECK BLOOD SUGAR DAILY E11.9 non insulin 100 strip 3 12/21/19 24 2024 Discontinued clopidogreL (PLAVIX) 75 mg tabletIndications :Temporary cerebral vascular dysfunction Take 1 tablet (75 mg total) by mouth daily 90 tablet 08/28/19 25 2024 Discontinued(R eohelenaer) Active Problems Problem Noted Date Diagnosed Date [...] or continued 6.Avoid alcohol sedatives and other DISPATCHER MOTOR VEHICLE depression that may worsen sleep apnea and [...] with Dr. 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 Interpreting Physician: BO FRY M.D. Read on: Oct 21 2013 1:52P Transcribed by: HAYDEN On: Oct 21 2013 3:32P Approved Electronically by: BO FRY M.D. 21 day CardioNet monitor 2013 [...] at that time including transesophageal echocardiogram at [facility] was negative. She had some recurrence symptoms [...] diet. Assessment & Plan (05/26/2023 11:07 AM TRACK GREASER): BP stable in office today on current [...] 06/04/2024 Assessment & Plan (05/26/2023 11:07 AM TRACK GREASER): Intermittent stabbing/sticking pain between breast since yesterday, [...] Started 3 days ago after bending to diamond picker something off the floor. Assessment as noted above. Likely muscle strain. Continue Tylenol and heat/ice. Offered tizanidine and PT consult, pt refused at this time. Keep follow in 2 weeks as scheduled. Gastroesophageal reflux dise ase without esophagitis 06/07/2022 09/15/2022 Assessment & Plan (06/07/2022 1:31 PM TRACK GREASER): Chronic problem, recently exacerbated resulting in ER [...] 11/08/2021 Assessment & Plan (05/20/2024 9:45 PM TRACK GREASER): Likely related to chronic constipation, see plan [...] 09/15/2022 Assessment & Plan (05/28/2021 10:11 AM TRACK GREASER): Patient reports since her last visit she [...] 09/15/2022 Assessment & Plan (2021 11:05 AM TRACK GREASER): Patient has acute pain of the rt [...] nights in a row last mon and . She then called Dr. Osei on Monday [...] out in office today and faxed to [facility]. Assessment & Plan (06/22/2020 11:37 AM TRACK GREASER): Pt to have left cataract surgery by [...] 06/22/2020 Assessment & Plan (06/22/2020 11:39 AM TRACK GREASER): PT reports increased pain in the right knee within the past few weeks. We will get an x-ray today. She has seen Dr. Phillips in the past, so if needed to be referred, she would prefer to go back and see him. I advised that she take tylenol for the pain. Acid indigestion 04/20/2020 08/04/2020 Assessment & Plan (05/22/2020 9:17 AM TRACK GREASER): Pt is taking famotidine 40mg daily and she has done well with this--stating that she has not had any reflux symptoms. She is following the strict diet guidelines as well. She will continue on this medication. She will f/u for this with Dr. HAN at her next appt on 08/04/20. Assessment & Plan (04/20/2020 10:30 AM TRACK GREASER): Pt went to ED on 04/13 for [...] 08/04/2020 Assessment & Plan (04/15/2020 10:37 AM TRACK GREASER): Dr. HAN did come into the room [...] scheduled. Assessment & Plan (03/30/2020 10:33 AM TRACK GREASER): Pt reports swelling in lower legs now [...] done. Assessment & Plan (03/30/2020 8:22 AM TRACK GREASER): Pt reports about 1 week of lower [...] 03/30/202007/17 Assessment & Plan (03/30/2020 11:47 AM TRACK GREASER): Pt reports that her left knee has [...] the knee pain to go away. ETD (Aramchian tube dysfunction), left 04/29/2019 08/04/2020 Assessment & Plan (04/30/2019 9:00 AM TRACK GREASER): Nasal saline spray (Simply saline, Little Remedies, Cavalier, [place]) 2 second sprays or 2 squeezes into [...] helping. Assessment & Plan (04/30/2019 9:00 AM TRACK GREASER): Nasal saline spray (Simply saline, Little Remedies, Cavalier, [place]) 2 second sprays or 2 squeezes into each nostril while looking down over the sink, do not need to sniff in 2-3 times daily If pain returns try Cetirizine if Mucinex not improving symptoms Other option would be warm compresses to left neck pulling forward for 15 minutes at a time Continue Humidifier Assessment & Plan (05/06/2019 8:55 AM TRACK GREASER): She was in the office few days [...] re-evaluation. Assessment & Plan (05/04/2019 10:22 AM TRACK GREASER): The patient presents for evaluation of intermittent [...] 08/04/2020 Assessment & Plan (03/07/2019 9:44 AM TRACK GREASER): Left proximal upper arm Diagnosis discussed. No further treatment required at this time. She knows that she should follow up if this area develops any further symptoms. Assessment & Plan (02/22/2019 1:59 PM TRACK GREASER): Left proximal upper arm Biopsy/ies done per procedure note by Dr. Palmer. Basal cell carcinoma (BCC) of left upper arm 9 08/04/2020 Assessment & Plan (03/07/2019 9:45 AM TRACK GREASER): Left distal upper arm One week status post excision Healing well, no evidence of complication or infection reported or noted on exam. Pathology results discussed, no further treatment required. Follow-up at the 6 week postoperative mabel for final evaluation or sooner if issues arise. Assessment & Plan (02/22/2019 1:58 PM TRACK GREASER): Left distal upper arm, biopsy proven Dr. Palmer excised this lesion today in clinic. Please see his separate note. Nipple lesion 02/22/2018 12/28/2018 Chronic rhinitis 11/14/2017 06/04/2024 Overview (11/14/2017): Olopatadine nasal spray too expensive, trial Astelin November 14, 2017 Chronic constipation 11/08/2017 025 Assessment & Plan (05/20/2024 9:45 PM TRACK GREASER): Chronic, uncontrolled despite MiraLax twice daily and [...] appendectomy February 1989. TAHBSO February 2004 at [facility] for grade 1A endometrial cancer, incisional hernia with mesh repair February 2006. Pursuing evaluation for possible biliary stricture as for T-spine pain behaves like gallbladder issue September 2017 HIDA scan ordered Assessment & Plan (06/01/2021 9:24 AM TRACK GREASER): Patient has history of chronic rt sided [...] knees Sleep disorder 12/16/2016 09/15/2022 Overview (09/26/2017): [place] Sleep Scale positive at 13, complaints of [...] patient's profound weight loss. Clinical correlation recommended. [place] A: Hypersomnia, G47.10 [place] B: Polysomnography, 41625 Electronically Authenticated and Edited by: Cristino Wiley MD On 01/23/2017 Other fatigue 12/16/2016 08/04/2020 Overview (12/16/2016): Lab evaluation negative December 2016, sleep study ordered. Assessment & Plan (05/22/2020 9:19 AM TRACK GREASER): Pt is currently wearing the 30 day cardiac event monitor and will see Dr. Trevino on 05/04/20 for the episodes of SOB with weakness as outlined below at our last visit on 05/04/20. Assessment & Plan (05/04/2020 12:08 PM TRACK GREASER): Pt has had an initial cardiac workup [...] [facility] and were negative. Nuclear stress [...] Encounters Date Type Department Care Team Description 02/07/2025 Orders Only [facility] [address] [place] [address] Mirna Mac MD 02/06/2025 Telephone [facility] [address] [place] [address] Mirna Mac MD 01/24/2025 Orders Only [facility] [address] [place] [address] Scanning, Provider 01/23/2025 9:00 AM CDT Office Visit [facility] [address] [place] [address] [address] [place] [address] Cristino Wiley MD ALEM (obstructive sleep apnea) (Primary Dx); Hypersomnia with sleep apnea; Circadian rhythm sleep disorder, advanced sleep phase type; Transient ischemic attack (TIA); Obesity (BMI 30.0-34.9) 01/22/2025 1:15 PM CDT Office Visit [place] [facility] at [address] [place] [phone] Mary Fontana NP History of recurrent TIAs (Primary Dx); PVC (premature ventricular contraction) 01/20/[address] [facility] [address] [place] [address] [address] [place] [phone] Mimi Ramsey MA 01/20/2025 Orders Only [facility] at [address] [place] [address] Mary Fontana NP Palpitations (Primary Dx) 01/20/2025 Telephone [facility] [address] [place] [address] Mirna Mac MD 01/20/2025 Telephone [place] [facility] at [address] [place] [address] Mary Fontana NP 01/14/2025 11:30 AM CDT Lab [facility] [address] [facility] [address] [place] [address] Increased urinary frequency; Urinary retention with incomplete bladder emptying 01/14/2025 11:00 AM CDT Ancillary Procedure [facility] [address] [facility] [address] [place] [address] Increased urinary frequency; Urinary retention with incomplete bladder emptying 01/14/2025 Results [facility] [address] [facility] [address] [place] [address] Mirna Mac MD Urinalysis reflex to microscopic, US Bladder Post Void 01/13/2025 3:45 PM CDT Office Visit [facility] at [address] [place] [phone] Gypsy Prado NP Left ear pain (Primary Dx) 01/13/2025 8:30 AM CDT Office Visit [place] [facility] at [address] [place] [address] Mary Fontana NP Hypertension complicating diabetes (HCC) (Primary Dx); Multiple-type hyperlipidemia 01/13/2025 Telephone [facility] [address] [facility] [address] [place] [address] Mirna Mac MD 01/10/2025 Telephone [facility] [address] [facility] [address] [place] [address] Mirna Mac MD CPAP Setting 01/09/2025 3:00 PM CDT [facility] [address] [place] [address] Mirna Mac MD Type 2 diabetes mellitus with other circulatory complications (Primary Dx); Hypertension complicating diabetes (HCC); Multiple-type hyperlipidemia; Arthritis of knee; Increased urinary frequency; Urinary retention with incomplete bladder emptying; Multinodular thyroid; Postoperative pain of left knee; ALEM (obstructive sleep apnea); Immunization counseling; Lymphedema 01/05/2025 Results Follow-Up [facility] [address] [place] [address] Mirna Mac MD T4, free, TSH, Hepatitis B Surface Antigen Blood, Additional followed-up results: 2 01/02/2025 7:40 AM CDT Lab [facility] [address] [facility] [address] [place] [address] Hypertension complicating diabetes (HCC); Need for hepatitis B screening test 12/20/2024 Orders Only [facility] [address] [place] [address] Scanning, Provider 12/09/2024 10:30 AM CDT Office Visit [facility] [address] [facility] [address] [place] [address] Monica Steen NP Viral URI with cough (Primary Dx) 12/09/2024 Telephone [facility] [address] [place] [address] Mirna Mac MD 12/08/[address] [facility] [address] [place] [address] Scanning, Provider 12/06/2024 3:45 PM CDT Office Visit [facility] at [address] [place] [phone] Echo Lopes NP Acute cough (Primary Dx); Acute nasopharyngitis 12/06/2024 Telephone [facility] [address] [place] [address] Mirna Mac MD URI 12/03/2024 9:38 AM CDT - 12/03/2024 11:59 PM CDT Hospital Encounter [facility] [address] [place] [address] Pain in left leg Discharge Disposition: Discharge to home or self care from Last 3 Months Immunizations Immunization Administration Dates Next Due COVID-19 mRNA (IBeiFeng) 0.3 m L (30 mcg) vaccine (12 [...] nt, Subunit, Adjuvanted, PF, IM (Arexvy) 03/17/2023 Sars-cov-2 Covid-19 Mrna, Bi valent, Original/omicron Ba.1 01/31/2022 Tdap 09/22/2020,02/12/2010 ZOSTER LIVE 01/08/2014 ZOSTER Recombinant [...] Back pain Stroke (HCC) Acid reflux Diabetes Amaurosis Colon polyp Type 2 diabetes mellitus [...] on file Legal Sex Female 7:45 PM TRACK GREASER Gender Identity Not on file Sexual Orientation [...] Sign Reading Time Taken Comments Blood Pressure 116/75 01/23/2025 8:48 AM CDT Pulse 76 01/23/2025 8:48 AM CDT Temperature 37 C (98.6 F) 01/13/2025 3:32 PM CDT Respiratory Rate 20 01/13/2025 3:32 PM CDT Oxygen Saturation 97% 01/23/2025 8:48 AM CDT Inhaled Oxygen Concentration - - Weight 92.6 kg (204 lb 3.2 oz) 01/23/2025 8:48 A M CDT Height 175.3 cm (5' 9) 01/23/2025 8:48 AM CDT Body Mass Index 30.16 01/23/2025 8:48 AM CDT Plan of Treatment Health Maintenance Due Date Last Done Comments Dilated Eye Exam 10/29/2024 10/30/2023 Hemoglobin A1C 11/18/2024 05/21/2024, 11/16, 10/18/2023, Additional history exists Foot Exam 11/29/2024 11/30/2023 Covid-19 Vaccine ( season) 2024 02/05/2024, 02/09/2023, 02/01/2022, Additional history exists Influenza Vaccine (#1) 2024 , 01/29/2023, 01/24/2022, Additional history exists Albumin Creatinine Ratio, Urine 05/21/2025 05/21/2024, 12/14/2023, 04/12/2023, Additional history exists Lipid Panel 05/21/2025 05/21/2024, 03/17, 02/17/2022, Additional history exists eGFR 05/21/2025 05/21/2024, 11/16, 10/18/2023, Additional history exists Fall Risk Assessment 06/04/2025 06/04/2024, 05/20/2024, 04/11/2023, Additional history exists Well Visit 65+ 06/04/2025 06/04/2024, 03/18, 09/15/2022, Additional history exists Depression Screening 12/09/2025 12/09/2024, 07/29/2024, 06/04/2024, Additional history exists Osteoporosis Screening-Bone Density Scan [...] Completed 024, 2017, 06/16/2014, Additional history exists Zoster Vaccine Completed 04/02/2024, 12/16, 01/08/2014 Breast Cancer Screening-Mammogram Discontinued 10/11/2024, 10/11/2023, 10/08/2022, Additional history exists Hepatitis B Screening Completed 01/02/2025 Medical Devices Implanted Type Area Service Team Leader Device Identifier Shelf Expiration Date Model / Serial / Lot [employer] Angio-Seal Vip 6fr Closere Device [id number] - [id number] Implanted:Qty: 1 on 11/10/2022 by Juan F Weldon MD at [facility] [employer] 05/17/2023 [id number] / / [id number] Procedures Procedure Name Priority Date/Time Associated Diagnosis Comments SCAN - RADIOLOGY/IMAGING 01/24/2025 ECG 12-LEAD Routine 01/22/2025 1:25 PM CDT History of recurrent TIAs US BLADDER POST VOID Schedule Routine, Read Routine (OP Routine) 01/14/2025 11:34 AM CDT Increased urinary frequency Urinary retention with incomplete bladder emptying URINALYSIS AND REFLEX TO MICROSCOPIC Routine 01/14/2025 11:02 AM CDT Increased urinary frequency Urinary retention with incomplete bladder emptying TSH Routine 01/02/2025 7:44 AM CDT Hypertension complicating diabetes (HCC) T4, FREE Routine 01/02/2025 7:44 AM CDT Hypertension complicating diabetes (HCC) HEPATITIS B CORE ANTIBODY, TOTAL Routine 01/02/2025 7:44 AM CDT Need for hepatitis B screening test HEPATITIS B SURFACE ANTIBODY (IMMUNE STATUS) Routine 01/02/2025 7:44 AM CDT Need for hepatitis B screening test HEPATITIS B SURFACE ANTIGEN Routine 01/02/2025 7:44 AM CDT Need for hepatitis B screening test SCAN - RADIOLOGY/IMAGING 12/20/2024 SCAN - RADIOLOGY/IMAGING 12/08/2024 POC INFLUENZA A/B, COVID-19 ANTIGEN Routine 12/06/2024 4:26 PM CDT Acute cough POCT RAPID STREP Routine 12/06/2024 4:20 PM CDT Acute cough US VEIN DUPLEX LOWER EXTREMITY LEFT LIMITED Schedule Routine, Read Routine (OP Routine) 12/03/2024 10:09 AM CDT Pain in left leg SCREENING MAMMOGRAM BILATERAL W ISIDRO Schedule Routine, Read Routine (OP Routine) 10/11/2024 8:00 AM CDT Encounter for screening mammogram for breast cancer EGFR Routine 05/21/2024 7:40 AM TRACK GREASER Type 2 diabetes mellitus without complication, without long-term current use of insulin (HCC) HEMOGLOBIN A1C Routine 05/21/2024 7:40 AM TRACK GREASER Type 2 diabetes mellitus without complication, without long-term current use of insulin (HCC) LIPID PANEL Routine 05/21/2024 7:40 AM TRACK GREASER Multiple-type hyperlipidemia ALBUMIN CREATININE RATIO, URINE Routine 05/21/2024 7:40 AM TRACK GREASER Type 2 diabetes mellitus without complication, without long-term current use of insulin (HCC) DEXA AXIAL SKELETON BONE DENSITY 1 OR MORE SITES Schedule Routine, Read Routine (OP Routine) 01/10/2024 2:00 PM CDT Menopause COLONOSCOPY 02/14/2022 8:29 AM CDT HEPATITIS C ANTIBODY Routine 11/30/2012 12:12 PM CDT from Last 3 Months or Most Recently Relevant to Health Maintenance Results * SCAN - RADIOLOGY/IMAGING (01/24/2025) Anatomical Region Laterality Modality Other us Provider Scanning Final Result * ECG 12 lead (01/22/2025 1:25 PM CDT) Mary Fontana TITLE I INSTRUCTIONAL ASSISTANT ECG ORDERABLES Final R esult * US Bladder Post Void (01/14/2025 11:34 AM CDT) Anatomical Region Laterality Modality Bladder N/A Ultrasound 01/14/2025 2:25 PM CDT Narrative 01/14/2025 2:26 PM CDT EXAM DESCRIPTION: US BLADDER POST VOID REASON FOR STUDY: urniary retation Increased urinary frequency and urinary retention TECHNIQUE: Grayscale images of the bladder pre-void and post-void. COMPARISON: 04/12/2023 FINDINGS: PREVOID BLADDER VOLUME: 107 ml. POST VOID BLADDER VOLUME: 0.7 ml. OTHER: Both ureteral jets are demonstrated. Mild wall thickening of the bladder diffusely which could be due to incomplete distension. IMPRESSION: Bladder volumes as above. No significant postvoid residual. Mild bladder wall thickening may be due to incomplete distension. THIS IS AN ELECTRONICALLY VERIFIED FINAL REPORT 01/14/2025 2:26 PM - Electronically signed by Shanita Castro M.D. TW: LUIS Report ID: [id number] Reading Location: [id number] Procedure Note Shanita Castro MD - 01/14/2025 EXAM DESCRIPTION: US BLADDER POST VOID REASON FOR STUDY: urniary retation Increased urinary frequency and urinary retention TECHNIQUE: Grayscale images of the bladder pre-void and post-void. COMPARISON: 04/12/2023 FINDINGS: PREVOID BLADDER VOLUME: 107 ml. POST VOID BLADDER VOLUME: 0.7 ml. OTHER: Both ureteral jets are demonstrated. Mild wall thickening of the bladder diffusely which could be due to incomplete distension. IMPRESSION: Bladder volumes as above. No significant postvoid residual. Mildbladder wall thickening may be due to incomplete distension. THIS IS AN ELECTRONICALLY VERIFIED FINAL REPORT 01/14/2025 2:26 PM - Electronically signed by Shanita Castro M.D. TW: TW Report ID: [id number] Reading Location: [place] [address] us Mirna Mac MD IMG US PROCEDURES Final Re sult * Urinalysis reflex to microscopic (01/14/2025 11:02 AM CDT) Color, ur Yellow Yellow Comment:Testing performed by : [address] [address] Clarity, ur Clear Clear CERNER CH Comment:Testing performed by : [address], [address] Specific gravity, ur 1.005 1.003 - 1.030 CERNER CH Comment:Testing performed by : [address], [address] pH, urine 6.0 CERNER CH Comment: Interpretive Data U rine pH is affected by diet, medications, systemic acid-base disturbances, and renal tubular function. pH may affect urinary stone formation. For example, urine pH below 6.0 may help reduce the tendency for calcium phosphate stones and pH greater than 6.0 may reduce the tendency for uric acid stone formation. Source: [facility] Current Interpretive Data was last revised on 2017 Testing performed by: [address] [address] Protein, ur ql Negative Negative CERNER CH Comment:Testing performed by : [address] [address] Glucose, ur ql Negative Negative CERNER CH Comment:Testing performed by : [address], [address] Ketones, ur Negative Negative CERNER CH Comment:Testing performed by : [address], [address] Bilirubin, ur Negative Negative CERNER CH Comment:Testing performed by : [facility] [address] [place] [address]., [address] Blood, ur Negative Negative CERCORNEL Comment:Testing performed by : [facility], [address] [place] [address]., [address] Urobilinogen, ur <2.0 <2.0 mg/dL CERCONREL CH Comment:Testing performed by : [facility], [address] [place] [address]., [address] Nitrite, ur Negative Negative CERCORNEL CH Comment:Testing performed by : [facility], [address] [place] [address]., [address] Leukocyte esterase, ur Negative Negative CERCORNEL CH Comment:Testing performed by : [facility], [address] [place] [address]., [address] UA reflex comment Reflex conditions for microscopic UA not met. MELODIE Comment:Testing performed by : [facility], [address] [place] [address]., [address] Urine 01/14/2025 11:0 2 AM CDT 01/14/2025 4:06 PM CDT Mirna Mac MD LAB URINE ORDERABLES Final Result MELODIE COBB [address] Department [place] [address] * Hepatitis B core antibody, total Blood (01/02/2025 7:44 AM CDT) Hep B core IgG/IgM Nonreactive Nonreactive Comment:Testing performed by : [facility], [address] [place]., [address] Blood 01/02/2025 7:44 AM CDT 01/03/2025 6:13 AM CDT Mirna Mac MD LAB MICROBIOLOGY - GENERAL ORDERABLES Final Result MELODIE COBB [address] [address] Department of [employer] [address] * Hepatitis B surface antibody (immune status) Blood (01/02/2025 7:44 AM CDT) HBsAb (immune status) Nonreactive Comment: Interpretive Data Nonreactive: This result is consistent with a lack of immunity to Hepatitis B Virus when used in the setting of routine screening. Equivocal: The immune status of the individual should be further assessed, if appropriate, after consideration of clinical status, risk factors, and additional diagnostic information. Reactive: This result is consistent with immunity to Hepatitis B Virus when used in the setting of routine screening. Current interpretive data was last revised on 19. Testing performed by: [address] [address] Blood 01/02/2025 7:44 AM CDT 01/02/2025 2:30 PM CDT us Mirna Mac MD LAB MICROBIOLOGY - GENERAL ORDERABLES Final Result Performing Organization Address [facility] Co de Phone Number [place] [phone] [facility] [place] [address] * Hepatitis B Surface Antigen Blood (01/02/2025 7:44 AM CDT) HepBsAg Nonreactive Nonreactive Comment:Testing performed by : [address] [address] Blood 01/02/2025 7:44 AM CDT 01/02/2025 2:30 PM CDT us Mirna Mac MD LAB MICROBIOLOGY - GENERAL ORDERABLES Final Result Performing Organization Address City/[facility] Co de Phone Number [facility] [address] [facility] Department [place] [address] * TSH (01/02/2025 7:44 AM CDT) Thyroid Stimulating Hormone 2.60 0.30 - 4.20 mcIUnit/mL Comment:Testing performed by : [address] [address] Blood 01/02/2025 7:44 AM CDT 01/02/2025 2:30 PM CDT Mirna Mac MD LAB BLOOD ORDERABLES Final Result Performing Organization Address City/[facility]/ZIP Co de Phone Number MELODIE COBB [address] [facility] [place] [address] * T4, free (01/02/2025 7:44 AM CDT) Free T4 1.44 0.90 - 1.70 ng/dL Comment:Testing performed by : [facility], [address] [place] [address]., [address] Blood 01/02/2025 7:44 AM CDT 01/02/2025 2:30 PM CDT Mirna Mac MD LAB BLOOD ORDERABLES Final Result Performing Organization Address [facility] Co de Phone Number MELODIE Casiano[address] [place] [address] * SCAN - RADIOLOGY/IMAGING (12/20/2024) Anatomical Region Laterality Modality Other Provider Scanning Final Result * SCAN - RADIOLOGY/IMAGING (12/08/2024) Anatomical Region Laterality Modality Other Provider Scanning Final Result * POC Influenza A/B, COVID-19 antigen (12/06/2024 4:26 PM CDT) [facility] Influenza A Ag, POC Negative Negative [facility] Influenza B Ag, POC Negative Negative [facility] COVID-19 Ag POC Presumptive Negative Presumptive Negative, Invalid [facility] Nasal 12/06/2024 4:26 PM CDT Echo Lopes TITLE I INSTRUCTIONAL ASSISTANT POINT OF CARE TEST ORDERAB LES Final Result Performing Organization Address City/[facility]/ZIP Co de Phone Number [facility] [address] [phone] * POCT rapid strep A (12/06/2024 4:20 PM CDT) Rapid Strep A, POC Negative Negative Swab 12/06/2024 4:20 PM CDT Echo Lopes NP POINT OF CARE TEST ORDERAB LES Final Result * US VEIN DUPLEX LOWER EXTREMITY LEFT LIMITED, UNILATERAL (12/03/2024 10:09 AM CDT) Anatomical Region Laterality Modality Vascular Left Ultrasound 12/04/2024 1:41 AM CDT Narrative 12/04/2024 1:42 AM CDT EXAM DESCRIPTION: US VEIN DUPLEX LOWER EXTREMITY LEFT LIMITED, UNILATERAL REASON FOR STUDY: Left leg swelling postop today. Concern for deep vein thrombosis. TECHNIQUE: Duplex scan using the B-mode, spectral Doppler, and color-flow Doppler of the deep venous system of the left lower extremity was performed. Images stored on PACS. COMPARISON: 04/13/2020 FINDINGS: The common femoral, common femoral-saphenous vein confluence, visualized profunda femoral, superficial femoral, and popliteal veins are readily compressible with no intraluminal thrombus on hutchins scale images. There is normal color and spectral Doppler signal, including augmentation. Greater saphenous vein appears patent. Visualized calf veins are patent. Subcutaneous edema left lower extremity. IMPRESSION: No left lower extremity deep venous thrombosis. THIS IS AN ELECTRONICALLY VERIFIED FINAL REPORT 12/04/2024 1:42 AM - Electronically signed by Bo Cortes M.D. KT: JUAN Report ID: [id number] Reading Location: [id number] Procedure Note Bo Cortes MD - 12/04/2024 EXAM DESCRIPTION: US VEIN DUPLEX LOWER EXTREMITY LEFT LIMITED,UNILATERAL REASON FOR STUDY: Left leg swelling postop today. Concern for deep vein thrombosis. TECHNIQUE: Duplex scan using the B-mode, spectral Doppler, and color-flow Doppler of the deep venous system of the left lower extremity wasperformed. Images stored on PACS. COMPARISON: 04/13/2020 FINDINGS: The common femoral, common femoral-saphenous vein confluence, visualized profunda femoral, superficial femoral, and popliteal veins are readily compressible with no intraluminal thrombus on hutchins scale images. There is normal color and spectral Doppler signal, including augmentation. Greater saphenous vein appears patent. Visualized calf veins are patent.Subcutaneous edema left lower extremity. IMPRESSION: No left lower extremity deep venous thrombosis. THIS IS AN ELECTRONICALLY VERIFIED FINAL REPORT 12/04/2024 1:42 AM - Electronically signed by Bo Cortes M.D. KT: JUAN Report ID: [id number] Reading Location: [id number] Randell Phillips MD IMG US PROCEDURES Final Re sult * Screening Mammogram Bilateral W Isidro (10/11/2024 [...] MD IMG MAMMO PROCEDURES Final Result * eGFR (05/21/2024 7:40 AM TRACK GREASER) eGFR 87 >=60 mL/min/1. 73 m2 Comment: [...] was last reviewed 2021. Testing performed by: [address] [address] Blood 05/21/2024 7:40 AM TRACK GREASER 05/21/2024 12:22 PM TRACK GREASER Mirna Mac MD LAB BLOOD ORDERABLES Final Result [address] Department of Laboratories [place], [place] [id number] * Albumin Creatinine Ratio, Urine (05/21/2024 7:40 AM TRACK GREASER) Albumin Ur <12.0 mg/L Comment: Interpretive Data No reference range established. Current interpretive data was last revised 2018. Testing performed by: [address] [address] Creatinine Ur 79.9 mg/dL MELODIE Comment: Interpretive Data No reference range established. Current interpretive data was last revised 2018. Testing performed by: [address] [address] Albumin Creatinine Ratio, Ur <15 1 - 29 mg/g MELODIE Comment:Testing performed by : [address] [address] Urine 05/21/2024 7:40 AM TRACK GREASER 05/21/2024 12:16 PM TRACK GREASER us Mirna Mac MD LAB URINE ORDERABLES Final Result Performing Organization Address [facility] Co de Phone Number MELODIE [phone] [place] [address] Department [place] [address] * (ABNORMAL) Hemoglobin A1c (05/21/2024 7:40 AM TRACK GREASER) Hgb A1C 6.2(H) 4.0 - 5.6 % Comment:Testing performed by : [address] [address] Estimated Average Glucose 131 mg/dL [facility] Comment: The ADA recommends reporting an estimated Average Glucose (eAG) with all Hemoglobin A1c results using the equation derived from a study of 507 normal and diabetic adults. Minority populations were underrepresented and children were not included. (Diabetes Care 31:8560-1357, 2008). The eAG is not equivalent to a fasting glucose. Testing performed by: [address] [address] Blood 05/21/2024 7:40 AM TRACK GREASER 05/21/2024 12:16 PM TRACK GREASER us Mirna Mac MD LAB BLOOD ORDERABLES Final Result Performing Organization Address [facility] Co de Phone Number EMLODIE [address] Department [place] [address] * Lipid panel (05/21/2024 7:40 AM TRACK GREASER) Pathologist [facility] Cholesterol 113 30 - 199 mg/dL Comment: [...] last revised on 2017. Testing performed by: [facility], [address] [place] [address]., [address] Triglycerides 40 <=149 mg/dL MELODIE Comment: Interpretive [...] last revised on 2017. Testing performed by: [address] [address] HDL 66 >=40 mg/dL MELODIE Comment: Interpretive [...] last revised on 2017. Testing performed by: [facility], [address] [place] [address]., [address] LDL, calculated 36 <=129 mg/dL MELODIE Comment: [...] 3. Cantu M et al. DERRICK Cardiol. 2020 August 15;5(5):540-548. doi: 10.1001/jamacardio.2020.0013 Current Interpretive Data was last revised on 2023. Testing performed by: [address] [address] Non-HDL Cholesterol 47 mg/dL MELODIE Comment: Interpretive [...] last revised on 2017. Testing performed by: [facility], [address] [place] [address]., [address] Chol/HDL ratio 2 MELODIE Comment:Testing performed by : [address] [address] Blood 05/21/2024 7:40 AM TRACK GREASER 05/21/2024 12:16 PM TRACK GREASER Mirna Mac MD LAB BLOOD ORDERABLES Final Result Performing Organization Address City/State/[facility] Co de Phone Number MELODIE [address] Department [place] [address] * Dexa Axial Skeleton Bone Density 1 or 2 Site (01/10/2024 2:00 PM CDT) Anatomical Region Laterality Modality Body N/A Other 01/10/2024 7:13 PM CDT Narrative 01/10/2024 7:14 PM CDT EXAM DESCRIPTION: DEXA AXIAL SKELETON BONE DENSITY 1 OR MORE SITES REASON FOR STUDY: 78 y/o year old F with given history of: menopause Screening. 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 MF: VON Report ID: [id number] Reading Location: [id number] Procedure Note Anastacio Oliveira MD - 01/10/2024 EXAM DESCRIPTION: DEXA AXIAL SKELETON BONE DENSITY 1 OR MORE SITES REASON FOR STUDY: 78 y/o year old F with given history of: menopause Screening. Service Team Leader/Model: [employer] SL (S/N [id number]) CLINICAL INFORMATION: Current height: 70 inches Maximum [...] Anastacio Oliveira M.D. MF: VON Report ID: [id number] Reading Location: [id number] us Mirna Mac MD IMG DXA PROCEDURES Final R esult * COLONOSCOPY (02/14/2022 8:29 AM CDT) Anatomical Region Laterality Modality Other Narrative Procedure Note Spencer Delcid MD - 02/14/2022 8:29 AM CDT [facility] Patient Name: Jackelyn Blanchard Procedure Date: 02/14/2022 8:29 AM Date of : 1945 Admit Type: Outpatient Age: 76 Gender: Female Attending MD: Spencer Delcid M.D. Room: [facility] ENDOSCOPY ROOM 2 Note Status: Finalized Patient [...] scope was passed under direct vision. TheColonoscope [id number] was introduced through the anus and advanced [...] history of colonic polyps CPT copyright 2020 [employer]. All rights reserved. The codes documented in this report are preliminary and upon vacuum drier operator reviewmay be revised to meet current compliance requirements. Recognized by the [employer] for promoting quality in endoscopy Spencer Delcid MD ENDOSCOPY PROCEDURES Final Re sult * Hepatitis C antibody (11/30/2012 12:12 PM CDT) Hep C Ab NON-REACT SHITAL NON-REACT SHITAL [facility] RES[facility] SIGNAL TO CUT-OFF 0.02 <1.00 [facility] Comment: Test performed at [facility] [address] [place] [address] Director: ROXANNE ALFARO DO,MPH 11/30/2012 12:1 2 PM CDT us Mirna Mac MD LAB MICROBIOLOGY - GENERAL ORDERABLES Final Result [facility]ISTORICAL RESULTS from Last 3 Months or Most Recently Relevant to Health Maintenance Insurance MEDICARE [facility] MEDICARE SUPPLEMENT INSURANCE COMMERCIAL GENERIC MEDICARE [facility] MEDICARE SUPPLEMENT INSURANCE MEDICARE [facility] MEDICARE SUPPLEMENT Advance Directives For more information, please contact: [phone] Documents on File Type Date Recorded 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 [address] [address] Ophthalmology 12/16/16 Randell Phillips MD [address] [place] [address] [place] [address] Referring Physician Orthopedic Surgery 10/24/17 Luz Murry MD [address] [facility] [address] [place] [address] Consulting Physician General Surgery 07/10/18 Alex Figueroa MD [address] [place] [address] [place] [address] Sales Department Clerk Obstetrics and Gynecology 08/04/20 Cristino Wiley MD [address] [place] [address] [place] [address] Consulting Physician Sleep Medicine 03/02/21 David Cortes DC [address] [place] [address] [place] [address] Chiropractic Medicine 05/17/21
--- OUTSIDE RECORDS SUMMARY | 2025-02-11 11:49 | XMS_ITS | Encounter Summary ---
Author Organization [facility] Address 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
--- OUTSIDE RECORDS SUMMARY | 2025-02-11 11:49 | XMS_ITS | Encounter Summary ---
Author Organization [facility] Address 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
--- OUTSIDE RECORDS SUMMARY | 2025-02-11 11:49 | XMS_ITS | Encounter Summary ---
Author Organization [facility] Address 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
--- OUTSIDE RECORDS SUMMARY | 2025-02-11 11:49 | XMS_ITS | Clinical Summary ---
Author Organization [facility] Address [address] [place] [address] Phone Care Team Providers Care Stone Polisher Machine Name Role Phone Mirna Mac MD Primary Care Provider [phone] Medications No known medications Active Problems Problem [...] 1996 Zoster Immunization (1 of 2) 1996 Medicare Initial AWV [id number] 03/17/2012 Respiratory Syncytial Virus (RSV) Immunization (Adult) (1 - 1-dose 75+ series) 2021 Influenza Immunization (#1) 12/16/202401/15, 01/28/2020, 01/28/2019 SARS-COV-2 Immunization (2024- season) 2024 02/17/2021, 07/21/2020, 06/23/2020 DTaP/Tdap/Td Immunization Discontinued 2020, [...] Ready to change Department associated with goal: [facility] Steps to achieve goal: will identify at least two ways sleep hygiene could be negatively impacted will identify at least two ways to improve sleep hygiene will identify at least two ways/skills/habits of self-care believed to have a positive outcome on sleep Insurance MEDICARE [employer] MEDICARE SUP Care Teams Stone Polisher Machine Relationship Specialty Start Date End Date Mirna Mac MD [address] [place] [address] PCP - General Geriatric Medicine 12/30/20
--- OUTSIDE RECORDS SUMMARY | 2025-02-11 11:49 | XMS_ITS | Encounter Summary ---
Author Organization [facility] Address 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
== END 2025-02-11 10:18 | disposition home or self-care (01) ==
LOC: ANHSURGERY 10:22
PROVIDERS: Anesthesiology; PCP Internal Medicine Geriatric Medicine; Visit Provider Orthopaedic Surgery
DX: E11.9 Type 2 diabetes mellitus without complications (principal)
CPT/HCPCS: 36415; 80048

== ENCOUNTER 2025-02-17 02:01 | Day surgery (SDC) | payer MEDICARE, SELFPAY ==
--- NOTE | 2025-02-06 13:53 | PC.NURSE ---
[facility] has started construction of its new state of the art ER which will open Spring 2026. With this, we anticipate parking may be a challenge for some our surgical patients and families. Parking spaces are limited but are available for all Surgical, obstetrics, and ER patients sharing this lot. If you arrive and find you are having a hard time finding a parking space, please note that we understand the challenges, please drive around the hospital and park near Hospital Entrance 1. When you enter this entrance, you can ask a volunteer to direct or take you back to the surgical waiting area to check in. We appreciate everyone?s understanding of these expected challenges while we build for your future. Report to the Outpatient Waiting Room, entrance under the green pavilion located off [address], at time __1 PM on date _02/17/25 . Planned Procedure Time: __3 PM .? Time changes happen often and if your time is changed the preop area will call you the afternoon before. - You and your visitor will be asked to self-screen and do not enter if you have any COVID symptoms. Please call surgeon if you need to reschedule. - A mask is optional within the hospital at this time. Patients may have clear liquids (water, carbonated beverages, clear teas, apple juice) until 3 hours prior to surgery( 1200 NOON ) with a maximum of 20 ounces. - No food from midnight until time of surgery and no smoking, or chewing tobacco (or any form of nicotine). No chewing gum, candy or mints. Take only the following medications with a SIP of water on the morning of surgery: __LABETALOL, DO NOT STOP ANY OF YOUR OTHER PRESCRIPTION MEDICATIONS PRIOR TO SURGERY EXCEPT THE FOLLOWING Hold all vitamins and supplements for 3 days per anesthesiologist.LAST DOSE 02/13/25 Medications to discontinue per physician ASPIRIN AND PLAVIX 7 DAYS PRE OP PER DR ASHBY ( PT TO CALL TO VERIFY ) Date to take last dose__02/09/25 Please no make-up, nail kinyarwanda, hairspray, perfume, deodorant, or body powder the day of surgery.? No jewelry (including any body piercings) or valuables the day of surgery, leave them at home.? Please take a shower or bath the night before, or the morning of, surgery with an antibacterial soap.? Wear comfortable, loose fitting clothing.? Children are encouraged to wear pajamas. - Jewelry must be removed prior to entering the operating room.? Rings and piercings that are not removed may be cut off. - The hospital will not accept responsibility for valuables.? - Please leave all valuables, including medications, at home the day of surgery. If you are going home after surgery, a licensed mechanic driver must drive you home.? - NO public transportation without another adult if you receive anesthesia. - We recommend that an adult stay with you for 24 hours following discharge. - We also recommend that you do not drive, make important decision, drink alcoholic beverages, or take any drugs that were not prescribed by your health care provider for at least 24 hours after your discharge time. For Pediatric surgeries, we recommend two adults accompany the child home. Follow any additional instructions given to you from your surgeon. Telephone instructions given to ___PATIENT and asked if any additional questions and then verbalized understanding. Patient advised to call surgeon office or pre surgery nurse liaison [phone] if any additional questions.
[2025-02-06 14:05] VITALS: BMI 29.9
[2025-02-17] VITALS (8 sets, daily range): BP systolic 113–156; BP diastolic 53–83; PULSE 65–87; RESP 12–18; TEMP 36–36.4; O2SAT 94–100
--- OUTSIDE RECORDS SUMMARY | 2025-02-17 02:05 | XMS_ITS | Encounter Summary ---
Author Organization [facility] Address [address] [place] [address] Phone Care Team Providers Care Help Desk Associate Name Role Phone Mirna Mac MD Primary Care Provider Tirso Monique DO Unavailable Yu Barrera MD Unavailable Tena Lisa MD Unavailable [phone] [facility] MD Unavailable Skyler Leos MD Unavailable [phone] Ish Zambrano MD Unavailable [phone] Randell Phillips MD Unavailable [phone] Luz Murry MD Unavailable Carmela Varner MA Unavailable Alex Figueroa MD Unavailable [phone] Cristino Wiley MD Unavailable David Cortes DC Unavailable [phone] George Samano MD Unavailable Spencer Delcid MD Unavailable Maki Byrne MA Unavailable Unavailable Encounter Details Date Type Department Care Team (Late st Contact Info) Description 01/02/2017 Orders Only [facility] [address] [place] [address] Mirna Mac MD [address] [place] [address] Insomnia with sleep apnea, unspecified (Primary Dx) Social History Tobacco Use Types Packs/Day Years Used Date Smoking Tobacco: Former Cigarettes Smokeless Tobacco: Never Alcohol Use Standard Drinks/Week Comments No 0 (1 standard drink = 0.6 oz pur e alcohol) Comments No Sex and Gender Information Value Date Recorded Sex Assigned at Not on file Legal Sex Female 7:45 PM 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 07/05/2022 07/15/2022 10/03/2022 3:05 AM C DT COVID: Suspected 12/06/2024 12/06/2024 12/06/2024 4:28 PM CDT documented as of this encounter Care Teams Help Desk Associate Relationship Specialty Start Date End Date Mirna Mac MD PCP - General 07/15/16 Tirso Monique DO Otolaryngology 12/16/16 09/14/22 Yu Barrera MD Gynecologic Oncology 12/16/16 08/03/20 Tena Lisa MD Gastroenterology 12/16/16 09/14/22 Simba Laird MD Plastic Surgery 12/16/16 Skyler Leos MD [address] [facility] [address] [place] [address] Dermatology 12/16/16 Ish Zambrano MD [address] [place] [address] Ophthalmology 12/16/16 Randell Phillips MD [facility] [place] [address] Referring Physician Orthopedic Surgery 10/24/17 Luz Murry MD [address] [facility] [address] [place] [address] Consulting Physician General Surgery 07/10/18 Carmela Varner, ESTHER [address] [place] [address] [address] [place] [address] ACO Care Package Reinspector 09/24/18 09/24/18 Alex Figueroa MD [address] [place] [address] [address] [place] [address] Bottoming Machine Operator Obstetrics and Gynecology 08/04/20 Cristino Wiley MD [address] [facility] [address] [place] [address] Consulting Physician Sleep Medicine 03/02/21 David Cortes DC [address] [facility] [place] [address] Chiropractic Medicine 05/17/21 George Samano MD [address] [place] [address] Consulting Physician General Surgery 02/07/22 02/07/22 Spencer Delcid MD [address] [place] [address] [address] [place] [address] Consulting Physician Gastroenterology 09/15/22 10/10/23 Maki Byrne, ESTHER [address] [facility] [address] [place] [address] ACO Care Package Reinspector 10/20/23 10/23/23 documented as of this encounter
--- OUTSIDE RECORDS SUMMARY | 2025-02-17 02:05 | XMS_ITS | Encounter Summary ---
Author Organization [facility] Address [address] [place] [address] Phone Care Team Providers Care Frame Stripper And Crusher Name Role Phone Mirna Mac MD Primary Care Provider +[phone] Simba Laird MD Unavailable [phone] kSyler Leos MD Unavailable [phone] Ish Zambrano MD Unavailable [phone] Randell Phillips MD Unavailable [phone] Luz Murry MD Unavailable [phone] Alex Figueroa MD Unavailable [phone] Cristino Wiley MD Unavailable David Cortes DC Unavailable +[phone] Spencer Delcid MD Unavailable [phone] Maki Byrne MA Unavailable Unavailable Encounter Details Date Type Department Care Team (Late st Contact Info) Description 09/26/2022 Orders Only [facility] [address] [place] [address] Scanning, Provider Social History Tobacco [...] and Family Not on file 01/18/2019 Attends Buddhist Services Not on file 01/18 Active Member [...] on file Legal 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 Gender Identity Not on file Sexual [...] documented as of this encounter Care Teams Frame Stripper And Crusher Relationship Specialty Start Date End Date Mirna Mac MD PCP - General 07/15/16 Simba Laird MD Plastic Surgery 12/16/16 Skyler Leos MD [address] [place], [place] [address]AM [facility] [address] [place] [address] Dermatology 12/16/16 Ish Zambrano MD [address] [place] [address] [place] [address] Ophthalmology 12/16/16 Randell Phillips MD [address] [place] [address] [place] [address] Referring Physician Orthopedic Surgery 10/24/17 Luz Murry MD [address] [facility] [address] [place] [address] Consulting Physician General Surgery 07/10/18 Alex Figueroa MD [address] [place] [address] [address] [place] [address] Dance Teacher Obstetrics and Gynecology 08/04/20 Cristino Wiley MD [address] [place] [address] [address] [place] [address] Consulting Physician Sleep Medicine 03/02/21 David Cortes DC [address] [place] [address] [place] [address] Chiropractic Medicine 05/17/21 Spencer Delcid MD [address] [place] [address] [address] [place] [address] Consulting Physician Gastroenterology 09/15/22 10/10/23 Maki Byrne, ESTHER [address] [place] [address] [address] [place] [address] [employer] Sales Representative 10/20/23 10/23/23 documented as of this encounter
--- OUTSIDE RECORDS SUMMARY | 2025-02-17 02:05 | XMS_ITS ---
Author Organization [facility] Address [address] [place] [address] Care Team Providers Care Grief Counselor Name Role Phone Mirna Mac MD Primary Care Provider +[phone]- [phone] Simba Laird MD Unavailable [phone] Skyler Leos MD Unavailable [phone] Ish Zambrano MD Unavailable [phone] Randell Phillips MD Unavailable [phone] Luz Murry MD Unavailable [phone] Alex Figueroa MD Unavailable [phone] Cristino Wiley MD Unavailable David Cortes DC Unavailable +[phone] Active Problems Problem Noted Date Diagnosed Date [...] or continued 6.Avoid alcohol sedatives and other GROOVER OPERATOR depression that may worsen sleep apnea and [...] with Dr. David Cortes using the pro tappet adjuster Last C-spine CT scan March 2015 [...] at that time including transesophageal echocardiogram at [facility] was negative. She had some recurrence symptoms [...] diet. Assessment & Plan (05/26/2023 11:07 AM BIOLOGY RESEARCH ASSISTANT): BP stable in office today on current [...] 06/04/2024 Assessment & Plan (05/26/2023 11:07 AM BIOLOGY RESEARCH ASSISTANT): Intermittent stabbing/sticking pain between breast since yesterday, [...] Started 3 days ago after bending to brass pickler something off the floor. Assessment as noted above. Likely muscle strain. Continue Tylenol and heat/ice. Offered tizanidine and PT consult, pt refused at this time. Keep follow in 2 weeks as scheduled. Gastroesophageal reflux dise ase without esophagitis 06/07/2022 09/15/2022 Assessment & Plan (06/07/2022 1:31 PM BIOLOGY RESEARCH ASSISTANT): Chronic problem, recently exacerbated resulting in ER [...] 11/08/2021 Assessment & Plan (05/20/2024 9:45 PM BIOLOGY RESEARCH ASSISTANT): Likely related to chronic constipation, see plan [...] 09/15/2022 Assessment & Plan (05/28/2021 10:11 AM BIOLOGY RESEARCH ASSISTANT): Patient reports since her last visit she [...] 09/15/2022 Assessment & Plan (2021 11:05 AM BIOLOGY RESEARCH ASSISTANT): Patient has acute pain of the rt [...] out in office today and faxed to [facility] [place]. Assessment & Plan (06/22/2020 11:37 AM BIOLOGY RESEARCH ASSISTANT): Pt to have left cataract surgery by [...] 06/22/2020 Assessment & Plan (06/22/2020 11:39 AM BIOLOGY RESEARCH ASSISTANT): PT reports increased pain in the right knee within the past few weeks. We will get an x-ray today. She has seen Dr. Phillips in the past, so if needed to be referred, she would prefer to go back and see him. I advised that she take tylenol for the pain. Acid indigestion 04/20/2020 08/04/2020 Assessment & Plan (05/22/2020 9:17 AM BIOLOGY RESEARCH ASSISTANT): Pt is taking famotidine 40mg daily and she has done well with this--stating that she has not had any reflux symptoms. She is following the strict diet guidelines as well. She will continue on this medication. She will f/u for this with Dr. HAN at her next appt on 08/04/20. Assessment & Plan (04/20/2020 10:30 AM BIOLOGY RESEARCH ASSISTANT): Pt went to ED on 04/13 for [...] 08/04/2020 Assessment & Plan (04/15/2020 10:37 AM BIOLOGY RESEARCH ASSISTANT): Dr. HAN did come into the room [...] scheduled. Assessment & Plan (03/30/2020 10:33 AM BIOLOGY RESEARCH ASSISTANT): Pt reports swelling in lower legs now [...] done. Assessment & Plan (03/30/2020 8:22 AM BIOLOGY RESEARCH ASSISTANT): Pt reports about 1 week of lower [...] 03/30/202007/17 Assessment & Plan (03/30/2020 11:47 AM BIOLOGY RESEARCH ASSISTANT): Pt reports that her left knee has [...] 08/04/2020 Assessment & Plan (04/30/2019 9:00 AM BIOLOGY RESEARCH ASSISTANT): Nasal saline spray (Simply saline, Little Remedies, [place], [place]) 2 second sprays or 2 squeezes into [...] helping. Assessment & Plan (04/30/2019 9:00 AM BIOLOGY RESEARCH ASSISTANT): Nasal saline spray (Simply saline, Little Remedies, [place], [place]) 2 second sprays or 2 squeezes into each nostril while looking down over the sink, do not need to sniff in 2-3 times daily If pain returns try Cetirizine if Mucinex not improving symptoms Other option would be warm compresses to left neck pulling forward for 15 minutes at a time Continue Humidifier Assessment & Plan (05/06/2019 8:55 AM BIOLOGY RESEARCH ASSISTANT): She was in the office few days [...] re-evaluation. Assessment & Plan (05/04/2019 10:22 AM BIOLOGY RESEARCH ASSISTANT): The patient presents for evaluation of intermittent [...] 08/04/2020 Assessment & Plan (03/07/2019 9:44 AM BIOLOGY RESEARCH ASSISTANT): Left proximal upper arm Diagnosis discussed. No further treatment required at this time. She knows that she should follow up if this area develops any further symptoms. Assessment & Plan (02/22/2019 1:59 PM BIOLOGY RESEARCH ASSISTANT): Left proximal upper arm Biopsy/ies done per procedure note by Dr. Palmer. Basal cell carcinoma (BCC) of left upper arm 9 08/04/2020 Assessment & Plan (03/07/2019 9:45 AM BIOLOGY RESEARCH ASSISTANT): Left distal upper arm One week status post excision Healing well, no evidence of complication or infection reported or noted on exam. Pathology results discussed, no further treatment required. Follow-up at the 6 week postoperative mabel for final evaluation or sooner if issues arise. Assessment & Plan (02/22/2019 1:58 PM BIOLOGY RESEARCH ASSISTANT): Left distal upper arm, biopsy proven Dr. Palmer excised this lesion today in clinic. Please see his separate note. Nipple lesion 02/22/2018 12/28/2018 Chronic rhinitis 11/14/2017 06/04/2024 Overview (11/14/2017): Olopatadine nasal spray too expensive, trial Astelin November 14, 2017 Chronic constipation 11/08/2017 025 Assessment & Plan (05/20/2024 9:45 PM BIOLOGY RESEARCH ASSISTANT): Chronic, uncontrolled despite MiraLax twice daily and [...] appendectomy February 1989. TAHBSO February 2004 at [facility] for grade 1A endometrial cancer, incisional hernia with mesh repair February 2006. Pursuing evaluation for possible biliary stricture as for T-spine pain behaves like gallbladder issue September 2017 HIDA scan ordered Assessment & Plan (06/01/2021 9:24 AM BIOLOGY RESEARCH ASSISTANT): Patient has history of chronic rt sided [...] knees Sleep disorder 12/16/2016 09/15/2022 Overview (09/26/2017): [place] Sleep Scale positive at 13, complaints of [...] patient's profound weight loss. Clinical correlation recommended. Chrisney A: Hypersomnia, G47.10 Chrisney B: Polysomnography, 92997 Electronically Authenticated and Edited by: Cristino Wiley MD On 01/23/2017 Other fatigue 12/16/2016 08/04/2020 Overview (12/16/2016): Lab evaluation negative December 2016, sleep study ordered. Assessment & Plan (05/22/2020 9:19 AM BIOLOGY RESEARCH ASSISTANT): Pt is currently wearing the 30 day cardiac event monitor and will see Dr. Trevino on 05/04/20 for the episodes of SOB with weakness as outlined below at our last visit on 05/04/20. Assessment & Plan (05/04/2020 12:08 PM BIOLOGY RESEARCH ASSISTANT): Pt has had an initial cardiac workup [...] Pt just had carotid dopplers done by [facility] in . and were negative. Nuclear stress [...]
--- OUTSIDE RECORDS SUMMARY | 2025-02-17 02:06 | XMS_ITS | Encounter Summary ---
Author Organization [facility] Address [address] [place], [place] [address] [address] Care Team Providers Care Concrete Wall Grinder Operator Name Role Phone Unavailable Primary Care Provider Unavailabl e Encounter Details Date Type Department Care Team (Late st Contact Info) Description 01/30/2019 Lab Requisition [facility] [address] [place] [address] Skyler Leos MD [facility] [address] [address] Social History Tobacco Use Types Packs/Day Years Used Date Smoking Tobacco: Former Alcohol Use Standard Drinks/Week Comments No 0 (1 standard drink = 0.6 oz pur e alcohol) Comments Unknown Sex and Gender Information Value Date Recorded Sex Assigned at Not on file Legal Sex Female 6:03 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 Gender Identity Not on file Sexual Orientation Not on file documented as of this encounter Plan of Treatment Not on file documented as of this encounter Procedures Procedure Name Priority Date/Time Associated Diagnosis Comments DERMATOPATHOLOGY Routine 01/23/2019 12:0 0 AM CDT documented in this encounter Results * DERMATOPATHOLOGY (01/23/2019 12:00 AM CDT) Case Report Dermatopathology Report Case: [id number] Authorizing Provider: Skyler Leos MD Collected: 01/23/2019 12:00 AM Ordering Location: [facility] Received: 01/30/2019 10:16 AM Pathologist: Nicolette Aguilar MD Specimen: Skin, left upper outer arm 10:28 AM [facility] Final Diagnosis Specimen A. SKIN, left upper outer arm: BASAL CELL CARCINOMA, NODULAR TYPE (C44.619) (see microscopic description) 10:28 AM [facility] DERMATOPATHOLOGY [facility]ORAT[facility] at 1028 CDT Clinical History R/O BCC. 10:28 AM [facility]ERMATOP[facility] Gross Description Specimen A: Received is one formalin filled container labeled with the patient's name and designated left upper outer arm. The specimen consists of a shave biopsy measuring [id number]. Jar 0. 10:28 AM [facility] DERMATOPATHOLOGY [facility]ORATORY Microscopic Description Specimen A. SKIN, left upper outer arm: Within the dermis there are aggregates of basaloid cells with a high nuclear to cytoplasmic ratio and peripheral palisading. Additional deeper sections were obtained and reviewed. 10:28 AM [facility] DERMATOPATHOLOGY [facility]ORAT[facility] Disclaimer An external and internal positive and negative controls are appropriate for the histochemical, immunohistochemical and immunofluorescence stain(s) in this case (if any), except where stated explicitly. The performance characteristics of the stain(s) cited in this report were developed and its performance characteristic determined by the Dermatopathology Laboratory at [facility], directed by Dr. Jerson Rodrigez. These tests need not be, and therefore are not, approved by the [place] Food and Drug Administration. The tests are used for clinical purposes. Billing Codes Specimen Charges Stain Charges 74599 1 10:28 AM T DERMATOPATHOLOGY LABORATORY Embedded Images 10:28 AM T DERMATOPATHOLOGY LABORATORY Pathology/Cytolog y TISSUE SPECIMEN FROM SKIN / Unknown 01/23/2019 01/30/2019 10:16 AM CDT us Skyler Leos MD LAB - PATHOLOGY/CYTOLOGY ORDERAB LES Final Result DERMATOPATHOLOGY LABORATORY [facility] - Department of Dermatology [address] [facility] [address] Floor Lab [address] [place], [place] [address] [place] [address] documented in this encounter Visit Diagnoses Not on filedocumented in this encounter
--- OUTSIDE RECORDS SUMMARY | 2025-02-17 02:06 | XMS_ITS | Clinical Summary ---
Author Organization [facility] Address [address] [place] [address] Phone Care Team Providers Care Quiller Operator Name Role Phone Mirna Mac MD Primary Care Provider [phone] Medications No known medications Active Problems Problem [...] Ready to change Department associated with goal: [facility] Steps to achieve goal: will identify at least two ways sleep hygiene could be negatively impacted will identify at least two ways to improve sleep hygiene will identify at least two ways/skills/habits of self-care believed to have a positive outcome on sleep Insurance MEDICARE CIG[employer] MEDICARE SUP Care Teams Quiller Operator Relationship Specialty Start Date End Date Mirna Mac MD [address] [place] [address] PCP - General Geriatric Medicine 12/30/20
--- OUTSIDE RECORDS SUMMARY | 2025-02-17 02:06 | XMS_ITS | Encounter Summary ---
Author Organization [facility] Address [address] [facility] [address] [place] [address] Care Team Providers Care Nursing Associate Name Role Phone Mirna Mac MD Primary Care Provider +- [phone] Mirna Mac MD Primary Care Provider + [phone] Mirna Mac MD Primary Care Provider [phone] Tirso Monique DO Unavailable Yu Barrera MD Unavailable [phone] Tena Lisa MD Unavailable [phone] Simba Laird MD Unavailable [phone] Skyler Leos MD Unavailable [phone] Ish Zambrano MD Unavailable [phone] Randell Phillips MD Unavailable +[phone] Luz Murry MD Unavailable [phone] Carmela Varner MA Unavailable [phone] Alex Figueroa MD Unavailable [phone] Cristino Wiley MD Unavailable David Cortes DC Unavailable [phone] George Samano MD Unavailable Spencer Delcid MD Unavailable Maki Byrne MA Unavailable Unavailable Encounter Details Date Type Department Care Team (Late st Contact Info) Description 06/20/2016 Orders Only [facility] [place] Provider, MD [facility] [place] [id number] Social History Tobacco Use Types Packs/Day Years Used Date Smoking Tobacco: Never Assessed Comments Unknown Sex and Gender Information Value Date Recorded Sex Assigned at Not on file Legal Sex Female 7:45 PM FINANCIAL PLANNER Gender Identity Not on file Sexual Orientation [...] COVID: Suspected 06/25/2022 06/25/2022 06/25/2022 5:00 PM FINANCIAL PLANNER COVID19 06/25/2022 06/25/2022 07/05/2022 3:05 AM CDT COVID: Recovered Comment:Added based on recent COVID infection. 07/05/2022 07/15/2022 10/03/2022 3:05 AM C DT COVID: Suspected 12/06/2024 12/06/2024 12/06/2024 4:28 PM CDT documented as of this encounter Care Teams Nursing Associate Relationship Specialty Start Date End Date Mirna Mac MD PCP - General 07/15/16 Mirna Mac MD PCP - General 07/12/16 07/14/16 Mirna Mac MD PCP - General 05/15/13 07/11/16 Kayden Tirsodayana Driver DO Otolaryngology 12/16/16 09/14/22 Yu Barrera MD Gynecologic Oncology 12/16/16 08/03/20 Tena Lisa MD Gastroenterology 12/16/16 09/14/22 [facility] Er[facility] hernandez MD Plastic Surgery 12/16/16 Skyler Leos MD [address] [facility] [address] [place] [address] Dermatology 12/16/16 Ish Zambrano MD [address] [place] [address] Ophthalmology 12/16/16 Randell Phillips MD [address] [place] [address] Referring Physician Orthopedic Surgery 10/24/17 Luz Murry MD [address] [facility] [address] [place] [address] Consulting Physician General Surgery 07/10/18 Carmela Varner MA [address] [facility] [address] [place] [address] ACO Care Security Sales Manager 09/24/18 09/24/18 Alex Figueroa MD [address] [facility] [address] [place] [address] Scrap Baler Obstetrics and Gynecology 08/04/20 Cristino Wiley MD [address] [facility] [address] [place] [address] Consulting Physician Sleep Medicine 03/02/21 David Cortes DC [address] [facility] [place] [address] Chiropractic Medicine 05/17/21 George Samano MD [address] [facility] [place] [address] Consulting Physician General Surgery 02/07/22 02/07/22 Spencer Delcid MD [address] [facility] [address] [place] [address] Consulting Physician Gastroenterology 09/15/22 10/10/23 Maki Byrne MA [address] [facility] [address] [place] [address] ACO Care Security Sales Manager 10/20/23 10/23/23 documented as of this encounter
--- OUTSIDE RECORDS SUMMARY | 2025-02-17 02:06 | XMS_ITS | Encounter Summary ---
Author Organization [facility] Address [address] [place] [address] Care Team Providers Care Latent Fingerprint Examiner Name Role Phone Mirna Mac MD Primary Care Provider +[phone]- [phone] Simba Laird MD Unavailable +[phone] Skyler Leos MD Unavailable [phone] Ish Zambrano MD Unavailable [phone] Randell Phillips MD Unavailable +[phone] Luz Murry MD Unavailable [phone] Alex Figueroa MD Unavailable [phone] Cristino Wiley MD Unavailable David Cortes DC Unavailable +[phone] Encounter Details Date Type Department Care Team (Late st Contact Info) Description 11/01/2024 Orders Only [facility] Health Information Management [address] [place] [address] Scanning, Provider Social History Tobacco Use [...] and Family Not on file 01/18/2019 Attends Adventism Services Not on file 01/18 Active Member [...] on file Legal Sex Female 7:45 PM GUM REMOVER Gender Identity Not on file Sexual Orientation [...] documented as of this encounter Care Teams Latent Fingerprint Examiner Relationship Specialty Start Date End Date Mirna Mac MD PCP - General 07/15/16 Simba Laird MD Plastic Surgery 12/16/16 Skyler Leos MD [address] [place] [address] Dermatology 12/16/16 Ish Zambrano MD [address] [place] [address] Ophthalmology 12/16/16 Randell Phillips MD [address] [place] [address] Referring Physician Orthopedic Surgery 10/24/17 Luz Murry MD [address] [place] [address] Consulting Physician General Surgery 07/10/18 Alex Figueroa MD [address] [place] [address] [address] [place] [address] Calculation Reviewer Obstetrics and Gynecology 08/04/20 Cristino Wiley MD [address] [place] [address] [address] [place] [address] Consulting Physician Sleep Medicine 03/02/21 David Cortes DC [address] [place] [address] [place] [address] Chiropractic Medicine 05/17/21 documented as of this encounter
--- OUTSIDE RECORDS SUMMARY | 2025-02-17 02:06 | XMS_ITS | Encounter Summary ---
Author Organization [facility] Address [address] [place] [address] Care Team Providers Care Four Roll Calender Operator Name Role Phone Mirna Mac MD Primary Care Provider [phone]- [phone] Simba Laird MD Unavailable +[phone] Skyler Leos MD Unavailable [phone] Ish Zambrano MD Unavailable [phone] Randell Phillips MD Unavailable +[phone] Luz Murry MD Unavailable [phone] Alex Figueroa MD Unavailable [phone] Cristino Wiley MD Unavailable David Cortes DC Unavailable [phone] Encounter Details Date Type Department Care Team (Late st Contact Info) Description 08/09/2024 Orders Only [facility] [address] [place] [address] Scanning, Provider Social History Tobacco [...] and Family Not on file 01/18/2019 Attends Jewish Services Not on file 01/18 Active Member [...] on file Legal Sex Female 7:45 PM WAIST PRESSER Gender Identity Not on file Sexual Orientation [...] documented as of this encounter Care Teams Four Roll Calender Operator Relationship Specialty Start Date End Date Mirna Mac MD PCP - General 07/15/16 Simba Laird MD Plastic Surgery 12/16/16 Skyler Leos MD [address] [facility] [address] [place] [address] Dermatology 12/16/16 Ish Zambrano MD [address] [place] [address] Ophthalmology 12/16/16 Randell Phillips MD [address] [place] [address] Referring Physician Orthopedic Surgery 10/24/17 Luz Murry MD [address] [facility] [address] [place] [address] Consulting Physician General Surgery 07/10/18 Alex Figueroa MD [address] [facility] [address] [place] [address] Land Clearer Obstetrics and Gynecology 08/04/20 Cristino Wiley MD [address] [facility] [address] [place] [address] Consulting Physician Sleep Medicine 03/02/21 David Cortes DC [address] [place] [address] [place] [address] Chiropractic Medicine 05/17/21 documented as of this encounter
--- OUTSIDE RECORDS SUMMARY | 2025-02-17 02:06 | XMS_ITS | Encounter Summary ---
Author Organization [facility] Address 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
--- OUTSIDE RECORDS SUMMARY | 2025-02-17 02:06 | XMS_ITS | Encounter Summary ---
Author Organization [facility] Address [address] [place] [address] Care Team Providers Care Volleyball Coach Name Role Phone Unavailable Primary Care Provider [...] on file Legal Sex Female 2:38 AM CAR KNOCKER Gender Identity Not on file Sexual Orientation Not on file documented as of this encounter Plan of Treatment Not on file documented as of this encounter Visit Diagnoses Diagnosis Other constipation- Primary documented in this encounter
--- OUTSIDE RECORDS SUMMARY | 2025-02-17 02:06 | XMS_ITS | Encounter Summary ---
Author Organization [facility] Address [address] [place] [address] Care Team Providers Care Roadside Mechanic Name Role Phone Unavailable Primary Care Provider Unavailabl e Encounter Details Date Type Department Care Team (Late st Contact Info) Description 08/30/[address] [facility] Blood Flow [address] [place] [address] Baljeet Quintero MD NO ADDRESS ON FILE Social History Tobacco Use Types Packs/Day Years Used Date Smoking Tobacco: Never Assessed Comments Unknown Sex and Gender Information Value Date Recorded Sex Assigned at Not on file Legal Sex Female 2:38 AM [employer] Gender Identity Not on file Sexual Orientation Not on file documented as of this encounter Plan of Treatment Not on file documented as of this encounter Visit Diagnoses Not on filedocumented in this encounter
--- OUTSIDE RECORDS SUMMARY | 2025-02-17 02:06 | XMS_ITS | Clinical Summary ---
Author Organization [facility] Address [address] [place] [address] Care Team Providers Care Rough Rice Grader Name Role Phone Mirna Mac MD Primary Care Provider [phone] Simba Laird MD Unavailable [phone] Skyler Leos MD Unavailable [phone] Ish Zambrano MD Unavailable [phone] Randell Phillips MD Unavailable [phone] Luz Murry MD Unavailable [phone] Alex Figueroa MD Unavailable [phone] Cristino Wiley MD Unavailable David Cortes DC Unavailable [phone] Allergies Active Allergy Reactions Criticality Noted Date [...] unit tablet Act shital blood glucose diagnostic ([employer] Verio test strips) stripIndications: Type 2 diabetes mellitus without complication, without long-term current use of insulin (HCC) TEST BLOOD SUGAR EVERY DAY 100 strip [...] 100 tablet 11 11/02/19 24 2024 Discontinued clopidogreL (PLAVIX) 75 mg tabletIndications :Temporary cerebral vascular dysfunction Take 1 tablet (75 mg total) by mouth daily 90 tablet 08/28/19 25 2024 Discontinued(R toni) Active Problems Problem Noted [...] or continued 6.Avoid alcohol sedatives and 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 David Cortes using the pro conductor pullman Last C-spine CT scan March 2015 IMPRESSION: [...] FLOW IS ANTEGRADE BILATERALLY. Interpreting Physician: BO RFY M.D. Read on: Oct 21 2013 1:52P [...] at that time including transesophageal echocardiogram at [facility] was negative. She had some recurrence [...] diet. 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 Assessment as noted above. Likely muscle strain. Continue Tylenol and heat/ice. Offered tizanidine and PT consult, pt refused at this time. Keep follow in 2 weeks as scheduled. Gastroesophageal reflux dise ase without esophagitis 06/07/2022 09/15/2022 Assessment & Plan (06/07/2022 1:[address] TECHNICIAN): Chronic problem, recently exacerbated resulting in ER [...] 11/08/2021 Assessment & Plan (05/20/2024 9:[address] TECHNICIAN): Likely related to chronic constipation, see plan [...] 09/15/2022 Assessment & Plan (05/28/2021 10:[address] TECHNICIAN): Patient reports since her last visit she [...] 09/15/2022 Assessment & Plan (2021 11:[address] TECHNICIAN): Patient has acute pain of the rt [...] out in office today and faxed to [facility]. Assessment & Plan (06/22/2020 11:[address] TECHNICIAN): Pt to have left cataract surgery by [...] 06/22/2020 Assessment & Plan (06/22/2020 11:[address] TECHNICIAN): PT reports increased pain in the right knee within the past few weeks. We will get an x-ray today. She has seen Dr. Phillips in the past, so if needed to be referred, she would prefer to go back and see him. I advised that she take tylenol for the pain. Acid indigestion 04/20/2020 08/04/2020 Assessment & Plan (05/22/2020 9:[address] TECHNICIAN): Pt is taking famotidine 40mg daily and she has done well with this--stating that she has not had any reflux symptoms. She is following the strict diet guidelines as well. She will continue on this medication. She will f/u for this with Dr. HAN at her next appt on 08/04/20. Assessment & Plan (04/20/2020 10:[address] TECHNICIAN): Pt went to ED on 04/13 for [...] 08/04/2020 Assessment & Plan (04/15/2020 10:37 [address] TECHNICIAN): Dr. HAN did come into the room [...] scheduled. Assessment & Plan (03/30/2020 10:[address] TECHNICIAN): Pt reports swelling in lower legs now [...] done. Assessment & Plan (03/30/2020 8:[address] TECHNICIAN): Pt reports about 1 week of lower [...] 03/30/202007/17 Assessment & Plan (03/30/2020 11:[address] TECHNICIAN): Pt reports that her left knee has [...] 08/04/2020 Assessment & Plan (04/30/2019 9:[address] TECHNICIAN): Nasal saline spray (Simply saline, Little Remedies, [place], [place]) 2 second sprays or 2 squeezes into [...] helping. Assessment & Plan (04/30/2019 9:[address] TECHNICIAN): Nasal saline spray (Simply saline, [employer] Remedies, [place], [place]) 2 second sprays or 2 squeezes into each nostril while looking down over the sink, do not need to sniff in 2-3 times daily If pain returns try Cetirizine if Mucinex not improving symptoms Other option would be warm compresses to left neck pulling forward for 15 minutes at a time Continue Humidifier Assessment & Plan (05/06/2019 8:[address] TECHNICIAN): She was in the office few days [...] re-evaluation. Assessment & Plan (05/04/2019 10:[address] TECHNICIAN): The patient presents for evaluation of intermittent [...] 08/04/2020 Assessment & Plan (03/07/2019 9:[address] TECHNICIAN): Left proximal upper arm Diagnosis discussed. No further treatment required at this time. She knows that she should follow up if this area develops any further symptoms. Assessment & Plan (02/22/2019 1:[address] TECHNICIAN): Left proximal upper arm Biopsy/ies done per procedure note by Dr. Palmer. Basal cell carcinoma (BCC) of left upper arm 9 08/04/2020 Assessment & Plan (03/07/2019 9:[address] TECHNICIAN): Left distal upper arm One week status post excision Healing well, no evidence of complication or infection reported or noted on exam. Pathology results discussed, no further treatment required. Follow-up at the 6 week postoperative mabel for final evaluation or sooner if issues arise. Assessment & Plan (02/22/2019 1:[address] TECHNICIAN): Left distal upper arm, biopsy proven Dr. Palmer excised this lesion today in clinic. Please see his separate note. Nipple lesion 02/22/2018 12/28/2018 Chronic rhinitis 11/14/2017 06/04/2024 Overview (11/14/2017): Olopatadine nasal spray too expensive, trial Astelin November 14, 2017 Chronic constipation 11/08/2017 025 Assessment & Plan (05/20/2024 9:[address]CHNICIAN): Chronic, uncontrolled despite MiraLax twice daily and [...] appendectomy February 1989. TAHBSO February 2004 at [facility] for grade 1A endometrial cancer, incisional hernia with mesh repair February 2006. Pursuing evaluation for possible biliary stricture as for T-spine pain behaves like gallbladder issue September 2017 HIDA scan ordered Assessment & Plan (06/01/2021 9:[address] TECHNICIAN): Patient has history of chronic rt sided [...] knees Sleep disorder 12/16/2016 09/15/2022 Overview (09/26/2017): [place] Sleep Scale positive at 13, complaints of [...] patient's profound weight loss. Clinical correlation recommended. [place] A: Hypersomnia, G47.10 [place] B: Polysomnography, [address] Electronically Authenticated and Edited by: Cristino Wiley MD On 01/23/2017 Other fatigue 12/16/2016 08/04/2020 Overview (12/16/2016): Lab evaluation negative December 2016, sleep study ordered. Assessment & Plan (05/22/2020 9:[address] TECHNICIAN): Pt is currently wearing the 30 day cardiac event monitor and will see Dr. Trevino on 05/04/20 for the episodes of SOB with weakness as outlined below at our last visit on 05/04/20. Assessment & Plan (05/04/2020 12:[address] TECHNICIAN): Pt has had an initial cardiac workup [...] Pt just had carotid dopplers done by [facility] in Feb/Mar. and were negative. Nuclear stress [...] Encounters Date Type Department Care Team Description 02/14/2025 7:40 AM CDT Lab [facility] [address] [place] [address] Hypertension complicating diabetes (HCC); ALEM (obstructive sleep apnea); Lymphedema; Type 2 diabetes mellitus with other circulatory complications 02/12/2025 9:00 AM CDT Immunization [facility] [address] [place] [address] Need for vaccination (Primary Dx) 02/07/2025 Orders Only [facility] [address] [place] [address] Mirna Mac MD 02/06/2025 Telephone [facility] [address] [facility] [address] [place] [address] Mirna Mac MD 01/24/2025 Orders Only [facility] [address] [facility] [address] [place] [address] Scanning, Provider 01/23/2025 9:00 AM CDT Office Visit [facility] [address] [place] [address] [address] [place] [address] Cristino Wiley MD ALEM (obstructive sleep apnea) (Primary Dx); Hypersomnia with sleep apnea; Circadian rhythm sleep disorder, advanced sleep phase type; Transient ischemic attack (TIA); Obesity (BMI 30.0-34.9) 01/22/2025 1:15 PM CDT Office Visit [facility] at [facility] [address] [facility] [address] [place] [address] Mary Fontana NP History of recurrent TIAs (Primary Dx); PVC (premature ventricular contraction) 01/20/2025 Telephone [facility] [address] [place] [address] [address] [place] [phone] Mimi Ramsey MA 01/20/2025 Orders Only [facility] at [address] [place] [address] Mary Fontana NP Palpitations (Primary Dx) 01/20/2025 Telephone [facility] [address] [place] [address] Mirna Mac MD 01/20/2025 Telephone [facility] at [address] [place] [address] Mary Fontana NP 01/14/2025 11:30 AM CDT Lab [facility] [address] [facility] [address] [place] [address] Increased urinary frequency; Urinary retention with incomplete bladder emptying 01/14/2025 11:00 AM CDT Ancillary Procedure [facility] [address] [facility] [address] [place] [address] Increased urinary frequency; Urinary retention with incomplete bladder emptying 01/14/2025 Results Follow-Up [facility] [address] [facility] [address] [place] [address] Mirna Mac MD Urinalysis reflex to microscopic, US Bladder Post Void 01/13/2025 3:45 PM CDT Office Visit [facility] at [address] [place] [phone] Gypsy Prado NP Left ear pain (Primary Dx) 01/13/2025 8:30 AM CDT Office Visit [facility] [employer] [facility] at [address] [place] [address] Mary Fontana NP Hypertension complicating diabetes (HCC) (Primary Dx); Multiple-type hyperlipidemia 01/13/2025 Telephone [facility] [address] [place] [address] Mirna Mac MD 01/10/2025 Telephone [facility] [address] [place] [address] Mirna Mac MD CPAP Setting 01/09/2025 3:00 PM CDT Office [facility] [address] [place] [address] Mirna Mac MD Type 2 diabetes mellitus with other circulatory complications (Primary Dx); Hypertension complicating diabetes (HCC); Multiple-type hyperlipidemia; Arthritis of knee; Increased urinary frequency; Urinary retention with incomplete bladder emptying; Multinodular thyroid; Postoperative pain of left knee; ALEM (obstructive sleep apnea); Immunization counseling; Lymphedema 01/05/2025 [facility] [address] [place] [address] Mirna Mac MD T4, free, TSH, Hepatitis B Surface Antigen Blood, Additional followed-up results: 2 01/02/2025 7:40 AM CDT Lab [facility] [address] [place] [address] Hypertension complicating diabetes (HCC); Need for hepatitis B screening test 12/20/2024 Orders Only [facility] [address] [place] [address] Scanning, Provider 12/09/2024 10:30 AM CDT Office Visit [facility] [address] [place] [address] Monica Steen NP Viral URI with cough (Primary Dx) 12/09/2024 Telephone [facility] [address] [place] [address] Mirna Mac MD 12/08/2024 Orders Only [facility] [address] [place] [address] Scanning, Provider 12/06/2024 3:45 PM CDT Office Visit [facility] [place] [address] [place] [address] Echo Lopes NP Acute cough (Primary Dx); Acute nasopharyngitis 12/06/[address] [facility] [address] [place] [address] Mirna Mac MD URI 12/03/2024 9:38 AM CDT - 12/03/2024 11:59 PM CDT Hospital Encounter [facility] [address] [place] [address] Pain in left leg Discharge Disposition: Discharge to home or self care from Last 3 Months Immunizations Immunization Administration Dates Next Due COVID-19 mRNA ([employer]) 0.3 m L (30 mcg) vaccine (12 years and up) 02/05/2024 Influenza, Quadrivalent, Hig h Dose, Preservative Free, Intrr 01/29/2023,01/24/2022,02/02/2021,01/27 Influenza, Trivalent, High D ose, Split, Preservative Free, Intramuscular 02/12/2025,01/16/2024,01/28/2019,01/22,01/22/2018,01/23/2017,01/19/2016 ,01/23/2015,02/05/2014,02/05/2013,01/15 Influenza, Trivalent, IM (MDV) 02/04/2003 Moderna SARS-CoV-2 Monovalen t Vaccination (12+ YRS) 02/17/2021,07/21/2020,06/23/2020 Pfizer SARS-CoV-2 Monovalent Vaccination (12+ Yrs) PURPLE 09/09/2021 Pfizer Sars-Cov-2 Bivalent V accination (12+ YRS) 02/01/2022 Pneumococcal Conjugate PCV 13 06/16/2014 Pneumococcal Conjugate Pcv20 06/20/2023 Pneumococcal Polysaccharide PPV23 2017, RSV Vaccine, Pref, Recombina nt, Subunit, Adjuvanted, PF, IM (Arexvy) 03/17/2023 Sars-cov-2 Covid-19 Mrna, Hans hammer, Original/omicron Ba.1 01/31/2022 Tdap 09/22/2020,02/12/2010 ZOSTER LIVE [...] COLONOSCOPY W/ BIOPSIES AND POLYPECTOMY 05/30/2018 (+) Dr. CARDONA, RORY single tubular adenoma TRABECULECTOMY 10/15/2017 - 11/14/2017 [...] and Family Not on file 01/18/2019 Attends [employer] Not on file 01/18 Active Member [...] on file Legal Sex Female 7:[address] TECHNICIAN Gender Identity Not on file Sexual [...] Maintenance Due Date Last Done Comments Hepatitis B Screening 1963 Dilated Eye Exam 10/29/2024 10/30/2023 Foot Exam 11/29/2024 11/30/2023 Covid-19 Vaccine ( season) 2024 02/05/2024, 02/09/2023, 02/01/2022, Additional history exists Lipid Panel 05/21/2025 05/21/2024, 03/17, 02/17/2022, Additional history exists Fall Risk Assessment 06/04/2025 06/04/2024, 05/20/2024, 04/11/2023, Additional history exists Well Visit 65+ 06/04/2025 06/04/2024, 03/18, 09/15/2022, Additional history exists Hemoglobin A1C 08/14/2025 02/14/2025, 02/0 07/2024, 12/14/2023, Additional history exists Depression Screening 12/09/2025 12/09/2024, 07/29/2024, 06/04/2024, Additional history exists Osteoporosis Screening-Bone Density Scan 01/09/2026 01/10/2024, 10/05/2020, 10/15/2014 Albumin Creatinine Ratio, Urine 02/14/2026 02/14/2025, 05/21/2024, 12/14/2023, Additional history exists eGFR 02/14/2026 02/14/2025, 02/0 07/2024, 12/14/2023, Additional history exists DTaP/Tdap/Td Vaccine (3 - Td or Tdap) [...] Discontinued 10/11/2024, 10/11/2023, 10/08/2022, Additional history exists Influenza Vaccine Completed 02/12/2025, , 01/29/2023, Additional history exists Medical Devices Implanted Type Area Lens Gauger Device Identifier Shelf Expiration Date Model / Serial / Lot [employer] Angio-Seal Vip 6fr Closere Device [id number] - [id number] Implanted:Qty: 1 on 11/10/2022 by Juan F Weldon MD at [facility] [employer] 05/17/2023 [id number] / / [id number] Procedures Procedure Name Priority Date/Time Associated Diagnosis Comments EGFR Routine 02/14/2025 7:36 AM CDT Type 2 diabetes mellitus with other circulatory complications Hypertension complicating diabetes (HCC) DIFFERENTIAL AUTO Routine 02/14/2025 7:3 6 AM CDT Hypertension complicating diabetes (HCC) Lymphedema CHOLESTEROL, LDL, DIRECT Routine 02/14/2025 7:36 AM CDT Type 2 diabetes mellitus with other circulatory complications Hypertension complicating diabetes (HCC) HEMOGLOBIN A1C Routine 02/14/2025 7:36 AM CDT Type 2 diabetes mellitus with other circulatory complications Hypertension complicating diabetes (HCC) COMPREHENSIVE METABOLIC PANEL Routine 02/14/2025 7:36 AM CDT Type 2 diabetes mellitus with other circulatory complications Hypertension complicating diabetes (HCC) ALBUMIN CREATININE RATIO, URINE Routine 02/14/2025 7:36 AM CDT Type 2 diabetes mellitus with other circulatory complications Hypertension complicating diabetes (HCC) CBC WITH AUTO DIFFERENTIAL Routine 02/14/2025 7:36 AM CDT Hypertension complicating diabetes (HCC) Lymphedema IRON PROFILE W/ IBC Routine 02/14/2025 7 :36 AM CDT Hypertension complicating diabetes (HCC) ALEM (obstructive sleep apnea) Lymphedema PRO B-TYPE NATRIURETIC PEPTIDE Routine 02/14/2025 7:36 AM CDT Hypertension complicating diabetes (HCC) ALEM (obstructive sleep apnea) Lymphedema SCAN - RADIOLOGY/IMAGING 01/24/2025 ECG 12-LEAD Routine [...] Encounter for screening mammogram for breast cancer LIPID PANEL Routine 05/21/2024 7:[address] TECHNICIAN Multiple-type hyperlipidemia DEXA AXIAL SKELETON BONE DENSITY 1 OR MORE SITES Schedule Routine, Read Routine (OP Routine) 01/10/2024 2:00 PM CDT Menopause COLONOSCOPY 02/14/2022 8:29 AM CDT HEPATITIS C ANTIBODY Routine 11/30/2012 12:12 PM CDT from Last 3 Months or Most Recently Relevant to Health Maintenance Results * eGFR (02/14/2025 7:36 AM CDT) eGFR 88 >=60 mL/min/1. 73 m2 Comment: Interpretive Data [...] of Race in Diagnosing Kidney Disease, JASN 202). The CKD-EPI equation should not be used for patients with unstable renal function and has not been validated in children and those over 70. Current interpretive data was last reviewed 2021. Testing performed by: [facility], [address] [place] [address]., [address] Blood 02/14/2025 7:36 AM CDT 02/14/2025 3:36 PM CDT us Mirna Mac MD LAB BLOOD ORDERABLES Final Result [facility] [place] [address] [address] Department [place] [address] * Differential, auto (02/14/2025 7:36 AM CDT) Neutrophil abs 3.72 1.50 - 6.50 K/cumm Comment:Testing performed by : [facility], [address] [place] [address]., [address] Imm gran abs 0.01 0.00 - 0.10 K/cumm CERNER Comment:Testing performed by : [address] [address] Lymphocyte abs 1.08 0.80 - 3.30 K/cumm CERCORNEL Comment:Testing performed by : [address] [address] Monocyte abs 0.47 0.20 - 0.80 K/cumm CERCORNEL Comment:Testing performed by : [address] [address] Eosinophil abs 0.26 0.00 - 0.50 K/cumm CERCORNEL Comment:Testing performed by : [address], [address] Basophil abs 0.03 0.00 - 0.10 K/cumm CERNER Comment:Testing performed by : [address], [address] Neutrophil pct 66.8 % CERNER Comment: Interpretive Data Percent cell count reference ranges are not reported, since discordance with absolute values may lead to misinterpretation of CBC data. Current Interpretive Data was last revised on 2017. Testing performed by: [facility], [address] [place] [address], [address] Imm gran pct 0.2 % CERNER Comment: Interpretive Data Percent cell count reference ranges are not reported, since discordance with absolute values may lead to misinterpretation of CBC data. Current Interpretive Data was last revised on 2017. Testing performed by: [address], [address] Lymphocyte pct 19.4 % CERNER Comment: Interpretive Data Percent cell count reference ranges are not reported, since discordance with absolute values may lead to misinterpretation of CBC data. Current Interpretive Data was last revised on 2017. Testing performed by: [address] [address] Monocyte pct 8.4 % [facility] Comment: Interpretive Data Percent cell count reference ranges are not reported, since discordance with absolute values may lead to misinterpretation of CBC data. Current Interpretive Data was last revised on 2017. Testing performed by: [address] [address] Eosinophil pct 4.7 % [facility] Comment: Interpretive Data Percent cell count reference ranges are not reported, since discordance with absolute values may lead to misinterpretation of CBC data. Current Interpretive Data was last revised on 2017. Testing performed by: [address] [address] Basophil pct 0.5 % [facility] Comment: Interpretive Data Percent cell count reference ranges are not reported, since discordance with absolute values may lead to misinterpretation of CBC data. Current Interpretive Data was last revised on 2017. Testing performed by: [address], [address] Blood 02/14/2025 7:36 AM CDT 02/14/2025 2:49 PM CDT Mirna Mac MD LAB BLOOD ORDERABLES Final Result [facility] [place] [address] [address] [facility] [employer] [place] [address] * Pro B-type natriuretic peptide (02/14/2025 7:36 AM CDT) NT-proBNP 251 <=450 pg/mL Comment: Interpretive Comments: A. Dyspnea in Acute Care Setting All Ages: < 300 pg/ml, acute heart failure unlikely. < 50 yrs: 300 - 450 pg/ml, further investigation warranted. > 450 pg/ml, acute heart failure likely. 50 - 74 yrs: 300 - 900 pg/ml, further investigation warranted. > 900 pg/ml, acute heart failure likely . > or = 75 yrs: 450 - 1800 pg/ml, further investigation warranted. > 1800 pg/ml, acute heart failure likely. B. Non-acute Setting < 75 yrs < 125 pg/ml, rules out heart failure. > or = 125 pg/ml, further investigation warranted. > or = 75 yrs < 450 pg/ml, rules out heart failure. > or = 450 pg/ml, further investigation warranted. - Knowledge of each individual patient's NT-proBNP range may be more useful than using similar cut-points for every patient. Please note that marked elevations in NT-proBNP levels may be observed in state other than Left Ventricular Congestive Failure, including: acute coronary syndromes, right heart strain/failure (including pulmonary embolism and cor pulmonale), critical illness, renal failure, as well as advanced age. - References: 1. Giovanni LILLY et.al. Eur Heart J. 2006:27:330-337. 2. José Miguel RW, Jessi KRAUSE. J. AM [employer] Cardiol: Cardiovasc Imag. 2009;2: 216- 225. Interpretive Data Last Revised Date: 2017. Testing performed by: [facility], [address] [place] [address], [place]., [address] Blood 02/14/2025 7:36 AM CDT 02/14/2025 2:49 PM CDT us Mirna Mac MD LAB BLOOD ORDERABLES Final Result [facility] [place] [address] [address] [place] [address] * (ABNORMAL) Iron profile w/ IBC (02/14/2025 7:36 AM CDT) [facility] Iron 50 35 - 145 mcg/dl Comment:Testing performed by : [address] [address] TIBC 269 250 - 400 mcg/dL [facility] Comment:Testing performed by : [address], [address] Transferrin saturation 19(L) 20 - 50 % [facility] Comment:Testing performed by : [address], [address] Blood 02/14/2025 7:36 AM CDT 02/14/2025 2:49 PM CDT Mirna Mac MD LAB BLOOD ORDERABLES Final Result Performing Organization Address City/State/[facility] Co de Phone Number [address] Department [place] [address] * (ABNORMAL) CBC with auto differential (02/14/2025 7:36 AM CDT) [facility] WBC 5.57 3.80 - 9.90 K/cumm Comment:Testing performed by : [address] [address] Hgb 11.8(L) 11.9 - 15.5 g/dL MELODIE Comment:Testing performed by : [address], [address] Hct 38.8 35.6 - 45.5 % CERCORNEL Comment:Testing performed by : [address] [address] Plt 206 150 - 400 K/cumm MELODIE Comment:Testing performed by : [address] [address] [address] MPV 10.3 9.1 - 12.3 fL MELODIE Comment:Testing performed by : [address], [address] RBC 4.20 3.90 - 5.20 M/cumm MELODIE Comment:Testing performed by : [facility], [address] [place] [address]., [address] MCV 92.4 81.3 - 96.4 fL MELODIE Comment:Testing performed by : [address] [address] MCH 28.1 27.1 - 33.3 pg MELODIE Comment:Testing performed by : [address], [address] MCHC 30.4(L) 32.3 - 35.7 g/dL MELODIE Comment:Testing performed by : [address], [address] RDW CV 14.2 11.1 - 14.9 % MELODIE Comment:Testing performed by : [address], [address] RDW SD 48.2(H) 35.7 - 48.1 fL MELODIE Comment:Testing performed by : [address], [address] NRBC abs 0.00 0.00 - 0.01 K/cumm MELODIE Comment:Testing performed by : [address], [address] Blood 02/14/2025 7:36 AM CDT 02/14/2025 2:49 PM CDT us Mirna Mac MD LAB BLOOD ORDERABLES Final Result Performing Organization Address City/State/[facility] Co de Phone Number [address] Department [place] [address] * Albumin Creatinine Ratio, Urine (02/14/2025 7:36 AM CDT) Albumin Ur <12.0 mg/L Comment: Interpretive Data No reference range established. Current interpretive data was last revised 2018. Testing performed by: [address], [address] Creatinine Ur 26.5 mg/dL MELODIE Comment: Interpretive Data No reference range established. Current interpretive data was last revised 2018. Testing performed by: [address] [address] Albumin Creatinine Ratio, Ur See Comment 1 - 29 MELODIE Comment: Unable to calculate Testing performed by: [address] [address] Urine 02/14/2025 7:36 AM CDT 02/14/2025 2:49 PM CDT Mirna Mac MD LAB URINE ORDERABLES Final Result Performing Organization Address City/State/[facility] Co de Phone Number MELODIE [address] [employer] [place] [address] * Cholesterol, LDL, direct (02/14/2025 7:36 AM CDT) LDL Cholesterol, Direct 54 <=129 mg/dL Comment: Interpretive Data Ages < or = 19 years Acceptable: <110 mg/dL Borderline high: 110-129 mg/dL High: >or= 130 mg/dL Ages > or = 20 years Optimal: <100 mg/dL Near optimal: 100-129 mg/dL Borderline high: 130-159 mg/dL High: >160 mg/dL Literature References: 1. Expert Panel on Integrated Guidelines for Cardiovascular Health and Risk Reduction in Children and Adolescents. Pediatrics 2011;128:S213 2. NCEP Expert Panel. Circulation 2004;110:227 Current Interpretive Data was last revised on 2017. Testing performed by: [address] [address] Blood 02/14/2025 7:36 AM CDT 02/14/2025 2:49 PM CDT us Mirna Mac MD LAB BLOOD ORDERABLES Final Result Performing Organization Address [facility] Co de Phone Number MELODIE Casiano[address] [employer] [place] [address] * (ABNORMAL) Hemoglobin A1c (02/14/2025 7:36 AM CDT) Hgb A1C 5.9(H) 4.0 - 5.6 % Comment:Testing performed by : [address] [address] Estimated Average Glucose 123 mg/dL [facility] Comment: The ADA recommends reporting an estimated Average Glucose (eAG) with all Hemoglobin A1c results using the equation derived from a study of 507 normal and diabetic adults. Minority populations were underrepresented and children were not included. (Diabetes Care 31:1355-1203, 2008). The eAG is not equivalent to a fasting glucose. Testing performed by: [address] [address] Blood 02/14/2025 7:36 AM CDT 02/14/2025 2:49 PM CDT us Mirna Mac MD LAB BLOOD ORDERABLES Final Result [address] Department [place] [address] * Comprehensive metabolic panel (02/14/2025 7:36 AM CDT) Sodium 138 135 - 145 mmol/L Comment:Testing performed by : [address] [address] Potassium, pl 4.6 3.3 - 4.9 mmol/L CERNER Comment:Testing performed by : [address], [address] Chloride 102 97 - 110 mmol/L CERNER Comment:Testing performed by : [address], [address] CO2 25 22 - 32 mmol/L CERNER Comment:Testing performed by : [address] [address] Anion gap 11 2 - 15 mmol/L [facility] Comment:Testing performed by : [address], [address] BUN 13 6 - 25 mg/dL [facility] Comment:Testing performed by : [address], [address] Creatinine 0.70 0.60 - 1.10 mg/dL CERNER Comment:Testing performed by : [employer] [address] Glucose 99 70 - 199 mg/dL [facility] Comment: Interpretive Data Fasting glucose >/= 126 mg/dl is diagnostic for diabetes. Fasting is defined as no caloric intake for at least 8 hours. Fasting glucose between 100 mg/dl to 125 mg/dl is diagnostic of prediabetes. In a patient with classic symptoms of hyperglycemia or hyperglycemic crisis, a random glucose >/= 200 mg/dl is diagnostic for diabetes. In the absence of unequivocal hyperglycemia, results should be confirmed by repeat testing. The classification and Diagnosis of Diabetes Diabetes Care 2021; 46: S19-S40. Current interpretive data was last revised 2022. Testing performed by: [address] [address] Calcium 9.3 8.5 - 10.3 mg/dL [facility] Comment:Testing performed by : [address], [address] Bilirubin, total 0.4 0.1 - 1.2 mg/dL [facility] CH Comment:Testing performed by : [address], [address] Protein, pl 6.6 6.5 - 8.5 g/dL [facility] CH Comment:Testing performed by : [address], [address] Albumin 3.6 3.5 - 5.0 g/dL CERN[facility] CH Comment:Testing performed by : [address], [address] Alk phos 87 40 - 130 Units/L [facility] CH Comment:Testing performed by : [address], [address] ALT 20 7 - 45 Units/L C[facility]ER CH Comment:Testing performed by : [address], [address] AST 26 10 - 45 Units/L C[facility] CH Comment:Testing performed by : [address] [address] Blood 02/14/2025 7:36 AM CDT 02/14/2025 2:49 PM CDT us Mirna Mac MD LAB BLOOD ORDERABLES Final Result MELODIE COBB [address] [place] [address] * SCAN - RADIOLOGY/IMAGING (01/24/2025) Anatomical Region Laterality Modality Other us Provider Scanning Final Result * ECG 12 lead (01/22/2025 1:25 PM CDT) Mary Fontana SECOND CRUSHER ECG ORDERABLES Final R esult * US [...] Shanita Castro M.D. TW: LUIS Report ID: [id number] Reading Location: [id number] Procedure Note Shanita Castro MD - 01/14/2025 [...] Shanita Castro M.D. TW: TW Report ID: [id number] Reading Location: [place] [address] us Mirna Mac MD IMG US PROCEDURES Final Re sult * Urinalysis reflex to microscopic (01/14/2025 11:02 AM CDT) Color, ur Yellow Yellow Comment:Testing performed by : [address] [address] Clarity, ur Clear Clear CERNER Comment:Testing performed by : [address], [address] Specific gravity, ur 1.005 1.003 - 1.030 CERNER CH Comment:Testing performed by : [address], [address] pH, urine 6.0 CERNER Comment: Interpretive Data U rine pH is affected by diet, medications, systemic acid-base disturbances, and renal tubular function. pH may affect urinary stone formation. For example, urine pH below 6.0 may help reduce the tendency for calcium phosphate stones and pH greater than 6.0 may reduce the tendency for uric acid stone formation. Source: [facility] [employer] Current Interpretive Data was last revised on 2017 Testing performed by: [address] [address] Protein, ur ql Negative Negative CERNER CH Comment:Testing performed by : [address] [address] Glucose, ur ql Negative Negative [facility] CH Comment:Testing performed by : [address], [address] Ketones, ur Negative Negative CERNER CH Comment:Testing performed by : [address], [place]., [address] Bilirubin, ur Negative Negative CERNER CH Comment:Testing performed by : [address] [address] Blood, ur Negative Negative CERNER CH Comment:Testing performed by : [address] [address] Urobilinogen, ur <2.0 <2.0 mg/dL CERNER CH Comment:Testing performed by : [facility], [address] [place] [address]., [address] Nitrite, ur Negative Negative CERNER CH Comment:Testing performed by : [facility], [address] [place] [address]., [address] Leukocyte esterase, ur Negative Negative CERNER CH Comment:Testing performed by : [address] [address] UA reflex comment Reflex conditions for microscopic UA not met. CERNER CH Comment:Testing performed by : [address], [address] Urine 01/14/2025 11:0 2 AM CDT 01/14/2025 4:06 PM CDT us Mirna Mac MD LAB URINE ORDERABLES Final Result MELODIE CO[address] [employer] [place] [address] * Hepatitis B core antibody, total Blood (01/02/2025 7:44 AM CDT) Hep B core IgG/IgM Nonreactive Nonreactive Comment:Testing performed by : [facility], [address] [place]., [address] Blood 01/02/2025 7:44 AM CDT 01/03/2025 6:13 AM CDT us Mirna Mac MD LAB MICROBIOLOGY - GENERAL ORDERABLES Final Result [place] [address] [employer] [address] * Hepatitis B surface antibody (immune status) Blood (01/02/2025 7:44 AM CDT) Pathologist [facility] HBsAb (immune status) Nonreactive Comment: Interpretive Data [...] last revised on 19. Testing performed by: [address] [address] Blood 01/02/2025 7:44 AM CDT 01/02/2025 2:30 PM CDT us Mirna Mac MD LAB MICROBIOLOGY - GENERAL ORDERABLES Final Result Performing Organization Address City/[facility] Co de Phone Number [facility] [address] [facility] [place] [employer] [address] * Hepatitis B Surface Antigen Blood (01/02/2025 7:44 AM CDT) Pathologist [facility] HepBsAg Nonreactive Nonreactive Comment:Testing performed by : [address] [address] Blood 01/02/2025 7:44 AM CDT 01/02/2025 2:30 PM CDT us Mirna Mac MD LAB MICROBIOLOGY - GENERAL ORDERABLES Final Result [facility] [address] [facility] [place] [address] * TSH (01/02/2025 7:44 AM CDT) [facility] Thyroid Stimulating Hormone 2.60 0.30 - 4.20 mcIUnit/mL Comment:Testing performed by : [address] [address] Blood 01/02/2025 7:44 AM CDT 01/02/2025 2:30 PM CDT Mirna Mac MD LAB BLOOD ORDERABLES Final Result Performing Organization Address [facility] Co de Phone Number [facility] [address] [facility] [place] [address] * T4, free (01/02/2025 7:44 AM CDT) Free T4 1.44 0.90 - 1.70 ng/dL Comment:Testing performed by : [facility], [address] [place] [address], [address] Blood 01/02/2025 7:44 AM CDT 01/02/2025 2:30 PM CDT Mirna Mac MD LAB BLOOD ORDERABLES Final Result Performing Organization Address [facility] de Phone Number [facility] [address] [facility] [place] [address] * SCAN - RADIOLOGY/IMAGING (12/20/2024) Anatomical Region Laterality Modality Other Provider Scanning Final Result * SCAN - RADIOLOGY/IMAGING (12/08/2024) Anatomical Region Laterality Modality Other Provider Scanning Final Result * POC Influenza A/B, COVID-19 antigen (12/06/2024 4:26 PM CDT) Influenza A Ag, POC Negative Negative [facility] Influenza B Ag, POC Negative Negative [facility] COVID-19 Ag POC Presumptive Negative Presumptive Negative, Invalid [facility] Nasal 12/06/2024 4:26 PM CDT Echo Lopes SECOND CRUSHER POINT OF CARE TEST ORDERAB LES Final Result Performing Organization Address [facility] Co de Phone Number [facility] [address] [address], [facility] * POCT rapid strep [...] Bo Cortes M.D. KT: JUAN Report ID: [id number] Reading Location: [id number] Procedure Note Bo Cortes MD - 12/04/2024 [...] Bo Cortes M.D. KT: JUAN Report ID: [id number] Reading Location: [place] [address] us Randell Phillips MD IM US PROCEDURES Final Re sult * Screening [...] MD IMG MAMMO PROCEDURES Final Result * Lipid panel (05/21/2024 7:[address] TECHNICIAN) Cholesterol 113 30 - 199 mg/dL Comment: [...] last revised on 2017. Testing performed by: [facility], [address] [place] [address]., [address] Triglycerides 40 <=149 mg/dL MELODIE Comment: Interpretive [...] last revised on 2017. Testing performed by: [facility], [address] [place] [address]., [address] HDL 66 >=40 mg/dL MELODIE Comment: Interpretive [...] last revised on 2017. Testing performed by: [facility], [address] [place] [address]., [address] LDL, calculated 36 <=129 mg/dL MELODIE Comment: [...] revised on 2023. Testing performed by: [address], [address] Non-HDL Cholesterol 47 mg/dL MELODIE COBB Comment: [...] last revised on 2017. Testing performed by: [facility], [address] [place] [address]., [address] Chol/HDL ratio 2 MELODIE COBB Comment:Testing performed by : [address] [address] Blood 05/21/2024 7:[address] TECHNICIAN 05/21/2024 12:[address] TECHNICIAN Mirna Mac MD LAB BLOOD ORDERABLES Final Result MLEODIE COBB [address] Department [place] [address] * Dexa Axial Skeleton Bone Density 1 or 2 Site (01/10/2024 2:00 PM CDT) Anatomical Region Laterality Modality Body N/A Other 01/10/2024 7:13 PM CDT Narrative 01/10/2024 7:14 PM CDT EXAM DESCRIPTION: DEXA AXIAL SKELETON BONE DENSITY 1 OR MORE SITES REASON FOR STUDY: 78 y/o year old F with given history of: menopause Screening. Lens Gauger/Model: [employer] SL (S/N [id number]) CLINICAL INFORMATION: Current height: 70 inches Maximum [...] Anastacio Oliveira M.D. MF: VON Report ID: [id number] Reading Location: [id number] Procedure Note Anastacio Oliveira MD - 01/10/2024 EXAM DESCRIPTION: DEXA AXIAL SKELETON BONE DENSITY 1 OR MORE SITES REASON FOR STUDY: 78 y/o year old F with given history of: menopause Screening. Lens Gauger/Model: [employer] SL (S/N [id number]) CLINICAL INFORMATION: Current height: 70 inches Maximum [...] Anastacio Oliveira M.D. MF: VON Report ID: [id number] Reading Location: [place] [address] us Mirna Mac MD IMG DXA PROCEDURES Final R esult * COLONOSCOPY (02/14/2022 8:29 AM CDT) Anatomical Region Laterality Modality Other Narrative Procedure Note Spencer Delcid MD - 02/14/2022 8:29 AM CDT [facility] Patient Name: Jackelyn Blanchard Procedure Date: 02/14/2022 8:29 AM Date of : 1945 Admit Type: Outpatient Age: 76 Gender: Female Attending MD: Spencer Delcid M.D. Room: [facility] ENDOSCOPY ROOM 2 Note Status: Finalized Patient [...] scope was passed under direct vision. TheColonoscope [id number] was introduced through the anus and advanced [...] history of colonic polyps CPT copyright 2020 [employer]. All rights reserved. The codes documented in this report are preliminary and upon merchandising representative reviewmay be revised to meet current compliance requirements. Recognized by the [employer] for promoting quality in endoscopy Spencer Delcid MD ENDOSCOPY PROCEDURES Final Re sult * Hepatitis C antibody (11/30/2012 12:12 PM CDT) Pathologist [facility] Hep C Ab NON-REACT SHITAL NON-REACT SHITAL [facility]ORICAL RES[facility] SIGNAL TO CUT-OFF 0.02 <1.00 [facility] Comment: Test performed at [facility] [address] [place] [address] Director: ROXANNE ALFARO DO,MPH 11/30/2012 12:1 2 PM CDT Mirna Mac MD LAB MICROBIOLOGY - GENERAL ORDERABLES Final Result [facility]ISTORICAL RESULTS from Last 3 Months or Most Recently Relevant to Health Maintenance Insurance MEDICARE CIG MEDICARE SUPPLEMENT INSURANCE COMMERCIAL GENERIC MEDICARE [facility] MEDICARE SUPPLEMENT INSURANCE MEDICARE [facility] MEDICARE SUPPLEMENT Advance Directives For more information, please contact: [phone] Documents on File Type Date Recorded 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 Expl 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 ADVANCE DIRECTIVE 07/10/2018 3:04 PM [...] 4:03 PM 02/07/2022 8:13 PM Care Teams Rough Rice Grader Relationship Specialty Start Date End Date Mirna Mac MD PCP - General 07/15/16 Simba Laird MD Plastic Surgery 12/16/16 Skyler Leos MD [address] [facility] [address] [place] [address] Dermatology 12/16/16 Ish Zambrano MD [address] [place] [address] Ophthalmology 12/16/16 Randell Phillips MD [address] [place] [address] Referring Physician Orthopedic Surgery 10/24/17 Luz Murry MD [address] [facility] [address] [place] [address] Consulting Physician General Surgery 07/10/18 Alex Figueroa MD [address] [place] [address] [address] [place] [address] Testing And Regulating Technician Obstetrics and Gynecology 08/04/20 Cristino Wiley MD [address] [place] [address] [place] [address] Consulting Physician Sleep Medicine 03/02/21 David Cortes DC [address] [place] [address] [place] [address] Chiropractic Medicine 05/17/21
--- OUTSIDE RECORDS SUMMARY | 2025-02-17 02:06 | XMS_ITS | Encounter Summary ---
Author Organization [employer] Address [address] [place] [address] Care Team Providers Care Auto Hiker Name Role Phone Unavailable Primary Care Provider Unavailabl e Encounter Details Date Type Department Care Team (Late st Contact Info) Description 2004 Outpatient Historical [place] [address] [place] [address] Social History Tobacco Use Types Packs/Day Years Used Date Smoking Tobacco: Never Assessed Comments Unknown Sex and Gender Information Value Date Recorded Sex Assigned at Not on file Legal Sex Female 2:38 AM MANAGER RELIABILITY Gender Identity Not on file Sexual Orientation Not on file documented as of this encounter Plan of Treatment Not on file documented as of this encounter Visit Diagnoses Not on filedocumented in this encounter
--- OUTSIDE RECORDS SUMMARY | 2025-02-17 02:06 | XMS_ITS | Encounter Summary ---
Author Organization [facility]ly [facility] Address [address] [place] [address] Care Team Providers Care Core Driller Name Role Phone Mirna Mac MD Primary Care Provider + [phone] Tirso Monique DO Unavailable [phone] Tena Lisa MD Unavailable [phone] Simba Laird MD Unavailable [phone] Skyler Leos MD Unavailable [phone] Ish Zambrano MD Unavailable [phone] Randell Phillips MD Unavailable [phone] Luz Murry MD Unavailable [phone] Alex Figueroa MD Unavailable [phone] Cristino Wiley MD Unavailable David Cortes DC Unavailable [phone] George Samano MD Unavailable Spencer Delcid MD Unavailable [phone] Maki Byrne MA Unavailable Unavailable Reason for Visit * Reason Onset Date Comments Scheduling Appointments 09/03/2020 wants to cancel - gave her schedulings number Encounter Details Date Type Department Care Team (Late st Contact Info) Description 09/03/2020 Telephone [facility] [address] [place] [address] Rosa Maria Saini RT Scheduling Appointments (wants [...] and Family Not on file 01/18/2019 Attends Syn[employer] Services Not on file 01/18 Active Member [...] on file Legal Sex Female 7:45 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 07/05/2022 07/15/2022 10/03/2022 3:05 AM C DT COVID: Suspected 12/06/2024 12/06/2024 12/06/2024 4:28 PM CDT documented as of this encounter Care Teams Core Driller Relationship Specialty Start Date End Date Mirna Mac MD PCP - General 07/15/16 Tirso Monique DO Otolaryngology 12/16/16 09/14/22 Tena Lisa MD Gastroenterology 12/16/16 09/14/22 Simba Laird MD Plastic Surgery 12/16/16 Skyler Leos MD [address] [facility] [address] [place] [address] Dermatology 12/16/16 Ish Zambrano MD [address] [place] [address] Ophthalmology 12/16/16 Randell Phillpis MD [address] [place] [address] Referring Physician Orthopedic Surgery 10/24/17 Luz Murry MD [address] [facility] [address] [place] [address] Consulting Physician General Surgery 07/10/18 Alex Figueroa MD [address] [place] [address] [place] [address] Front Office Director Obstetrics and Gynecology 08/04/20 Cristino Wiley MD [address] [place] [address] [place] [address] Consulting Physician Sleep Medicine 03/02/21 David Cortes DC [address] [facility] [place] [address] Chiropractic Medicine 05/17/21 George Samano MD [address] [facility] [place] [address] Consulting Physician General Surgery 02/07/22 02/07/22 Spencer Delcid MD [address] [facility] [address] [place] [address] Consulting Physician Gastroenterology 09/15/22 10/10/23 Maki Byrne, ESTHER [address] [facility] [address] [place] [address] ACO Care Manager System 10/20/23 10/23/23 documented as of this encounter
--- OUTSIDE RECORDS SUMMARY | 2025-02-17 02:06 | XMS_ITS | Encounter Summary ---
Author Organization [employer] Address [address] [place] [address] Care Team Providers Care Optician Apprentice Dispensing Name Role Phone Unavailable Primary Care Provider Unavailabl e Encounter Details Date Type Department Care Team (Latest Contact Info) Description 08/30/2004 Outpatient Historical [facility] CARDIOPULMONARY Srini Michaels MD [address] [place] [id number] EDEMA (Primary Dx) Social History Tobacco Use Types Packs/Day Years Used Date Smoking Tobacco: Never Assessed Comments Unknown Sex and Gender Information Value Date Recorded Sex Assigned at Not on file Legal Sex Female 2:38 AM MANAGER SEARCH ENGINE Gender Identity Not on file Sexual Orientation Not on file documented as of this encounter Plan of Treatment Not on file documented as of this encounter Visit Diagnoses Diagnosis Edema- Primary documented in this encounter
--- OUTSIDE RECORDS SUMMARY | 2025-02-17 02:06 | XMS_ITS | Encounter Summary ---
Author Organization [facility] Healthcare Address [address] [place] [address] Care Team Providers Care Entertainment Centre Manager Name Role Phone Mirna Mac MD Primary Care Provider Simba Laird MD Unavailable [phone] Skyler Leos MD Unavailable [phone] Ish Zambrano MD Unavailable [phone] Randell Phillips MD Unavailable [phone] Luz Murry MD Unavailable [phone] Alex Figueroa MD Unavailable [phone] Cristino Wiley MD Unavailable David Cortes DC Unavailable [phone] Encounter Details Date Type Department Care Team (Late st Contact Info) Description 01/05/2025 Results Follow-Up [facility] [address] [place] [address] Mirna Mac MD [address] [place] [id number] T4, free, TSH, Hepatitis B Surface Antigen [...] on file Legal Sex Female 7:45 PM EARTH 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 Gender Identity Not on file Sexual Orientation Not on file Occupation Industry Job Start Date Job End Date Retired Not on file Not on file Not on file documented as of this encounter Plan of Treatment Not on file documented as of this encounter Visit Diagnoses Not on filedocumented in this encounter Care Teams Entertainment Centre Manager Relationship Specialty Start Date End Date Mirna Mac MD PCP - General 07/15/16 Simba Laird MD Plastic Surgery 12/16/16 Skyler Leos MD [address] [facility] [address] [place] [address] Dermatology 12/16/16 Ish Zambrano MD [address] [place] [address] Ophthalmology 12/16/16 Randell Phillips MD [address] [place] [address] Referring Physician Orthopedic Surgery 10/24/17 Luz Murry MD [address] [facility] [address] [place] [address] Consulting Physician General Surgery 07/10/18 Alex Figueroa MD [address] [place] [address] [place] [address] Retail Operations Specialist Obstetrics and Gynecology 08/04/20 Cristino Wiley MD [address] [place] [address] [place] [address] Consulting Physician Sleep Medicine 03/02/21 David Cortes DC [address] [place] [address] [place] [address] Chiropractic Medicine 05/17/21 documented as of this encounter
--- OUTSIDE RECORDS SUMMARY | 2025-02-17 02:06 | XMS_ITS | Encounter Summary ---
Author Organization [facility] Healthcare Address [address] [place] [address] Care Team Providers Care Neonatal Intensive Care Nurse Name Role Phone Mirna Mac MD Primary Care Provider [phone] Simba Laird MD Unavailable [phone] Skyler Leos MD Unavailable [phone] Ish Zambrano MD Unavailable [phone] Randell Phillisp MD Unavailable [phone] Luz Murry MD Unavailable [phone] Alex Figueroa MD Unavailable [phone] Cristino Wiley MD Unavailable David Cortes DC Unavailable [phone] Encounter Details Date Type Department Care Team (Late st Contact Info) Description 09/04/2024 Orders Only [facility] [place] Health Information Management [address] [place] [address] Scanning, Provider Social History Tobacco Use [...] and Family Not on file 01/18/2019 Attends Gnosticist Services Not on file 01/18 Active Member [...] on file 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 Gender Identity Not on file Sexual Orientation [...] documented as of this encounter Care Teams Neonatal Intensive Care Nurse Relationship Specialty Start Date End Date Mirna Mac MD PCP - General 07/15/16 Simba Laird MD Plastic Surgery 12/16/16 Skyler Leos MD [address] [facility] [address] [place] [address] Dermatology 12/16/16 Ish Zambrano MD [address] [place] [address] Ophthalmology 12/16/16 Randell Phillips MD [address] [place] [address] Referring Physician Orthopedic Surgery 10/24/17 Luz Murry MD [address] [facility] [address] [place] [address] Consulting Physician General Surgery 07/10/18 Alex Figueroa MD [address] [facility] [address] [place] [address] Green House Manager Obstetrics and Gynecology 08/04/20 Cristino Wiley MD [address] [facility] [address] [place] [address] Consulting Physician Sleep Medicine 03/02/21 David Cortes DC [address] [place] [address] [place] [address] Chiropractic Medicine 05/17/21 documented as of this encounter
--- OUTSIDE RECORDS SUMMARY | 2025-02-17 02:06 | XMS_ITS | Encounter Summary ---
Author Organization [facility] Address [address] [place], [place] [address] [address] Care Team Providers Care Warehouse Distribution Associate Name Role Phone Unavailable Primary Care Provider Unavailabl e Encounter Details Date Type Department Care Team (Late st Contact Info) Description 05/13/2022 Lab Requisition [facility] [address] [place] [address] Skyler Leos MD [facility] [address] Social History Tobacco Use Types Packs/Day Years Used Date Smoking Tobacco: Former Alcohol Use Standard Drinks/Week Comments No 0 (1 standard drink = 0.6 oz pur e alcohol) Comments Unknown Sex and Gender Information Value Date Recorded Sex Assigned at Not on file Legal Sex Female 6:03 PM CLIENT HR MANAGER Gender Identity Not on file Sexual Orientation Not on file documented as of this encounter Plan of Treatment Not on file documented as of this encounter Procedures Procedure Name Priority Date/Time Associated Diagnosis Comments DERMATOPATHOLOGY Routine 05/10/2022 12:0 0 AM CLIENT HR MANAGER documented in this encounter Results * DERMATOPATHOLOGY (05/10/2022 12:00 AM CLIENT HR MANAGER) Case Report Dermatopathology Report Case: [id number] Authorizing Provider: Skyler Leos MD Collected: 05/10/2022 12:00 AM Ordering Location: [facility] Received: 05/13/2022 12:16 PM Pathologist: Nicolette Aguilar MD Specimen: Skin, right distal anterior thigh 3 12:59 PM [facility] DERMATOPATHOLOGY LABORATORY Final Diagnosis Specimen A. SKIN, right distal anterior thigh: SEBORRHEIC KERATOSIS, MACULAR (L82.1) 3 12:59 PM [facility] DERMATOPATHOLOGY LABORATORY at 1259 CLIENT HR MANAGER Clinical History SK/ISK, R/O Lentigo Maligna, R/O Pigmented AK 3 12:59 PM [facility] DERMATOPATHOLOGY LABORATORY Gross Description Specimen A: Received is one formalin filled container labeled with the patient's name and designated right distal anterior thigh. The specimen consists of a shave biopsy measuring 91u61a6 mm. Jar 0. 12:59 PM [facility] DERMATOPATHOLOGY LABORATORY Microscopic Description Specimen A. SKIN, right distal anterior thigh: Sections show a relatively broad, flat proliferation of small keratinocytes. The surface is gently papillated, and there is increased basilar pigmentation. MART-1/Melan A and SOX-10 stains fail to reveal a melanocytic neoplasm. 3 12:59 PM [facility] DERMATOPATHOLOGY LABORATORY Disclaimer An external and internal positive and negative controls are appropriate for the histochemical, immunohistochemical and immunofluorescence stain(s) in this case (if any), except where stated explicitly. The performance characteristics of the stain(s) cited in this report were developed and its performance characteristic determined by the Dermatopathology Laboratory at [facility], directed by Dr. Jerson Rodrigez. These tests need not be, and therefore are not, approved by the [place] Food and Drug Administration. The tests are used for clinical purposes. Billing Codes Specimen Charges Stain Charges 72368 1 38782 09636 1 1 3 12:59 PM [facility] DERMATOPATHOLOGY LABORATORY Embedded Images 3 12:59 PM [facility] DERMATOPATHOLOGY LABORATORY Pathology/Cytolog y TISSUE SPECIMEN FROM SKIN / Unknown 05/10/2022 05/13/2022 12:16 PM CLIENT HR MANAGER Skyler Leos MD LAB - PATHOLOGY/CYTOLOGY ORDERAB LES Final Result DERMATOPATHOLOGY LABORATORY [facility] - Department of Dermatology [facility] Specialized Medicine [facility], 3rd Floor [address] [phone] documented in this encounter Visit Diagnoses Not on filedocumented in this encounter
--- OUTSIDE RECORDS SUMMARY | 2025-02-17 02:06 | XMS_ITS | Clinical Summary ---
Author Organization [facility] Address [address] [place] [address] Care Team Providers Care Store Group Manager Name Role Phone Unavailable Primary Care Provider Unavailabl e Source Comments [facility],non-owned Affiliates and Associated Physician Practices is amultiple site organization consisting of ambulatory clinics and hospital sitesin [place], [place], [place] and [place]. This disclosure is being madepursuant to the Care Everywhere program and may not contain all information available regarding this patient. Last updated 18.[facility] [employer] Allergies Active Allergy Reactions Criticality Noted Date [...] on file Legal Sex Female 6:03 PM ANGLE BENDER Gender Identity Not on file Sexual Orientation Not on file Last Filed Vital Signs Vital Sign Reading Time Taken Comments Blood Pressure 113/59 05/30/2018 9:20 AM ANGLE BENDER Pulse 59 05/30/2018 9:20 AM ANGLE BENDER Temperature 36.3 C (97.4 F) 05/30/2018 9:05 AM ANGLE BENDER Respiratory Rate 13 05/30/2018 8:57 AM ANGLE BENDER Oxygen Saturation 99% 05/30/2018 9:20 AM ANGLE BENDER Inhaled Oxygen Concentration - - Weight 88.5 kg (195 lb) 05/30/2018 7:53 AM ANGLE BENDER Height 177.8 cm (5' 10) 05/30/2018 7:53 AM ANGLE BENDER Body Mass Index 27.98 05/30/2018 7:53 AM ANGLE BENDER Plan of Treatment Health Maintenance Due Date [...] age to complete this topic Insurance MEDICARE [employer] [place] [address]
--- OUTSIDE RECORDS SUMMARY | 2025-02-17 02:06 | XMS_ITS | Encounter Summary ---
Author Organization [facility] Address [address] [place] [address] Care Team Providers Care Title 1 Tutor Name Role Phone Mirna Mac MD Primary Care Provider + [phone] Tirso Monique DO Unavailable [phone] Tena Lisa MD Unavailable [phone] Simba Laird MD Unavailable [phone] Skyler Leos MD Unavailable [phone] Ish Zambrano MD Unavailable [phone] Randell Phillips MD Unavailable [phone] Luz Murry MD Unavailable [phone] Alex Figueroa MD Unavailable [phone] Cristino Wiley MD Unavailable David Cortes DC Unavailable [phone] George Samano MD Unavailable Spencer Delcid MD Unavailable [phone] Maki Byrne MA Unavailable Unavailable Reason for Visit * Reason Onset Date Comments Scheduling Appointments 10/02/2020 Encounter Details Date Type Department Care Team (Late st Contact Info) Description 10/02/2020 Telephone [facility] [address] [place] [address] Leonardo Davila RT Scheduling Appointments Social History [...] on file Legal Sex Female 7:45 PM SECRET SERVICE AGENT Gender Identity Not on file Sexual Orientation [...] COVID: Suspected 06/25/2022 06/25/2022 06/25/2022 5:00 PM SECRET SERVICE AGENT COVID19 06/25/2022 06/25/2022 07/05/2022 3:05 AM CDT COVID: Recovered Comment:Added based on recent COVID infection. 07/05/2022 07/15/2022 10/03/2022 3:05 AM C DT COVID: Suspected 12/06/2024 12/06/2024 12/06/2024 4:28 PM CDT documented as of this encounter Care Teams Title 1 Tutor Relationship Specialty Start Date End Date Mirna Mac MD PCP - General 07/15/16 Tirso Monique DO Otolaryngology 12/16/16 09/14/22 Tena Lsia MD Gastroenterology 12/16/16 09/14/22 Simba Laird MD Plastic Surgery 12/16/16 Skyler Leos MD 12[address] [facility] [address] [place], [place] [address] Dermatology 12/16/16 Ish Zambrano MD [address] [place] [address] Ophthalmology 12/16/16 Randell Phillips MD [address] [place] [address] Referring Physician Orthopedic Surgery 10/24/17 Luz Murry MD [address] [facility] [address] [place] [address] Consulting Physician General Surgery 07/10/18 Alex Figueroa MD [address] [place] [address] [address] [place] [address] Grain Receiver Obstetrics and Gynecology 08/04/20 Cristino Wiley MD [address] [place] [address] [place] [address] Consulting Physician Sleep Medicine 03/02/21 David Cortes DC [address] [place] [address] [place] [address] Chiropractic Medicine 05/17/21 George Samano MD [address] [place] [address] [place] [address] Consulting Physician General Surgery 02/07/22 02/07/22 Spencer Delcid MD [address] [place] [address] [address] [place] [address] Consulting Physician Gastroenterology 09/15/22 10/10/23 Maki Byrne MA [address] [place] [address] [address] [place] [address] [employer] [facility] Senior Adults Director 10/20/23 10/23/23 documented as of this encounter
--- OUTSIDE RECORDS SUMMARY | 2025-02-17 02:06 | XMS_ITS | Data Portability ---
Author Organization [facility], Main Office Address [address] [facility] [address] [place] [address] Assessment No assessment recorded. Plan of Treatment [...] By Organization Details Last Modified Time 07/18/2023 23255 REVD DX [place] AND ANCILLARY CARE. Sun protection. cryo to AK and to wart. fu annually orbefore prn. Not available 07/18/2023 10:38:03 Reason for Referral None Reported. 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 2019 Skyler Leos MD [address] [facility] [address], [place], [address], [facility] 4 09:11:15 Screening for malignant neoplasm of skin Active 2020 Skyler Leos MD [address] [facility] [address], [place], [address], [facility] 1 17:54:19 Chronic effect of ultraviolet radiation on normal skin 398282269 Active 2020 Skyler Leos MD [address] [facility] [address], [place], [address], [facility] 1 17:54:21 Benign neoplasm of skin of toe 22845304 Active 2020 Skyler Leos MD [address] [facility] [address], [place], [address], [facility] 1 17:54:22 Cyst of skin 664404874 Active 2021 Skyler Leos MD [address] [facility] [address], [place], [address], [facility] 2 18:14:27 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 Skyler Leos MD [address] [facility] [address], [place], [address], [facility] 3 12:19:41 Actinic keratosis 850262542 Active 2022 Skyler Leos MD [address] [facility] [address], [place], [address], [facility] 3 10:05:30 Scar 557131769 Active 2022 Skyler Leos MD [address] [facility] [address], [place], [address], [facility] 3 20:08:35 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 Procedures Surgical History Date Name Laterality Status Provider Name and Address Organization Details Recorded Time 01/23/2019 Shave Biopsy active Skyler rivera MD [address] [facility] [address], [place], [address], [facility] 01/23/2019 09:49:56 Imaging Results None recorded. Procedure Notes None recorded. Medical Equipment None Reported. Allergies Allergen ID Allergen Name Allergen Category Reaction Reaction Severity Criticality Documentation Date Start Date Code Code System Note Provider Name and Address Organization Details Recorded Time 1951 epinephri ne medicatio n Not available Not available Not available 01/23/2019 3992 RxNorm Skyler Leos MD [address] [facility] Main [address], [place], [address], [facility] 9 09:48:26 3890 Iodinated contrast media (substanc e) medicatio n Not available Not available Not available 03/16/2021 84951 2004 SNOMED Vonzetta MCKEON [facility] 1 11:06:45 694 Substance with sulfonami de structure and antibacte rial mechanism of action (substanc e) medicatio n Not available Not available Not available 12/12/2017 66120 8003 SNOMED Vonzetta MCKEON [facility] 8 12:11:08 695 Macrobid medicatio n Not available Not available Not available 12/12/2017 51286 1 RxNorm Vonzetta MCKEON [facility] 8 12:11:17 696 Cipro medicatio n Not available Not available Not available 12/12/2017 12706 3 RxNorm Vonzetta MCKEON [facility] 8 12:11:27 697 Nexium medicatio n Not available Not available Not available 12/12/2017 63088 9 RxNorm Vonzetta MCKEON [facility] 8 12:11:44 698 duloxetin e medicatio n Not available Not available Not available 12/12/2017 17661 RxNorm Armin MCKEON [facility] 8 12:13:58 8149 felodipin e medicatio n Not available Not available Not available 07/16/2024 4316 RxNorm Armin MCKEON [facility] 5 11:18:07 Medications Name Sig [...] Diagnosis SNOMED-CT Code Diagnosis ICD10 Code Diagnosis IMO Codes Diagnosis Note 45969 Skyler Leos MD Main Office [address] [place] [address] [address] [place] [place] [address] 05/10/2022 09:52:40 05/10/2022 10:16:24 Neoplasm of uncertain behavior of skin 55558636 D48.5 06891 Skyler Leos MD Main Office [address] [place] [address] 07/18/2023 10:16:20 07/18/2023 10:39:31 Actinic keratosis 460541426 L57.0 Verruca vulgaris 8093074 3 B07.8 Health Concerns Section Related Observation LastModified by Organization Detai ls LastModified Time None Recorded Concern Status LastModified by Organization Details LastModified Time None Recorded Advance Directives Directive None Recorded Payers Insurance Date Sequence Insurance Name Policy Number Policy Cook Covered Member ID Cook Member ID Guarantor Name 07/16/2024 2 [place] [id number] Jackelyn Johnson Santo [id number] 07/16/2024 1 [place] Jackelyn Johnson [place] [id number] 02/06/2024 2 [employer] SUPPLEMENTAL - [place] [employer] INSURANCE (MEDICARE SUPPLEMENT) Jackelyn Johnson Santo [id number] Notes Date Note Type Note Provider Name and Address Organization Details Recorded Time 10/25/2022 text/html Rechk my r thigh. FIne. sx-0,spot on my head. - t jew. hairline. Feel it. 3 weeks. stable. tx-0, sx-0. Not Available Not Available Not Available 04/28/2023 text/html Hx of AKs and NMSC, new spots noted. Not Available Not Available Not Available 07/18/2023 text/html fu chemocream. face, May 15 completed, 2 x per day, 4 weeks.SHOWED HOTOS OF THE WAY IT LOOKED-UPPER LIP AND R CHEEK W ERYTHEMA IN MAY photo.FAce?re r neck esion, and noted new AK during our exam onr arm. Skyler Leos MD [address] [facility] [address], [place], [address], [facility] 07/18/2023 10:39:07 OBGyn Episode No OBEpisode recorded.
--- OUTSIDE RECORDS SUMMARY | 2025-02-17 02:06 | XMS_ITS | Clinical Summary ---
Author Organization [facility] Address [address] [facility] Attn: Epic Prelude ADT [place] [address] Care Team Providers Care Bin Operator Name Role Phone Unavailable Primary Care Provider Unavailabl e Social History Tobacco Use Types Packs/Day Years Used Date Smoking Tobacco: Never Assessed Comments Unknown Sex and Gender Information Value Date Recorded Sex Assigned at Not on file Legal Sex Female 2:38 AM PHARMACY INFORMATICS MANAGER Gender Identity Not on file Sexual [...]
[2025-02-17] MEDS: KETOROLAC 15 MG/ML VIAL (*BKC) IV PUSH (13:41)
[2025-02-17] MEDS: ACETAMINOPHEN 500 MG TABLET 1000 MG PO (13:41)
--- NOTE | 2025-02-17 14:10 | WPDANESEPPF ---
Anes - Initial Pre Proc Eval Procedure: Operation Date: 02/17/25 15:00 Proposed Procedures p Left Total Knee Manipulation Under Anesthesia - Randell Phillips MD Date/Time: 02/17/25 14:10 Surgeon: Randell Phillips MD Pre Op Diagnosis: Left Knee Contracture Patient Data Age: 79 Gender: F Height: 1.75 m Weight: 92.1 kg Allergies Allergy/AdvReac Type Severity Reaction Status Date / Time hydrochlorothiazide Allergy Unknown RASH Verified 02/06/25 13:48 Iodinated Contrast Media Allergy Unknown HIVES Verified 02/06/25 13:48 shellfish derived Allergy Unknown HIVES Verified 02/06/25 13:48 sulfanilamide Allergy Unknown RASH Verified 02/06/25 13:48 diltiazem Allergy Swelling, Verified 02/06/25 13:48 dry mouth & eyes famotidine Allergy ITCHING Verified 02/05/25 13:27 felodipine Allergy ITCHING, Verified 02/06/25 13:48 RASH ciprofloxacin AdvReac Unknown NAUSEA Verified 02/06/25 13:48 duloxetine AdvReac Unknown increased Verified 02/06/25 13:48 bp nitrofurantoin AdvReac Unknown CHILLS, Verified 02/06/25 13:48 FEVER epinephrine AdvReac INCREASED Verified 02/06/25 13:48 HEART RATE esomeprazole (From Nexium) AdvReac ITCHING Verified 02/06/25 13:48 fluoxetine AdvReac ELEVATED BP Verified 02/06/25 13:48 nifedipine AdvReac swollen Verified 02/06/25 13:48 legs/feet oxycodone AdvReac Other Verified 02/06/25 13:49 pantoprazole (From Protonix) AdvReac ITCHING Verified 02/06/25 13:48 ramipril AdvReac COUGH Verified 02/06/25 13:48 semaglutide AdvReac acid brash Verified 02/06/25 13:48 tramadol AdvReac Other Verified 02/06/25 13:49 Home Medications ?Medication ?Instructions ?Recorded ?Confirmed ?Type cholecalciferol (vitamin D3) 50 50 mcg PO DAILY 10/02/20 02/06/25 History mcg (2,000 unit) capsule clopidogrel 75 mg tablet (Plavix) 75 mg PO DAILY 10/02/20 02/06/25 History polyethylene glycol 3350 17 gram 17 g PO DAILY 10/02/20 02/06/25 History oral powder packet (Miralax) metformin 500 mg tablet 500 mg PO .EVENING 10/18/23 02/06/25 History rosuvastatin 20 mg tablet 20 mg PO .EVENING 10/18/23 02/06/25 History sennosides 8.6 mg tablet (senna) 17.2 mg PO DAILY PRN constipation 10/18/23 02/06/25 History spironolactone 25 mg tablet 12.5 mg PO 3XW 10/18/23 02/06/25 History labetalol 100 mg tablet 50 mg PO BID 10/30/24 02/06/25 History losartan 50 mg tablet 50 mg PO .EVENING 10/30/24 02/06/25 History acetaminophen 500 mg tablet 500 mg PO .Q8 PRN pain 11/01/24 02/06/25 History acetaminophen 650 mg 650 mg PO Q8H PRN pain 11/01/24 02/06/25 History tablet,extended release (Arthritis Pain Reliever) aspirin 81 mg chewable tablet 1 tablet PO DAILY 11/01/24 02/06/25 History tramadol 50 mg tablet 50 mg PO Q6-8H PRN pain 11/01/24 02/06/25 History vitamin B complex (Super Quints 1 tablet PO DAILY 11/01/24 02/06/25 History B-50 tablet) tapentadol 50 mg tablet (Nucynta) 50 mg PO TID PRN pain #30 tabs 01/24/25 02/06/25 Rx tapentadol 50 mg tablet (Nucynta) 50 mg PO TID PRN pain 7 days #30 02/17/25 Rx tabs Laboratory Tests 02/17/25 13:45 POC Capillary Glucose 93 mg/dl (65-105) Patient hx anesthesia problems: none Family hx anesthesia problems: none Results Review: All pre-operative results and documents have been reviewed as part of the pre-operative evaluation. [facility] Past Medical History Medical History Chronic constipation Multinodular thyroid Chronic GERD Seasonal allergies Diabetes Hypertension Surgical History Surgical History Status post total knee replacement, left (~11/28/24) Family History Family History Other Diabetes mellitus Family history of arthritis Social History Social History Smoking packs per day: 0.30 Smoking cigarettes per day: 6.0 Years smoked: 4 Smoking pack-years: 1.20 Smoking status: Former smoker Tobacco type: cigarettes Alcohol intake: never Do You Feel Safe in your Home?: Yes Lack of Transportation: No Lack of Food: Never True Current Housing: I Have Housing Concerned About Future Housing: No Difficulty Paying Gas/Electric Bills: No Difficulty Paying for Meds: No Currently Unemployed: No Education: Trade/Vocational Certificate Difficulty w/ Childcare or Family Care: No Living arrangements: with family Additional living arrangements comments: [place] Spiritual care concerns: No Anes - Eval Final PreProcedure Day of Procedure 02/17/25 14:10 Patient weight: obese Heart: regular rate and rhythm Lungs: decreased breath sounds Airway: Mallampati scale class II Neurological: alert and oriented Last oral intake: >/= 8 hours ASA classification: III Emergent: no Anesthetic plan: proceed Anesthesia type and monitoring: general GIVS and standard monitoring Results Review: All pre-operative results and documents have been reviewed as part of the pre-operative evaluation. Informed Consent: The patient's anesthetic plan and its attendant risks and benefits were discussed with the patient/family/POA. Questions were solicited and answers provided to the satisfaction of the patient/family/POA.
--- NOTE | 2025-02-17 14:38 | WNDPHOTO ---
PHOTO ONLY - See Nursing Notes and/ or assessments for documentation.
--- NOTE | 2025-02-17 14:46 | WPDHPUPDATE1 ---
History and Physical Update Update Date/Time: 02/17/25 14:46 History and Physical has been reviewed, including an updated exam of the patient. There are NO changes in the patient's condition. Risks, benefits, and alternatives have been discussed and questions answered. Patient agrees to proceed with procedure.
[2025-02-17] MEDS: LACTATED RINGERS 1,000 ML 30 ML IV CONT (15:11)
[2025-02-17] MEDS: fentaNYL CITRATE INJ (*CRX) 100 MCG/2 ML VIAL 25 MCG IV PUSH ×4 (15:31→15:45)
--- NOTE | 2025-02-17 16:07 | W.PM.PROC2 ---
Procedure Note - Detailed Date of Procedure 02/17/25 Pre-op Diagnosis Left knee contracture, s/p total knee arthroplasty Post-op Diagnosis Same Procedure Performed Manipulation under anesthesia, s/p total knee arthroplasty, left. Surgeon Randell Phillips MD Anesthesia General Description of Procedure General anesthetic was administered. The knee was inspected and examined. Gentle manipulation was begun in extension followed by flexion. Examination revealed no medial-lateral instability or patellar tracking issues. Extension improved from 5? to 0?. Flexion improved from 85? to 120?. Complications No immediate complications Condition Stable Disposition Same day [facility] Billing Surgery - Charge Forward: Surgery Billing
== END 2025-02-17 16:47 | disposition home or self-care (01) ==
PROVIDERS: PCP Internal Medicine Geriatric Medicine; Visit Provider Orthopaedic Surgery
PROC: (CPT 27570; principal; 2025-02-17 15:00)
DX: Z47.89 Encounter for other orthopedic aftercare (principal); M24.562 Contracture, left knee; M65.862 Other synovitis and tenosynovitis, left lower leg; K59.09 Other constipation; K21.9 Gastro-esophageal reflux disease without esophagitis; I10 Essential (primary) hypertension; E11.9 Type 2 diabetes mellitus without complications; E66.9 Obesity, unspecified; Z68.30 Body mass index [BMI] 30.0-30.9, adult; Z79.02 Long term (current) use of antithrombotics/antiplatelets; Z79.84 Long term (current) use of oral hypoglycemic drugs; Z79.82 Long term (current) use of aspirin; Z79.891 Long term (current) use of opiate analgesic; Z96.652 Presence of left artificial knee joint; Z87.891 Personal history of nicotine dependence
CPT/HCPCS: 27570; 82948; A9270; J1885; J2405; J2704; J3010; J7120

== ENCOUNTER 2025-03-03 10:00 | Outpatient (CLI) | payer MEDICARE, SELFPAY ==
[2025-03-03 10:43] LABS: CRP < 0.5 mg/dL (<1.0)
--- OUTSIDE RECORDS SUMMARY | 2025-03-03 18:26 | XMS_ITS | Encounter Summary ---
Author Organization [employer] Address [address] [place] [address] Care Team Providers Care Sectional Belt Mold Assembler Name Role Phone Unavailable Primary Care Provider Unavailabl e Encounter Details Date Type Department Care Team (Late st Contact Info) Description 2004 Outpatient [place] [address] [place] [address] Social History Tobacco Use Types Packs/Day Years Used Date Smoking Tobacco: Never Assessed Comments Unknown Sex and Gender Information Value Date Recorded Sex Assigned at Not on file Legal Sex Female 2:38 AM TRANSMISSION MECHANIC Gender Identity Not on file Sexual Orientation Not on file documented as of this encounter Plan of Treatment Not on file documented as of this encounter Visit Diagnoses Not on filedocumented in this encounter
--- OUTSIDE RECORDS SUMMARY | 2025-03-03 18:27 | XMS_ITS | Encounter Summary ---
Author Organization [facility] Address 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
--- OUTSIDE RECORDS SUMMARY | 2025-03-03 18:27 | XMS_ITS | Encounter Summary ---
Author Organization [employer] Address [address] [place] [address] Care Team Providers Care Check Services Clerk Name Role Phone Unavailable Primary Care Provider [...] on file Legal Sex Female 2:38 AM BANQUET LINE COOK Gender Identity Not on file Sexual Orientation Not on file documented as of this encounter Plan of Treatment Not on file documented as of this encounter Visit Diagnoses Diagnosis Other constipation- Primary documented in this encounter
--- OUTSIDE RECORDS SUMMARY | 2025-03-03 18:28 | XMS_ITS | Clinical Summary ---
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
--- OUTSIDE RECORDS SUMMARY | 2025-03-03 18:28 | XMS_ITS | Encounter Summary ---
Author Organization [employer] Address 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
== END 2025-03-03 10:01 | disposition home or self-care (01) ==
PROVIDERS: PCP Internal Medicine Geriatric Medicine; Visit Provider Orthopaedic Surgery
DX: Z98.890 Other specified postprocedural states (principal); Z96.652 Presence of left artificial knee joint; Z47.89 Encounter for other orthopedic aftercare
CPT/HCPCS: 36415; 85652; 86140

== ENCOUNTER 2025-04-02 08:57 | Outpatient (CLI) | payer MEDICARE, SELFPAY ==
--- NOTE | ~2025-04-02 | XR_ITS ---
EXAMINATION: XR knee RT min 4V, 04/02/2025 9:12 RESEARCH PSYCHOLOGIST HISTORY: M17.11 - Unilateral primary osteoarthritis, right knee COMPARISON: No comparisons available. Findings: No acute fracture or malalignment. Moderate tricompartmental degenerative changes with small effusion Soft tissues unremarkable. Impression: No acute fracture or malalignment. Reviewed, dictated and finalized at location P. ARCH PSYCHOLOGIST Impression: No acute fracture or malalignment.
--- OUTSIDE RECORDS SUMMARY | 2025-04-02 09:55 | XMS_ITS | Data Portability ---
Author Organization [facility], Main Office Address [address] [facility] [address] [place] [address] Assessment No assessment recorded. Plan of Treatment [...] By Organization Details Last Modified Time 07/18/2023 15113 REVD DX TX AND ANCILLARY CARE. Sun protection. cryo to [place] and to wart. fu annually orbefore prn. Not available 07/18/2023 10:38:03 Reason for Referral None Reported. Problems Name Problem SNOMED Code Status Onset Date Resolution Date Notes Provider Name and Address Organization Details Recorded Time Seborrheic keratosis 678124179 Active 2020 Skyler Leos MD [address] [facility] [address], [place], [address], [facility] 1 17:53:53 History of malignant basal cell neoplasm of skin 749170942 Active 2020 left arm 2019 Skyler Leos MD [address] [facility] [address], [place], [address], [facility] 4 09:11:15 Screening for malignant neoplasm of skin Active 2020 Skyler Leos MD [address] [facility] [address], [place], [address], [facility] 1 17:54:19 Chronic effect of ultraviolet radiation on normal skin 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 Active 2020 Skyler Leos MD [address] [facility] [address], [place], [address], [facility] 1 17:54:21 Benign neoplasm of skin of toe 60227307 Active 2020 Skyler Leos MD [address] [facility] [address], [place], [address], [facility] 1 17:54:22 Cyst of skin 883486762 Active 2021 Skyler Leos MD [address] [facility] [address], [place], [address], [facility] 2 18:14:27 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 Skyler Leos MD [address] [facility] [address], [place], [address], [facility] 3 12:19:41 Actinic keratosis 782893018 Active 2022 Skyler Leos MD [address] [facility] [address], [place], [address], [facility] 3 10:05:30 Scar 614822499 Active 2022 Skyler Leos MD [address] [facility] [address], [place], [address], [facility] 3 20:08:35 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 Procedures Surgical History Date Name Laterality Status Provider Name and Address Organization Details Recorded Time 01/23/2019 Shave Biopsy active Skyler rivera MD [address] [facility] [address], [place], [address], [facility] 01/23/2019 09:49:56 Imaging Results None recorded. Procedure Notes None recorded. Medical Equipment None Reported. Allergies Allergen ID Allergen Name Allergen Category Reaction Reaction Severity Criticality Documentation Date Start Date Code Code System Note Provider Name and Address Organization Details Recorded Time 1951 epinephri ne medicatio n Not available Not available Not available 01/23/2019 3992 RxNorm Skyler Leos MD [address] [facility] [address], [place], [address], [facility] 9 09:48:26 3890 Iodinated contrast media (substanc e) medicatio n Not available Not available Not available 03/16/2021 52787 2004 SNOMED Vonzetta MCKEON [facility] 1 11:06:45 694 Substance with sulfonami de structure and antibacte rial mechanism of action (substanc e) medicatio n Not available Not available Not available 12/12/2017 75692 8003 SNOMED Vonzetta MCKEON [facility] 8 12:11:08 695 Macrobid medicatio n Not available Not available Not available 12/12/2017 09141 1 RxNorm Vonzetta MCKEON [facility] 8 12:11:17 696 Cipro medicatio n Not available Not available Not available 12/12/2017 80173 3 RxNorm Vonzetta MCKEON [facility] 8 12:11:27 697 Nexium medicatio n Not available Not available Not available 12/12/2017 41980 9 RxNorm Vonzetta MCKEON [facility] 8 12:11:44 698 duloxetin e medicatio n Not available Not available Not available 12/12/2017 63332 RxNorm Armin MCKEON [facility] 8 12:13:58 8149 felodipin e medicatio n Not available Not available Not available 07/16/2024 4316 RxNorm Armin MCKEON [facility] 5 11:18:07 Medications Name Sig [...] ICD10 Code Diagnosis IMO Codes Diagnosis Note 68460 Skyler Leos MD Main Office [address] [place] [address] [address] [place] [address] 05/10/2022 09:52:40 05/10/2022 10:16:24 Neoplasm of uncertain behavior of skin 45609489 D48.5 53924 Skyler Leos MD Main Office [address] [place] [address] 07/18/2023 10:16:20 07/18/2023 10:39:31 Actinic keratosis 246362162 L57.0 Verruca vulgaris 0235740 3 B07.8 Health Concerns Section Related Observation LastModified by Organization Detai ls LastModified Time None Recorded Concern Status LastModified by Organization Details LastModified Time None Recorded Advance Directives Directive None Recorded Payers Insurance Date Sequence Insurance Name Policy Number Policy Cook Covered Member ID Cook Member ID Guarantor Name 07/16/2024 2 [place] [id number] Jackelyn Johnson [place] [id number] 07/16/2024 1 [place] Jackelyn Johnson S[place] [id number] 02/06/2024 2 CIGNA SUPPLEMENTAL - [employer] INSURANCE (MEDICARE SUPPLEMENT) Jackelyn Johnson Santo [id number] Notes Date Note Type Note Provider Name and Address Organization Details Recorded Time 10/25/2022 text/html Rechk my r thigh. FIne. sx-0,spot on my head. - t uatsdin. hairline. Feel it. 3 weeks. stable. tx-0, [...] arm. Skyler Leos MD [address] [facility] [address], [place], [address], [facility] 07/18/2023 10:39:07 OBGyn Episode No OBEpisode recorded.
--- OUTSIDE RECORDS SUMMARY | 2025-04-02 09:55 | XMS_ITS | Encounter Summary ---
Author Organization [facility] Address [address] [place] [address] Care Team Providers Care Wedding Photographer Name Role Phone Unavailable Primary Care Provider Unavailabl e Encounter Details Date Type Department Care Team (Late st Contact Info) Description 08/30/2004 Outpatient Historical [facility] Supp Svcs Blood Flow [address] [place] [address] Baljeet Quintero MD NO ADDRESS ON FILE Social History Tobacco Use Types Packs/Day Years Used Date Smoking Tobacco: Never Assessed Comments Unknown Sex and Gender Information Value Date Recorded Sex Assigned at Not on file Legal Sex Female 2:38 AM CRUISE GUIDE Gender Identity Not on file Sexual Orientation Not on file documented as of this encounter Plan of Treatment Not on file documented as of this encounter Visit Diagnoses Not on filedocumented in this encounter
--- OUTSIDE RECORDS SUMMARY | 2025-04-02 09:55 | XMS_ITS | Encounter Summary ---
Author Organization [employer] Address 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
--- OUTSIDE RECORDS SUMMARY | 2025-04-02 09:55 | XMS_ITS | Encounter Summary ---
Author Organization [facility] Address [address] [place], [place] [address] [address] Care Team Providers Care Cafeteria Or Lunchroom Checker Name Role Phone Unavailable Primary Care Provider Unavailabl e Encounter Details Date Type Department Care Team (Late st Contact Info) Description 01/30/2019 Lab Requisition [facility] [address] [place] [address] Skyler Leos MD [facility] [address] [address] Social History Tobacco Use Types Packs/Day Years Used Date Smoking Tobacco: Former Alcohol Use Standard Drinks/Week Comments No 0 (1 standard drink = 0.6 oz pur e alcohol) Comments Unknown Sex and Gender Information Value Date Recorded Sex Assigned at Not on file Legal Sex Female 6:03 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 Gender Identity Not on file Sexual Orientation Not on file documented as of this encounter Plan of Treatment Not on file documented as of this encounter Procedures Procedure Name Priority Date/Time Associated Diagnosis Comments DERMATOPATHOLOGY Routine 01/23/2019 12:0 0 AM CDT documented in this encounter Results * DERMATOPATHOLOGY (01/23/2019 12:00 AM CDT) Case Report Dermatopathology Report Case: [id number] Authorizing Provider: Skyler Leos MD Collected: 01/23/2019 12:00 AM Ordering Location: [facility] Received: 01/30/2019 10:16 AM Pathologist: Nicolette Aguilar MD Specimen: Skin, left upper outer arm 10:28 AM [facility] Final Diagnosis Specimen A. 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 10:28 AM [facility] Gross Description Specimen A: Received is one formalin filled container labeled with the patient's name and designated left upper outer arm. The specimen consists of a shave biopsy measuring [id number]. Jar 0. 10:28 AM [facility] Microscopic Description Specimen A. SKIN, left upper outer arm: Within the dermis there are aggregates of basaloid cells with a high nuclear to cytoplasmic ratio and peripheral palisading. Additional deeper sections were obtained and reviewed. 10:28 AM [facility] Disclaimer An external and internal positive and negative controls are appropriate for the histochemical, immunohistochemical and immunofluorescence stain(s) in this case (if any), except where stated explicitly. The performance characteristics of the stain(s) cited in this report were developed and its performance characteristic determined by the Dermatopathology Laboratory at [facility], directed by Dr. Jerson Rodrigez. These tests need not be, and therefore are not, approved by the [place] Food and Drug Administration. The tests are used for clinical purposes. Billing Codes Specimen Charges Stain Charges 37019 1 10:28 AM [facility] Embedded Images 10:28 AM [facility]ERMATOPATH[facility]ORY Pathology/Cytolog y TISSUE SPECIMEN FROM SKIN / Unknown 01/23/2019 01/30/2019 10:16 AM CDT us Skyler Leos MD LAB - PATHOLOGY/CYTOLOGY ORDERAB LES Final Result DERMATOPATHOLOGY LABORATORY [facility] - Department of Dermatology [address] [facility], [address]th [address] [place], [place] [address] [place] [address] documented in this encounter Visit Diagnoses Not on filedocumented in this encounter
--- OUTSIDE RECORDS SUMMARY | 2025-04-02 09:55 | XMS_ITS | Encounter Summary ---
Author Organization [employer] Address [address] [place] [address] Care Team Providers Care Fibreglass Lay Up Worker Name Role Phone Unavailable Primary Care Provider Unavailabl e Encounter Details Date Type Department Care Team (Latest Contact Info) Description 08/30/2004 Outpatient Historical [facility] CARDIOPULMON[facility] Srini Michaels MD [address] [place] [address] EDEMA (Primary Dx) Social History Tobacco Use Types Packs/Day Years Used Date Smoking Tobacco: Never Assessed Comments Unknown Sex and Gender Information Value Date Recorded Sex Assigned at Not on file Legal Sex Female 2:38 AM EVENT PROMOTER Gender Identity Not on file Sexual Orientation Not on file documented as of this encounter Plan of Treatment Not on file documented as of this encounter Visit Diagnoses Diagnosis Edema- Primary documented in this encounter
--- OUTSIDE RECORDS SUMMARY | 2025-04-02 09:55 | XMS_ITS | Clinical Summary ---
Author Organization [facility] Address [address] [facility] Attn: Epic Prelude ADT [place] [address] Care Team Providers Care Manufacturing Assistant Name Role Phone Unavailable Primary Care Provider Unavailabl e Social History Tobacco Use Types Packs/Day Years Used Date Smoking Tobacco: Never Assessed Comments Unknown Sex and Gender Information Value Date Recorded Sex Assigned at Not on file Legal Sex Female 2:38 AM BED WORKER Gender Identity Not on file Sexual [...]
--- OUTSIDE RECORDS SUMMARY | 2025-04-02 09:55 | XMS_ITS | Encounter Summary ---
Author Organization [employer] Address [address] [place] [address] Care Team Providers Care Fur Scraper Name Role Phone Unavailable Primary Care Provider Unavailabl e Encounter Details Date Type Department Care Team (Late st Contact Info) Description 2004 Outpatient Historical [place] [address] [place] [address] Social History Tobacco Use Types Packs/Day Years Used Date Smoking Tobacco: Never Assessed Comments Unknown Sex and Gender Information Value Date Recorded Sex Assigned at Not on file Legal Sex Female 2:38 AM FACTORY HAND Gender Identity Not on file Sexual Orientation Not on file documented as of this encounter Plan of Treatment Not on file documented as of this encounter Visit Diagnoses Not on filedocumented in this encounter
--- OUTSIDE RECORDS SUMMARY | 2025-04-02 09:55 | XMS_ITS | Clinical Summary ---
Author Organization [facility] Address [address] [place] [address] Phone Care Team Providers Care Telephoto Installer Name Role Phone Mirna Mac MD Primary Care Provider [phone] Medications No known medications Active Problems Problem [...] complete this topic Human Papillomavirus (HPV) Immunization (No Doses Required) Completed Meningococcal Immunization (ACWY) Aged Out No longer [...] track( 021 10:56 AM CDT) Yes Olga Abid LCSW Note: Goal Reviewed with: patient today Readiness to change: Ready to change Department associated with goal: [facility] Steps to achieve goal: will identify at least two ways sleep hygiene could be negatively impacted will identify at least two ways to improve sleep hygiene will identify at least two ways/skills/habits of self-care believed to have a positive outcome on sleep Insurance MEDICARE [employer] MEDICARE SUP Care Teams Telephoto Installer Relationship Specialty Start Date End Date Mirna Mac MD [address] [place] [address] PCP - General Geriatric Medicine 12/30/20
--- OUTSIDE RECORDS SUMMARY | 2025-04-02 09:56 | XMS_ITS | Clinical Summary ---
Author Organization [facility] Address [address] [facility] [place] [address] Care Team Providers Care Harness Builder Name Role Phone No, Pcp FINAL INSPECTOR AND TESTER Primary Care Provider Unavailabl e Social History Tobacco Use Types Packs/Day Years Used Date Smoking Tobacco: Never Assessed Comments Unknown Sex and Gender Information Value Date Recorded Sex Assigned at Not on file Legal Sex Female 4:12 PM EDT Gender Identity Not on file Sexual Orientation Not on file Plan of Treatment Not on file Medical Devices Not on file Insurance MEDICARE Care Teams Harness Builder Relationship Specialty Start Date End Date No, Pcp, FINAL INSPECTOR AND TESTER N/A Do not use PCP - General 01/15/20
--- OUTSIDE RECORDS SUMMARY | 2025-04-02 09:56 | XMS_ITS | Encounter Summary ---
Author Organization [facility] Address [address] [place], [place] [address] [address] Care Team Providers Care Power Shovel Engineer Name Role Phone Unavailable Primary Care Provider Unavailabl e Encounter Details Date Type Department Care Team (Late st Contact Info) Description 05/13/2022 Lab Requisition [facility] [address] [place] [address] Skyler Leos MD [facility] [address] [address] Social History Tobacco Use Types Packs/Day Years Used Date Smoking Tobacco: Former Alcohol Use Standard Drinks/Week Comments No 0 (1 standard drink = 0.6 oz pur e alcohol) Comments Unknown Sex and Gender Information Value Date Recorded Sex Assigned at Not on file Legal Sex Female 6: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 Gender Identity Not on file Sexual Orientation Not on file documented as of this encounter Plan of Treatment Not on file documented as of this encounter Procedures Procedure Name Priority Date/Time Associated Diagnosis Comments DERMATOPATHOLOGY Routine 05/10/2022 12:0 0 AM SPORTING GOODS SALES ASSOCIATE documented in this encounter Results * DERMATOPATHOLOGY (05/10/2022 12:00 AM SPORTING GOODS SALES ASSOCIATE) Case Report Dermatopathology Report Case: [id number] Authorizing Provider: Skyler Leos MD Collected: 05/10/2022 12:00 AM Ordering Location: [facility] Received: 05/13/2022 12:16 PM Pathologist: Nicolette Aguilar MD Specimen: Skin, right distal anterior thigh 3 12:[address] [facility]ER[facility] Final Diagnosis Specimen A. SKIN, right distal anterior thigh: SEBORRHEIC KERATOSIS, MACULAR (L82.1) 3 12:[address] [facility] DERMATOPATHOLOGY LABORATORY at [address] SPORTING GOODS SALES ASSOCIATE Clinical History SK/ISK, R/O Lentigo Maligna, R/O Pigmented AK 3 12:[address] [facility] DERMATOPATHOLOGY [facility]ORATORY Gross Description Specimen A: Received is one formalin filled container labeled with the patient's name and designated right distal anterior thigh. The specimen consists of a shave biopsy measuring [id number] mm. Jar 0. 12:[address] [facility] DERMATOPATHOLOGY LABORATORY Microscopic Description Specimen A. SKIN, right distal anterior thigh: Sections show a relatively broad, flat proliferation of small keratinocytes. The surface is gently papillated, and there is increased basilar pigmentation. MART-1/Melan A and SOX-10 stains fail to reveal a melanocytic neoplasm. 3 12:[address] [facility] DERMATOPATHOLOGY LABORATORY Disclaimer An external and internal positive and negative controls are appropriate for the histochemical, immunohistochemical and immunofluorescence stain(s) in this case (if any), except where stated explicitly. The performance characteristics of the stain(s) cited in this report were developed and its performance characteristic determined by the Dermatopathology Laboratory at [facility], directed by Dr. Jerson Rodrigez. These tests need not be, and therefore are not, approved by the [place] Food and Drug Administration. The tests are used for clinical purposes. Billing Codes Specimen Charges Stain Charges 74222 1 10266 29054 1 1 3 12:[address] [facility] DERMATOPATHOLOGY LABORATORY Embedded Images 3 12:[address] [facility] DERMATOPATHOLOGY LABORATORY Pathology/Cytolog y TISSUE SPECIMEN FROM SKIN / Unknown 05/10/2022 05/13/2022 12:16 PM SPORTING GOODS SALES ASSOCIATE Skyler Leos MD LAB - PATHOLOGY/CYTOLOGY ORDERAB LES Final Result DERMATOPATHOLOGY LABORATORY [facility] - Department of Dermatology [facility] Specialized Medicine [facility], [address]rd Floor [address] [phone] documented in this encounter Visit Diagnoses Not on filedocumented in this encounter
--- OUTSIDE RECORDS SUMMARY | 2025-04-02 09:56 | XMS_ITS | Encounter Summary ---
Author Organization [employer] Address [address] [place] [address] Care Team Providers Care Pump Rebuilder Name Role Phone Unavailable Primary Care Provider [...] on file Legal Sex Female 2:38 AM PATCH SETTER Gender Identity Not on file Sexual Orientation Not on file documented as of this encounter Plan of Treatment Not on file documented as of this encounter Visit Diagnoses Diagnosis Other constipation- Primary documented in this encounter
--- OUTSIDE RECORDS SUMMARY | 2025-04-02 09:56 | XMS_ITS | Clinical Summary ---
Author Organization [facility] Address [address] [place] [address] Care Team Providers Care Software Engineering Specialist Name Role Phone Unavailable Primary Care Provider Unavailabl e Source Comments [facility],non-owned Affiliates and Associated Physician Practices is amultiple site organization consisting of ambulatory clinics and hospital sitesin [place], [place], [place] and [place]. This disclosure is being madepursuant to the Care Everywhere program and may not contain all information available regarding this patient. Last updated 18.[facility] Allergies Active Allergy Reactions Criticality Noted Date [...] on file Legal Sex Female 6:03 PM RICE MILLING SUPERVISOR Gender Identity Not on file Sexual Orientation Not on file Last Filed Vital Signs Vital Sign Reading Time Taken Comments Blood Pressure 113/59 05/30/2018 9:20 AM RICE MILLING SUPERVISOR Pulse 59 05/30/2018 9:20 AM RICE MILLING SUPERVISOR Temperature 36.3 C (97.4 F) 05/30/2018 9:05 AM RICE MILLING SUPERVISOR Respiratory Rate 13 05/30/2018 8:57 AM RICE MILLING SUPERVISOR Oxygen Saturation 99% 05/30/2018 9:20 AM RICE MILLING SUPERVISOR Inhaled Oxygen Concentration - - Weight 88.5 kg (195 lb) 05/30/2018 7:53 AM RICE MILLING SUPERVISOR Height 177.8 cm (5' 10) 05/30/2018 7:53 AM RICE MILLING SUPERVISOR Body Mass Index 27.98 05/30/2018 7:53 AM RICE MILLING SUPERVISOR Plan of Treatment Health Maintenance Due Date [...] DEPRESSION SCREENING 04/17/2024 COVID-19 VACCINE ( - 2024- season) 2024 INFLUENZA VACCINE (#1) 2024 8, [...] age to complete this topic Insurance MEDICARE [employer] [place] [address]
== END 2025-04-02 08:58 | disposition home or self-care (01) ==
PROVIDERS: PCP Internal Medicine Geriatric Medicine; Visit Provider Orthopaedic Surgery
DX: M17.11 Unilateral primary osteoarthritis, right knee (principal)
CPT/HCPCS: 73564